=== PATIENT | female | born 1955 | race Caucasian/White ===

== ENCOUNTER 2016-07-07 14:19 | Inpatient (IN) | payer MEDICARE, OTHER ==
[~2016-07-07] VITALS: Ht 157.5 cm; Wt 69.4 kg
[~2016-07-07 14:19] MED LIST: GABA-532 PO; LORA1TAB PO; PHEN100C4 PO; QUET200T PO; SERT100T PO; TEMA30CA5 PO
[2016-07-07 16:59] LABS: BASOPHILS # (AUTO) 0.8 /CMM (0.0-0.2); BASOPHILS % (AUTO) 1.7 % (0.0-2.0); DIFF TOTAL % 100 %; EOSINOPHILS # (AUTO) 0.1 /CMM (0.0-0.7); EOSINOPHILS % (AUTO) 0.2 % (0.0-6.0); HEMATOCRIT 35 % (33-45); HEMOGLOBIN 11.8 g/dL (11.5-14.8); LYMPHOCYTES # (AUTO) 2.9 /CMM (0.8-4.8); LYMPHOCYTES % (AUTO) 6.4 % (20.0-44.0); MEAN CORPUSCULAR HEMOGLOBIN 32 PG (26.0-33.0); MEAN CORPUSCULAR HGB CONC 33 g/dl (31.0-36.0); MEAN CORPUSCULAR VOLUME 96 fL (82-100); MONOCYTES # (AUTO) 1.8 /CMM (0.1-1.30); MONOCYTES % (AUTO) 4.1 % (2.0-12.0); NEUTROPHILS # (AUTO) 39.3 /CMM (1.8-8.9); NEUTROPHILS % (AUTO) 87.6 % (43.0-81.0); PLATELET COUNT (AUTO) 400 /CMM (150-450)
[2016-07-07] MEDS ORDERED: IV NS 0.9% 1,000 ML BAG IV ONE ×2 (17:00→21:30)
[2016-07-07 17:12] LABS: ANION GAP 16 (5-14); CALCIUM, SERUM 8.7 mg/dL (8.5-10.1); CARBON DIOXIDE 19 mmol/L (21-32); CHLORIDE 104 mmol/L (98-107); CREATININE 0.9 mg/dL (0.6-1.3); GFR 64 mL/min (>60); GLUCOSE 166 mg/dL (74-106); POTASSIUM 3.5 mmol/L (3.5-5.1); SODIUM SERUM 136 mmol/L (136-145); UREA NITROGEN, BLOOD 10 mg/dL (7-18)
[2016-07-07 17:14] LABS: WHITE BLOOD COUNT (AUTO) 44.9 K/uL (4.3-11.0)
[2016-07-07 17:16] LABS: INR 1.01 (0.87-1.13); PROTHROMBIN TIME 10.6 SECS (9.5-12.7)
[2016-07-07 17:18] LABS: ALANINE AMINOTRANSFERASE 28 U/L (12-78); ALBUMIN 2.9 g/dL (3.4-5.0); ASPARTATE AMINOTRANSFERASE 30 U/L (15-37); BILIRUBIN,DIRECT 0.1 mg/dL (0.0-0.2); BILIRUBIN,TOTAL 0.4 mg/dL (0.2-1.0); INDIRECT BILIRUBIN 0.3 mg/dL (0.0-1.1); TOTAL PROTEIN, SERUM 7.5 g/dL (6.4-8.2)
[2016-07-07] MEDS ORDERED: IV NS 0.9% 1,000 ML ONE ×2 (17:19→22:21)
[2016-07-07] MEDS ORDERED: IV SET PRIMARY 1 EA INFUS.SET MC ONE (17:19)
[2016-07-07 17:45] LABS: BAND % (MANUAL) 2 % (0.0-5.0); EOSINOPHILS % (MANUAL) 1 % (0-4); LYMPHOCYTES % (MANUAL) 4 % (16-48); PLATELET ESTIMATE ADEQUATE
[2016-07-07 18:32] LABS: KETONES,URINE Negative (NEGATIVE); LEUKOCYTE ESTERASE ,URINE Small (NEGATIVE)
[2016-07-07 18:37] LABS: ADD UA MICROSCOPIC YES; CANNABINOID, URINE NEGATIVE (NEGATIVE); PHENCYCLIDINE SCREEN,URINE NEGATIVE (NEGATIVE)
[2016-07-07 19:08] LABS: ADD URINE CULTURE YES; WBC,URINE 21-50 /HPF (0-3)
[2016-07-07] MEDS ORDERED: IV SET PRIMARY PUMP SET 1 EA INFUS.SET MC ONE ×2 (20:31→22:21)
[2016-07-07] MEDS ORDERED: CEFTRIAXONE 1GM BAG (ER ONLY) 50 ML IV ONE (20:31)
[2016-07-07] MEDS ORDERED: ALBUTEROL FS 2.5 MG/0.5 ML VIAL.NEB ONE (20:44)
[2016-07-07] MEDS ORDERED: ALBUTEROL FS 2.5 MG/0.5 ML VIAL.NEB NEB ONE (21:00)
[2016-07-07] MEDS ORDERED: CEFTRIAXONE 1GM BAG (ER ONLY) 1 GM/50 ML PIGGYBACK IV ONE (21:00)
[2016-07-07] MEDS ORDERED: IV NS 0.9% 1,000 ML IV ONE (21:30)
[2016-07-07] MEDS ORDERED: MAG HYDROX/AL HYDROX/SIMETH 30 ML UDC PO PRN (21:30)
[2016-07-07] MEDS ORDERED: ONDANSETRON HCL/PF 4 MG/2 ML VIAL IVP PRN (21:30)
[2016-07-07] MEDS ORDERED: Z GUARD REMEDY 2 OZ OINT TP PRN (21:30)
[2016-07-07] MEDS ORDERED: GABAPENTIN 100 MG CAPSULE PO SCH (21:30)
[2016-07-07] MEDS ORDERED: ZOLPIDEM TARTRATE 5 MG TABLET PO PRN (21:30)
[2016-07-07] MEDS ORDERED: MAGNESIUM HYDROXIDE 30 ML UDC PO PRN (21:30)
[2016-07-07 21:59] LABS: LACTIC ACID 1.7 mmol/L (0.4-2.0)
[2016-07-07 22:00] VITALS: BP 107/49
[2016-07-07 22:01] LABS: ALBUMIN 2.6 g/dL (3.4-5.0); BILIRUBIN,DIRECT 0.1 mg/dL (0.0-0.2); BILIRUBIN,TOTAL 0.3 mg/dL (0.2-1.0); INDIRECT BILIRUBIN 0.2 mg/dL (0.0-1.1); TOTAL PROTEIN, SERUM 6.8 g/dL (6.4-8.2)
[2016-07-07] MEDS ORDERED: ACETAMINOPHEN 325 MG TABLET ONE (22:25)
[2016-07-07] MEDS: ACETAMINOPHEN 325 MG TABLET PO PRN (22:28)
[2016-07-07] MEDS ORDERED: LORAZEPAM 1 MG TABLET ONE (23:26)
[2016-07-07] MEDS ORDERED: TEMAZEPAM 15 MG CAPSULE ONE (23:27)
[2016-07-07] MEDS ORDERED: LORAZEPAM 1 MG TABLET PO ONE (23:30)
[2016-07-07] MEDS ORDERED: TEMAZEPAM 15 MG CAPSULE PO PRN (23:30)
[2016-07-08] VITALS (9 sets, daily range): BP systolic 104–130; BP diastolic 54–71
[2016-07-08] MEDS ORDERED: IV NS 0.9% 1,000 ML ONE (00:36)
[2016-07-08] MEDS ORDERED: ACETAMINOPHEN 325 MG TABLET ONE (06:13)
[2016-07-08] MEDS: ACETAMINOPHEN 325 MG TABLET PO PRN (06:20)
[2016-07-08 07:13] LABS: DIFF TOTAL % 100 %; EOSINOPHILS # (AUTO) 0.1 /CMM (0.0-0.7); EOSINOPHILS % (AUTO) 0.2 % (0.0-6.0); HEMATOCRIT 32 % (33-45); HEMOGLOBIN 10.8 g/dL (11.5-14.8); LYMPHOCYTES # (AUTO) 1.9 /CMM (0.8-4.8); LYMPHOCYTES % (AUTO) 5.9 % (20.0-44.0); MEAN CORPUSCULAR HEMOGLOBIN 32 PG (26.0-33.0); MEAN CORPUSCULAR HGB CONC 34 g/dl (31.0-36.0); MEAN CORPUSCULAR VOLUME 97 fL (82-100); MONOCYTES # (AUTO) 1.2 /CMM (0.1-1.30); MONOCYTES % (AUTO) 3.7 % (2.0-12.0); NEUTROPHILS # (AUTO) 29.3 /CMM (1.8-8.9); NEUTROPHILS % (AUTO) 90.2 % (43.0-81.0); PLATELET COUNT (AUTO) 364 /CMM (150-450); RED BLOOD CELL COUNT(AUTO) 3.34 MIL/uL (4.0-5.2)
[2016-07-08 07:48] LABS: CALCIUM, SERUM 7.8 mg/dL (8.5-10.1); CREATININE 0.8 mg/dL (0.6-1.3); PHOSPHORUS 3.4 mg/dL (2.5-4.9); POTASSIUM 3.1 mmol/L (3.5-5.1); WHITE BLOOD COUNT (AUTO) 32.5 K/uL (4.3-11.0)
[2016-07-08 08:40] LABS: BAND % (MANUAL) 6 % (0.0-5.0); EOSINOPHILS % (MANUAL) 1 % (0-4); LYMPHOCYTES % (MANUAL) 8 % (16-48); PLATELET ESTIMATE ADEQUATE
[2016-07-08 08:41] LABS: ANISOCYTOSIS 1+; MICROCYTOSIS 1+
[2016-07-08] MEDS: PHENYTOIN EXTENDED RELEASE 100 MG CAPSULE PO SCH (09:59)
[2016-07-08] MEDS: LORAZEPAM 1 MG TABLET PO SCH ×3 (09:59→16:48)
[2016-07-08] MEDS ORDERED: POTASSIUM CHLORIDE 20 MEQ TAB.PRT.SR PO SCH (11:00)
[2016-07-08] MEDS: VANCOMYCIN HCL 125 MG/2.5 ML ORAL.SUSP PO SCH ×3 (13:48→21:22)
[2016-07-08] MEDS: NEOMY SULF/BACITRAC ZN/POLY 15 GM TUBE TP SCH (13:48)
[2016-07-08] MEDS: HYDROCODONE/APAP 5/325MG 1 EACH TABLET PO PRN ×2 (17:23→21:24)
[2016-07-08] MEDS ORDERED: IV SET PRIMARY PUMP SET 1 EA INFUS.SET MC ONE (19:38)
[2016-07-08] MEDS: Sodium Bicarbonate 100 MEQ in IV D5 / 0.2% NACL 1,000 ML IV PRN (19:43)
[2016-07-08] MEDS: CEFTRIAXONE 1 G in IV D5W 50 ML IV SCH (21:22)
[2016-07-08] MEDS: QUETIAPINE FUMARATE 100 MG TABLET PO SCH (21:23)
[2016-07-08] MEDS ORDERED: TEMAZEPAM 15 MG CAPSULE PO PRN (22:00)
[2016-07-09] VITALS: BP 121/64
[2016-07-09 04:00] VITALS: BP 142/82
[2016-07-09] MEDS: HYDROCODONE/APAP 5/325MG 1 EACH TABLET PO PRN ×3 (05:05→15:59)
[2016-07-09 06:27] LABS: BASOPHILS % (AUTO) 0.1 % (0.0-2.0); DIFF TOTAL % 100 %; EOSINOPHILS # (AUTO) 0.1 /CMM (0.0-0.7); EOSINOPHILS % (AUTO) 0.5 % (0.0-6.0); HEMATOCRIT 31 % (33-45); HEMOGLOBIN 10.4 g/dL (11.5-14.8); LYMPHOCYTES # (AUTO) 1.6 /CMM (0.8-4.8); LYMPHOCYTES % (AUTO) 8.5 % (20.0-44.0); MEAN CORPUSCULAR HEMOGLOBIN 32 PG (26.0-33.0); MEAN CORPUSCULAR HGB CONC 34 g/dl (31.0-36.0); MEAN CORPUSCULAR VOLUME 95 fL (82-100); MONOCYTES # (AUTO) 0.6 /CMM (0.1-1.30); MONOCYTES % (AUTO) 3.2 % (2.0-12.0); NEUTROPHILS # (AUTO) 16.3 /CMM (1.8-8.9); NEUTROPHILS % (AUTO) 87.7 % (43.0-81.0); PLATELET COUNT (AUTO) 315 /CMM (150-450); RED BLOOD CELL COUNT(AUTO) 3.28 MIL/uL (4.0-5.2); WHITE BLOOD COUNT (AUTO) 18.6 K/uL (4.3-11.0)
[2016-07-09 06:45] LABS: CALCIUM, SERUM 8.1 mg/dL (8.5-10.1); CREATININE 0.7 mg/dL (0.6-1.3); PHOSPHORUS 1.9 mg/dL (2.5-4.9)
[2016-07-09 08:00] VITALS: BP 112/52
[2016-07-09] MEDS: Sodium Bicarbonate 100 MEQ in IV D5 / 0.2% NACL 1,000 ML IV PRN (08:32)
[2016-07-09] MEDS: LORAZEPAM 1 MG TABLET PO SCH ×3 (08:32→16:03)
[2016-07-09] MEDS: VANCOMYCIN HCL 125 MG/2.5 ML ORAL.SUSP PO SCH ×4 (08:32→20:14)
[2016-07-09] MEDS: SERTRALINE HCL 50 MG TABLET PO SCH (08:32)
[2016-07-09] MEDS: PHENYTOIN EXTENDED RELEASE 100 MG CAPSULE PO SCH (08:32)
[2016-07-09] MEDS: NEOMY SULF/BACITRAC ZN/POLY 15 GM TUBE TP SCH (08:33)
[2016-07-09] MEDS: MORPHINE SULFATE INJ 2 MG/ML DISP.SYRIN IV PRN ×2 (10:29→14:50)
[2016-07-09] MEDS: POTASSIUM CHLORIDE 20 MEQ TAB.PRT.SR PO SCH ×3 (10:37→12:56)
[2016-07-09] MEDS ORDERED: SECONDARY IV SET 1 EA INFUS.SET MC ONE (11:07)
[2016-07-09] MEDS: Magnesium 1GM/D5W 100ML PREMIX 100 ML IV SCH ×2 (11:17→12:19)
[2016-07-09] MEDS ORDERED: K PHOS NEUTRAL 250 MG TABLET PO ONE (12:30)
[2016-07-09 16:00] VITALS: BP 93/52
[2016-07-09 20:00] VITALS: BP 91/58
[2016-07-09] MEDS: CEFTRIAXONE 1 G in IV D5W 50 ML IV SCH (20:32)
[2016-07-09] MEDS: QUETIAPINE FUMARATE 100 MG TABLET PO SCH (21:39)
[2016-07-10] MEDS: Sodium Bicarbonate 100 MEQ in IV D5 / 0.2% NACL 1,000 ML IV PRN ×2 (01:16→21:48)
[2016-07-10] MEDS: HYDROCODONE/APAP 5/325MG 1 EACH TABLET PO PRN ×3 (01:16→13:20)
[2016-07-10 04:00] VITALS: BP 108/65
[2016-07-10 06:59] LABS: BASOPHILS # (AUTO) 0.1 /CMM (0.0-0.2); BASOPHILS % (AUTO) 0.8 % (0.0-2.0); DIFF TOTAL % 100 %; EOSINOPHILS # (AUTO) 0.3 /CMM (0.0-0.7); EOSINOPHILS % (AUTO) 3.5 % (0.0-6.0); HEMATOCRIT 29 % (33-45); HEMOGLOBIN 9.9 g/dL (11.5-14.8); LYMPHOCYTES # (AUTO) 1.9 /CMM (0.8-4.8); LYMPHOCYTES % (AUTO) 19.4 % (20.0-44.0); MEAN CORPUSCULAR HEMOGLOBIN 32 PG (26.0-33.0); MEAN CORPUSCULAR HGB CONC 34 g/dl (31.0-36.0); MEAN CORPUSCULAR VOLUME 95 fL (82-100); MONOCYTES % (AUTO) 10.2 % (2.0-12.0); NEUTROPHILS # (AUTO) 6.6 /CMM (1.8-8.9); NEUTROPHILS % (AUTO) 66.1 % (43.0-81.0); PLATELET COUNT (AUTO) 305 /CMM (150-450); RED BLOOD CELL COUNT(AUTO) 3.07 MIL/uL (4.0-5.2)
[2016-07-10 07:17] LABS: CALCIUM, SERUM 7.9 mg/dL (8.5-10.1); CREATININE 0.5 mg/dL (0.6-1.3)
[2016-07-10 08:00] VITALS: BP 97/50
[2016-07-10] MEDS: LORAZEPAM 1 MG TABLET PO SCH ×3 (08:49→17:00)
[2016-07-10] MEDS: SERTRALINE HCL 50 MG TABLET PO SCH (08:49)
[2016-07-10] MEDS: VANCOMYCIN HCL 125 MG/2.5 ML ORAL.SUSP PO SCH ×4 (08:50→21:12)
[2016-07-10] MEDS: PHENYTOIN EXTENDED RELEASE 100 MG CAPSULE PO SCH (08:50)
[2016-07-10] MEDS: NEOMY SULF/BACITRAC ZN/POLY 15 GM TUBE TP SCH (08:51)
[2016-07-10] MEDS: POTASSIUM CHLORIDE 20 MEQ TAB.PRT.SR PO SCH ×3 (10:46→13:20)
[2016-07-10] MEDS: Magnesium 1GM/D5W 100ML PREMIX 100 ML IV SCH ×2 (10:49→12:06)
[2016-07-10 16:00] VITALS: BP 117/70
[2016-07-10] MEDS: MORPHINE SULFATE INJ 2 MG/ML DISP.SYRIN IV PRN (17:04)
[2016-07-10 20:00] VITALS: BP 107/57
[2016-07-10] MEDS: CEFTRIAXONE 1 G in IV D5W 50 ML IV SCH (21:12)
[2016-07-10] MEDS: QUETIAPINE FUMARATE 100 MG TABLET PO SCH (21:12)
[2016-07-11 04:00] VITALS: BP 125/59
[2016-07-11] MEDS: ACETAMINOPHEN 325 MG TABLET PO PRN (04:08)
[2016-07-11] MEDS: Sodium Bicarbonate 100 MEQ in IV D5 / 0.2% NACL 1,000 ML IV PRN (06:47)
[2016-07-11 07:07] LABS: BASOPHILS # (AUTO) 0.1 /CMM (0.0-0.2); BASOPHILS % (AUTO) 0.5 % (0.0-2.0); DIFF TOTAL % 100 %; EOSINOPHILS # (AUTO) 0.4 /CMM (0.0-0.7); EOSINOPHILS % (AUTO) 4.1 % (0.0-6.0); HEMATOCRIT 31 % (33-45); HEMOGLOBIN 10.4 g/dL (11.5-14.8); LYMPHOCYTES # (AUTO) 2.3 /CMM (0.8-4.8); LYMPHOCYTES % (AUTO) 23.2 % (20.0-44.0); MEAN CORPUSCULAR HEMOGLOBIN 32 PG (26.0-33.0); MEAN CORPUSCULAR HGB CONC 34 g/dl (31.0-36.0); MEAN CORPUSCULAR VOLUME 94 fL (82-100); MONOCYTES # (AUTO) 1.1 /CMM (0.1-1.30); MONOCYTES % (AUTO) 11.2 % (2.0-12.0); NEUTROPHILS # (AUTO) 6.1 /CMM (1.8-8.9); PLATELET COUNT (AUTO) 334 /CMM (150-450); RED BLOOD CELL COUNT(AUTO) 3.24 MIL/uL (4.0-5.2)
[2016-07-11 07:32] LABS: CALCIUM, SERUM 7.8 mg/dL (8.5-10.1); CREATININE 0.6 mg/dL (0.6-1.3); POTASSIUM 3.1 mmol/L (3.5-5.1)
[2016-07-11 08:00] VITALS: BP 117/72
[2016-07-11] MEDS: LORAZEPAM 1 MG TABLET PO SCH ×3 (09:00→16:41)
[2016-07-11] MEDS: NEOMY SULF/BACITRAC ZN/POLY 15 GM TUBE TP SCH (09:27)
[2016-07-11] MEDS: PHENYTOIN EXTENDED RELEASE 100 MG CAPSULE PO SCH (09:27)
[2016-07-11] MEDS: SERTRALINE HCL 50 MG TABLET PO SCH (09:27)
[2016-07-11] MEDS ORDERED: LEVOFLOXACIN (500MG) 500 MG TABLET PO SCH (10:00)
[2016-07-11] MEDS: POTASSIUM CHLORIDE 20 MEQ TAB.PRT.SR PO SCH ×2 (12:06→14:38)
[2016-07-11 16:00] VITALS: BP 131/73
[2016-07-11] MEDS: HYDROCODONE/APAP 5/325MG 1 EACH TABLET PO PRN (16:50)
== END 2016-07-11 17:28 | disposition home or self-care (01) | DRG 872 ==
LOC: ER 14:24 → TELE1 21:08 → MEDSG1 07-09 10:38
PROVIDERS: ADMIT Family Medicine; ATTEND Family Medicine
DX: A41.50 Gram-negative sepsis, unspecified (principal); N39.0 Urinary tract infection, site not specified; E87.2 Acidosis; E88.09 Other disorders of plasma-protein metabolism, not elsewhere classified; F32.9 Major depressive disorder, single episode, unspecified; F41.9 Anxiety disorder, unspecified; J44.9 Chronic obstructive pulmonary disease, unspecified; F43.10 Post-traumatic stress disorder, unspecified; F17.210 Nicotine dependence, cigarettes, uncomplicated; R73.9 Hyperglycemia, unspecified; B96.20 Unspecified Escherichia coli [E. coli] as the cause of diseases classified elsewhere; E66.9 Obesity, unspecified; G40.909 Epilepsy, unspecified, not intractable, without status epilepticus; M19.90 Unspecified osteoarthritis, unspecified site; Z90.49 Acquired absence of other specified parts of digestive tract
CPT/HCPCS: 36415; 70450-TC; 71100-TC; 72100-TC; 80048-TC; 80061-TC; 80076-TC; 80185-TC; 80305; 81000-TC; 83605-TC; 83735-TC; 84100-TC; 85025-TC; 85730-TC; 87040-TC; 87081-TC; 87086-TC; 87186-TC; 87400; 97001-TC; A4606; G6040-TC; J0696; J2270; J2405; J3475; J3490; J7030; J7060; Z7610

== ENCOUNTER 2016-07-20 19:44 | Emergency (ER) | payer MEDICARE, OTHER ==
[~2016-07-20] VITALS: Ht 157.5 cm; Wt 83.9 kg
[2016-07-20 20:06] VITALS: BP 105/62
[2016-07-20] MEDS ORDERED: KETOROLAC TROMETHAMINE INJ 60 MG/2 ML VIAL IM ONE ×2 (21:30→21:32)
[2016-07-20] MEDS ORDERED: HYDROCODONE/APAP 5/325MG 1 EACH TABLET PO ONE (21:30)
[2016-07-20] MEDS ORDERED: HYDROCODONE/APAP 5/325MG 1 EACH TABLET ONE (21:31)
== END 2016-07-20 22:37 | disposition left against medical advice (07) ==
LOC: ER 19:46
DX: M54.5 Low back pain (principal); J44.9 Chronic obstructive pulmonary disease, unspecified; F41.9 Anxiety disorder, unspecified; F32.9 Major depressive disorder, single episode, unspecified; F17.210 Nicotine dependence, cigarettes, uncomplicated
CPT/HCPCS: 96372; 99283; A4606; J1885; Z7610

== ENCOUNTER 2016-07-22 19:12 | Emergency (ER) | payer MEDICARE, OTHER ==
[~2016-07-22] VITALS: Ht 157.5 cm; Wt 83.9 kg
[2016-07-22] MEDS ORDERED: LORAZEPAM INJ 2 MG/ML VIAL IVP ONE (19:30)
[2016-07-22] MEDS ORDERED: IV NS 0.9% 500 ML BAG IV ONE (19:30)
[2016-07-22] MEDS ORDERED: ONDANSETRON HCL/PF 4 MG/2 ML VIAL IVP ONE (19:30)
[2016-07-22] MEDS ORDERED: KETOROLAC TROMETHAMINE INJ 30 MG/ML VIAL IV ONE (19:30)
[2016-07-22] MEDS ORDERED: KETOROLAC TROMETHAMINE 15 MG/ML VIAL ONE (19:35)
[2016-07-22] MEDS ORDERED: ONDANSETRON HCL/PF 4 MG/2 ML VIAL ONE (19:35)
[2016-07-22] MEDS ORDERED: IV SET PRIMARY 1 EA INFUS.SET MC ONE (19:36)
[2016-07-22] MEDS ORDERED: IV NS 0.9% 500 ML IV ONE (19:36)
[2016-07-22] MEDS ORDERED: LORAZEPAM INJ 2 MG/ML VIAL ONE (19:37)
[2016-07-22 19:44] LABS: EOSINOPHILS # (AUTO) 0.3 /CMM (0.0-0.7); EOSINOPHILS % (AUTO) 2.1 % (0.0-6.0)
[2016-07-22 19:52] LABS: ANION GAP 20 (5-14); CALCIUM, SERUM 9.9 mg/dL (8.5-10.1); CARBON DIOXIDE 19 mmol/L (21-32); CHLORIDE 109 mmol/L (98-107); CREATININE 0.9 mg/dL (0.6-1.3); GFR 64 mL/min (>60); GLUCOSE 114 mg/dL (74-106); POTASSIUM 4.2 mmol/L (3.5-5.1); SODIUM SERUM 144 mmol/L (136-145); UREA NITROGEN, BLOOD 11 mg/dL (7-18)
[2016-07-22 19:57] LABS: ALANINE AMINOTRANSFERASE 19 U/L (12-78); ALBUMIN 3.6 g/dL (3.4-5.0); ASPARTATE AMINOTRANSFERASE 18 U/L (15-37); BASOPHILS # (AUTO) 0.1 /CMM (0.0-0.2); BILIRUBIN,DIRECT 0.2 mg/dL (0.0-0.2); BILIRUBIN,TOTAL 0.3 mg/dL (0.2-1.0); DIFF TOTAL % 100 %; HEMATOCRIT 42 % (33-45); INDIRECT BILIRUBIN 0.1 mg/dL (0.0-1.1); LYMPHOCYTES # (AUTO) 2.9 /CMM (0.8-4.8); LYMPHOCYTES % (AUTO) 19.3 % (20.0-44.0); MEAN CORPUSCULAR HEMOGLOBIN 32 PG (26.0-33.0); MEAN CORPUSCULAR HGB CONC 34 g/dl (31.0-36.0); MEAN CORPUSCULAR VOLUME 95 fL (82-100); MONOCYTES # (AUTO) 0.5 /CMM (0.1-1.30); MONOCYTES % (AUTO) 3.6 % (2.0-12.0); NEUTROPHILS # (AUTO) 11.1 /CMM (1.8-8.9); RED BLOOD CELL COUNT(AUTO) 4.38 MIL/uL (4.0-5.2); WHITE BLOOD COUNT (AUTO) 14.9 K/uL (4.3-11.0)
[2016-07-22] MEDS ORDERED: phenytoin SODIUM IV 250 MG/5 ML VIAL IV ONE (20:51)
[2016-07-22] MEDS ORDERED: IV SET PRIMARY PUMP SET 1 EA INFUS.SET MC ONE (20:51)
[2016-07-22] MEDS ORDERED: IV FILTER 5 MICRON 1 EA INFUS.SET MC ONE (20:51)
[2016-07-22] MEDS ORDERED: IV NS 0.9% 50 ML IV ONE (20:51)
[2016-07-22] MEDS ORDERED: phenytoin SODIUM IV 500 MG in IV NS 0.9% 50 ML IV ONE (21:00)
[2016-07-22 21:30] VITALS: BP 126/79
[2016-07-22 21:52] LABS: PLATELET COUNT (AUTO) 807 /CMM (150-450)
[2016-07-22 22:23] LABS: BAND % (MANUAL) 1 % (0.0-5.0); BASOPHILS % (MANUAL) 0 % (0.0-2.0); EOSINOPHILS % (MANUAL) 4 % (0-4); LYMPHOCYTES % (MANUAL) 18 % (16-48)
[2016-07-22 22:24] LABS: PLATELET ESTIMATE INCREASED; RBC MORPHOLOGY COMMENT NORMAL RBC MORPH
== END 2016-07-22 21:30 | disposition home or self-care (01) ==
LOC: ER 19:16
DX: R56.9 Unspecified convulsions (principal); M54.5 Low back pain; G89.29 Other chronic pain; J44.9 Chronic obstructive pulmonary disease, unspecified; F32.9 Major depressive disorder, single episode, unspecified; F41.9 Anxiety disorder, unspecified; F17.210 Nicotine dependence, cigarettes, uncomplicated
CPT/HCPCS: 36415; 80048-TC; 80076-TC; 80185-TC; 85025-TC; A4216; A4606; G6040-TC; J1165; J1885; J2060; J2405; J7040; Z7610

== ENCOUNTER 2017-03-27 14:24 | Emergency (ER) | payer MEDICARE, OTHER ==
[~2017-03-27] VITALS: Ht 157.5 cm; Wt 68.0 kg
--- NOTE | 2017-03-27 14:28 | NUR ---
aaox3, came to ER c/o CHEST WALL AND LOWER BACK/HIP PAIN S/P SLIP AND FALL ON 03/16/17. RR is even and unlabored with NAD noted. Skin is warm and dry. Placed on monitor. Dr Fischer at BS for eval.
--- NOTE | 2017-03-27 14:57 | NUR ---
CALLED DR DIEHL'S OFFICE SPOKE WITH SHWETHA SAINI IS SUB PLANT MANAGER FOR HIM AND WAS PAGED. .
[2017-03-27] MEDS ORDERED: ASPIRIN 325 MG TABLET PO ONE (15:00)
[2017-03-27] MEDS ORDERED: ASPIRIN 325 MG TABLET ONE (15:12)
[2017-03-27 15:15] LABS: BASOPHILS # (AUTO) 0.2 /CMM (0.0-0.2); BASOPHILS % (AUTO) 1.2 % (0.0-2.0); EOSINOPHILS # (AUTO) 0.6 /CMM (0.0-0.7); EOSINOPHILS % (AUTO) 4.4 % (0.0-6.0); HEMATOCRIT 40 % (33-45); HEMOGLOBIN 13.4 g/dL (11.5-14.8); LYMPHOCYTES # (AUTO) 3.7 /CMM (0.8-4.8); LYMPHOCYTES % (AUTO) 26.7 % (20.0-44.0); MEAN CORPUSCULAR HEMOGLOBIN 33 PG (26.0-33.0); MEAN CORPUSCULAR HGB CONC 34 g/dl (31.0-36.0); MEAN CORPUSCULAR VOLUME 97 fL (82-100); MONOCYTES # (AUTO) 0.7 /CMM (0.1-1.30); NEUTROPHILS # (AUTO) 8.7 /CMM (1.8-8.9); NEUTROPHILS % (AUTO) 62.7 % (43.0-81.0); PLATELET COUNT (AUTO) 418 /CMM (150-450); RDW COEFFICIENT OF VARIATION 13.1 (11.5-15.0); RED BLOOD CELL COUNT(AUTO) 4.14 MIL/uL (4.0-5.2); WHITE BLOOD COUNT (AUTO) 13.9 K/uL (4.3-11.0)
[2017-03-27 15:27] LABS: CALCIUM, SERUM 7.9 mg/dL (8.5-10.1); CARBON DIOXIDE 23 mmol/L (21-32); CHLORIDE 106 mmol/L (98-107); CREATININE 0.7 mg/dL (0.6-1.3); GLUCOSE 99 mg/dL (74-106); POTASSIUM 3.9 mmol/L (3.5-5.1); SODIUM SERUM 137 mmol/L (136-145); UREA NITROGEN, BLOOD 11 mg/dL (7-18)
[2017-03-27 15:36] LABS: TROPONIN I < 0.017 ng/mL (0.00-0.056)
[2017-03-27 15:43] LABS: D-DIMER 0.27 mg/L(FEU (0.17-0.50); INR 0.9 (0.87-1.13); PROTHROMBIN TIME 9.4 SECS (9.5-12.7)
--- NOTE | 2017-03-27 15:48 | NUR ---
CALLED DR DIEHL'S OFFICE SPOKE WITH SHWETHA SAINI IS SUBSTITUTE BUS DRIVER FOR HIM AND WAS REPAGED.
--- NOTE | 2017-03-27 16:11 | NUR ---
SHWETHA RIOS CALLED BACK ON THE PHONE WITH DR MI.
--- NOTE | 2017-03-27 16:30 | NUR ---
IV removed. Catheter intact and site benign. Pressure and 4x4 applied to site. No bleeding noted.Patient discharged to home in stable condition. Written and verbal after care instructions given. Patient verbalizes understanding of instruction.
[2017-03-27 16:35] VITALS: BP 118/73
== END 2017-03-27 16:36 | disposition home or self-care (01) ==
LOC: ER 14:27
DX: R07.89 Other chest pain (principal); M54.5 Low back pain; G89.29 Other chronic pain; B19.20 Unspecified viral hepatitis C without hepatic coma; E66.9 Obesity, unspecified; F43.10 Post-traumatic stress disorder, unspecified; G40.909 Epilepsy, unspecified, not intractable, without status epilepticus; J44.9 Chronic obstructive pulmonary disease, unspecified; F17.200 Nicotine dependence, unspecified, uncomplicated; F41.9 Anxiety disorder, unspecified
CPT/HCPCS: 36415; 71010; 80048; 84484; 85025; 85378; 85730; 93005; 99285; A4606; Z7610

== ENCOUNTER 2017-04-17 21:47 | Emergency (ER) | payer MEDICARE, OTHER ==
[~2017-04-17] VITALS: Ht 157.5 cm; Wt 72.6 kg
[2017-04-17 22:10] VITALS: BP 144/69
--- NOTE | 2017-04-18 00:35 | NUR ---
CALLED PT IN [place], NO RESPONSE
--- NOTE | 2017-04-18 01:41 | NUR ---
CALLED PT IN [place], NO RESPONSE
== END 2017-04-18 01:42 | disposition left against medical advice (07) ==
LOC: ER 21:47
DX: Z53.21 Procedure and treatment not carried out due to patient leaving prior to being seen by health care provider (principal)
CPT/HCPCS: A4606; Z7610

== ENCOUNTER 2017-08-06 11:33 | Emergency (ER) | payer MEDICARE, OTHER ==
[~2017-08-06] VITALS: Ht 157.5 cm; Wt 63.5 kg
--- NOTE | 2017-08-06 11:40 | NUR ---
BB FOR LEFT RIB PAIN S/P SEIZURE YSTERDAY, FLU LIKE SX, COUGH X JUNE, NAD NOTED, VSS, RESP EVEN AND UNLABORED. WAITING FOR MD PATEL.
[2017-08-06] MEDS ORDERED: IBUPROFEN 400 MG TABLET ONE (12:30)
[2017-08-06] MEDS ORDERED: IBUPROFEN 400 MG TABLET PO ONE (12:30)
[2017-08-06 14:51] VITALS: BP 109/72
--- NOTE | 2017-08-06 14:51 | NUR ---
Patient discharged to home in stable condition. Written and verbal after care instructions given. Patient verbalizes understanding of instruction. Prescription given.
== END 2017-08-06 14:53 | disposition home or self-care (01) ==
LOC: ER 11:35
DX: S20.212A Contusion of left front wall of thorax, initial encounter (principal); G40.909 Epilepsy, unspecified, not intractable, without status epilepticus; F41.9 Anxiety disorder, unspecified; F43.10 Post-traumatic stress disorder, unspecified; E66.9 Obesity, unspecified; B19.20 Unspecified viral hepatitis C without hepatic coma; F32.9 Major depressive disorder, single episode, unspecified; F17.200 Nicotine dependence, unspecified, uncomplicated; X58.XXXA Exposure to other specified factors, initial encounter; Y93.89 Activity, other specified; Y92.89 Other specified places as the place of occurrence of the external cause; Y99.8 Other external cause status
CPT/HCPCS: 71100; 99284; A4606; Z7610

== ENCOUNTER 2017-12-18 18:00 | Inpatient (IN) | payer MEDICARE, OTHER ==
[~2017-12-18] VITALS: Ht 154.9 cm; Wt 69.4 kg
[~2017-12-18 18:00] MED LIST changes: +SERTRALINE HCL 50 MG TABLET PO SCH
--- NOTE | 2017-12-18 18:10 | NUR ---
PT CAME IN WITH C/O NON TRAUMATIC BACK PAIN X 1 WEEK. SEEN BY MD FOR EVAL. VSS. SAFETY AND COMFORT MEASURES PROVIDED. WILL MONITOR.
[2017-12-18] MEDS ORDERED: IV NS 0.9% 1,000 ML BAG IV ONE (18:30)
--- NOTE | 2017-12-18 18:50 | NUR ---
IV ACCESS STARTED. BLOOD DRAWN FOR LABS, MEDICATED ORDERED. URINE SAMPLE OBTAINED, SENT.
[2017-12-18 19:01] LABS: BASOPHILS # (AUTO) 0.7 /CMM (0.0-0.2); BASOPHILS % (AUTO) 2.3 % (0.0-2.0); EOSINOPHILS % (AUTO) 0.7 % (0.0-6.0); HEMATOCRIT 37 % (33-45); HEMOGLOBIN 12.3 g/dL (11.5-14.8); LYMPHOCYTES # (AUTO) 2.4 /CMM (0.8-4.8); LYMPHOCYTES % (AUTO) 8.6 % (20.0-44.0); MEAN CORPUSCULAR HEMOGLOBIN 31 PG (26.0-33.0); MEAN CORPUSCULAR HGB CONC 34 g/dl (31.0-36.0); MEAN CORPUSCULAR VOLUME 91 fL (82-100); MONOCYTES % (AUTO) 3.5 % (2.0-12.0); NEUTROPHILS # (AUTO) 24.1 /CMM (1.8-8.9); NEUTROPHILS % (AUTO) 84.9 % (43.0-81.0); PLATELET COUNT (AUTO) 397 /CMM (150-450); RDW COEFFICIENT OF VARIATION 14.4 (11.5-15.0); WHITE BLOOD COUNT (AUTO) 28.4 K/uL (4.3-11.0)
[2017-12-18 19:05] LABS: CALCIUM, SERUM 8.7 mg/dL (8.5-10.1); CARBON DIOXIDE 22 mmol/L (21-32); CHLORIDE 108 mmol/L (98-107); CREATININE 1.1 mg/dL (0.6-1.3); GLUCOSE 122 mg/dL (74-106); SODIUM SERUM 140 mmol/L (136-145); UREA NITROGEN, BLOOD 12 mg/dL (7-18)
[2017-12-18 19:14] LABS: TROPONIN I < 0.017 ng/mL (0.00-0.056)
[2017-12-18 19:14] LABS: APPEARANCE,URINE Slightly Cloudy (CLEAR); BILIRUBIN,URINE Negative (NEGATIVE); BLOOD, URINE Trace-lysed Ery/uL (NEGATIVE); COLOR,URINE Yellow (YELLOW); KETONES,URINE Negative (NEGATIVE); LEUKOCYTE ESTERASE ,URINE Large (NEGATIVE); NITRITE, URINE Positive (NEGATIVE); PROTEIN,URINE 30 mg/dl (NEGATIVE); UGLUCOSE Negative (NEGATIVE)
--- NOTE | 2017-12-18 19:25 | NUR ---
PT OFF TO CT
[2017-12-18 19:53] LABS: BACTERIA,URINE Many /HPF (None Seen); SQUAMOUS EPITHELIAL CELL,UR Few /HPF (None Seen); WBC,URINE 51-80 /HPF (0-3)
[2017-12-18] MEDS ORDERED: CEFTRIAXONE 1GM BAG (ER ONLY) 1 GM/50 ML PIGGYBACK IV ONE (20:00)
[2017-12-18] MEDS ORDERED: phenytoin SODIUM IV 250 MG/5 ML VIAL IV ONE (20:00)
[2017-12-18] MEDS ORDERED: CEFTRIAXONE 1 G VIAL ONE (20:00)
[2017-12-18] MEDS ORDERED: phenytoin SODIUM IV 1,000 MG in IV NS 0.9% 100 ML IV ONE (20:00)
--- NOTE | 2017-12-18 20:22 | NUR ---
CALLED [employer] SAFETY PROFESSIONAL WAS PAGED.
[2017-12-18] MEDS ORDERED: IV NS 0.9% 1,000 ML IV PRN (20:33)
[2017-12-18] MEDS ORDERED: ONDANSETRON HCL/PF 4 MG/2 ML VIAL IVP PRN (21:00)
[2017-12-18] MEDS ORDERED: ZOLPIDEM TARTRATE 5 MG TABLET PO PRN (21:00)
[2017-12-18] MEDS ORDERED: MAG HYDROX/AL HYDROX/SIMETH 30 ML UDC PO PRN (21:00)
[2017-12-18] MEDS ORDERED: ACETAMINOPHEN 325 MG TABLET PO PRN (21:00)
[2017-12-18] MEDS ORDERED: MAGNESIUM HYDROXIDE 30 ML UDC PO PRN (21:00)
[2017-12-18] MEDS ORDERED: Z GUARD REMEDY 2 OZ OINT TP PRN (21:00)
[2017-12-18] MEDS ORDERED: TEMAZEPAM 15 MG CAPSULE PO PRN (21:00)
[2017-12-18] MEDS ORDERED: HYDROCODONE/APAP 5/325MG 1 EACH TABLET PO PRN (21:00)
[2017-12-18] MEDS: CEFTRIAXONE 1 G in IV D5W 50 ML IV SCH (21:00)
[2017-12-18] MEDS ORDERED: POTASSIUM CHLORIDE 20 MEQ TAB.PRT.SR PO ONE (21:00)
--- NOTE | 2017-12-18 21:30 | NUR ---
SUPERVISOR SHIPPING - NON ADMIN NOTES James was admin in ER @1952. Will admin next dose. Confirmed with charge nurse
[2017-12-18 21:45] LABS: INR 1.03 (0.87-1.13)
[2017-12-18 22:00] VITALS: BP 98/58
--- NOTE | 2017-12-18 22:02 | NUR ---
BIG 6 DEALER -ADMISSION NOTES Patient received from ER via [facility] at 2120. Patient came to the hospital for non-traumatic back pain x1week. Diagnosed with Pyelonephritis and UTI. H/O COPD, Sciatica, PTSD, Depression, Anxiety, Seizure disorder. Surgery H/o Cholecystectomy and . No known allergies/No known drug allergies. Per ER report, Dilantin and Rocephin given in ER/No pain meds given. Benzodiazepine (+). Patient is Lethargic. Oriented to self (name & ). Verbally responsive: clear w/ episodes of garbled words/speech. Skin/Body assessment done. IV on right hand #20g and left hand #20g: patent and intact. Complaints of mild back pain. On continuous oxygen therapy @1.5 lpm via nasal cannula. SpO2 fluctuating 92-93% with oxygen. SpO2 @88-91% on room air. HOB elevated. Belongings checked by VOLLEYBALL ASSEMBLER. Safety measures in place. Bed in lowest position with bed alarm and call light within reach. MD aware of patient being transferred from ER to Tele. Patient made comfortable. Will continue to monitor patient.
[2017-12-18] MEDS: ENOXAPARIN SODIUM 40 MG/0.4 ML DISP.SYRIN SQ SCH (22:57)
[2017-12-19] VITALS: BP 100/50
[2017-12-19 04:00] VITALS: BP 83/55
[2017-12-19 06:25] LABS: BASOPHILS # (AUTO) 0.1 /CMM (0.0-0.2); BASOPHILS % (AUTO) 0.5 % (0.0-2.0); HEMATOCRIT 29 % (33-45); HEMOGLOBIN 9.4 g/dL (11.5-14.8); LYMPHOCYTES # (AUTO) 3.1 /CMM (0.8-4.8); LYMPHOCYTES % (AUTO) 15.5 % (20.0-44.0); MEAN CORPUSCULAR HEMOGLOBIN 31 PG (26.0-33.0); MEAN CORPUSCULAR HGB CONC 33 g/dl (31.0-36.0); MEAN CORPUSCULAR VOLUME 96 fL (82-100); MONOCYTES # (AUTO) 1.1 /CMM (0.1-1.30); MONOCYTES % (AUTO) 5.4 % (2.0-12.0); NEUTROPHILS # (AUTO) 15.1 /CMM (1.8-8.9); NEUTROPHILS % (AUTO) 76.6 % (43.0-81.0); PLATELET COUNT (AUTO) 293 /CMM (150-450); RDW COEFFICIENT OF VARIATION 15.1 (11.5-15.0); RED BLOOD CELL COUNT(AUTO) 2.99 MIL/uL (4.0-5.2); WHITE BLOOD COUNT (AUTO) 19.7 K/uL (4.3-11.0)
[2017-12-19 06:53] LABS: THYROID STIMULATING HORMONE 0.961 uIU/mL (0.358-3.74)
[2017-12-19] MEDS ORDERED: IV NS 0.9% 1,000 ML BAG IV PRN (07:00)
--- NOTE | 2017-12-19 07:02 | NUR ---
MANAGER CT - NEW ORDER Dr. Tejeda made aware of hypotension. New order of 1L bag of NS IV once only
[2017-12-19 07:05] LABS: CALCIUM, SERUM 6.5 mg/dL (8.5-10.1); CREATININE 0.6 mg/dL (0.6-1.3); MAGNESIUM 1.4 mg/dL (1.8-2.4); PHOSPHORUS 3.3 mg/dL (2.5-4.9)
--- NOTE | 2017-12-19 07:15 | NUR ---
ECONOMICS INSTRUCTOR - NEW ORDER NOTES 1L NS bolus started
[2017-12-19] MEDS ORDERED: POTASSIUM CHLORIDE 20 MEQ TAB.PRT.SR PO ONE (07:30)
--- NOTE | 2017-12-19 07:35 | NUR ---
RAILROAD WORKER CLOSING NOTES Endorsed to oncoming shift nurse regarding episodes of hypotension with new order of IV 1L NS bolus once (running on right hand IV) per MD. IV site on right hand #20g and left hand #20g: patent and intact. BLE elevated. Patient is responsive, asymptomatic and no significant changes in LOC since admission. Assisted to bedside commode as needed. Bed in lowest position with bed alarm and call light within reach.
[2017-12-19 07:44] LABS: POTASSIUM 2.7 mmol/L (3.5-5.1)
[2017-12-19 08:01] VITALS: BP 91/51
--- NOTE | 2017-12-19 08:03 | NUR ---
MOVING VAN DRIVER NOTES PATIENT IN BED, AWAKE. SINUS RHYTHM HR72 ON THE TELEMONITOR, DENIES PAIN. BP LOW 80's PER REPORT, OF 08:00AM BP 91/51, IV NS 1L BOLUS CURRENTLY INFUSING, DENIES DIZZINESS OR HEADACHE. LOW POTASSIUM 2.7, SUPPLEMENTED ORDERED. CALL LIGHT WITHIN REACH. WILL CONT TO MONITOR.
[2017-12-19] MEDS: Magnesium 1GM/D5W 100ML PREMIX 100 ML IV SCH ×3 (08:34→10:54)
[2017-12-19] MEDS: GABAPENTIN 100 MG CAPSULE PO SCH ×3 (08:50→16:31)
[2017-12-19] MEDS: PHENYTOIN EXTENDED RELEASE 100 MG CAPSULE PO SCH ×2 (08:50→16:31)
[2017-12-19] MEDS ORDERED: SERTRALINE HCL 50 MG TABLET PO SCH (09:00)
[2017-12-19] MEDS ORDERED: Magnesium 1GM/D5W 100ML PREMIX 100 ML IV SCH (10:50)
[2017-12-19 12:00] VITALS: BP 102/57
[2017-12-19] MEDS: IV NS 0.9% 1,000 ML IV PRN (13:14)
--- NOTE | 2017-12-19 14:06 | NUR ---
CALLED DR. JOSE RAMON DESAI OFFICE, SPOKE WITH JOANA DOW, VERIFIED MEDICATION DOSE SEROQUEL 200MG IN AM, SEROQUEL 400MG HS, ZOLOFT 200MG QD. INFORMED PACKAGER HAND ZECHARIAH AKINS, WILL REVIEW MEDICATION.
[2017-12-19 15:46] VITALS: BP 94/49
[2017-12-19] MEDS: SERTRALINE HCL 50 MG TABLET PO SCH (15:49)
[2017-12-19] MEDS ORDERED: QUET200T PO ×2 (15:55)
--- NOTE | 2017-12-19 16:52 | NUR ---
INSTRUCTED PATIENT NOT TO EAT OR DRINK STARTING NOW FOR PREP CT ABDOMEN/ PELVIS W CONTRAST, VERBALIZED UNDERSTANDING. SYL ABRAHAM AT THE BEDSIDE CONSENTED PROCEDURE.
[2017-12-19] MEDS ORDERED: QUETIAPINE FUMARATE 100 MG TABLET PO SCH (18:00)
[2017-12-19] MEDS ORDERED: CT SWABBABLE VALVE TRANS SET 1 EA INFUS.SET MC ONE (18:30)
[2017-12-19] MEDS ORDERED: IV NS 0.9% 250 ML IV ONE (18:30)
[2017-12-19] MEDS ORDERED: IOHEXOL-300 100 ML VIAL IV ONE (18:30)
--- NOTE | 2017-12-19 18:59 | NUR ---
ELECTRONIC SECURITY TECHNICIAN CLOSING NOTES PATIENT IN BED, AWAKE, A/O X3 . SINUS RHYTHM HR 75 ON THE TELE MONITOR. EPISODE OF BACK PAIN, MANAGED WITH PRN NORCO WITH RELIEF. IVC IN LEFT HAND AND RIGHT HAND, IVF NS INFUSING AT 75ML/HR. MAGNESIUM AND POTASSIUM SUPPLEMENTED TODAY ORDERED. CURRENTLY NPO FOR CT ABDOMEN/PELVIS WITH CONTRAST, CONSENTED PROCEDURE. CALL LIGHT WITHIN REACH. WILL ENDORSE TO ONCOMING RN.
--- NOTE | 2017-12-19 19:00 | NUR ---
CHUTE OPERATOR OPENING NOTE RECEIVE PATIENT AWAKE IN BED, A/O X 2-3, STABLE NO FACIAL GRIMACING NOTED FOR PAIN. NO SOB OR DISTRESS NOTED, CALL LIGHT WITHIN REACH. SAFETY MEASURES IMPLEMENTED. WILL CONTINUE TO MONITOR THROUGHOUT SHIFT.
[2017-12-19 20:00] VITALS: BP 107/59
[2017-12-19] MEDS: CEFTRIAXONE 1 G in IV D5W 50 ML IV SCH (21:21)
[2017-12-19] MEDS: ENOXAPARIN SODIUM 40 MG/0.4 ML DISP.SYRIN SQ SCH (21:27)
[2017-12-19] MEDS: QUETIAPINE FUMARATE 100 MG TABLET PO SCH (22:11)
[2017-12-20] VITALS: BP 95/55
[2017-12-20] MEDS: IV NS 0.9% 1,000 ML IV PRN ×2 (00:24→15:30)
[2017-12-20 04:00] VITALS: BP 105/65
--- NOTE | 2017-12-20 06:10 | NUR ---
OFFICE MANAGER EXECUTIVE ASSISTANT CLOSING NOTES PT COMFORTABLY ASLEEP AND EASILY AWAKEN, A/O X3, IN STABLE CONDITION. RESPIRATION EVEN AND UNLABORED. KEPT CLEAN AND DRY AND COMFORTABLE, ALL NURSING CARE RENDERED. NEEDS ATTENDED AND ANTICIPATED, GOOD SKIN CARE PROVIDED. FREQUENT VISUAL CHECK DONE FOR SAFETY EVERY 2 HOURS. ON LOW BED AT ALL TIMES TO ENSURE SAFETY. SAFE HAZARD FREE ENVIRONMENT PROVIDED. CALL LIGHT WITHIN EASY TO REACH. WILL ENDORSE NEXT SHIFT CONTINUITY OF CARE. NO COMPLAINS OF PAIN. Addendum: 12/20/17 at 0611 by SHAWNA HI RN ON TELE WITH READING OF SR 87
[2017-12-20 07:04] LABS: BASOPHILS # (AUTO) 0.1 /CMM (0.0-0.2); EOSINOPHILS % (AUTO) 5.6 % (0.0-6.0); HEMATOCRIT 34 % (33-45); HEMOGLOBIN 11.4 g/dL (11.5-14.8); LYMPHOCYTES # (AUTO) 3.4 /CMM (0.8-4.8); LYMPHOCYTES % (AUTO) 29.8 % (20.0-44.0); MEAN CORPUSCULAR HEMOGLOBIN 31 PG (26.0-33.0); MEAN CORPUSCULAR HGB CONC 33 g/dl (31.0-36.0); MEAN CORPUSCULAR VOLUME 94 fL (82-100); MONOCYTES # (AUTO) 0.9 /CMM (0.1-1.30); MONOCYTES % (AUTO) 7.8 % (2.0-12.0); NEUTROPHILS # (AUTO) 6.3 /CMM (1.8-8.9); NEUTROPHILS % (AUTO) 55.8 % (43.0-81.0); PLATELET COUNT (AUTO) 311 /CMM (150-450); RDW COEFFICIENT OF VARIATION 15.3 (11.5-15.0); RED BLOOD CELL COUNT(AUTO) 3.64 MIL/uL (4.0-5.2); WHITE BLOOD COUNT (AUTO) 11.4 K/uL (4.3-11.0)
[2017-12-20 07:31] LABS: CALCIUM, SERUM 8.6 mg/dL (8.5-10.1); CREATININE 0.8 mg/dL (0.6-1.3); MAGNESIUM 2.2 mg/dL (1.8-2.4); PHOSPHORUS 4.1 mg/dL (2.5-4.9); POTASSIUM 3.5 mmol/L (3.5-5.1)
--- NOTE | 2017-12-20 07:59 | NUR ---
[facility] LIAISON HOSPICE NOTES PATIENT IN BED, AWAKE, A/O X3 . SINUS RHYTHM HR 72 ON THE THE MONITOR. CURRENTLY NPO FOR CT ABDOMEN/PELVIS WITH CONTRAST, IVC IN RIGHT AC G18 INSERTED, IVF NS INFUSING AT 100ML/HR. DENIES PAIN, CALL LIGHT WITHIN REACH.
[2017-12-20 08:34] VITALS: BP 103/54
[2017-12-20] MEDS ORDERED: CT SWABBABLE VALVE TRANS SET 1 EA INFUS.SET MC ONE (09:13)
[2017-12-20] MEDS ORDERED: IOHEXOL-300 100 ML VIAL IV ONE (09:13)
[2017-12-20] MEDS ORDERED: IV NS 0.9% 250 ML IV ONE (09:13)
[2017-12-20] MEDS: GABAPENTIN 100 MG CAPSULE PO SCH ×3 (10:14→17:39)
[2017-12-20] MEDS: PHENYTOIN EXTENDED RELEASE 100 MG CAPSULE PO SCH ×2 (10:14→17:39)
[2017-12-20] MEDS: QUETIAPINE FUMARATE 100 MG TABLET PO SCH ×2 (10:14→21:41)
[2017-12-20] MEDS: SERTRALINE HCL 50 MG TABLET PO SCH (10:14)
[2017-12-20 11:58] VITALS: BP 95/59
[2017-12-20 16:46] VITALS: BP 97/63
--- NOTE | 2017-12-20 18:20 | NUR ---
RUSSIAN LANGUAGE INSTRUCTOR CLOSING NOTES PATIENT IN BED, AWAKE, A/O X3 . SINUS RHYTHM HR 74 ON THE TELE MONITOR. DINNER SERVED WITH [employer]IR APP[employer]. IVC IN RIGHT AC WITH IVF NS INFUSING AT 100ML/HR. BREATHING ON ROOM AIR WITH NO SOB. ASSISTED TO BEDSIDE COMMODE, NO BM TODAY. CALL LIGHT WITHIN REACH. CONT ON ANTIBIOTIC FOR UTI PER MD, AFEBRILE DURING THE SHIFT. WILL ENDORSE TO ONCOMING RN.
--- NOTE | 2017-12-20 19:23 | NUR ---
TYPE INSPECTOR OPENING NOTE RECEIVE PATIENT AWAKE IN BED, A/O X3, STABLE NO FACIAL GRIMACING NOTED FOR PAIN. NO SOB OR DISTRESS NOTED, CALL LIGHT WITHIN REACH. SAFETY MEASURES IMPLEMENTED. WILL CONTINUE TO MONITOR THROUGHOUT SHIFT.
[2017-12-20 20:00] VITALS: BP 120/67
[2017-12-20] MEDS: CEFTRIAXONE 1 G in IV D5W 50 ML IV SCH (20:13)
[2017-12-20] MEDS: ENOXAPARIN SODIUM 40 MG/0.4 ML DISP.SYRIN SQ SCH (21:48)
[2017-12-21] VITALS: BP 123/62
[2017-12-21 00:35] VITALS: BP 123/62
[2017-12-21] MEDS: IV NS 0.9% 1,000 ML IV PRN (02:08)
--- NOTE | 2017-12-21 06:12 | NUR ---
MS RN CLOSING NOTES PT COMFORTABLY ASLEEP AND EASILY AWAKEN, IN STABLE CONDITION. A/O X 3, TOLERATING ROOM AIR 98%RESPIRATION EVEN AND UNLABORED. KEPT CLEAN AND DRY AND COMFORTABLE, ALL NURSING CARE RENDERED. NEEDS ATTENDED AND ANTICIPATED, GOOD SKIN CARE PROVIDED. FREQUENT VISUAL CHECK DONE FOR SAFETY EVERY 2 HOURS. ON LOW BED AT ALL TIMES TO ENSURE SAFETY. SAFE HAZARD FREE ENVIRONMENT PROVIDED. CALL LIGHT WITHIN EASY TO REACH. WILL ENDORSE NEXT SHIFT CONTINUITY OF CARE. NO COMPLAINS OF PAIN.
[2017-12-21 07:24] LABS: ALBUMIN 2.5 g/dL (3.4-5.0); BILIRUBIN,TOTAL 0.2 mg/dL (0.2-1.0); CALCIUM, SERUM 8.2 mg/dL (8.5-10.1); CREATININE 0.7 mg/dL (0.6-1.3); MAGNESIUM 1.7 mg/dL (1.8-2.4); PHOSPHORUS 4.5 mg/dL (2.5-4.9); POTASSIUM 3.6 mmol/L (3.5-5.1); TOTAL PROTEIN, SERUM 6.4 g/dL (6.4-8.2)
--- NOTE | 2017-12-21 07:40 | NUR ---
MS RN OPENING NOTE RECEIVED PATIENT IN BED, SLEEPING, EASILY AROUSED WITH VERBAL STIMULI, ORIENTED X3. ON ROOM AIR TOLERATING WELL. RESPIRATIONS EVEN AND UNLABORED. IN NO APPARENT DISTRESS OR DISCOMFORT AT THIS TIME. DENIES PAIN AND SOB. PATIENT WITH BEDSIDE COMMODE FOR ELIMINATION. RIGHT AC 18G IVC WITH FLUIDS RUNNING AT 100ML/HR. PATIENT IS ABLE TO VERBALIZE NEEDS. KEPT CLEAN AND COMFORTABLE, BED IN LOW LOCKED POSITION, SIDE RAILS UP X2, CALL LIGHT WITHIN EASY REACH. WILL CONTINUE TO MONITOR.
[2017-12-21 08:00] VITALS: BP 119/69
[2017-12-21] MEDS: QUETIAPINE FUMARATE 100 MG TABLET PO SCH (08:30)
[2017-12-21] MEDS: GABAPENTIN 100 MG CAPSULE PO SCH ×3 (08:31→17:25)
[2017-12-21] MEDS: PHENYTOIN EXTENDED RELEASE 100 MG CAPSULE PO SCH ×2 (08:31→17:25)
[2017-12-21] MEDS: SERTRALINE HCL 50 MG TABLET PO SCH (08:31)
[2017-12-21] MEDS: Magnesium 1GM/D5W 100ML PREMIX 100 ML IV SCH ×2 (12:23→14:29)
[2017-12-21] MEDS ORDERED: NITR100C6 PO (13:08)
[2017-12-21 16:00] VITALS: BP 127/79
--- NOTE | 2017-12-21 17:40 | NUR ---
MS PROCESS HELPER NOTES RECEIVED ORDER FOR DISCHARGE, PATIENT IN BED, A/OX3. ON ROOM AIR TOLERATING WELL. RESPIRATIONS EVEN AND UNLABORED. IN NO APPARENT DISTRESS OR DISCOMFORT AT THIS TIME. ABLE TO AMBULATE INDEPENDENTLY. PATIENT IS STABLE MEDICALLY. PAPERWORK PREPARED VIA EXITCARE. DISCHARGE INSTRUCTIONS GIVEN TO THE PATIENT, PRESCRIBED MEDICATIONS REVIEWED, ALONG WITH THE HOME MEDICATIONS TO BE CONTINUED BEFORE. ADVISED TO FOLLOW UP WITH PCP WITHIN 1-2 WEEKS. PATIENT STATED HAVING APPOINTMENT ALREADY FOR NEXT WEEK. ALL DUE MEDICATIONS GIVEN, VITALS SIGNS TAKEN AND RECORDER: BP: 127/79, HR: 66, TEMP: 98.6, O2 SAT: 96%. BELONGINGS LIST CHECKED, VERIFIED AND ACCOUNTED FOR. DISCHARGE PAPERWORK SIGNED AND PLACED IN CHART. IV CANAL REMOVED, TIP INTACT. ID BAND REMOVED. PATIENT WAS TAKEN DOWNSTAIRS ON A WHEELCHAIR, ESCORTED BY SAYRA COYNE, AND PATIENT'S .
== END 2017-12-21 17:30 | disposition home or self-care (01) | DRG 871 ==
LOC: ER 18:02 → MED 20:39 → TELE 22:43 → MED 12-21 06:22
PROVIDERS: ADMIT Internal Medicine; ATTEND Internal Medicine
DX: A41.9 Sepsis, unspecified organism (principal); G92 Toxic encephalopathy; R65.20 Severe sepsis without septic shock; E87.6 Hypokalemia; G40.909 Epilepsy, unspecified, not intractable, without status epilepticus; J44.9 Chronic obstructive pulmonary disease, unspecified; D63.8 Anemia in other chronic diseases classified elsewhere; B96.20 Unspecified Escherichia coli [E. coli] as the cause of diseases classified elsewhere; F17.210 Nicotine dependence, cigarettes, uncomplicated; F32.9 Major depressive disorder, single episode, unspecified; E78.5 Hyperlipidemia, unspecified; E83.42 Hypomagnesemia; M19.90 Unspecified osteoarthritis, unspecified site; F41.9 Anxiety disorder, unspecified; F43.10 Post-traumatic stress disorder, unspecified; I70.90 Unspecified atherosclerosis; E61.1 Iron deficiency; I95.9 Hypotension, unspecified
CPT/HCPCS: 36415; 70450-TC; 71045-TC; 80048-TC; 80053-TC; 80185-TC; 80305; 81000-TC; 82746; 83540-TC; 83605-TC; 83735-TC; 84100-TC; 84443-TC; 84484-TC; 85025-TC; 85730-TC; 87040-TC; 87081-TC; 87086-TC; 87186-TC; A4216; A4606; J0696; J1165; J1650; J3475; J7030; J7050; J7060; Q9967; Z7610

== ENCOUNTER 2018-03-26 15:33 | Emergency (ER) | payer MEDICARE, OTHER ==
[~2018-03-26] VITALS: Ht 157.5 cm; Wt 61.2 kg
[~2018-03-26 15:33] MED LIST changes: -LORA1TAB PO; +NITR100C6 PO; -SERTRALINE HCL 50 MG TABLET PO SCH
[2018-03-26] MEDS ORDERED: MAG HYDROX/AL HYDROX/SIMETH 30 ML UDC PO ONE (16:30)
[2018-03-26] MEDS ORDERED: ONDANSETRON HCL/PF 4 MG/2 ML VIAL IV ONE (16:30)
[2018-03-26] MEDS ORDERED: IV NS 0.9% 1,000 ML BAG IV ONE ×2 (16:30→18:30)
[2018-03-26] MEDS ORDERED: FAMOTIDINE/PF INJ 20 MG/2 ML VIAL IV ONE ×2 (16:30→16:59)
[2018-03-26] MEDS ORDERED: ONDANSETRON HCL/PF 4 MG/2 ML VIAL ONE (16:59)
[2018-03-26 17:08] LABS: BASOPHILS # (AUTO) 0.1 /CMM (0.0-0.2); BASOPHILS % (AUTO) 0.5 % (0.0-2.0); EOSINOPHILS % (AUTO) 0.2 % (0.0-6.0); HEMATOCRIT 44 % (33-45); HEMOGLOBIN 14.3 g/dL (11.5-14.8); LYMPHOCYTES # (AUTO) 3.6 /CMM (0.8-4.8); LYMPHOCYTES % (AUTO) 20.5 % (20.0-44.0); MEAN CORPUSCULAR HGB CONC 33 g/dl (31.0-36.0); MEAN CORPUSCULAR VOLUME 92 fL (82-100); MONOCYTES # (AUTO) 0.7 /CMM (0.1-1.30); MONOCYTES % (AUTO) 3.9 % (2.0-12.0); NEUTROPHILS # (AUTO) 13.2 /CMM (1.8-8.9); NEUTROPHILS % (AUTO) 74.9 % (43.0-81.0); PLATELET COUNT (AUTO) 701 /CMM (150-450); RDW COEFFICIENT OF VARIATION 14.1 (11.5-15.0); RED BLOOD CELL COUNT(AUTO) 4.73 MIL/uL (4.0-5.2); WHITE BLOOD COUNT (AUTO) 17.6 K/uL (4.3-11.0)
[2018-03-26] MEDS ORDERED: MAG HYDROX/AL HYDROX/SIMETH 30 ML UDC ONE (17:16)
[2018-03-26 17:17] LABS: CALCIUM, SERUM 7.9 mg/dL (8.5-10.1); CREATININE 0.7 mg/dL (0.6-1.3); POTASSIUM 3.3 mmol/L (3.5-5.1)
[2018-03-26 17:23] LABS: ALBUMIN 3.2 g/dL (3.4-5.0); BILIRUBIN,DIRECT 0.1 mg/dL (0.0-0.2); BILIRUBIN,TOTAL 0.3 mg/dL (0.2-1.0); TOTAL PROTEIN, SERUM 8.4 g/dL (6.4-8.2)
--- NOTE | 2018-03-26 17:47 | NUR ---
Status quo NO acute changes no obvious distress awaiting md re-eval and dispo
[2018-03-26 17:48] LABS: APPEARANCE,URINE Clear (CLEAR); BILIRUBIN,URINE Negative (NEGATIVE); BLOOD, URINE Trace-intact Ery/uL (NEGATIVE); COLOR,URINE Yellow (YELLOW); KETONES,URINE 80 (NEGATIVE); LEUKOCYTE ESTERASE ,URINE Trace (NEGATIVE); NITRITE, URINE Positive (NEGATIVE); PROTEIN,URINE 30 mg/dl (NEGATIVE); UGLUCOSE Negative (NEGATIVE); UROBILINOGEN,URINE 0.2 EU/dL (0.2)
[2018-03-26] MEDS ORDERED: POTASSIUM CHLORIDE 20 MEQ TAB.PRT.SR PO ONE ×2 (17:57→18:00)
[2018-03-26 17:59] LABS: BACTERIA,URINE Many /HPF (None Seen); SQUAMOUS EPITHELIAL CELL,UR Few /HPF (None Seen)
[2018-03-26] MEDS ORDERED: CEFTRIAXONE 1 G in IV D5W 50 ML IV ONE (18:00)
[2018-03-26] MEDS ORDERED: CEFTRIAXONE 1 G VIAL ONE (18:29)
[2018-03-26 19:03] VITALS: BP 112/65
--- NOTE | 2018-03-26 20:03 | NUR ---
DPatient discharged to home in stable condition. Written and verbal after care instructions given. Patient verbalizes understanding of instruction. IV removed. Catheter intact and site benign. Pressure and 4x4 applied to site. No bleeding noted. AMBULATED WITH STEADY GAIT. INSTRUCTED NOT TO DRIVE OR OPERATE HEAVY MACHINERY
== END 2018-03-26 19:04 | disposition home or self-care (01) ==
LOC: ER 15:39
DX: N12 Tubulo-interstitial nephritis, not specified as acute or chronic (principal); R53.1 Weakness; R11.2 Nausea with vomiting, unspecified; E87.6 Hypokalemia; D72.829 Elevated white blood cell count, unspecified; D47.3 Essential (hemorrhagic) thrombocythemia; G40.909 Epilepsy, unspecified, not intractable, without status epilepticus; G89.29 Other chronic pain; M54.5 Low back pain; J44.9 Chronic obstructive pulmonary disease, unspecified; F41.9 Anxiety disorder, unspecified; F32.9 Major depressive disorder, single episode, unspecified; F43.10 Post-traumatic stress disorder, unspecified; E66.9 Obesity, unspecified; A04.71 Enterocolitis due to Clostridium difficile, recurrent; F17.200 Nicotine dependence, unspecified, uncomplicated; Z86.19 Personal history of other infectious and parasitic diseases; Z98.890 Other specified postprocedural states
CPT/HCPCS: 36415; 80048; 80076; 80185; 81001; 83690; 85025; 87086; 93005; 96361; 96365; 96375; 99285; J0696; J2405; J3490; J7030; J7060; 81000-TC; 87186-TC; A4606; Z7610

== ENCOUNTER 2018-06-06 11:00 | Emergency (ER) | payer MEDICARE, OTHER ==
[~2018-06-06] VITALS: Ht 157.5 cm; Wt 68.0 kg
--- NOTE | 2018-06-06 11:22 | NUR ---
BIB SELF C/O N/V x 2 WEEKS, LAST VOMIT LAST NIGHT x 3. ALERT AND ORIENTED X 4, VERBALLY RESPONSIVE AND ABLE TO MAKE NEEDS KNOWN. ON ROOM AIR, SAT 97%, BREATHING EVENLY AND UNLABORED. KEPT COMFORTABLE, WILL CONTINUE TO MONITOR ACCORDINGLY. AWAITING FOR MD FOR EVAL.
[2018-06-06] MEDS ORDERED: IPRATROPIUM NEB FS 0.5 MG/2.5 ML AMPUL.NEB ONE (11:47)
[2018-06-06] MEDS ORDERED: ALBUTEROL FS 2.5 MG/3 ML VIAL.NEB ONE (11:47)
[2018-06-06 11:58] LABS: BASOPHILS # (AUTO) 0.1 /CMM (0.0-0.2); BASOPHILS % (AUTO) 1.2 % (0.0-2.0); EOSINOPHILS % (AUTO) 2.5 % (0.0-6.0); HEMATOCRIT 43 % (33-45); HEMOGLOBIN 14.1 g/dL (11.5-14.8); LYMPHOCYTES # (AUTO) 3.4 /CMM (0.8-4.8); LYMPHOCYTES % (AUTO) 26.1 % (20.0-44.0); MEAN CORPUSCULAR HGB CONC 33 g/dl (31.0-36.0); MEAN CORPUSCULAR VOLUME 96 fL (82-100); MONOCYTES # (AUTO) 0.9 /CMM (0.1-1.30); MONOCYTES % (AUTO) 7.3 % (2.0-12.0); NEUTROPHILS # (AUTO) 8.1 /CMM (1.8-8.9); NEUTROPHILS % (AUTO) 62.9 % (43.0-81.0); PLATELET COUNT (AUTO) 396 /CMM (150-450); RED BLOOD CELL COUNT(AUTO) 4.51 MIL/uL (4.0-5.2); WHITE BLOOD COUNT (AUTO) 12.8 K/uL (4.3-11.0)
[2018-06-06] MEDS ORDERED: ALBUTEROL FS 2.5 MG/3 ML VIAL.NEB NEB ONE (12:00)
[2018-06-06] MEDS ORDERED: IPRATROPIUM NEB FS 0.5 MG/2.5 ML AMPUL.NEB NEB ONE (12:00)
[2018-06-06] MEDS ORDERED: IV NS 0.9% 1,000 ML BAG IV ONE (12:00)
[2018-06-06] MEDS ORDERED: ONDANSETRON HCL/PF 4 MG/2 ML VIAL IVP ONE (12:00)
--- NOTE | 2018-06-06 12:06 | NUR ---
RAPID FLU SWAP AND URINE COLLECTED THEN SENT TO LAB
[2018-06-06] MEDS ORDERED: ONDANSETRON HCL/PF 4 MG/2 ML VIAL ONE (12:07)
[2018-06-06 12:11] LABS: ALBUMIN 3.3 g/dL (3.4-5.0); BILIRUBIN,DIRECT 0.1 mg/dL (0.0-0.2); BILIRUBIN,TOTAL 0.2 mg/dL (0.2-1.0); CALCIUM, SERUM 8.5 mg/dL (8.5-10.1); CREATININE 0.8 mg/dL (0.6-1.3); POTASSIUM 3.8 mmol/L (3.5-5.1); TOTAL PROTEIN, SERUM 7.8 g/dL (6.4-8.2)
[2018-06-06 12:17] LABS: APPEARANCE,URINE Turbid (CLEAR); BILIRUBIN,URINE Negative (NEGATIVE); BLOOD, URINE Trace-lysed Ery/uL (NEGATIVE); COLOR,URINE Yellow (YELLOW); KETONES,URINE Negative (NEGATIVE); LEUKOCYTE ESTERASE ,URINE Moderate (NEGATIVE); NITRITE, URINE Positive (NEGATIVE); PH,URINE 6.5 (5.0-8.0); PROTEIN,URINE 100 mg/dl (NEGATIVE); UGLUCOSE Negative (NEGATIVE)
[2018-06-06 12:25] LABS: BACTERIA,URINE Many /HPF (None Seen); SQUAMOUS EPITHELIAL CELL,UR Few /HPF (None Seen); WBC,URINE 80-100 /HPF (0-3)
[2018-06-06] MEDS ORDERED: CEFTRIAXONE 1GM BAG (ER ONLY) 50 ML IV ONE (12:59)
[2018-06-06] MEDS ORDERED: CEFTRIAXONE 1 G in IV D5W 50 ML IV ONE (13:00)
--- NOTE | 2018-06-06 13:54 | NUR ---
Patient discharged to home in stable condition. Written and verbal after care instructions given. Patient verbalizes understanding of instruction. IV removed. Catheter intact and site benign. Pressure and 4x4 applied to site. No bleeding noted. Ambulatory with a steady gait
[2018-06-06 13:55] VITALS: BP 121/70
== END 2018-06-06 13:56 | disposition home or self-care (01) ==
LOC: ER 11:03
DX: N12 Tubulo-interstitial nephritis, not specified as acute or chronic (principal); R11.2 Nausea with vomiting, unspecified; E86.0 Dehydration; R53.81 Other malaise; J44.9 Chronic obstructive pulmonary disease, unspecified; R06.00 Dyspnea, unspecified; G40.909 Epilepsy, unspecified, not intractable, without status epilepticus; F32.9 Major depressive disorder, single episode, unspecified; F41.9 Anxiety disorder, unspecified; F43.10 Post-traumatic stress disorder, unspecified; E66.9 Obesity, unspecified; F17.200 Nicotine dependence, unspecified, uncomplicated; Z86.19 Personal history of other infectious and parasitic diseases; Z98.890 Other specified postprocedural states
CPT/HCPCS: 36415; 71045-TC; 80048-TC; 80076-TC; 80185-TC; 81000-TC; 83690-TC; 85025-TC; 87086-TC; 87186-TC; 87400; A4606; J0696; J2405; J7030; J7060; Z7610

== ENCOUNTER 2018-06-21 14:32 | Emergency (ER) | payer MEDICARE, OTHER ==
[~2018-06-21] VITALS: Ht 162.6 cm; Wt 63.5 kg
--- NOTE | 2018-06-21 14:50 | NUR ---
PT TO ER BED 09 C/O NAUSEA AND VOMITING X 1 WEEK NOW. ALSO C/O BILAT FLANK PAIN, PT STATES BEING TREATED FOR "KIDNEY INFECTION." PLACED ON MONITOR. AWAITING MD PATEL.
--- NOTE | 2018-06-21 14:57 | NUR ---
FERRARI AT BEDSIDE FOR EVAL.
--- NOTE | 2018-06-21 15:35 | NUR ---
IV LINE STARTED BLOOD DRAWN AND SENT TO LAB.
[2018-06-21] MEDS ORDERED: METOCLOPRAMIDE HCL 10 MG/2 ML VIAL ONE (15:36)
[2018-06-21] MEDS: IV NS 0.9% 1,000 ML BAG IV ONE (15:39)
[2018-06-21] MEDS: METOCLOPRAMIDE HCL 10 MG/2 ML VIAL IV ONE (15:40)
[2018-06-21 15:50] LABS: BASOPHILS # (AUTO) 0.1 /CMM (0.0-0.2); BASOPHILS % (AUTO) 0.9 % (0.0-2.0); EOSINOPHILS % (AUTO) 4.2 % (0.0-6.0); HEMATOCRIT 46 % (33-45); HEMOGLOBIN 15.2 g/dL (11.5-14.8); LYMPHOCYTES # (AUTO) 3.9 /CMM (0.8-4.8); LYMPHOCYTES % (AUTO) 38.8 % (20.0-44.0); MEAN CORPUSCULAR HGB CONC 33 g/dl (31.0-36.0); MEAN CORPUSCULAR VOLUME 97 fL (82-100); MONOCYTES # (AUTO) 0.8 /CMM (0.1-1.30); MONOCYTES % (AUTO) 8.3 % (2.0-12.0); NEUTROPHILS # (AUTO) 4.8 /CMM (1.8-8.9); NEUTROPHILS % (AUTO) 47.8 % (43.0-81.0); PLATELET COUNT (AUTO) 297 /CMM (150-450); RED BLOOD CELL COUNT(AUTO) 4.72 MIL/uL (4.0-5.2); WHITE BLOOD COUNT (AUTO) 9.9 K/uL (4.3-11.0)
[2018-06-21] MEDS: LORAZEPAM 1 MG TABLET PO ONE (15:52)
[2018-06-21 15:57] LABS: CALCIUM, SERUM 8.6 mg/dL (8.5-10.1); CREATININE 0.8 mg/dL (0.6-1.3)
[2018-06-21 16:03] LABS: ALBUMIN 3.5 g/dL (3.4-5.0); BILIRUBIN,DIRECT 0.1 mg/dL (0.0-0.2); BILIRUBIN,TOTAL 0.2 mg/dL (0.2-1.0); TOTAL PROTEIN, SERUM 7.9 g/dL (6.4-8.2)
[2018-06-21 16:12] LABS: APPEARANCE,URINE CLEAR (CLEAR); BILIRUBIN,URINE NEGATIVE (NEGATIVE); BLOOD, URINE NEGATIVE Ery/uL (NEGATIVE); COLOR,URINE YELLOW (YELLOW); KETONES,URINE NEGATIVE (NEGATIVE); LEUKOCYTE ESTERASE ,URINE NEGATIVE (NEGATIVE); NITRITE, URINE NEGATIVE (NEGATIVE); PROTEIN,URINE NEGATIVE (NEGATIVE); UGLUCOSE NEGATIVE (NEGATIVE); UROBILINOGEN,URINE 0.2 EU/dL (0.2)
[2018-06-21] MEDS ORDERED: POTASSIUM CHLORIDE 20 MEQ TAB.PRT.SR PO ONE (16:35)
[2018-06-21] MEDS: POTASSIUM CHLORIDE 20 MEQ TAB.PRT.SR PO ONE (16:39)
--- NOTE | 2018-06-21 17:22 | NUR ---
Patient discharged to home in stable condition. Written and verbal after care instructions given. Patient verbalizes understanding of instruction.IV removed. Catheter intact and site benign. Pressure and 4x4 applied to site. No bleeding noted.
[2018-06-21 17:24] VITALS: BP 121/84
== END 2018-06-21 17:26 | disposition home or self-care (01) ==
LOC: ER 14:41
DX: E86.0 Dehydration (principal); R11.2 Nausea with vomiting, unspecified; G40.909 Epilepsy, unspecified, not intractable, without status epilepticus; J44.9 Chronic obstructive pulmonary disease, unspecified; F32.9 Major depressive disorder, single episode, unspecified; F41.9 Anxiety disorder, unspecified; F43.10 Post-traumatic stress disorder, unspecified; F17.200 Nicotine dependence, unspecified, uncomplicated; Z86.19 Personal history of other infectious and parasitic diseases; Z90.49 Acquired absence of other specified parts of digestive tract; Z98.890 Other specified postprocedural states; Z79.899 Other long term (current) drug therapy
CPT/HCPCS: 36415; 80048-TC; 80076-TC; 81000-TC; 85025-TC; 87086-TC; J2765; J7030

== ENCOUNTER 2018-10-04 10:29 | Inpatient (IN) | payer MEDICARE, OTHER ==
[~2018-10-04] VITALS: Ht 157.5 cm; Wt 66.7 kg
--- NOTE | 2018-10-04 10:34 | NUR ---
SENT [facility] OFFICE FOR LOW 02 SAT. DENIES SOB. TO ER BED 2, HOOKED TO MONITOR, CHANGED TO GOWN, PROVIDED W WARM BLANKET, AWAITING MD PATEL.
--- NOTE | 2018-10-04 10:35 | NUR ---
DR BYRD AT BEDSIDE
--- NOTE | 2018-10-04 10:36 | NUR ---
O2 SAT AT 96% UPPON ARRIVAL IN ED
[2018-10-04] MEDS ORDERED: ALBUTEROL FS 2.5 MG/3 ML VIAL.NEB CONTNEB ONE (11:00)
[2018-10-04] MEDS ORDERED: methylPREDNISolone SOD SUCC 125 MG/2ML VIAL IV ONE (11:00)
[2018-10-04] MEDS ORDERED: IPRATROPIUM NEB FS 0.5 MG/2.5 ML AMPUL.NEB NEB ONE (11:00)
--- NOTE | 2018-10-04 11:07 | NUR ---
RT AT BEDSIDE, ABG DONE
[2018-10-04 11:14] LABS: BASOPHILS # (AUTO) 0.1 /CMM (0.0-0.2); BASOPHILS % (AUTO) 0.8 % (0.0-2.0); HEMATOCRIT 39 % (33-45); HEMOGLOBIN 12.9 g/dL (11.5-14.8); LYMPHOCYTES # (AUTO) 3.1 /CMM (0.8-4.8); LYMPHOCYTES % (AUTO) 23.5 % (20.0-44.0); MEAN CORPUSCULAR HGB CONC 33 g/dl (31.0-36.0); MEAN CORPUSCULAR VOLUME 97 fL (82-100); MONOCYTES # (AUTO) 0.8 /CMM (0.1-1.30); MONOCYTES % (AUTO) 6.1 % (2.0-12.0); NEUTROPHILS % (AUTO) 67.6 % (43.0-81.0); PLATELET COUNT (AUTO) 333 /CMM (150-450); RED BLOOD CELL COUNT(AUTO) 4.01 MIL/uL (4.0-5.2); WHITE BLOOD COUNT (AUTO) 13.3 K/uL (4.3-11.0)
--- NOTE | 2018-10-04 11:15 | NUR ---
RT DOWNTIME PROCEDURES DONE. ABG RESULTS NOT AVAILABLE IN [employer]. ABG RESULTS SHOWN TO DR. BYRD. A COPY OF THE ABG RESULTS GIVEN TO ROCAEL ANDREW RN. RN NOTIFIED AND AWARE.
--- NOTE | 2018-10-04 11:20 | NUR ---
PER RT, O2 AT 89.2, MADE DR BYRD AWARE.
[2018-10-04 11:23] LABS: CALCIUM, SERUM 7.8 mg/dL (8.5-10.1); CARBON DIOXIDE 24 mmol/L (21-32); CHLORIDE 107 mmol/L (98-107); CREATININE 0.8 mg/dL (0.6-1.3); GLUCOSE 96 mg/dL (74-106); POTASSIUM 4.8 mmol/L (3.5-5.1); SODIUM SERUM 138 mmol/L (136-145); UREA NITROGEN, BLOOD 10 mg/dL (7-18)
[2018-10-04] MEDS ORDERED: ALBUTEROL FS 2.5 MG/3 ML VIAL.NEB ONE (11:26)
[2018-10-04] MEDS ORDERED: IPRATROPIUM NEB FS 0.5 MG/2.5 ML AMPUL.NEB ONE (11:26)
--- NOTE | 2018-10-04 11:31 | NUR ---
RT AT BEDSIDE. PT ON BREATHING TREATMENT
[2018-10-04] MEDS ORDERED: LORAZEPAM 1 MG TABLET PO ONE (13:00)
[2018-10-04] MEDS ORDERED: LORAZEPAM 1 MG TABLET ONE (13:07)
--- NOTE | 2018-10-04 15:13 | NUR ---
ADMIT TO 310-2 TELE DX COPD EXACERBATION ACCEPTING AGUSTIN MINOR DNP
[2018-10-04] MEDS ORDERED: HYDROCODONE/APAP 5/325MG 1 EACH TABLET PO PRN (16:30)
[2018-10-04] MEDS ORDERED: ONDANSETRON HCL/PF 4 MG/2 ML VIAL IVP PRN (16:30)
[2018-10-04] MEDS ORDERED: ACETAMINOPHEN 325 MG TABLET PO PRN (16:30)
[2018-10-04] MEDS ORDERED: MAGNESIUM HYDROXIDE 30 ML UDC PO PRN (16:30)
[2018-10-04] MEDS ORDERED: ALBUTEROL FS 2.5 MG/0.5 ML VIAL.NEB NEB PRN (16:30)
[2018-10-04] MEDS ORDERED: IPRATROPIUM NEB FS 0.5 MG/2.5 ML AMPUL.NEB NEB PRN (16:30)
[2018-10-04] MEDS ORDERED: MAG HYDROX/AL HYDROX/SIMETH 30 ML UDC PO PRN (16:30)
--- NOTE | 2018-10-04 16:47 | NUR ---
REPORT GIVEN TO EARL VICK OF TELE UNIT
[2018-10-04] MEDS ORDERED: clonazePAM 1 MG TABLET PO SCH (17:00)
[2018-10-04] MEDS ORDERED: QUETIAPINE FUMARATE 100 MG TABLET PO SCH (17:00)
[2018-10-04 17:02] VITALS: BP 116/57
--- NOTE | 2018-10-04 18:40 | NUR ---
SCHOOL INSPECTOR NOTES PATIENT ADMITTED FROM ER REPORT GIVEN BY PAULA , WITH STABLE VITAL SIGNS, NO ACUTE DISTRESS NOTED , BREATHING UNLABORED. PATIENT SAID THAT SHE WANTS TO SIGN OUT HERSELF AND GO HOME. RISK AND BENEFITS EXPLAINED, VERBALIZED UNDERSTANDING. PATIENT SIGNED AMA FORM. IV ACCESS REMOVED, NO REDNESS, NO BLEEDING NOTED. ALL BELONGINGS ACCOUNTED FOR. REFUSED BODY CHECK DONE. DR AGUSTIN MINOR NOTIFIED. ASSISTED TO THE LOBBY, PATIENT AMBULATORY WITH STEADY GAIT, NO ACUTE DISTRESS NOTED. PICKED UP BY IN STABLE CONDITION.
[2018-10-04] MEDS ORDERED: TEMAZEPAM 15 MG CAPSULE PO PRN (22:00)
[2018-10-05] MEDS ORDERED: PANTOPRAZOLE 40 MG TABLET.DR PO SCH (07:30)
[2018-10-05] MEDS ORDERED: PHENYTOIN EXTENDED RELEASE 100 MG CAPSULE PO SCH (09:00)
[2018-10-05] MEDS ORDERED: SERTRALINE HCL 50 MG TABLET PO SCH (09:00)
== END 2018-10-04 18:54 | disposition left against medical advice (07) | DRG 189 ==
LOC: ER 10:33 → TELE 16:44
PROVIDERS: ADMIT Nurse Practitioner Acute Care; ATTEND Nurse Practitioner Acute Care
DX: J96.01 Acute respiratory failure with hypoxia (principal); E78.5 Hyperlipidemia, unspecified; F43.10 Post-traumatic stress disorder, unspecified; F32.9 Major depressive disorder, single episode, unspecified; F41.9 Anxiety disorder, unspecified; F17.210 Nicotine dependence, cigarettes, uncomplicated; M54.30 Sciatica, unspecified side; D72.829 Elevated white blood cell count, unspecified; G40.909 Epilepsy, unspecified, not intractable, without status epilepticus; J44.9 Chronic obstructive pulmonary disease, unspecified
CPT/HCPCS: 36415; 36600; 71045-TC; 80048-TC; 82803-TC; 84484-TC; 85025-TC; 87081-TC; G0378

== ENCOUNTER 2018-10-15 18:21 | Emergency (ER) | payer MEDICARE, OTHER ==
[~2018-10-15] VITALS: Ht 157.5 cm; Wt 65.8 kg
[2018-10-15 18:49] VITALS: BP 125/74
== END 2018-10-15 19:39 | disposition home or self-care (01) ==
LOC: ER 18:28
DX: J06.9 Acute upper respiratory infection, unspecified (principal); J44.9 Chronic obstructive pulmonary disease, unspecified; F32.9 Major depressive disorder, single episode, unspecified; F41.9 Anxiety disorder, unspecified; F17.200 Nicotine dependence, unspecified, uncomplicated; G40.909 Epilepsy, unspecified, not intractable, without status epilepticus; F43.10 Post-traumatic stress disorder, unspecified; E66.9 Obesity, unspecified; R55 Syncope and collapse; Z86.19 Personal history of other infectious and parasitic diseases; Z11.1 Encounter for screening for respiratory tuberculosis; Z98.890 Other specified postprocedural states
CPT/HCPCS: 71045-TC

== ENCOUNTER 2019-01-16 15:15 | Outpatient (CLI) | payer MEDICARE, OTHER ==
[2019-01-16 16:52] LABS: ABG BASE EXCESS -5.9 mmol/L; ABG OXYGEN SATURATION 93.6 % (92.0-98.5); ABG PCO2 37.1 mmHg (35.0-45.0); ABG PH 7.333 (7.350-7.450); ABG PO2 73.2 mmHg (75.0-100.0); AaDO2 32.1 mmHg; COHb 7.2 % (0.5-1.5); MetHb 0.1 % (0.0-1.5); O2Hb 86.8 % (94.0-97.0); SITE, ABG Right Radial; VENT MODE, BG ROOM AIR
== END 2019-01-16 23:59 | disposition home or self-care (01) ==
LOC: LAB 15:15 → RT 23:59
DX: R06.02 Shortness of breath (principal)
CPT/HCPCS: 36600

== ENCOUNTER 2019-04-07 13:39 | Emergency (ER) | payer MEDICARE, OTHER ==
[~2019-04-07] VITALS: Ht 157.5 cm; Wt 69.4 kg
[2019-04-07 13:58] VITALS: BP 100/66
[2019-04-07] MEDS ORDERED: KETOROLAC TROMETHAMINE INJ 60 MG/2 ML VIAL IM ONE ×2 (14:24→14:30)
[2019-04-07] MEDS ORDERED: LORAZEPAM 0.5 MG TABLET ONE (14:24)
[2019-04-07] MEDS ORDERED: LORAZEPAM 1 MG TABLET PO ONE (14:30)
== END 2019-04-07 15:06 | disposition home or self-care (01) ==
LOC: ER 13:39
DX: M54.42 Lumbago with sciatica, left side (principal); G40.909 Epilepsy, unspecified, not intractable, without status epilepticus; J44.9 Chronic obstructive pulmonary disease, unspecified; R42 Dizziness and giddiness; F32.9 Major depressive disorder, single episode, unspecified; F41.9 Anxiety disorder, unspecified; F43.10 Post-traumatic stress disorder, unspecified; R55 Syncope and collapse; F17.200 Nicotine dependence, unspecified, uncomplicated; F03.90 Unspecified dementia, unspecified severity, without behavioral disturbance, psychotic disturbance, mood disturbance, and anxiety; E66.9 Obesity, unspecified; Z68.28 Body mass index [BMI] 28.0-28.9, adult; Z86.19 Personal history of other infectious and parasitic diseases; Z98.890 Other specified postprocedural states; Z79.899 Other long term (current) drug therapy
CPT/HCPCS: 96372; 99283; J1885

== ENCOUNTER 2019-04-22 16:46 | Emergency (ER) | payer MEDICARE, OTHER ==
[~2019-04-22] VITALS: Ht 157.5 cm; Wt 65.8 kg
[2019-04-22 16:58] VITALS: BP 107/79
[2019-04-22] MEDS ORDERED: KETOROLAC TROMETHAMINE INJ 60 MG/2 ML VIAL IM ONE ×2 (17:30→17:36)
== END 2019-04-22 18:20 | disposition home or self-care (01) ==
LOC: ER 16:51
DX: M25.552 Pain in left hip (principal); M25.562 Pain in left knee; F17.200 Nicotine dependence, unspecified, uncomplicated; R56.9 Unspecified convulsions; J44.9 Chronic obstructive pulmonary disease, unspecified; F32.9 Major depressive disorder, single episode, unspecified; F41.9 Anxiety disorder, unspecified; F43.10 Post-traumatic stress disorder, unspecified; R55 Syncope and collapse; Z86.19 Personal history of other infectious and parasitic diseases; Z98.890 Other specified postprocedural states; Z79.899 Other long term (current) drug therapy
CPT/HCPCS: 73503; 73552; 73564; 96372; 99283; 99406; J1885; 73502

== ENCOUNTER 2019-06-15 10:59 | Emergency (ER) | payer MEDICARE, OTHER ==
[~2019-06-15] VITALS: Ht 157.5 cm; Wt 65.8 kg
[2019-06-15 11:05] VITALS: BP 111/72
--- NOTE | 2019-06-15 11:11 | NUR ---
Pt bibhusband, c/o left hip and knee pain x 1 month, 02/26 ps denies injury or trauma. Pt aaox4, vss, breathing even and unlabored on room air w/ nad noted. Pt connected to the monitor and pox. Awaiting for md castillo
[2019-06-15] MEDS ORDERED: KETOROLAC TROMETHAMINE INJ 30 MG/ML VIAL ONE (11:27)
[2019-06-15] MEDS ORDERED: KETOROLAC TROMETHAMINE INJ 60 MG/2 ML VIAL IM ONE (11:30)
--- NOTE | 2019-06-15 11:34 | NUR ---
Patient discharged to home in stable condition. Written and verbal after care instructions given. Patient verbalizes understanding of instruction.
== END 2019-06-15 11:39 | disposition home or self-care (01) ==
LOC: ER 10:59
DX: M25.552 Pain in left hip (principal); G89.4 Chronic pain syndrome; G40.909 Epilepsy, unspecified, not intractable, without status epilepticus; J44.9 Chronic obstructive pulmonary disease, unspecified; F32.9 Major depressive disorder, single episode, unspecified; F17.200 Nicotine dependence, unspecified, uncomplicated; F41.9 Anxiety disorder, unspecified; F43.10 Post-traumatic stress disorder, unspecified; Z86.19 Personal history of other infectious and parasitic diseases; Z79.899 Other long term (current) drug therapy
CPT/HCPCS: 96372; 99283; J1885

== ENCOUNTER 2020-07-07 10:38 | Emergency (ER) | payer MEDICARE, OTHER ==
[~2020-07-07] VITALS: Ht 157.5 cm; Wt 68.0 kg
--- NOTE | 2020-07-07 10:48 | NUR ---
pt bib family for lower back/flank pain since monday. pt denies any recent trauma. worsening. denies any dysuria. takes saboxone for management. pt afebrile. 03/28 pain. stable vitals. awaiting md castillo.
--- NOTE | 2020-07-07 10:59 | NUR ---
dr canrey at bedside for eval.
[2020-07-07] MEDS ORDERED: DEXAMETHASONE 1 MG TABLET PO ONE (11:00)
[2020-07-07] MEDS ORDERED: CYCLOBENZAPRINE 10 MG TABLET PO ONE (11:00)
[2020-07-07] MEDS ORDERED: KETOROLAC TROMETHAMINE INJ 60 MG/2 ML VIAL IM ONE (11:00)
[2020-07-07] MEDS ORDERED: CYCLOBENZAPRINE 10 MG TABLET ONE (11:41)
[2020-07-07] MEDS ORDERED: KETOROLAC TROMETHAMINE INJ 30 MG/ML VIAL ONE (11:41)
[2020-07-07] MEDS ORDERED: DEXAMETHASONE SOD PHOSPHATE 10 MG/ML VIAL ONE (11:41)
[2020-07-07] MEDS ORDERED: DEXAMETHASONE 1 MG TABLET ONE (11:43)
[2020-07-07] MEDS ORDERED: DEXAMETHASONE 4 MG TABLET ONE (11:44)
--- NOTE | 2020-07-07 11:52 | NUR ---
medicated. see emar.
--- NOTE | 2020-07-07 13:31 | NUR ---
Patient discharged to home in stable condition. Written and verbal after care instructions given. Patient verbalizes understanding of instruction.
[2020-07-07 13:32] VITALS: BP 132/84
== END 2020-07-07 13:32 | disposition home or self-care (01) ==
LOC: ER 10:42
DX: M54.5 Low back pain (principal); G89.29 Other chronic pain; G40.909 Epilepsy, unspecified, not intractable, without status epilepticus; J44.9 Chronic obstructive pulmonary disease, unspecified; R19.7 Diarrhea, unspecified; R55 Syncope and collapse; F32.9 Major depressive disorder, single episode, unspecified; F41.9 Anxiety disorder, unspecified; F43.10 Post-traumatic stress disorder, unspecified; E66.9 Obesity, unspecified; F17.200 Nicotine dependence, unspecified, uncomplicated; Z68.27 Body mass index [BMI] 27.0-27.9, adult; Z86.19 Personal history of other infectious and parasitic diseases; Z98.890 Other specified postprocedural states; Z79.899 Other long term (current) drug therapy
CPT/HCPCS: 72131; 96372; 99284; J1885; J8540 ×2; J1100

== ENCOUNTER 2020-07-24 14:59 | Emergency (ER) | payer MEDICARE, OTHER ==
[~2020-07-24] VITALS: Ht 157.5 cm; Wt 68.0 kg
[2020-07-24] MEDS ORDERED: ONDANSETRON HCL/PF 4 MG/2 ML VIAL ONE (15:57)
[2020-07-24] MEDS ORDERED: MORPHINE SULFATE INJ 4 MG/ML DISP.SYRIN ONE (15:57)
[2020-07-24 16:09] LABS: BASOPHILS # (AUTO) 0.1 /CMM (0.0-0.2); BASOPHILS % (AUTO) 0.6 % (0.0-2.0); EOSINOPHILS % (AUTO) 0.9 % (0.0-6.0); HEMATOCRIT 40 % (33-45); HEMOGLOBIN 12.9 g/dL (11.5-14.8); LYMPHOCYTES # (AUTO) 2.3 /CMM (0.8-4.8); LYMPHOCYTES % (AUTO) 12.2 % (20.0-44.0); MEAN CORPUSCULAR HGB CONC 32 g/dl (31.0-36.0); MEAN CORPUSCULAR VOLUME 95 fL (82-100); MONOCYTES # (AUTO) 1.3 /CMM (0.1-1.30); MONOCYTES % (AUTO) 6.9 % (2.0-12.0); NEUTROPHILS # (AUTO) 14.8 /CMM (1.8-8.9); NEUTROPHILS % (AUTO) 79.4 % (43.0-81.0); PLATELET COUNT (AUTO) 313 /CMM (150-450); WHITE BLOOD COUNT (AUTO) 18.6 K/uL (4.3-11.0)
--- NOTE | 2020-07-24 16:15 | NUR ---
BIBS FROM HOME TO ER BED 12. AAOX4. NOT IN RESP DISTRESS. AMBULATORY. CAME IN FOR L & R LOWER ABD PAIN EXTENDING TO THE BACK X 2 WEEKS. PAIN IS 9/10 SHARP. DENIES N/V/D. WAS AT THE BEDSIDE FOR EVAL. ORDERS RECEIVED, NOTED AND CARRIED OUT. IV LINE ESTABLISHED ON THE L HAND 22G. BLOOD DRAWN BY PHLEB. MEDICATED ORDERED. WILL CONTINUE TO MONITOR PT.
[2020-07-24 16:21] LABS: POTASSIUM 3.4 mmol/L (3.5-5.1)
[2020-07-24 16:21] LABS: BILIRUBIN,URINE NEGATIVE (NEGATIVE); COLOR,URINE DARK YELLOW (YELLOW); LEUKOCYTE ESTERASE ,URINE NEGATIVE (NEGATIVE); NITRITE, URINE NEGATIVE (NEGATIVE); PH,URINE 6.5 (5.0-8.0); PROTEIN,URINE 30 mg/dl (NEGATIVE); UGLUCOSE NEGATIVE (NEGATIVE); UROBILINOGEN,URINE 0.2 EU/dL (0.2)
[2020-07-24] MEDS: IV NS 0.9% 1,000 ML BAG IV ONE (16:21)
[2020-07-24] MEDS: MORPHINE SULFATE INJ 2 MG/ML DISP.SYRIN IV ONE (16:22)
[2020-07-24] MEDS: ONDANSETRON HCL/PF 4 MG/2 ML VIAL IVP ONE (16:22)
[2020-07-24 16:27] LABS: ALBUMIN 2.8 g/dL (3.4-5.0); BILIRUBIN,DIRECT 0.1 mg/dL (0.0-0.2); BILIRUBIN,TOTAL 0.3 mg/dL (0.2-1.0); TOTAL PROTEIN, SERUM 7.6 g/dL (6.4-8.2)
[2020-07-24] MEDS ORDERED: IOHEXOL-300 100 ML VIAL IV ONE (16:31)
[2020-07-24] MEDS ORDERED: IV NS 0.9% 250 ML IV ONE (16:31)
[2020-07-24] MEDS ORDERED: CT SWABBABLE VALVE TRANS SET 1 EA INFUS.SET MC ONE (16:31)
[2020-07-24 17:18] LABS: BACTERIA,URINE 1+ /HPF (None Seen)
[2020-07-24] MEDS ORDERED: METRONIDAZOLE 500MG/ NS 100ML 100 ML IV ONE (17:19)
[2020-07-24] MEDS ORDERED: LEVOFLOXACIN 750 MG /D5W 150ML 150 ML IV ONE (17:19)
[2020-07-24] MEDS: LEVOFLOXACIN 750 MG /D5W 150ML PIGGYBACK IV ONE (17:27)
--- NOTE | 2020-07-24 17:51 | NUR ---
PT MARKED FOR DISCHARGED BUT PT IS STILL FINISHING IV INFUSION OF LEVAQUIN AND FLAGYL.
[2020-07-24] MEDS ORDERED: METR500T PO (17:54)
[2020-07-24] MEDS ORDERED: LEVO750T46 PO (17:54)
[2020-07-24] MEDS: METRONIDAZOLE 500MG/ NS 100ML 500 MG in PREMIX 1 EA IV SCH (18:55)
--- NOTE | 2020-07-24 19:58 | NUR ---
Patient discharged to home in stable condition. Written and verbal after care instructions given. Patient verbalizes understanding of instruction.IV removed. Catheter intact and site benign. Pressure and 4x4 applied to site. No bleeding noted. Pt ambulatory with a steady gait
[2020-07-24 19:59] VITALS: BP 133/79
== END 2020-07-24 20:03 | disposition home or self-care (01) ==
LOC: ER 14:59
DX: K52.9 Noninfective gastroenteritis and colitis, unspecified (principal); G40.909 Epilepsy, unspecified, not intractable, without status epilepticus; J44.9 Chronic obstructive pulmonary disease, unspecified; F32.9 Major depressive disorder, single episode, unspecified; F41.9 Anxiety disorder, unspecified; F43.10 Post-traumatic stress disorder, unspecified; R55 Syncope and collapse; E66.9 Obesity, unspecified; Z68.27 Body mass index [BMI] 27.0-27.9, adult; Z86.19 Personal history of other infectious and parasitic diseases; Z98.890 Other specified postprocedural states; Z79.899 Other long term (current) drug therapy
CPT/HCPCS: 36415; 74177; 80048; 80076; 81001; 83690; 85025; 96361; 96365; 96367; 96375; 99285; J1956; J2270; J2405; J7030; J7050; Q9967

== ENCOUNTER 2020-08-01 11:39 | Emergency (ER) | payer MEDICARE, OTHER ==
[~2020-08-01] VITALS: Ht 157.5 cm; Wt 90.7 kg
[~2020-08-01 11:39] MED LIST changes: +LEVO750T46 PO; +METR500T PO
[2020-08-01 11:52] VITALS: BP 119/71
--- NOTE | 2020-08-01 14:03 | NUR ---
AT BEDSIDE FOR EVAL.
[2020-08-01] MEDS ORDERED: NYST5ORA PO (14:20)
--- NOTE | 2020-08-01 14:27 | NUR ---
Patient discharged to home in stable condition. Written and verbal after care instructions given. Patient verbalizes understanding of instruction.
== END 2020-08-01 14:28 | disposition home or self-care (01) ==
LOC: ER 11:43
DX: B37.0 Candidal stomatitis (principal); K52.9 Noninfective gastroenteritis and colitis, unspecified; G40.909 Epilepsy, unspecified, not intractable, without status epilepticus; J44.9 Chronic obstructive pulmonary disease, unspecified; F41.9 Anxiety disorder, unspecified; F32.9 Major depressive disorder, single episode, unspecified; F43.10 Post-traumatic stress disorder, unspecified; Z98.890 Other specified postprocedural states; Z79.899 Other long term (current) drug therapy

== ENCOUNTER 2020-08-09 16:30 | Emergency (ER) | payer MEDICARE, OTHER ==
[~2020-08-09] VITALS: Ht 157.5 cm; Wt 90.7 kg
[~2020-08-09 16:30] MED LIST changes: +NYST5ORA PO
[2020-08-09 16:45] VITALS: BP 100/68
--- NOTE | 2020-08-09 16:50 | NUR ---
BIB BY HER TO ER FOR C/O LOWER BACK PAIN WITH DIFFICULTY WALKING X1 WEEK. PATIENT IS IN ER BED #9. AAO X3. IN ROOM AIR AND DENIES SOB. RESPIRATION REGULAR AND UNLABORED. WILL CONTINUE TO MONITOR.
[2020-08-09] MEDS ORDERED: DIAZEPAM 5 MG TABLET ONE ×2 (16:55→16:59)
[2020-08-09] MEDS ORDERED: KETOROLAC TROMETHAMINE INJ 30 MG/ML VIAL ONE ×2 (16:55→16:59)
[2020-08-09] MEDS ORDERED: KETOROLAC TROMETHAMINE INJ 30 MG/ML VIAL IM ONE (17:00)
[2020-08-09] MEDS ORDERED: DIAZEPAM 5 MG TABLET PO ONE (17:00)
--- NOTE | 2020-08-09 17:22 | NUR ---
Patient discharged to home in stable condition. Written and verbal after care instructions given. Patient verbalizes understanding of instruction.
== END 2020-08-09 17:23 | disposition home or self-care (01) ==
LOC: ER 16:30
DX: M54.5 Low back pain (principal); G89.29 Other chronic pain; R00.0 Tachycardia, unspecified; G40.909 Epilepsy, unspecified, not intractable, without status epilepticus; J44.9 Chronic obstructive pulmonary disease, unspecified; F32.9 Major depressive disorder, single episode, unspecified; F41.9 Anxiety disorder, unspecified; F43.10 Post-traumatic stress disorder, unspecified; F17.200 Nicotine dependence, unspecified, uncomplicated; E66.9 Obesity, unspecified; Z68.36 Body mass index [BMI] 36.0-36.9, adult; Z86.19 Personal history of other infectious and parasitic diseases; Z98.890 Other specified postprocedural states; Z79.899 Other long term (current) drug therapy
CPT/HCPCS: 96372; 99283; J1885

== ENCOUNTER 2020-12-31 16:31 | Inpatient (IN) | payer MEDICARE, OTHER ==
[~2020-12-31] VITALS: Ht 157.5 cm; Wt 79.8 kg
--- NOTE | 2020-12-31 17:05 | NUR ---
The patient bib for c/o "Redness/pain/swelling on my left ankle since last weekend". Rates pain 09/26. Denies SOB. Respiration regular and unlabored. Attached to the monitor.
[2020-12-31 17:29] LABS: BASOPHILS # (AUTO) 0.1 K/uL (0.0-0.2); BASOPHILS % (AUTO) 1.1 % (0.0-2.0); EOSINOPHILS % (AUTO) 3.6 % (0.0-6.0); HEMATOCRIT 38 % (33-45); HEMOGLOBIN 12.5 g/dL (11.5-14.8); LYMPHOCYTES # (AUTO) 3.4 K/uL (0.8-4.8); LYMPHOCYTES % (AUTO) 27.5 % (20.0-44.0); MEAN CORPUSCULAR HGB CONC 33 g/dl (31.0-36.0); MEAN CORPUSCULAR VOLUME 96 fL (82-100); MONOCYTES % (AUTO) 8.3 % (2.0-12.0); NEUTROPHILS # (AUTO) 7.3 K/uL (1.8-8.9); NEUTROPHILS % (AUTO) 59.5 % (43.0-81.0); PLATELET COUNT (AUTO) 335 K/uL (150-450); RED BLOOD CELL COUNT(AUTO) 3.95 MIL/uL (4.0-5.2); WHITE BLOOD COUNT (AUTO) 12.3 K/uL (4.3-11.0)
[2020-12-31] MEDS ORDERED: VANCOMYCIN 1 GM in IV D5W 250 ML IV SCH (17:30)
[2020-12-31 17:45] LABS: BILIRUBIN,DIRECT 0.1 mg/dL (0.0-0.2); BILIRUBIN,TOTAL 0.1 mg/dL (0.2-1.0); CALCIUM, SERUM 8.3 mg/dL (8.5-10.1); CREATININE 0.9 mg/dL (0.6-1.3); POTASSIUM 3.3 mmol/L (3.5-5.1); TOTAL PROTEIN, SERUM 7.3 g/dL (6.4-8.2)
--- NOTE | 2020-12-31 18:33 | NUR ---
COVID SWAB DONE AND SENT TO THE LAB
--- NOTE | 2020-12-31 18:45 | NUR ---
CALLED NURSING SUP FOR M/S BED.
[2020-12-31] MEDS ORDERED: LABETALOL 20 MG/4 ML VIAL IV PRN (19:30)
[2020-12-31] MEDS ORDERED: Z GUARD REMEDY 2 OZ OINT TP PRN (19:30)
[2020-12-31] MEDS ORDERED: ONDANSETRON HCL/PF 4 MG/2 ML VIAL IVP PRN (19:30)
[2020-12-31] MEDS ORDERED: IV NS 0.9% 1,000 ML IV PRN (19:30)
[2020-12-31] MEDS ORDERED: MAGNESIUM HYDROXIDE 30 ML UDC PO PRN (19:30)
[2020-12-31] MEDS ORDERED: MAG HYDROX/AL HYDROX/SIMETH 30 ML UDC PO PRN (19:30)
[2020-12-31] MEDS ORDERED: ACETAMINOPHEN 325 MG TABLET PO PRN (19:30)
[2020-12-31] MEDS ORDERED: MORPHINE SULFATE INJ 2 MG/ML DISP.SYRIN IV PRN (19:30)
--- NOTE | 2020-12-31 19:47 | NUR ---
us at bedside
--- NOTE | 2020-12-31 20:20 | NUR ---
TELE 311-4
--- NOTE | 2020-12-31 20:24 | NUR ---
gave report to joshua Bowden for kai
--- NOTE | 2020-12-31 20:40 | NUR ---
MS RN ADMITTING NOTE PT TRANSPORTED BY STRETCHER TO UNIT FROM ED AT THIS TIME. RECEIVED REPORT FROM NICANOR KHALIL @ ED, A/OX4, 2L OF OXYGEN VIA NC, ABLE TO MAKE NEEDS KNOWN. NO SOB NOTED, NO C/O PAIN AT THIS TIME. NO S/S OF ANY APPARENT DISTRESS NOTED. RESPIRATIONS EVEN AND UNLABORED, ACTIVE BOWEL SOUNDS AUSCULTATED THROUGHOUT, ABDOMEN IS NON DISTENDED. SWELLING AND REDNESS ON LEFT ANKLE. CAPILLARY REFILL<3 SECONDS, PULSES PRESENT BILATERALLY, GOOD CIRCULATION NOTED. IV ACCESS NOTED IN LAC G#20, INTACT, PATENT AND FLUSHING WELL. PT'S BELONGINGS ACCOUNTED FOR, AND KEPT AT BEDSIDE PER REQUEST. BED IN LOWEST LOCKED POSITION, SIDE RAILS UP X2. TABLE AND CALL LIGHT WITHIN REACH. WILL CONTINUE PLAN OF CARE.
[2020-12-31] MEDS ORDERED: hydrALAZINE HCL IV 20 MG VIAL IV PRN (21:00)
[2020-12-31] MEDS ORDERED: ENOXAPARIN SODIUM 40 MG/0.4 ML DISP.SYRIN SQ SCH (21:00)
[2020-12-31] MEDS: CLINDAMYCIN 900 MG in IV D5W 100 ML IV SCH (21:37)
[2020-12-31 23:15] VITALS: BP 124/61
[2021-01-01] MEDS: CLINDAMYCIN 900 MG in IV D5W 100 ML IV SCH (05:08)
--- NOTE | 2021-01-01 06:07 | NUR ---
MS RN CLOSING NOTE PT SLEEPING AT THIS TIME BUT EASILY AROUSED TO TOUCH AND NAME, OXYGEN 2L. NO SOB NOTED. NO S/S OF RESPIRATORY DISTRESS. AMBULATORY WITH ASSISTANCE, GAIT UNSTEADY. IV ACCESS IS INTACT, PATENT, AD FLUSHING WELL. ALL CARE, NEEDS, MEDICATIONS, AND TREATMENT ADMINISTERED ANTICIPATED PER ORDER. ENCOURAGED PT TO REPOSITION Q2H AND PRN. SAFETY, SEIZURE PRECAUTIONS MAINTAINED AT ALL TIMES. BED IN LOWEST LOCKED POSITION, HOB ELEVATED, SIDE RAILS UPX2. CALL LIGHT AND TABLE WITHIN REACH. WILL ENDORSE TO ONCOMING NURSE FOR NEFTALI.
[2021-01-01 06:26] LABS: BASOPHILS # (AUTO) 0.1 K/uL (0.0-0.2); EOSINOPHILS % (AUTO) 2.5 % (0.0-6.0); HEMATOCRIT 38 % (33-45); HEMOGLOBIN 12.4 g/dL (11.5-14.8); LYMPHOCYTES # (AUTO) 2.6 K/uL (0.8-4.8); LYMPHOCYTES % (AUTO) 23.3 % (20.0-44.0); MEAN CORPUSCULAR HGB CONC 33 g/dl (31.0-36.0); MEAN CORPUSCULAR VOLUME 97 fL (82-100); MONOCYTES # (AUTO) 0.7 K/uL (0.1-1.30); MONOCYTES % (AUTO) 6.1 % (2.0-12.0); NEUTROPHILS # (AUTO) 7.4 K/uL (1.8-8.9); NEUTROPHILS % (AUTO) 67.1 % (43.0-81.0); PLATELET COUNT (AUTO) 308 K/uL (150-450); RED BLOOD CELL COUNT(AUTO) 3.86 MIL/uL (4.0-5.2)
[2021-01-01 07:10] LABS: ALBUMIN 2.6 g/dL (3.4-5.0); BILIRUBIN,TOTAL 0.3 mg/dL (0.2-1.0); CALCIUM, SERUM 7.9 mg/dL (8.5-10.1); CREATININE 0.9 mg/dL (0.6-1.3); MAGNESIUM 1.9 mg/dL (1.8-2.4); PHOSPHORUS 4.2 mg/dL (2.5-4.9); POTASSIUM 3.8 mmol/L (3.5-5.1); TOTAL PROTEIN, SERUM 6.7 g/dL (6.4-8.2)
--- NOTE | 2021-01-01 07:40 | NUR ---
RN OPENING NOTE RECEIVED PATIENT AWAKE ALERT AND ORIENTED X 4.. PATIENT IS IN 2L OXYGEN VIA NASAL CANNULA SATURATING WELL. PATIENT IN NO APPARENT RESPIRATORY DISTRESS NOTED. NO COMPLAINED OF PAIN NOTED AT THIS TIME. WILL CONTINUE TO MONITOR.
[2021-01-01 08:00] VITALS: BP 109/50
[2021-01-01] MEDS ORDERED: CLIN150C16 PO (08:29)
--- NOTE | 2021-01-01 10:33 | NUR ---
RN NOTES PATIENT AWAKE ALERT AND ORIENTED X 4. PATIENT IS IN ROOM AIR SATURATION 98% TOLERATED WELL. PATIENT IN NO APPARENT RESPIRATORY DISTRESS NOTED. NO COMPLAINED OF PAIN NOTED AT THIS TIME. SEEN AND EXAMINED BY MD WITH ORDERS MADE AND CARRIED OUT. ALL DUE MEDICATIONS WAS GIVEN. DISCHARGED INSTRUCTIONS WAS GIVEN PATIENT VERBALIZED UNDERSTANDING. PATIENT LEFT THE HOSPITAL IN MEDICALLY STABLE CONDITION BARTENDERS BY JOANA () VIA PRIVATE CAR.
== END 2021-01-01 10:33 | disposition home or self-care (01) | DRG 917 ==
LOC: ER 16:40 → MED 20:23
PROVIDERS: ADMIT Internal Medicine; ATTEND Internal Medicine
DX: T63.311A Toxic effect of venom of black widow spider, accidental (unintentional), initial encounter (principal); A41.9 Sepsis, unspecified organism; L03.116 Cellulitis of left lower limb; E87.6 Hypokalemia; F31.9 Bipolar disorder, unspecified; E78.5 Hyperlipidemia, unspecified; G40.909 Epilepsy, unspecified, not intractable, without status epilepticus; J44.9 Chronic obstructive pulmonary disease, unspecified; Y92.009 Unspecified place in unspecified non-institutional (private) residence as the place of occurrence of the external cause; Z90.49 Acquired absence of other specified parts of digestive tract; Z20.822 Contact with and (suspected) exposure to COVID-19
CPT/HCPCS: 36415; 80048-TC; 80053-TC; 80076-TC; 83605-TC; 83735-TC; 84100-TC; 85025-TC; 85652-TC; 85730-TC; 86140-TC; 87040-TC; 87081-TC; 93970-TC; C9803; G0378; J1650; J3370; J3490; J7060

== ENCOUNTER 2021-01-09 10:27 | Emergency (ER) | payer MEDICARE, OTHER ==
[~2021-01-09] VITALS: Ht 157.5 cm; Wt 63.5 kg
[~2021-01-09 10:27] MED LIST changes: +CLIN150C16 PO; -GABA-532 PO; -LEVO750T46 PO; -METR500T PO; -NITR100C6 PO; -NYST5ORA PO
--- NOTE | 2021-01-09 10:45 | NUR ---
c/o seun foot swelling/edema, "concern about cellulitis/MRSA", 10/[address] Mchugh at bedside for eval.
--- NOTE | 2021-01-09 11:30 | NUR ---
phleb at bedside/
--- NOTE | 2021-01-09 11:37 | NUR ---
us tech at bedside
[2021-01-09 12:21] LABS: BASOPHILS # (AUTO) 0.1 K/uL (0.0-0.2); BASOPHILS % (AUTO) 0.8 % (0.0-2.0); EOSINOPHILS % (AUTO) 2.1 % (0.0-6.0); HEMATOCRIT 35 % (33-45); HEMOGLOBIN 11.3 g/dL (11.5-14.8); LYMPHOCYTES % (AUTO) 23.4 % (20.0-44.0); MEAN CORPUSCULAR HGB CONC 32 g/dl (31.0-36.0); MEAN CORPUSCULAR VOLUME 97 fL (82-100); MONOCYTES # (AUTO) 0.8 K/uL (0.1-1.30); MONOCYTES % (AUTO) 6.4 % (2.0-12.0); NEUTROPHILS # (AUTO) 8.6 K/uL (1.8-8.9); NEUTROPHILS % (AUTO) 67.3 % (43.0-81.0); PLATELET COUNT (AUTO) 339 K/uL (150-450); RED BLOOD CELL COUNT(AUTO) 3.62 MIL/uL (4.0-5.2); WHITE BLOOD COUNT (AUTO) 12.8 K/uL (4.3-11.0)
[2021-01-09 12:38] LABS: ALBUMIN 2.8 g/dL (3.4-5.0); BILIRUBIN,TOTAL 0.1 mg/dL (0.2-1.0); CALCIUM, SERUM 8.1 mg/dL (8.5-10.1); CREATININE 0.9 mg/dL (0.6-1.3); POTASSIUM 3.8 mmol/L (3.5-5.1); TOTAL PROTEIN, SERUM 7.2 g/dL (6.4-8.2)
[2021-01-09] MEDS ORDERED: CEPH500C2 PO (12:42)
[2021-01-09] MEDS ORDERED: SULF1TAB48 PO (12:42)
[2021-01-09 12:59] VITALS: BP 133/78
--- NOTE | 2021-01-09 12:59 | NUR ---
Patient discharged to home in stable condition. Written and verbal after care instructions given. Patient verbalizes understanding of instruction.
== END 2021-01-09 13:00 | disposition home or self-care (01) ==
LOC: ER 10:32
DX: L03.116 Cellulitis of left lower limb (principal); R60.0 Localized edema; G40.909 Epilepsy, unspecified, not intractable, without status epilepticus; J44.9 Chronic obstructive pulmonary disease, unspecified; F32.9 Major depressive disorder, single episode, unspecified; F41.9 Anxiety disorder, unspecified; F43.10 Post-traumatic stress disorder, unspecified; Z98.890 Other specified postprocedural states; Z79.899 Other long term (current) drug therapy
CPT/HCPCS: 36415; 80053-TC; 85025-TC; 93970-TC

== ENCOUNTER 2021-02-10 16:48 | Emergency (ER) | payer OTHER ==
[~2021-02-10] VITALS: Ht 157.5 cm; Wt 65.8 kg
[~2021-02-10 16:48] MED LIST changes: +CEPH500C2 PO; -CLIN150C16 PO; +SULF1TAB48 PO
[2021-02-10 17:33] VITALS: BP 123/82
== END 2021-02-10 17:57 | disposition home or self-care (01) ==
LOC: ER 16:48
DX: L97.329 Non-pressure chronic ulcer of left ankle with unspecified severity (principal); M25.572 Pain in left ankle and joints of left foot; G40.909 Epilepsy, unspecified, not intractable, without status epilepticus; J44.9 Chronic obstructive pulmonary disease, unspecified; F41.9 Anxiety disorder, unspecified; F32.9 Major depressive disorder, single episode, unspecified; Z98.890 Other specified postprocedural states; Z79.899 Other long term (current) drug therapy

== ENCOUNTER 2021-03-18 15:48 | Emergency (ER) | payer OTHER ==
[~2021-03-18] VITALS: Ht 157.5 cm; Wt 68.0 kg
--- NOTE | 2021-03-18 16:05 | NUR ---
To ER bed 3, c/o generalized weakness, unable to keep fluids in since monday, aaox4, breathing even and non labored, attached to monitor
[2021-03-18] MEDS ORDERED: ONDANSETRON HCL/PF 4 MG/2 ML VIAL ONE (16:26)
[2021-03-18] MEDS: IV NS 0.9% 1,000 ML BAG IV ONE (16:34)
[2021-03-18] MEDS: ONDANSETRON HCL/PF 4 MG/2 ML VIAL IVP ONE (16:35)
[2021-03-18 16:40] LABS: BASOPHILS # (AUTO) 0.2 K/uL (0.0-0.2); EOSINOPHILS % (AUTO) 0.2 % (0.0-6.0); HEMATOCRIT 42 % (33-45); HEMOGLOBIN 13.8 g/dL (11.5-14.8); LYMPHOCYTES # (AUTO) 2.9 K/uL (0.8-4.8); MEAN CORPUSCULAR HGB CONC 33 g/dl (31.0-36.0); MEAN CORPUSCULAR VOLUME 96 fL (82-100); MONOCYTES # (AUTO) 1.2 K/uL (0.1-1.30); MONOCYTES % (AUTO) 7.7 % (2.0-12.0); NEUTROPHILS # (AUTO) 11.8 K/uL (1.8-8.9); NEUTROPHILS % (AUTO) 73.1 % (43.0-81.0); PLATELET COUNT (AUTO) 375 K/uL (150-450); RED BLOOD CELL COUNT(AUTO) 4.38 MIL/uL (4.0-5.2); WHITE BLOOD COUNT (AUTO) 16.2 K/uL (4.3-11.0)
[2021-03-18 16:50] LABS: CALCIUM, SERUM 9.4 mg/dL (8.5-10.1); CREATININE 1.1 mg/dL (0.6-1.3); POTASSIUM 3.9 mmol/L (3.5-5.1)
[2021-03-18 16:54] LABS: ALBUMIN 3.7 g/dL (3.4-5.0); BILIRUBIN,DIRECT 0.1 mg/dL (0.0-0.2); BILIRUBIN,TOTAL 0.3 mg/dL (0.2-1.0); TOTAL PROTEIN, SERUM 8.6 g/dL (6.4-8.2)
[2021-03-18 17:00] LABS: BILIRUBIN,URINE LARGE (NEGATIVE); COLOR,URINE YELLOW (YELLOW); LEUKOCYTE ESTERASE ,URINE Negative (NEGATIVE); NITRITE, URINE Negative (NEGATIVE); PROTEIN,URINE Trace mg/dl (NEGATIVE); UGLUCOSE Negative (NEGATIVE); UROBILINOGEN,URINE 0.2 EU/dL (0.2)
[2021-03-18 17:07] LABS: BACTERIA,URINE Few /HPF (None Seen); HYALINE CASTS, URINE Few /LPF (None Seen); RBC,URINE 0-2 /HPF (0-2); SQUAMOUS EPITHELIAL CELL,UR Moderate /HPF (None Seen)
[2021-03-18] MEDS ORDERED: ONDA4TAB5 PO (18:06)
[2021-03-18] MEDS ORDERED: CEPH500C2 PO (18:06)
[2021-03-18 18:16] VITALS: BP 117/73
== END 2021-03-18 18:16 | disposition home or self-care (01) ==
LOC: ER 15:51
DX: N39.0 Urinary tract infection, site not specified (principal); R11.2 Nausea with vomiting, unspecified; R82.4 Acetonuria; D72.829 Elevated white blood cell count, unspecified; E86.0 Dehydration; G40.909 Epilepsy, unspecified, not intractable, without status epilepticus; J44.9 Chronic obstructive pulmonary disease, unspecified; F32.9 Major depressive disorder, single episode, unspecified; F41.9 Anxiety disorder, unspecified; R00.0 Tachycardia, unspecified; Z98.890 Other specified postprocedural states; Z79.899 Other long term (current) drug therapy; Z86.19 Personal history of other infectious and parasitic diseases
CPT/HCPCS: 36415; 80048; 80076; 81001; 83690; 84484; 85025; 93005; 96361; 96374; 99284; J2405; J7030

== ENCOUNTER 2021-08-10 13:05 | Emergency (ER) | payer MEDICARE, OTHER ==
[~2021-08-10] VITALS: Ht 157.5 cm; Wt 63.5 kg
[~2021-08-10 13:05] MED LIST changes: +ONDA4TAB5 PO
--- NOTE | 2021-08-10 13:36 | NUR ---
SEEN AND EXAMINED BY .
--- NOTE | 2021-08-10 13:37 | NUR ---
WALKED IN HERE FOR EVAL AND TREATMENT OF DIZZINESS X 1 WEEK,TO ER BED 3,MONITOR,EKG
--- NOTE | 2021-08-10 13:40 | NUR ---
IV LINE ESTABLISHED BLOOD DRAWN AND SENT TO LAB.
--- NOTE | 2021-08-10 13:47 | NUR ---
URINAL GIVEN BUT UNABLE TO PROVIDE URINE SPECIMEN THIS TIME.
[2021-08-10] MEDS ORDERED: IV NS 0.9% 1,000 ML BAG IV ONE (14:00)
[2021-08-10] MEDS ORDERED: MECLIZINE HCL 25 MG TABLET ONE (14:27)
[2021-08-10] MEDS ORDERED: MECLIZINE HCL 12.5 MG TABLET PO ONE (14:30)
[2021-08-10 14:31] LABS: BASOPHILS # (AUTO) 0.1 K/uL (0.0-0.2); EOSINOPHILS % (AUTO) 1.9 % (0.0-6.0); HEMATOCRIT 39 % (33-45); HEMOGLOBIN 12.7 g/dL (11.5-14.8); LYMPHOCYTES # (AUTO) 3.2 K/uL (0.8-4.8); LYMPHOCYTES % (AUTO) 23.4 % (20.0-44.0); MEAN CORPUSCULAR HGB CONC 33 g/dl (31.0-36.0); MEAN CORPUSCULAR VOLUME 94 fL (82-100); MONOCYTES % (AUTO) 7.1 % (2.0-12.0); NEUTROPHILS # (AUTO) 9.1 K/uL (1.8-8.9); NEUTROPHILS % (AUTO) 66.6 % (43.0-81.0); PLATELET COUNT (AUTO) 402 K/uL (150-450); RED BLOOD CELL COUNT(AUTO) 4.14 MIL/uL (4.0-5.2); WHITE BLOOD COUNT (AUTO) 13.6 K/uL (4.3-11.0)
[2021-08-10 14:57] LABS: ALANINE AMINOTRANSFERASE 23 U/L (12-78); ALBUMIN 3.1 g/dL (3.4-5.0); ALKALINE PHOSPHATASE 90 U/L (46-116); ASPARTATE AMINOTRANSFERASE 29 U/L (15-37); BILIRUBIN,DIRECT 0.1 mg/dL (0.0-0.2); BILIRUBIN,TOTAL 0.3 mg/dL (0.2-1.0); CARBON DIOXIDE 22 mmol/L (21-32); CHLORIDE 105 mmol/L (98-107); CREATININE 1.1 mg/dL (0.6-1.3); GLUCOSE 109 mg/dL (74-106); SODIUM SERUM 140 mmol/L (136-145); TOTAL PROTEIN, SERUM 7.9 g/dL (6.4-8.2); UREA NITROGEN, BLOOD 9 mg/dL (7-18)
[2021-08-10 14:59] LABS: POTASSIUM 2.2 mmol/L (3.5-5.1)
[2021-08-10] MEDS ORDERED: POTASSIUM CL. PREMIX PERIPHER. 50 ML IV SCH (15:30)
[2021-08-10] MEDS ORDERED: POTASSIUM CL. PREMIX PERIPHER. 0 ML ONE (15:30)
[2021-08-10] MEDS ORDERED: POTASSIUM CHLORIDE 20 MEQ TAB.PRT.SR PO ONE ×2 (15:30→15:31)
[2021-08-10] MEDS ORDERED: MULT-754 PO (15:39)
[2021-08-10] MEDS ORDERED: CLON1TAB12 PO (15:39)
[2021-08-10] MEDS ORDERED: CALC500T52 PO (15:39)
[2021-08-10] MEDS ORDERED: BUPR1TAB39 SL (15:39)
[2021-08-10] MEDS ORDERED: FLUT1BLS INH (15:39)
[2021-08-10] MEDS ORDERED: ALBU18HF2 INH (15:39)
[2021-08-10] MEDS ORDERED: TEMA15CA PO (15:39)
--- NOTE | 2021-08-10 15:45 | NUR ---
IV removed. Catheter intact and site benign. Pressure and 4x4 applied to site. No bleeding noted.
--- NOTE | 2021-08-10 15:52 | NUR ---
Patient does not wish to proceed with medical care recommended by Dr. Jacques. Patient given information related to possible complications, up to and including , which could occur as a result of leaving the hospital at this time. Patient verbalizes understanding of risks involved due to leaving against medical advice. Patient has signed AMA form.
[2021-08-10 15:54] VITALS: BP 107/54
== END 2021-08-10 15:54 | disposition left against medical advice (07) ==
LOC: ER 13:09
DX: R42 Dizziness and giddiness (principal); E87.6 Hypokalemia; G40.909 Epilepsy, unspecified, not intractable, without status epilepticus; J44.9 Chronic obstructive pulmonary disease, unspecified; F32.A Depression, unspecified; F41.9 Anxiety disorder, unspecified; F43.10 Post-traumatic stress disorder, unspecified; F17.200 Nicotine dependence, unspecified, uncomplicated; Z98.890 Other specified postprocedural states; Z79.899 Other long term (current) drug therapy
CPT/HCPCS: 36415; 70450; 80048; 80076; 80185; 83880; 84484; 85025; 93005; 96360; 99285; J7030; J8597; J3480

== ENCOUNTER 2021-10-19 13:56 | Emergency (ER) | payer MEDICARE, OTHER ==
[~2021-10-19] VITALS: Ht 157.5 cm; Wt 59.9 kg
[~2021-10-19 13:56] MED LIST changes: +ALBU18HF2 INH; +BUPR1TAB39 SL; +CALC500T52 PO; -CEPH500C2 PO; +CLON1TAB12 PO; +FLUT1BLS INH; +MULT-754 PO; -ONDA4TAB5 PO; -SULF1TAB48 PO; +TEMA15CA PO; -TEMA30CA5 PO
--- NOTE | 2021-10-19 13:58 | NUR ---
BIB C/O NAUSEA AND VOMITTING SOMCE 10/16, PT STATED THAT SHE CANNOT KEEP ANYTHING DOWN AND FEELS WEAK. AMBULATORY, AAOX4, PLACED ON BED.
--- NOTE | 2021-10-19 14:00 | NUR ---
AT BED SIDE
--- NOTE | 2021-10-19 14:10 | NUR ---
BLOOD DRAWN AND SENT TO LAB.
[2021-10-19] MEDS ORDERED: IV NS 0.9% 1,000 ML BAG IV ONE ×2 (14:30→15:30)
[2021-10-19 14:52] LABS: BASOPHILS # (AUTO) 0.1 K/uL (0.0-0.2); BASOPHILS % (AUTO) 0.8 % (0.0-2.0); EOSINOPHILS % (AUTO) 1.4 % (0.0-6.0); HEMATOCRIT 38 % (33-45); HEMOGLOBIN 12.4 g/dL (11.5-14.8); LYMPHOCYTES # (AUTO) 2.5 K/uL (0.8-4.8); LYMPHOCYTES % (AUTO) 15.8 % (20.0-44.0); MEAN CORPUSCULAR HGB CONC 33 g/dl (31.0-36.0); MEAN CORPUSCULAR VOLUME 96 fL (82-100); MONOCYTES # (AUTO) 1.3 K/uL (0.1-1.30); MONOCYTES % (AUTO) 8.2 % (2.0-12.0); NEUTROPHILS # (AUTO) 11.5 K/uL (1.8-8.9); NEUTROPHILS % (AUTO) 73.8 % (43.0-81.0); PLATELET COUNT (AUTO) 349 K/uL (150-450); RED BLOOD CELL COUNT(AUTO) 3.95 MIL/uL (4.0-5.2); WHITE BLOOD COUNT (AUTO) 15.6 K/uL (4.3-11.0)
[2021-10-19 15:24] LABS: CREATININE 1.1 mg/dL (0.6-1.3)
[2021-10-19 15:26] LABS: POTASSIUM 2.8 mmol/L (3.5-5.1)
[2021-10-19 15:29] LABS: BILIRUBIN,URINE NEGATIVE (NEGATIVE); COLOR,URINE YELLOW (YELLOW); LEUKOCYTE ESTERASE ,URINE NEGATIVE (NEGATIVE); NITRITE, URINE NEGATIVE (NEGATIVE); PH,URINE 7.5 (5.0-8.0); PROTEIN,URINE NEGATIVE (NEGATIVE); UGLUCOSE NEGATIVE (NEGATIVE); UROBILINOGEN,URINE 0.2 EU/dL (0.2)
[2021-10-19] MEDS ORDERED: POTASSIUM CHLORIDE 20 MEQ TAB.PRT.SR PO ONE ×2 (15:30→15:47)
[2021-10-19] MEDS ORDERED: ONDANSETRON HCL/PF - ER 4 MG/2 ML VIAL IV ONE (15:30)
[2021-10-19 15:33] LABS: BILIRUBIN,DIRECT 0.1 mg/dL (0.0-0.2); BILIRUBIN,TOTAL 0.3 mg/dL (0.2-1.0)
[2021-10-19 15:34] LABS: ALBUMIN 3.1 g/dL (3.4-5.0); TOTAL PROTEIN, SERUM 7.4 g/dL (6.4-8.2)
[2021-10-19] MEDS ORDERED: ONDANSETRON HCL/PF 4 MG/2 ML VIAL ONE (15:46)
[2021-10-19] MEDS ORDERED: ONDA4TAB5 PO (17:00)
[2021-10-19] MEDS ORDERED: LORAZEPAM 0.5 MG TABLET PO ONE (17:00)
[2021-10-19] MEDS ORDERED: LORAZEPAM 0.5 MG TABLET ONE ×2 (17:18→17:19)
[2021-10-19 18:47] VITALS: BP 120/75
== END 2021-10-19 18:15 | disposition home or self-care (01) ==
LOC: ER 14:02
DX: R11.2 Nausea with vomiting, unspecified (principal); J44.9 Chronic obstructive pulmonary disease, unspecified; F41.9 Anxiety disorder, unspecified; F32.A Depression, unspecified; Z86.69 Personal history of other diseases of the nervous system and sense organs; Z87.19 Personal history of other diseases of the digestive system; Z79.899 Other long term (current) drug therapy
CPT/HCPCS: 36415; 71045; 80048; 80076; 81003; 84484; 85025; 93005; 96361; 96374; 99285; J2405; J7030 ×2

== ENCOUNTER 2022-02-12 10:06 | Inpatient (IN) | payer MEDICARE, OTHER ==
[~2022-02-12] VITALS: Ht 154.9 cm; Wt 54.4 kg
[~2022-02-12 10:06] MED LIST changes: +ONDA4TAB5 PO
--- NOTE | 2022-02-12 10:30 | NUR ---
BIBFAMILY FOR URINARY RETENTION [id number], WBC 17,000 3WKS AGO. THE PATIENT IS ALERT AND ORIENTED X3. IN ROOM AIR AND DENIES SOB. RESPIRATION REGULAR AND UNLABORED. THE PATIENT RATES PUBLIC AREA PAIN 2/10. WILL CONTINUE TO MONITOR THE PATIENT.
[2022-02-12 10:58] LABS: BASOPHILS # (AUTO) 0.1 K/uL (0.0-0.2); BASOPHILS % (AUTO) 0.7 % (0.0-2.0); EOSINOPHILS % (AUTO) 0.8 % (0.0-6.0); HEMATOCRIT 39 % (33-45); HEMOGLOBIN 13.2 g/dL (11.5-14.8); LYMPHOCYTES # (AUTO) 2.2 K/uL (0.8-4.8); MEAN CORPUSCULAR HGB CONC 34 g/dl (31.0-36.0); MEAN CORPUSCULAR VOLUME 95 fL (82-100); MONOCYTES # (AUTO) 1.3 K/uL (0.1-1.30); MONOCYTES % (AUTO) 8.3 % (2.0-12.0); NEUTROPHILS # (AUTO) 12.1 K/uL (1.8-8.9); NEUTROPHILS % (AUTO) 76.2 % (43.0-81.0); PLATELET COUNT (AUTO) 236 K/uL (150-450); RED BLOOD CELL COUNT(AUTO) 4.15 MIL/uL (4.0-5.2); WHITE BLOOD COUNT (AUTO) 15.8 K/uL (4.3-11.0)
[2022-02-12] MEDS ORDERED: IV NS 0.9% 1,000 ML BAG IV ONE (11:00)
--- NOTE | 2022-02-12 12:00 | NUR ---
IN AND OUT CATH DONE PER DR BOYD AND DRAINED TOTAL OF [address] BOYD AWARE.
--- NOTE | 2022-02-12 12:10 | NUR ---
URINE COLLECTED AND SENT TO THE LAB
[2022-02-12 12:24] LABS: ALBUMIN 2.7 g/dL (3.4-5.0); BILIRUBIN,TOTAL 0.3 mg/dL (0.2-1.0); CALCIUM, SERUM 9.6 mg/dL (8.5-10.1); CREATININE 1.5 mg/dL (0.6-1.3); TOTAL PROTEIN, SERUM 7.1 g/dL (6.4-8.2)
[2022-02-12 12:36] LABS: BILIRUBIN,DIRECT 0.1 mg/dL (0.0-0.2)
[2022-02-12 12:39] LABS: BILIRUBIN,URINE NEGATIVE (NEGATIVE); COLOR,URINE YELLOW (YELLOW); LEUKOCYTE ESTERASE ,URINE MODERATE (NEGATIVE); NITRITE, URINE NEGATIVE (NEGATIVE); PROTEIN,URINE 30 mg/dl (NEGATIVE); UGLUCOSE NEGATIVE (NEGATIVE); UROBILINOGEN,URINE 0.2 EU/dL (0.2)
[2022-02-12 12:50] LABS: POTASSIUM 1.8 mmol/L (3.5-5.1)
[2022-02-12 12:57] LABS: BACTERIA,URINE 2+ /HPF (None Seen); RBC,URINE NONE SEEN /HPF (0-2); SQUAMOUS EPITHELIAL CELL,UR None Seen /HPF (None Seen); WBC,URINE TOO NUMEROUS TO COUN /HPF (0-3)
[2022-02-12] MEDS ORDERED: POTASSIUM CHLORIDE 20 MEQ TAB.PRT.SR PO ONE ×2 (14:29→14:30)
[2022-02-12] MEDS ORDERED: CEFTRIAXONE 1GM BAG (ER ONLY) 1 GM/50 ML PIGGYBACK IV ONE (14:30)
[2022-02-12] MEDS ORDERED: POTASSIUM CHLORIDE 10 MEQ/50 ML PREMIXED IVPB FOR PERIPHERAL LINE IV ONE (15:30)
[2022-02-12] MEDS ORDERED: IV LR 1000 ML 1,000 ML IV ONE (15:30)
--- NOTE | 2022-02-12 15:34 | NUR ---
covid antigen swab done and sent to the lab
--- NOTE | 2022-02-12 15:56 | NUR ---
Torsten fang in [facility] - 02/12/22 at 9304 by FRANCES CATHI DIAZ (SENG) [phone]
[2022-02-12] MEDS ORDERED: Magnesium 1GM/D5W 100ML PREMIX 100 ML IV ONE ×2 (17:13→18:31)
[2022-02-12] MEDS: Magnesium 1GM/D5W 100ML PREMIX 100 ML IV SCH ×2 (17:20→18:30)
[2022-02-12] MEDS ORDERED: MAGNESIUM HYDROXIDE 30 ML UDC PO PRN (18:30)
[2022-02-12] MEDS ORDERED: MAG HYDROX/AL HYDROX/SIMETH 30 ML UDC PO PRN (18:30)
[2022-02-12] MEDS ORDERED: Z GUARD REMEDY 4 OZ OINT TP PRN (18:30)
[2022-02-12] MEDS ORDERED: ONDANSETRON HCL/PF 4 MG/2 ML VIAL IVP PRN (18:30)
[2022-02-12] MEDS ORDERED: ZOLPIDEM TARTRATE 5 MG TABLET PO PRN (18:30)
[2022-02-12 19:58] LABS: CALCIUM, SERUM 9.1 mg/dL (8.5-10.1); CREATININE 1.1 mg/dL (0.6-1.3)
--- NOTE | 2022-02-12 20:01 | NUR ---
RECEIVED PT IN ROOM 7. PT IS ASLEEP BUT EASILY AROUSABLE WITH VERBAL STIMULI. CONNECTED TO MONITOR. COVID POSITIVE WITH ISOLATION PRECAUTIONS IN PLACE. WILL CONTINUE TO MONITOR
[2022-02-12 20:05] LABS: POTASSIUM 2.1 mmol/L (3.5-5.1)
--- NOTE | 2022-02-12 21:37 | NUR ---
PT CONTINUES TO BE SLEEPING, WILL CONTINUE TO MONITOR
[2022-02-12] MEDS: TEMAZEPAM 15 MG CAPSULE PO SCH (23:00)
--- NOTE | 2022-02-13 03:38 | NUR ---
CHANGED PTS BED LINENS AND PROVIDED WARM BLANKETS AND WATER. WILL CONTINUE TO MONITOR.
[2022-02-13 04:58] LABS: BASOPHILS # (AUTO) 0.1 K/uL (0.0-0.2); BASOPHILS % (AUTO) 0.6 % (0.0-2.0); EOSINOPHILS % (AUTO) 0.2 % (0.0-6.0); HEMATOCRIT 38 % (33-45); HEMOGLOBIN 12.7 g/dL (11.5-14.8); LYMPHOCYTES # (AUTO) 2.4 K/uL (0.8-4.8); LYMPHOCYTES % (AUTO) 14.8 % (20.0-44.0); MEAN CORPUSCULAR HGB CONC 34 g/dl (31.0-36.0); MEAN CORPUSCULAR VOLUME 94 fL (82-100); MONOCYTES # (AUTO) 1.4 K/uL (0.1-1.30); MONOCYTES % (AUTO) 8.3 % (2.0-12.0); NEUTROPHILS # (AUTO) 12.4 K/uL (1.8-8.9); NEUTROPHILS % (AUTO) 76.1 % (43.0-81.0); PLATELET COUNT (AUTO) 307 K/uL (150-450); WHITE BLOOD COUNT (AUTO) 16.3 K/uL (4.3-11.0)
[2022-02-13 05:12] LABS: CALCIUM, SERUM 9.2 mg/dL (8.5-10.1); CREATININE 1.1 mg/dL (0.6-1.3); MAGNESIUM 2.8 mg/dL (1.8-2.4); PHOSPHORUS 2.2 mg/dL (2.5-4.9)
[2022-02-13 05:15] LABS: POTASSIUM 1.8 mmol/L (3.5-5.1)
--- NOTE | 2022-02-13 07:36 | NUR ---
room 110
--- NOTE | 2022-02-13 07:38 | NUR ---
REPORT GIVEN TO JACKIE RN FOR NEFTALI
[2022-02-13 08:00] VITALS: BP 122/67
--- NOTE | 2022-02-13 08:14 | NUR ---
TRANSFERRED TO BED 110 IN STABLE CONDITION
--- NOTE | 2022-02-13 08:15 | NUR ---
RECEIVED PATIENT IN BED VIA GURNEY, AWAKE, ALERT ORIENTED X 4. BREATHING EVEN AND UNLABORED, NO RESPIRATORY DISTRESS NOTED. ON OXYGEN @ 2L/MIN VIA N/C WITH SATURATION OF 92%. SALINE LOCK ON RIGHT ANTECUBITAL, INTACT, PATENT AND FLUSHING WELL, NO S/S INFILTRATION NOTED. BODY CHECK DONE AND NOTED WITH OPEN WOUND ON LEFT FOOT, NO ACTIVE DRAINAGE NOTED, BUT NOTED WITH RED WOUND AND SOME AREAS WITH BLACK DRIED ESCHAR. ALSO NOTED WITH BLISTER ON LEFT HEEL. REPOSITIONED FOR COMFORT. BED LOCKED AND IN LOWEST POSITION, CALL LIGHT WITHIN REACH. WILL MONITOR PATIENT THROUGHOUT SHIFT.
[2022-02-13] MEDS ORDERED: POTASSIUM CHLORIDE 20 MEQ TAB.PRT.SR PO ONE ×2 (08:30→11:00)
[2022-02-13] MEDS: POTASSIUM CL. PREMIX PERIPHER. 50 ML IV SCH ×4 (09:16→12:31)
[2022-02-13] MEDS: CALCIUM CARBONATE (1250) 500 MG TABLET PO SCH (09:54)
[2022-02-13] MEDS: MULTIVITAMINS,THERAGRAN 1 UDTAB TABLET PO SCH (09:54)
[2022-02-13] MEDS: QUETIAPINE FUMARATE 100 MG TABLET PO SCH ×3 (09:54→17:48)
[2022-02-13] MEDS: SERTRALINE HCL 50 MG TABLET PO SCH ×3 (09:55→17:47)
[2022-02-13] MEDS: PHENYTOIN EXTENDED RELEASE 100 MG CAPSULE PO SCH ×2 (09:55→17:47)
[2022-02-13] MEDS: CEFTRIAXONE 1 G in IV D5W 50 ML IV SCH (10:33)
[2022-02-13] MEDS: FLUTICASONE/VILANTEROL 1 EACH BLST.W.DEV IH SCH (10:33)
[2022-02-13] MEDS: PANTOPRAZOLE 40 MG TABLET.DR PO SCH (10:33)
[2022-02-13] MEDS ORDERED: K PHOS NEUTRAL 250 MG TABLET PO ONE (12:00)
[2022-02-13 14:01] VITALS: BP 97/61
[2022-02-13 16:00] VITALS: BP 109/73
--- NOTE | 2022-02-13 19:02 | NUR ---
ELECTRODE TURNER AND FINISHER CLOSING NOTES: PATIENT IN BED, ;EEP BUT EASILY AROUSES TO VOUICE AND TACTILE STIMULI. NO RESPIRATOR DISTRESS NOTED,. ON OXYGEN @ 3L/MIN VIA N/C WITH SATURATION OF 97%. ST ON TELE MONITOR WITH HR OF 102. ON IVF OF 1/2 NS @ 75 ML/HR VIA RIGHT AC, NO INFILTRATION NOTED. BED LOCKED AND IN LOWEST POSITION. CALL LIGHT WITHIN REACH. HELD PSYCH MEDS DUE @ 1700 DUE TO LETHARGY BUT EASILY AROUSABLE. WILL ENDORSE TO NEXT SHIFT NURSE.
--- NOTE | 2022-02-13 19:45 | NUR ---
RECEIVED PATIENT IN BED, ASLEEP BUT EASILY AROUSES TO VOICE AND SOUND. NO SOB NOTED, ALERT AND ORIENTED X 3. BREATHING EVEN AND UNLABORED, NO RESPIRATORY DISTRESS NOTED. ON OXYGEN @ 3L/MIN VIA N/C WITH SATURATION OF 95%. RIGHT ANTECUBITAL, INTACT, PATENT AND FLUSHING WELL, NO S/S INFILTRATION NOTED. INFUSING 1/2 NS @ 75ML/HR. SAFETY MEASURES IN PLACE. BED LOCKED AND IN LOWEST POSITION, CALL LIGHT WITHIN REACH. BED ALARM ON, SIDE RAILS UP X2,WILL CONTINUE PLAN OF CARE.
[2022-02-13 20:00] VITALS: BP 115/68
[2022-02-13] MEDS: TEMAZEPAM 15 MG CAPSULE PO SCH (22:41)
[2022-02-14] VITALS: BP 115/62
[2022-02-14] MEDS: IV 1/2NS 1000 ML 1,000 ML IV PRN (02:13)
[2022-02-14 04:00] VITALS: BP 138/64
--- NOTE | 2022-02-14 06:40 | NUR ---
PATIENT IN BED, ASLEEP BUT EASILY AROUSES TO VOICE AND SOUND. NOT IN DISTRESS, ALERT AND ORIENTED X 3. NO RESPIRATORY DISTRESS NOTED. ON OXYGEN @ 3L/MIN VIA N/C WITH SATURATION OF 95%. RIGHT ANTECUBITAL, INTACT, PATENT AND FLUSHING WELL, NO S/S INFILTRATION NOTED. INFUSING 1/2 NS @ 75ML/HR. SAFETY MEASURES IN PLACE. BED LOCKED AND IN LOWEST POSITION, CALL LIGHT WITHIN REACH. BED ALARM ON, SIDE RAILS UP X2. WILL ENDORSE TO NEXT NURSE ON DUTY FOR CONTINUITY OF CARE.
[2022-02-14] MEDS: PANTOPRAZOLE 40 MG TABLET.DR PO SCH (07:30)
--- NOTE | 2022-02-14 07:30 | NUR ---
radiotelegraphist opening note patient is alert and oriented x2-3. patient has current iv site in the right ac. patient is on nasal cannula via 02 tolerating above 95%.patient is on bedrest. patient has poor appetie.all safety measures in place. call light within reach. bed locked in lowest position. side rails up x2.
[2022-02-14 07:31] LABS: BASOPHILS % (AUTO) 0.3 % (0.0-2.0); EOSINOPHILS % (AUTO) 0.3 % (0.0-6.0); HEMATOCRIT 40 % (33-45); HEMOGLOBIN 13.4 g/dL (11.5-14.8); LYMPHOCYTES % (AUTO) 15.6 % (20.0-44.0); MEAN CORPUSCULAR HGB CONC 34 g/dl (31.0-36.0); MEAN CORPUSCULAR VOLUME 95 fL (82-100); MONOCYTES # (AUTO) 1.2 K/uL (0.1-1.30); MONOCYTES % (AUTO) 9.1 % (2.0-12.0); NEUTROPHILS # (AUTO) 9.7 K/uL (1.8-8.9); NEUTROPHILS % (AUTO) 74.7 % (43.0-81.0); PLATELET COUNT (AUTO) 280 K/uL (150-450); RED BLOOD CELL COUNT(AUTO) 4.17 MIL/uL (4.0-5.2)
[2022-02-14 07:42] LABS: CALCIUM, SERUM 8.7 mg/dL (8.5-10.1); MAGNESIUM 2.4 mg/dL (1.8-2.4); PHOSPHORUS 2.5 mg/dL (2.5-4.9)
[2022-02-14 08:00] VITALS: BP 131/68
[2022-02-14 08:02] LABS: POTASSIUM 2.3 mmol/L (3.5-5.1)
--- NOTE | 2022-02-14 08:17 | NUR ---
received critical lab potassium 2.[address] nereyda dawn ordered 40 po and 40 iv
[2022-02-14] MEDS ORDERED: POTASSIUM CHLORIDE 20 MEQ TAB.PRT.SR PO ONE (09:00)
[2022-02-14] MEDS: CEFTRIAXONE 1 G in IV D5W 50 ML IV SCH (09:13)
[2022-02-14] MEDS: FLUTICASONE/VILANTEROL 1 EACH BLST.W.DEV IH SCH (09:16)
[2022-02-14] MEDS: PHENYTOIN EXTENDED RELEASE 100 MG CAPSULE PO SCH ×2 (09:16→17:27)
[2022-02-14] MEDS: CALCIUM CARBONATE (1250) 500 MG TABLET PO SCH (09:17)
[2022-02-14] MEDS: QUETIAPINE FUMARATE 100 MG TABLET PO SCH ×2 (09:17→17:27)
[2022-02-14] MEDS: MULTIVITAMINS,THERAGRAN 1 UDTAB TABLET PO SCH (09:17)
[2022-02-14] MEDS: SERTRALINE HCL 50 MG TABLET PO SCH ×2 (09:17→17:27)
[2022-02-14] MEDS: POTASSIUM CL. PREMIX PERIPHER. 50 ML IV SCH ×4 (10:37→23:48)
[2022-02-14] MEDS: DEXAMETHASONE SOD PHOSPHATE 10 MG/ML VIAL IV SCH (11:00)
[2022-02-14 11:47] LABS: ABG BASE EXCESS -9.4 mmol/L; ABG OXYGEN SATURATION 90.3 % (92.0-98.5); ABG PCO2 26.3 mmHg (35.0-45.0); ABG PH 7.358 (7.350-7.450); ABG PO2 58.7 mmHg (75.0-100.0); AaDO2 167.5 mmHg; COHb 0.7 % (0.5-1.5); MetHb 0.3 % (0.0-1.5); O2Hb 89.4 % (94.0-97.0); SITE, ABG Right Radial; VENT MODE, BG 4 L NC
[2022-02-14 12:00] VITALS: BP 109/62
--- NOTE | 2022-02-14 12:00 | NUR ---
ELECTRICAL AND INSTRUMENTATION MECHANIC NOTE notified housekeeping laundry worker to do midline due to patient being hard stick and multiple attempts of iv started
--- NOTE | 2022-02-14 12:00 | NUR ---
patient has no IV site.ordered midline. waiting for midline nurse. called CT to follow-up for nurse to come do midline followed up called CT scan, called Xray no answer
[2022-02-14] MEDS: ENOXAPARIN SODIUM 40 MG/0.4 ML DISP.SYRIN SQ SCH (13:02)
--- NOTE | 2022-02-14 13:15 | NUR ---
telephone directory deliverer note patient currently doesnt have IV site. spoke with pharmacy to switch decadron iv to po. waiting for patient to get midline
[2022-02-14 16:00] VITALS: BP 130/65
--- NOTE | 2022-02-14 17:30 | NUR ---
patient received midline. started potassium iv delay in potassium iv medication because midline nurse wasn't available earlier in the day
[2022-02-14] MEDS: ENSURE ENLIVE 237 ML LIQUID (VANILLA) PO SCH (18:09)
--- NOTE | 2022-02-14 18:13 | NUR ---
spoke with pharmacy to bring up 3 potassium iv bags and to endorse it to operation shift supervisor one potassium iv bag currently running
--- NOTE | 2022-02-14 18:16 | NUR ---
dialysis nurse completed took out 1.5L Addendum: 02/14/22 at 1 by CAMILA SLOAN RN wrong patient
--- NOTE | 2022-02-14 19:30 | NUR ---
HAIRSPRING STUDDER OPENING NOTES: PATIENT IN BED, ASLEEP BUT EASILY AROUSES TO VOICE AND TACTILE STIMULI. NO RESPIRATOR DISTRESS NOTED. ON OXYGEN @ 6L/MIN VIA NC WITH SATURATION OF 96%. SR ON TELE MONITOR WITH HR OF 88. ON IVF OF 1/2 NS @ 75 ML/HR VIA LISSA MID, NO INFILTRATION NOTED. ENDORSED WITH 2 MORE BAGS OF KCL TO BE ADMINISTERED, BED LOCKED AND IN LOWEST POSITION. CALL LIGHT WITHIN REACH. WILL CONTINUE TO MONITOR CLOSELY.
--- NOTE | 2022-02-14 19:55 | NUR ---
EDUCATION AND OUTREACH COORDINATOR CLOSING NOTE patient is alert and oriented x2-3. patient is on 6L 02 via nasal cannula tolerating at above 95%.all needs met.patient has left upper arm midline.iv patent and flushing well. all safety measures in place. call light within reach. bed locked and in lowest position. side rails upx2.
[2022-02-14 20:00] VITALS: BP 118/64
--- NOTE | 2022-02-14 21:30 | NUR ---
RN NOTE REPORT GIVEN TO NICANOR DAIGLE FOR CONTINUITY OF CARE.
--- NOTE | 2022-02-14 21:32 | NUR ---
RN NOTE RECEIVED REPORT FROM NICANOR TOUSSAINT. WILL CONTINUE PLAN OF CARE.
--- NOTE | 2022-02-14 23:22 | NUR ---
PANEL MAKER OPENING NOTE PT RECEIVED IN BED, ASLEEP BUT EASILY AROUSABLE, A&O X3. PT ON 6L NC WITH CURRENT O2SAT OF 96%; NO S/S OF RESP DISTRESS, NO SOB OR COUGH, NON-LABORED AND EQUAL BREATHING; APPEARS COMFORTABLE OVERALL. PT ATTACHED TO EXTERNAL MONITOR ST WITH HR OF 110. LISSA MIDLINE INTACT AND PATENT, FLUSHES EASILY WITH NO RESISTANCE, 1/2 NS RUNNING AT 75 ML/HR AND KCL 10 MEQ RUNNING AT 50 ML/HR. BED IN LOWEST POSITION, CALL LIGHT WITHIN REACH, SIDE RAILS UP X3. WILL CONTINUE TO MONITOR THROUGHOUT THE NIGHT.
[2022-02-15] VITALS: BP 117/54
[2022-02-15] MEDS: IV 1/2NS 1000 ML 1,000 ML IV PRN ×2 (03:19→23:39)
[2022-02-15 04:00] VITALS: BP 127/78
--- NOTE | 2022-02-15 06:16 | NUR ---
GLOBAL IMPLEMENTATION MANAGER CLOSING NOTE PT REMAINS IN BED, AWAKE, A&O X4, CALM, COOPERATIVE; SLEPT INTERMITTENTLY THROUGHOUT THE NIGHT. PT CONTINUES TO BE ON 6L NC WITH O2SAT RANGING FROM 93%-96%; NO S/S OF RESP DISTRESS, NO SOB OR COUGH, NON-LABORED AND EQUAL BREATHING. ATTACHED TO EXTERNAL MONITOR ST, HR RANGED FROM 101-110. LISSA MIDLINE INTACT AND PATENT, FLUSHES EASILY WITH NO RESISTANCE, 1/2 NS RUNNING AT 75 ML/HR. ALL DUE MEDS ADMINISTERED DURING THE NIGHT. BED IN LOWEST POSITION, CALL LIGHT WITHIN REACH, SIDE RAILS UP X3. WILL ENDORSE TO DAYSHIFT NURSE TO CONTINUE CARE.
[2022-02-15 06:47] LABS: BASOPHILS % (AUTO) 0.3 % (0.0-2.0); EOSINOPHILS % (AUTO) 0.1 % (0.0-6.0); HEMATOCRIT 36 % (33-45); HEMOGLOBIN 12.3 g/dL (11.5-14.8); LYMPHOCYTES # (AUTO) 1.5 K/uL (0.8-4.8); LYMPHOCYTES % (AUTO) 12.5 % (20.0-44.0); MEAN CORPUSCULAR HGB CONC 34 g/dl (31.0-36.0); MEAN CORPUSCULAR VOLUME 93 fL (82-100); MONOCYTES # (AUTO) 0.8 K/uL (0.1-1.30); MONOCYTES % (AUTO) 6.9 % (2.0-12.0); NEUTROPHILS # (AUTO) 9.5 K/uL (1.8-8.9); NEUTROPHILS % (AUTO) 80.2 % (43.0-81.0); PLATELET COUNT (AUTO) 293 K/uL (150-450); WHITE BLOOD COUNT (AUTO) 11.8 K/uL (4.3-11.0)
[2022-02-15 07:17] LABS: CALCIUM, SERUM 9.1 mg/dL (8.5-10.1); CREATININE 0.9 mg/dL (0.6-1.3); PHOSPHORUS 1.6 mg/dL (2.5-4.9)
[2022-02-15 07:42] LABS: POTASSIUM 1.9 mmol/L (3.5-5.1)
[2022-02-15 08:00] VITALS: BP 129/73
[2022-02-15] MEDS: ENSURE ENLIVE 237 ML LIQUID (VANILLA) PO SCH ×3 (09:00→17:00)
[2022-02-15] MEDS ORDERED: POTASSIUM CHLORIDE 20 MEQ TAB.PRT.SR PO ONE (09:30)
[2022-02-15] MEDS: SERTRALINE HCL 50 MG TABLET PO SCH ×2 (10:15→17:50)
[2022-02-15] MEDS: PHENYTOIN EXTENDED RELEASE 100 MG CAPSULE PO SCH ×2 (10:15→17:50)
[2022-02-15] MEDS: CALCIUM CARBONATE (1250) 500 MG TABLET PO SCH (10:15)
[2022-02-15] MEDS: MULTIVITAMINS,THERAGRAN 1 UDTAB TABLET PO SCH (10:15)
[2022-02-15] MEDS: QUETIAPINE FUMARATE 100 MG TABLET PO SCH ×2 (10:15→17:50)
[2022-02-15] MEDS: DEXAMETHASONE SOD PHOSPHATE 10 MG/ML VIAL IV SCH (10:16)
[2022-02-15] MEDS: PANTOPRAZOLE 40 MG TABLET.DR PO SCH (10:17)
[2022-02-15] MEDS: ENOXAPARIN SODIUM 40 MG/0.4 ML DISP.SYRIN SQ SCH (10:18)
[2022-02-15] MEDS: CEFTRIAXONE 1 G in IV D5W 50 ML IV SCH (10:19)
[2022-02-15] MEDS: POTASSIUM CL. PREMIX PERIPHER. 50 ML IV SCH ×6 (11:33→16:23)
[2022-02-15] MEDS: FLUTICASONE/VILANTEROL 1 EACH BLST.W.DEV IH SCH (11:40)
[2022-02-15 12:00] VITALS: BP 110/65
[2022-02-15] MEDS: Magnesium 1GM/D5W 100ML PREMIX 100 ML IV SCH ×2 (13:34→15:02)
[2022-02-15] MEDS: POTASSIUM CHLORIDE 20 MEQ TAB.PRT.SR PO SCH ×2 (13:34→15:03)
[2022-02-15] MEDS ORDERED: K PHOS NEUTRAL 250 MG TABLET PO ONE (15:30)
[2022-02-15 16:00] VITALS: BP 128/70
[2022-02-15 17:39] LABS: ALBUMIN 2.3 g/dL (3.4-5.0); BILIRUBIN,DIRECT 0.2 mg/dL (0.0-0.2); BILIRUBIN,TOTAL 0.3 mg/dL (0.2-1.0); TOTAL PROTEIN, SERUM 7.3 g/dL (6.4-8.2)
[2022-02-15] MEDS ORDERED: REMDESIVIR (CHARGED) 200 MG, *LOADING DOSE 1 EA in IV NS 0.9% 210 ML IV ONE (18:30)
[2022-02-15 18:42] LABS: C-REACTIVE PROTEIN 38.4 mg/dL (0.0-0.9)
--- NOTE | 2022-02-15 19:30 | NUR ---
AIRLINE TICKET AGENT OPENING NOTE RECEIVED PT IN BED, ASLEEP BUT EASILY AROUSABLE TO TOUCH AND VOICE A&O X3. PT ON 6L NC WITH CURRENT O2SAT OF 93%; NO S/S OF RESP DISTRESS, BREATHING EVEN AND UNLABORED, PT ATTACHED TO EXTERNAL MONITOR ST WITH HR OF 110. LAC INTACT AND PATENT, FLUSHES EASILY WITH NO RESISTANCE, 1/2 NS RUNNING AT 75 ML/HR AND KCL 10 MEQ RUNNING AT 50 ML/HR. BED IN LOWEST POSITION, CALL LIGHT WITHIN REACH, SIDE RAILS UP X3. WILL CONTINUE TO MONITOR THROUGHOUT THE NIGHT.
--- NOTE | 2022-02-15 19:54 | NUR ---
RN NOTE PT RESTING IN BED, CONT IN O2 VIA NC @6L. PT STARTED ON REMDI, NO ADVERSE REACTIONS NOTED AT THIS TIME. IV ACCESS ON LAC G20 WITH IVF 1/2 NS @75/HR. DUE MEDS GIVEN. AM PM CARE RENDERED. SAFETY MAINTAINED. WILL CONT TO MONITOR.
[2022-02-15 20:00] VITALS: BP 127/74
[2022-02-16] VITALS: BP 128/70
[2022-02-16 00:04] LABS: CALCIUM, SERUM 8.8 mg/dL (8.5-10.1)
[2022-02-16 00:11] LABS: POTASSIUM 2.6 mmol/L (3.5-5.1)
[2022-02-16] MEDS ORDERED: POTASSIUM CHLORIDE 10 MEQ/50 ML PREMIXED IVPB FOR PERIPHERAL LINE IV ONE (00:30)
--- NOTE | 2022-02-16 00:31 | NUR ---
SYSTEMS LIBRARIAN NOTE AMMONIA STILL OPERATOR FEDERICO CALLED AND INFORMED K LEVEL IS 2.6. EZIO MANE NP CALLED AND RECEIVED NEW ORDER, ORDER NOTED AND CARRIED OUT.
[2022-02-16] MEDS: POTASSIUM CL. PREMIX PERIPHER. 50 ML IV SCH ×4 (01:05→04:40)
[2022-02-16 04:00] VITALS: BP 138/68
--- NOTE | 2022-02-16 06:34 | NUR ---
CORRECTIONAL MAINTENANCE TECHNICIAN CLOSING NOTE PATIENT RESTING IN BED A&O X3. PT ON 6L NC CONNECTED TO HUMIDIFIER WITH CURRENT O2 SAT OF 90%; NO S/S OF RESP DISTRESS NOTED, NO COMPLAINTS OF PAIN, PT ATTACHED TO EXTERNAL MONITOR ST WITH HR OF 108. LAC INTACT AND PATENT, FLUSHES EASILY WITH NO RESISTANCE, 1/2 NS RUNNING AT 75 ML/HR. 4 BAGS OF 10 MEQ KCL ADMINISTERED, KEPT DRY AND CLEAN, BED IN LOWEST POSITION, CALL LIGHT WITHIN REACH, WILL ENDORSE TO AM SHIFT NURSE.
[2022-02-16 07:04] LABS: BASOPHILS % (AUTO) 0.1 % (0.0-2.0); EOSINOPHILS % (AUTO) 0.2 % (0.0-6.0); HEMATOCRIT 41 % (33-45); LYMPHOCYTES # (AUTO) 1.7 K/uL (0.8-4.8); LYMPHOCYTES % (AUTO) 12.8 % (20.0-44.0); MEAN CORPUSCULAR HGB CONC 32 g/dl (31.0-36.0); MEAN CORPUSCULAR VOLUME 98 fL (82-100); MONOCYTES # (AUTO) 1.2 K/uL (0.1-1.30); MONOCYTES % (AUTO) 9.2 % (2.0-12.0); NEUTROPHILS # (AUTO) 10.5 K/uL (1.8-8.9); NEUTROPHILS % (AUTO) 77.7 % (43.0-81.0); PLATELET COUNT (AUTO) 318 K/uL (150-450); RED BLOOD CELL COUNT(AUTO) 4.17 MIL/uL (4.0-5.2); WHITE BLOOD COUNT (AUTO) 13.6 K/uL (4.3-11.0)
[2022-02-16 07:09] LABS: ALBUMIN 2.1 g/dL (3.4-5.0); BILIRUBIN,DIRECT 0.1 mg/dL (0.0-0.2); BILIRUBIN,TOTAL 0.3 mg/dL (0.2-1.0); CALCIUM, SERUM 9.3 mg/dL (8.5-10.1); CREATININE 0.9 mg/dL (0.6-1.3); MAGNESIUM 2.5 mg/dL (1.8-2.4); PHOSPHORUS 2.3 mg/dL (2.5-4.9); TOTAL PROTEIN, SERUM 7.1 g/dL (6.4-8.2)
[2022-02-16 08:00] VITALS: BP 151/75
[2022-02-16 08:35] LABS: ABG BASE EXCESS -11.5 mmol/L; ABG PCO2 25.3 mmHg (35.0-45.0); ABG PH 7.323 (7.350-7.450); ABG PO2 62.3 mmHg (75.0-100.0); AaDO2 222.6 mmHg; COHb 0.9 % (0.5-1.5); MetHb 0.3 % (0.0-1.5); O2Hb 89.9 % (94.0-97.0); SITE, ABG Right Radial; VENT MODE, BG 6 LPM NC
[2022-02-16] MEDS: ENSURE ENLIVE 237 ML LIQUID (VANILLA) PO SCH ×3 (09:00→17:00)
[2022-02-16] MEDS: CALCIUM CARBONATE (1250) 500 MG TABLET PO SCH (09:28)
[2022-02-16] MEDS: PHENYTOIN EXTENDED RELEASE 100 MG CAPSULE PO SCH ×2 (09:28→18:05)
[2022-02-16] MEDS: PANTOPRAZOLE 40 MG TABLET.DR PO SCH (09:28)
[2022-02-16] MEDS: MULTIVITAMINS,THERAGRAN 1 UDTAB TABLET PO SCH (09:28)
[2022-02-16] MEDS: QUETIAPINE FUMARATE 100 MG TABLET PO SCH ×2 (09:28→18:05)
[2022-02-16] MEDS: SERTRALINE HCL 50 MG TABLET PO SCH ×2 (09:28→18:05)
[2022-02-16] MEDS: DEXAMETHASONE SOD PHOSPHATE 10 MG/ML VIAL IV SCH (09:29)
[2022-02-16] MEDS: FLUTICASONE/VILANTEROL 1 EACH BLST.W.DEV IH SCH (09:29)
[2022-02-16] MEDS: ENOXAPARIN SODIUM 40 MG/0.4 ML DISP.SYRIN SQ SCH (09:32)
[2022-02-16] MEDS: NITROFURANTOIN/MONOHYDRATE MACROCRYSTALS 100 MG CAPSULE PO SCH ×2 (09:33→20:21)
[2022-02-16] MEDS: clonazePAM 1 MG TABLET PO PRN (10:24)
--- NOTE | 2022-02-16 11:32 | NUR ---
RN NOTE PT CT SCAN CHEST DONE.
[2022-02-16 12:00] VITALS: BP 120/70
[2022-02-16] MEDS: Z GUARD REMEDY 4 OZ OINT TP SCH (12:26)
[2022-02-16] MEDS: POTASSIUM CHLORIDE 20 MEQ TAB.PRT.SR PO SCH ×3 (12:26→13:20)
[2022-02-16 16:00] VITALS: BP 139/81
[2022-02-16] MEDS: REMDESIVIR (CHARGED) 100 MG in IV NS 0.9% 100 ML IV SCH (18:05)
--- NOTE | 2022-02-16 18:37 | NUR ---
RN NOTE PT RESTING AWAKE IN BED, CONT IN O2 VIA NC @6L. PT ON REMDESIVIR, NO ADVERSE REACTIONS NOTED AT THIS TIME. IV ACCESS ON LAC G20 WITH IVF 1/2 NS @75/HR. DUE MEDS GIVEN. AM PM CARE RENDERED. SAFETY MAINTAINED. WILL CONT TO MONITOR.
--- NOTE | 2022-02-16 19:43 | NUR ---
RN OPENING NOTES RECEIVED PT IN BED, ASLEEP, AWAKENS TO VERBAL STIMULI. AOx4. ON NC 6LPM AND TOLERATNG WELL. NO SOB NOTED. NO S/SX OF RESPIRATORY DISTRESS NOTED. TELE MONITOR DETECTS SINUS TACHYCARDIA. IV ACCESS IN LAC #18G. IV IS INTACT, PATENT, AND FLUSHING WELL. SAFETY PRECAUTIONS IN PLACE: BED IN LOWEST, LOCKED POSITION, SIDERAILS UPx2, AND BRAKES ON. TABLE AND CALL LIGHT WITHIN REACH. WILL CONTINUE PLAN OF CARE.
[2022-02-16 20:00] VITALS: BP 111/58
[2022-02-17] VITALS: BP 133/74
[2022-02-17] MEDS: ACETAMINOPHEN 325 MG TABLET PO PRN ×2 (03:34→21:44)
--- NOTE | 2022-02-17 03:34 | NUR ---
RN NOTES ADMINISTERED TYLENOL FOR HEADACHE PER PT REQUEST.
[2022-02-17 04:00] VITALS: BP 137/63
--- NOTE | 2022-02-17 06:45 | NUR ---
RN CLOSING NOTES PT IN BED, ASLEEP, AWAKENS TO VERBAL STIMULI. AOx4. ON NC 6LPM AND TOLERATNG WELL. NO SOB NOTED. NO S/SX OF RESPIRATORY DISTRESS NOTED. TELE MONITOR DETECTS SINUS TACHYCARDIA. IV ACCESS IN LAC #18G. IV IS INTACT, PATENT, AND FLUSHING WELL. ALL ORDERS CARRIED OUT. ALL NEEDS MET. PT KEPT CLEAN AND DRY. SAFETY PRECAUTIONS IN PLACE: BED IN LOWEST, LOCKED POSITION, SIDERAILS UPx2, AND BRAKES ON. TABLE AND CALL LIGHT WITHIN REACH. WILL ENDORSE TO ONCOMING SHIFT FOR NEFTALI.
[2022-02-17 07:02] LABS: EOSINOPHILS % (AUTO) 0.1 % (0.0-6.0); HEMATOCRIT 40 % (33-45); HEMOGLOBIN 12.8 g/dL (11.5-14.8); LYMPHOCYTES # (AUTO) 1.8 K/uL (0.8-4.8); LYMPHOCYTES % (AUTO) 8.2 % (20.0-44.0); MEAN CORPUSCULAR HGB CONC 32 g/dl (31.0-36.0); MEAN CORPUSCULAR VOLUME 98 fL (82-100); MONOCYTES # (AUTO) 1.9 K/uL (0.1-1.30); MONOCYTES % (AUTO) 8.9 % (2.0-12.0); NEUTROPHILS % (AUTO) 82.8 % (43.0-81.0); PLATELET COUNT (AUTO) 404 K/uL (150-450); RED BLOOD CELL COUNT(AUTO) 4.12 MIL/uL (4.0-5.2); WHITE BLOOD COUNT (AUTO) 21.8 K/uL (4.3-11.0)
--- NOTE | 2022-02-17 07:15 | NUR ---
RN OPEN NOTE RECEIVED PT IN BED, ASLEEP BUT EASILY AROUSABLE TO TOUCH AND VOICE A&O X3. PT ON 6L NC WITH CURRENT O2SAT OF 94%; NO S/S OF RESP DISTRESS, BREATHING EVEN AND UNLABORED, PT ATTACHED TO EXTERNAL MONITOR ST WITH HR OF 87. LAC INTACT AND PATENT, FLUSHES EASILY WITH NO RESISTANCE, BED IN LOWEST POSITION, CALL LIGHT WITHIN REACH, SIDE RAILS UP X3. WILL CONTINUE TO MONITOR THROUGHOUT THE NIGHT.
[2022-02-17 07:24] LABS: ALBUMIN 2.2 g/dL (3.4-5.0); BILIRUBIN,DIRECT 0.1 mg/dL (0.0-0.2); BILIRUBIN,TOTAL 0.3 mg/dL (0.2-1.0); CALCIUM, SERUM 9.7 mg/dL (8.5-10.1); TOTAL PROTEIN, SERUM 6.9 g/dL (6.4-8.2)
[2022-02-17 07:33] LABS: POTASSIUM 2.4 mmol/L (3.5-5.1)
[2022-02-17 08:00] VITALS: BP 140/80
[2022-02-17] MEDS: DEXAMETHASONE SOD PHOSPHATE 10 MG/ML VIAL IV SCH (08:21)
[2022-02-17] MEDS: PHENYTOIN EXTENDED RELEASE 100 MG CAPSULE PO SCH ×2 (08:21→16:21)
[2022-02-17] MEDS: PANTOPRAZOLE 40 MG TABLET.DR PO SCH (08:21)
[2022-02-17] MEDS: CALCIUM CARBONATE (1250) 500 MG TABLET PO SCH (08:21)
[2022-02-17] MEDS: NITROFURANTOIN/MONOHYDRATE MACROCRYSTALS 100 MG CAPSULE PO SCH ×2 (08:21→20:38)
[2022-02-17] MEDS: ENOXAPARIN SODIUM 40 MG/0.4 ML DISP.SYRIN SQ SCH (08:23)
[2022-02-17] MEDS: POTASSIUM CL. PREMIX PERIPHER. 50 ML IV SCH ×4 (08:26→11:48)
[2022-02-17] MEDS: MULTIVITAMINS,THERAGRAN 1 UDTAB TABLET PO SCH (08:28)
[2022-02-17] MEDS: SERTRALINE HCL 50 MG TABLET PO SCH ×2 (08:29→16:21)
[2022-02-17] MEDS: QUETIAPINE FUMARATE 100 MG TABLET PO SCH ×2 (08:29→16:20)
[2022-02-17] MEDS: ENSURE ENLIVE 237 ML LIQUID (VANILLA) PO SCH ×3 (08:42→16:34)
[2022-02-17] MEDS: FLUTICASONE/VILANTEROL 1 EACH BLST.W.DEV IH SCH (08:42)
[2022-02-17] MEDS: Z GUARD REMEDY 4 OZ OINT TP SCH (08:53)
[2022-02-17] MEDS ORDERED: POTASSIUM CHLORIDE 20 MEQ TAB.PRT.SR PO ONE (09:00)
[2022-02-17] MEDS: POTASSIUM CHLORIDE 20 MEQ TAB.PRT.SR PO SCH ×2 (09:38→10:57)
[2022-02-17 12:00] VITALS: BP 136/74
[2022-02-17] MEDS: Sodium Bicarbonate 100 MEQ in IV 1/2NS 1000 ML 1,000 ML IV SCH ×2 (13:55→23:53)
[2022-02-17 16:59] VITALS: BP 152/81
[2022-02-17] MEDS: REMDESIVIR (CHARGED) 100 MG in IV NS 0.9% 100 ML IV SCH (17:30)
--- NOTE | 2022-02-17 18:14 | NUR ---
RN CLOSING NOTE PT IS ASLEEP, AWAKENS TO VERBAL STIMULI. AOx4. ON NC 6LPM O2 SAT 94 % NO SOB NOTED. NO S/SX OF RESPIRATORY DISTRESS NOTED. TELE MONITOR DETECTS SINUS TACHYCARDIA. IV ACCESS IN LAC #18G. IV IS INTACT, PATENT, AND FLUSHING WELL. ALL ORDERS CARRIED OUT. ALL NEEDS MET. PT KEPT CLEAN AND DRY. SAFETY PRECAUTIONS IN PLACE: BED IN LOWEST, LOCKED POSITION, SIDERAILS UPx2, AND BRAKES ON. TABLE AND CALL LIGHT WITHIN REACH. WILL ENDORSE TO FLOWER CUTTER FOR NEFTALI.
--- NOTE | 2022-02-17 19:35 | NUR ---
FREIGHT CHECKER OPENING NOTES RECEIVED PATIENT IN BED, ASLEEP, EASILY AROUSABLE TO VERBAL STIMULI; ALERT AND ORIENTED x4. WITH O2 INHALATION @ 6LPM VIA NC; TOLERATING WELL. NO SOB NOTED. NOT IN ANY FORM OF RESPIRATORY DISTRESS. ON TELEMETRY MONITORING WITH READING OF SINUS TACHYCARDIA HR-112 BPM. WITH IV ACCESS ON LAC 18G; PATENT, INTACT AND FLUSHES WELL. NO INFILTRATION NOTED. SAFETY PRECAUTIONS IMPLEMENTED: CALL LIGHT AND TABLE WITHIN REACH, SIDERAILS UP x 2, BED IN LOWEST LOCKED POSITION. WILL CONTINUE PLAN OF CARE.
[2022-02-17 20:00] VITALS: BP 126/80
--- NOTE | 2022-02-17 21:44 | NUR ---
RN NOTES PATIENT C/O HEADACHE; TYLENOL 650 MG GIVEN PO PER PATIENT'S REQUEST. WILL CONTINUE TO MONITOR
[2022-02-18] VITALS: BP 153/83
[2022-02-18 04:00] VITALS: BP 144/76
[2022-02-18 06:36] LABS: BASOPHILS % (AUTO) 0.2 % (0.0-2.0); EOSINOPHILS % (AUTO) 0.3 % (0.0-6.0); HEMATOCRIT 39 % (33-45); HEMOGLOBIN 12.7 g/dL (11.5-14.8); LYMPHOCYTES # (AUTO) 1.6 K/uL (0.8-4.8); LYMPHOCYTES % (AUTO) 8.6 % (20.0-44.0); MEAN CORPUSCULAR HGB CONC 32 g/dl (31.0-36.0); MEAN CORPUSCULAR VOLUME 97 fL (82-100); MONOCYTES # (AUTO) 1.4 K/uL (0.1-1.30); MONOCYTES % (AUTO) 7.7 % (2.0-12.0); NEUTROPHILS # (AUTO) 15.2 K/uL (1.8-8.9); NEUTROPHILS % (AUTO) 83.2 % (43.0-81.0); PLATELET COUNT (AUTO) 449 K/uL (150-450); RED BLOOD CELL COUNT(AUTO) 4.08 MIL/uL (4.0-5.2); WHITE BLOOD COUNT (AUTO) 18.2 K/uL (4.3-11.0)
[2022-02-18 07:00] LABS: ALBUMIN 2.3 g/dL (3.4-5.0); BILIRUBIN,DIRECT 0.2 mg/dL (0.0-0.2); BILIRUBIN,TOTAL 0.3 mg/dL (0.2-1.0); CALCIUM, SERUM 10.6 mg/dL (8.5-10.1); TOTAL PROTEIN, SERUM 7.5 g/dL (6.4-8.2)
--- NOTE | 2022-02-18 07:00 | NUR ---
ENDLESS BED DRUM SANDER CLOSING NOTES PATIENT IN BED; AWAKE, A/O x4. ON O2 INHALATION @ 6LPM VIA NC; TOLERATING WELL. NO SOB NOTED. NOT IN ANY FORM OF RESPIRATORY DISTRESS. ON TELE MONITORING WITH READING OF SINUS TACHYCARDIA HR-110 BPM. IV ACCESS ON LAC 18G; PATENT, INTACT INFUSING WITH NA BICARB 50 ML 100 MEQ IN NS 1000 ML REGULATED @ 100 ML/HR; FLUSHES WELL. ALL DUE MEDS GIVEN. SAFETY PRECAUTIONS IN PLACE: CALL LIGHT AND TABLE WITHIN REACH, SIDERAILS UP x 2, BED IN LOWEST LOCKED POSITION. ENDORSED TO MORNING SHIFT FOR NEFTALI.
[2022-02-18 07:15] LABS: POTASSIUM 2.5 mmol/L (3.5-5.1)
--- NOTE | 2022-02-18 07:30 | NUR ---
received critical lab result potassium 2.5.notified dr. yin.dr. yin aware pharmacy potassium iv 10 meq/50mL total of 5 doses
--- NOTE | 2022-02-18 07:30 | NUR ---
television schedule coordinator opening note patient is alert and oriented x2-3. patient is on oxygen 6L nasal cannula currently saturating at 93%. patient is on tele monitor currently at sinus rhytm/sinus tachycardia. patient has iv on left arm.iv patent and flushing well. all safety measures in place. call light within reach.bed locked at lowest position, side railx upx2.
--- NOTE | 2022-02-18 07:51 | NUR ---
WOUND CARE CONSULT: REVIEWED CHART, NURSING DOCUMENTATION AND PHOTOS WHICH INDICATE WOUNDS TO LEFT ANKLE AND HEEL, PRESENT ON ADMISSION. DR LOCKWOOD CALLED FOR DPM CONSULT. RECOMMENDATIONS MADE FOR SKIN PROTECTION. DISCUSSED WITH NURSING STAFF. MD IN AGREEMENT WITH PLAN OF CARE.
[2022-02-18 08:00] VITALS: BP 157/84
--- NOTE | 2022-02-18 08:00 | NUR ---
notified that potassium is 2.5. ordered potassium replacement
--- NOTE | 2022-02-18 10:00 | NUR ---
also ordered potassium 3 doses KDur oral
[2022-02-18] MEDS: PANTOPRAZOLE 40 MG TABLET.DR PO SCH (10:43)
[2022-02-18] MEDS: POTASSIUM CHLORIDE 20 MEQ TAB.PRT.SR PO SCH ×5 (10:44→15:30)
[2022-02-18] MEDS: CALCIUM CARBONATE (1250) 500 MG TABLET PO SCH (10:44)
[2022-02-18] MEDS: POTASSIUM CL. PREMIX PERIPHER. 50 ML IV SCH ×5 (10:44→16:59)
[2022-02-18] MEDS: PHENYTOIN EXTENDED RELEASE 100 MG CAPSULE PO SCH ×2 (10:44→16:59)
[2022-02-18] MEDS: DEXAMETHASONE SOD PHOSPHATE 10 MG/ML VIAL IV SCH (10:44)
[2022-02-18] MEDS: NITROFURANTOIN/MONOHYDRATE MACROCRYSTALS 100 MG CAPSULE PO SCH ×2 (10:44→20:20)
[2022-02-18] MEDS: SERTRALINE HCL 50 MG TABLET PO SCH ×2 (10:45→17:00)
[2022-02-18] MEDS: QUETIAPINE FUMARATE 100 MG TABLET PO SCH ×2 (10:45→17:00)
[2022-02-18] MEDS: ENOXAPARIN SODIUM 40 MG/0.4 ML DISP.SYRIN SQ SCH (10:48)
[2022-02-18] MEDS: MULTIVITAMINS,THERAGRAN 1 UDTAB TABLET PO SCH (10:49)
[2022-02-18] MEDS: ENSURE ENLIVE 237 ML LIQUID (VANILLA) PO SCH ×3 (11:05→17:13)
[2022-02-18] MEDS: FLUTICASONE/VILANTEROL 1 EACH BLST.W.DEV IH SCH (11:05)
[2022-02-18 12:00] VITALS: BP 138/84
[2022-02-18] MEDS: Sodium Bicarbonate 100 MEQ in IV 1/2NS 1000 ML 1,000 ML IV SCH ×2 (13:20→20:11)
[2022-02-18] MEDS: Z GUARD REMEDY 4 OZ OINT TP SCH (14:44)
[2022-02-18 16:00] VITALS: BP 127/79
--- NOTE | 2022-02-18 18:17 | NUR ---
spoke with pharmacy about potassium currently and currently medication to hang veklury. myra said to hang veklury now and then potassium
[2022-02-18] MEDS: REMDESIVIR (CHARGED) 100 MG in IV NS 0.9% 100 ML IV SCH (18:26)
--- NOTE | 2022-02-18 18:30 | NUR ---
called pharmacy to change time of potassium iv due to veklury currently being given.called pharmacy that one bag of potassium is left and to endorse it to metal die finisher so metal die finisher can be given
--- NOTE | 2022-02-18 19:38 | NUR ---
PATIENT IN BED; ASLEEP, A/O x3-4. ON O2 INHALATION @ 6LPM VIA NC; TOLERATING WELL. NO SOB, NOT IN DISTRESS. ON TELE MONITORING WITH READING OF SINUS TACHYCARDIA HR-110 BPM. IV ACCESS ON LAC 18G; PATENT, INTACT INFUSING WELL. SAFETY PRECAUTIONS IN PLACE: CALL LIGHT AND TABLE WITHIN REACH, SIDERAILS UP x 2, BED IN LOWEST LOCKED POSITION. BED ALARM ON. WILL CONTINUE PLAN OF CARE.
--- NOTE | 2022-02-18 19:56 | NUR ---
radiotelephone operator closing note patient is alert and oriented x2-3.patient is on 6l 02 via nasal cannula tolerating at 94%.patient is on tele monitor currently sinus rhytm/sinus tachycardia. patient has wound on left wound/ left blister.kept clean and dry. all needs met. patient has iv on left arm. iv intact and flushing well. all safety measures in place. call light within reach, bed locked at lowest position. side rails up x2.
[2022-02-18 20:00] VITALS: BP 135/82
[2022-02-18] MEDS ORDERED: POTASSIUM CL. PREMIX PERIPHER. 50 ML IV SCH (20:00)
[2022-02-19] VITALS (7 sets, daily range): BP systolic 117–154; BP diastolic 69–85
[2022-02-19] MEDS: Sodium Bicarbonate 100 MEQ in IV 1/2NS 1000 ML 1,000 ML IV SCH (05:57)
[2022-02-19 06:26] LABS: BASOPHILS % (AUTO) 0.1 % (0.0-2.0); EOSINOPHILS % (AUTO) 1.1 % (0.0-6.0); HEMATOCRIT 34 % (33-45); HEMOGLOBIN 11.6 g/dL (11.5-14.8); LYMPHOCYTES # (AUTO) 1.8 K/uL (0.8-4.8); LYMPHOCYTES % (AUTO) 10.6 % (20.0-44.0); MEAN CORPUSCULAR HGB CONC 34 g/dl (31.0-36.0); MEAN CORPUSCULAR VOLUME 92 fL (82-100); MONOCYTES # (AUTO) 1.4 K/uL (0.1-1.30); MONOCYTES % (AUTO) 8.4 % (2.0-12.0); NEUTROPHILS # (AUTO) 13.4 K/uL (1.8-8.9); NEUTROPHILS % (AUTO) 79.8 % (43.0-81.0); PLATELET COUNT (AUTO) 524 K/uL (150-450); RED BLOOD CELL COUNT(AUTO) 3.69 MIL/uL (4.0-5.2); WHITE BLOOD COUNT (AUTO) 16.8 K/uL (4.3-11.0)
--- NOTE | 2022-02-19 06:37 | NUR ---
PATIENT IN BED; INTERMITTENTLY SLEEPING, A/O x3-4. ON O2 @ 6LPM VIA NC; SATTING AT 91%, ON TELE MONITORING WITH A READING OF SINUS TACHYCARDIA HR 110-120 BPM. IV ACCESS ON LAC 18G; PATENT, INTACT INFUSING WELL. SAFETY PRECAUTIONS IN PLACE: CALL LIGHT AND TABLE WITHIN REACH, SIDE RAILS UP x2, BED IN LOWEST LOCKED POSITION. BED ALARM ON. WILL ENDORSE TO NEXT NURSE ON DUTY FOR CONTINUITY OF CARE.
[2022-02-19 06:42] LABS: ALBUMIN 2.2 g/dL (3.4-5.0); BILIRUBIN,DIRECT 0.2 mg/dL (0.0-0.2); BILIRUBIN,TOTAL 0.4 mg/dL (0.2-1.0); CALCIUM, SERUM 10.1 mg/dL (8.5-10.1); TOTAL PROTEIN, SERUM 7.1 g/dL (6.4-8.2)
[2022-02-19 07:05] LABS: POTASSIUM 2.4 mmol/L (3.5-5.1)
--- NOTE | 2022-02-19 07:25 | NUR ---
teletypewriter installer opening note patient is alert and oriented x3-4. patient is on 02 nasal cannula via 6L saturating at 87%.elevated head of bed and repositioned.oxygen increased to 91%.patient is currently on tele monitor at sinus tachycardia 110-130.patient has iv access on left ac gauge. all safety measures in place. call light with reach.bed locked at lowest position.side rails up x2.bedside within reach.
[2022-02-19] MEDS: FLUTICASONE/VILANTEROL 1 EACH BLST.W.DEV IH SCH (09:00)
[2022-02-19] MEDS ORDERED: POTASSIUM CL. PREMIX PERIPHER. 50 ML IV SCH ×2 (09:00)
[2022-02-19] MEDS: ENSURE ENLIVE 237 ML LIQUID (VANILLA) PO SCH ×3 (09:00→17:45)
[2022-02-19] MEDS ORDERED: POTASSIUM CHLORIDE 20 MEQ TAB.PRT.SR PO ONE ×2 (09:00→12:00)
[2022-02-19] MEDS: CALCIUM CARBONATE (1250) 500 MG TABLET PO SCH (09:58)
[2022-02-19] MEDS: PANTOPRAZOLE 40 MG TABLET.DR PO SCH (09:58)
[2022-02-19] MEDS: PHENYTOIN EXTENDED RELEASE 100 MG CAPSULE PO SCH ×2 (09:58→16:43)
[2022-02-19] MEDS: QUETIAPINE FUMARATE 100 MG TABLET PO SCH ×2 (09:59→16:43)
[2022-02-19] MEDS: MULTIVITAMINS,THERAGRAN 1 UDTAB TABLET PO SCH (09:59)
[2022-02-19] MEDS: SERTRALINE HCL 50 MG TABLET PO SCH ×2 (09:59→16:43)
--- NOTE | 2022-02-19 10:00 | NUR ---
telecommunications professional note patient iv site on left arm is swollen and infillirated. removed iv and elevated arm to help prevent swelling
[2022-02-19] MEDS: NITROFURANTOIN/MONOHYDRATE MACROCRYSTALS 100 MG CAPSULE PO SCH ×2 (10:07→21:02)
[2022-02-19] MEDS: ENOXAPARIN SODIUM 40 MG/0.4 ML DISP.SYRIN SQ SCH (10:08)
--- NOTE | 2022-02-19 10:11 | NUR ---
TRIED 3X PERIPHERAL IV UNSUCCESSFUL ,ON MULTIPLE IV MEDS,GARRICK KELLER CALF SKINNER NOTIFIED AND ORDERED MIDLINE,NURSING SUP DOMENICO APPROVED IT.
--- NOTE | 2022-02-19 10:12 | NUR ---
VEIN FINDER USED STILL UNSUCCESSFUL.
--- NOTE | 2022-02-19 11:30 | NUR ---
followup midline per GARRICK KELLER NP he will put midline ,eta in the afternoon per Garrick, pharmacy notified.pt. no acute distress.SR 90 to 100 on monitor.
[2022-02-19] MEDS: Z GUARD REMEDY 4 OZ OINT TP SCH (11:31)
--- NOTE | 2022-02-19 11:40 | NUR ---
called pharmacy to make aware that 0900 Decadron can not be currently given due to no iv due to swollen site, infiltration.pharmacy said okay to give once midline is inserted,
--- NOTE | 2022-02-19 11:40 | NUR ---
spoke with pharmacy to change potassium IV due to patient iv site being swollen and infrillated. said they would change the order to potassium po
[2022-02-19] MEDS: BLOOD SUGAR DIAGNOSTIC 1 EACH STRIP IN SCH ×3 (12:52→23:45)
[2022-02-19] MEDS ORDERED: IV D5/0.45 NACL 1,000 ML IV PRN (15:00)
--- NOTE | 2022-02-19 15:00 | NUR ---
telephone operator note 0900 Decadron and potassium IV given later due to iv site being swollen and infiltrated. patient at the time did not iv access. waiting for dr to insert midline.notified pharmacy.pharmacy said ok to give later once midline was inserted
[2022-02-19] MEDS: DEXAMETHASONE SOD PHOSPHATE 10 MG/ML VIAL IV SCH (15:54)
[2022-02-19] MEDS: POTASSIUM CL. PREMIX PERIPHER. 50 ML IV SCH ×2 (15:54→17:06)
--- NOTE | 2022-02-19 16:43 | NUR ---
telemarketer supervisor note note notifieid that patient is 91% oxygen saturation on 6L, also on 6 L, sinus tachycardia. says no ABG, and to put her on nonrebreather 10bpm
--- NOTE | 2022-02-19 18:05 | NUR ---
notified teresita king that blood sugar is 180 asked if i can hold insulin due to poor appetite. said to give insulin, dr. lo started patient on dextrose 5. notified that patient has no insulin coverage only accuchecks. asked him he wants us to order mild coverage sliding scale, waiting for response from
[2022-02-19] MEDS: REMDESIVIR (CHARGED) 100 MG in IV NS 0.9% 100 ML IV SCH (18:18)
--- NOTE | 2022-02-19 18:30 | NUR ---
said that he would look at the sugar orders later on Addendum: 02/19/22 at 2021 by CAMILA SLOAN RN insulin was held due to no insulin coverage at this time
[2022-02-19] MEDS: clonazePAM 1 MG TABLET PO PRN (18:35)
--- NOTE | 2022-02-19 18:38 | NUR ---
REPOSITIONED ON 15 LITERS NONREBREATHER SAT IMPROVES TO 98 TO 96 PERCENT,PER ICU NURSE RECOMMENDATION GIVE PRN WESLEYPT ANXIOUS.
--- NOTE | 2022-02-19 18:38 | NUR ---
RAPID RESPONSE INITIATED PT. DESATURATES TO 80,S ON NONREBREATHER,
--- NOTE | 2022-02-19 18:39 | NUR ---
PRN KLONOPIN GIVEN,GARRICK MCCANN NOTIFIED NO ABG FOR NOW.
--- NOTE | 2022-02-19 19:52 | NUR ---
telephone instrument supervisor closing note patient is alert and oriented x3-4. patient head of bed elevated. patient is now on 10-15 L nonrebreather mask tolerating at 97%.patient has right upper arm midline. midline patent and flushing well. patient is on tele monitor currently sinus tachycardia 120-130. all needs met. all safety measures in place.call light with reach. bed locked at lowest position. side rails up x2.
[2022-02-19 21:38] LABS: CALCIUM, SERUM 9.4 mg/dL (8.5-10.1); CREATININE 0.9 mg/dL (0.6-1.3); POTASSIUM 3.4 mmol/L (3.5-5.1)
[2022-02-20] VITALS: BP 152/93
--- NOTE | 2022-02-20 | NUR ---
PATIENT IN BED; INTERMITTENTLY SLEEPING, A/O x3. ON O2 @ 15LPM VIA NON REBREATHER MASK; SATTING AT 95%, ON TELE MONITORING WITH A READING OF SINUS TACHYCARDIA HR 120'S BPM. IV ACCESS ON CINDI ML 18G; PATENT, INTACT INFUSING D5 1/2 NS AT 80ML/HR.SAFETY PRECAUTIONS IN PLACE: BED IN LOWEST, LOCKED POSITION, SIDERAILS UPx2, AND BRAKES ON. BED ALARM ON, TABLE AND CALL LIGHT WITHIN REACH, WILL CONTINUE PLAN OF CARE.
[2022-02-20] MEDS: ACETAMINOPHEN 325 MG TABLET PO PRN ×2 (00:42→11:54)
--- NOTE | 2022-02-20 03:22 | NUR ---
PT REMOVING NON REBREATHER MASK. PLACED SOFT WRIST RESTRAINTS ORDERED.
[2022-02-20 04:00] VITALS: BP 153/84
[2022-02-20] MEDS: BLOOD SUGAR DIAGNOSTIC 1 EACH STRIP IN SCH ×4 (05:12→23:33)
--- NOTE | 2022-02-20 06:38 | NUR ---
PATIENT IN BED; INTERMITTENTLY SLEEPING, A/O x3. ON O2 @ 15LPM VIA NON REBREATHER MASK; SATTING AT 95%, PER RT, CAN START ON HIGH FLOW IF O2 SAT GOES BELOW 90, ON TELE MONITORING WITH A READING OF SINUS TACHYCARDIA HR 120'S BPM. IV ACCESS ON CINDI ML 18G; PATENT, INTACT INFUSING D5 1/2 NS AT 80ML/HR.SAFETY PRECAUTIONS IN PLACE: BED IN LOWEST, LOCKED POSITION, SIDERAILS UPx2, AND BRAKES ON. BED ALARM ON, TABLE AND CALL LIGHT WITHIN REACH, WILL ENDORSE TO NEXT NURSE ON DUTY FOR CONTINUITY OF CARE.
[2022-02-20 07:02] LABS: CALCIUM, SERUM 10.1 mg/dL (8.5-10.1); CREATININE 0.9 mg/dL (0.6-1.3); MAGNESIUM 2.1 mg/dL (1.8-2.4); PHOSPHORUS 2.7 mg/dL (2.5-4.9); POTASSIUM 2.9 mmol/L (3.5-5.1)
[2022-02-20 07:11] LABS: BASOPHILS # (AUTO) 0.1 K/uL (0.0-0.2); BASOPHILS % (AUTO) 0.4 % (0.0-2.0); EOSINOPHILS % (AUTO) 1.6 % (0.0-6.0); HEMATOCRIT 42 % (33-45); HEMOGLOBIN 14.5 g/dL (11.5-14.8); LYMPHOCYTES # (AUTO) 1.1 K/uL (0.8-4.8); LYMPHOCYTES % (AUTO) 7.6 % (20.0-44.0); MEAN CORPUSCULAR HGB CONC 34 g/dl (31.0-36.0); MEAN CORPUSCULAR VOLUME 94 fL (82-100); MONOCYTES # (AUTO) 0.8 K/uL (0.1-1.30); MONOCYTES % (AUTO) 5.4 % (2.0-12.0); NEUTROPHILS # (AUTO) 12.1 K/uL (1.8-8.9); PLATELET COUNT (AUTO) 350 K/uL (150-450); RED BLOOD CELL COUNT(AUTO) 4.53 MIL/uL (4.0-5.2); WHITE BLOOD COUNT (AUTO) 14.3 K/uL (4.3-11.0)
--- NOTE | 2022-02-20 07:30 | NUR ---
RN OPENING NOTE PT OBSERVED IN BED ON NON REBREATHER 15L TOLERATING WELL WITH NO SIGNS OF LABORED BREATHING OR DISTRESS O2 SAT 97%. PT IS A/OX2. IV ACCESS R UA ML INFUSING WITH D5 1/2 NS @ 80ML/HR. PT HAS BILATERAL SOFT WRIST RESTRAINTS AT THIS TIME. BED IS LOCKED IN LOWEST POSITION X2 BED RAILS UP AND ALL HOSPITAL SAFETY MEASURES ARE IN PLACE. WILL CONTINUE TO MONITOR THIS SHIFT.
[2022-02-20 08:00] VITALS: BP 153/86
[2022-02-20] MEDS: PANTOPRAZOLE 40 MG TABLET.DR PO SCH (08:20)
[2022-02-20] MEDS: DEXAMETHASONE SOD PHOSPHATE 10 MG/ML VIAL IV SCH (08:50)
[2022-02-20] MEDS: MULTIVITAMINS,THERAGRAN 1 UDTAB TABLET PO SCH (08:50)
[2022-02-20] MEDS: CALCIUM CARBONATE (1250) 500 MG TABLET PO SCH (08:51)
[2022-02-20] MEDS: QUETIAPINE FUMARATE 100 MG TABLET PO SCH ×2 (08:51→17:55)
[2022-02-20] MEDS: SERTRALINE HCL 50 MG TABLET PO SCH ×2 (08:51→17:55)
[2022-02-20] MEDS: Z GUARD REMEDY 4 OZ OINT TP SCH (08:51)
[2022-02-20] MEDS: NITROFURANTOIN/MONOHYDRATE MACROCRYSTALS 100 MG CAPSULE PO SCH ×2 (08:51→20:29)
[2022-02-20] MEDS: ENOXAPARIN SODIUM 40 MG/0.4 ML DISP.SYRIN SQ SCH (08:54)
[2022-02-20] MEDS: ENSURE ENLIVE 237 ML LIQUID (VANILLA) PO SCH ×3 (08:55→17:53)
[2022-02-20] MEDS: FLUTICASONE/VILANTEROL 1 EACH BLST.W.DEV IH SCH (08:57)
[2022-02-20] MEDS: PHENYTOIN SUSP UDC 100 MG/4 ML UDC PO SCH ×2 (08:57→17:55)
[2022-02-20 10:32] LABS: LYMPHOCYTES % (MANUAL) 9 % (16-48); NEUTROPHILS % (MANUAL) 85 (42-76)
[2022-02-20 10:33] LABS: BASOPHILS % (MANUAL) 0 % (0.0-2.0); EOSINOPHILS % (MANUAL) 1 % (0-4); MONOCYTES % (MANUAL) 5 % (0-11.0)
[2022-02-20] MEDS: POTASSIUM CHLORIDE 20 MEQ TAB.PRT.SR PO SCH ×3 (10:36→13:02)
[2022-02-20 12:00] VITALS: BP 149/42
--- NOTE | 2022-02-20 12:00 | NUR ---
RN NOTE: MEDS ACCIDENTALLY DISCARDED K DUR AND PULLED OUT 1 K DUR PILL. ALSO, REASSESSED PT FOR FEVER AFTER ALREADY TAKING OUT TYLENOL AND DISCARDED IT. TYLENOL WAS NOT GIVEN.
--- NOTE | 2022-02-20 12:18 | NUR ---
RN NOTE: MICHAEL PT BS IS 175. NO COVERAGE PER MD AT THIS TIME.
[2022-02-20] MEDS ORDERED: IV NS 0.9% 250 ML IV PRN (13:00)
[2022-02-20] MEDS ORDERED: methylPREDNISolone SOD SUCC 40 MG/ML VIAL IV ONE (15:00)
[2022-02-20] MEDS ORDERED: diphenhydrAMINE HCL 50 MG/ML VIAL IV ONE (15:00)
[2022-02-20] MEDS ORDERED: ACETAMINOPHEN 650 MG/20.3 ML UDC PO ONE (15:00)
[2022-02-20 16:00] VITALS: BP 131/78
[2022-02-20] MEDS ORDERED: TOCILIZUMAB 400 MG in IV NS 0.9% 80 ML IV ONE (16:00)
--- NOTE | 2022-02-20 18:11 | NUR ---
RN NOTE: ACCUCHECK PT BS IS 150. NO COVERAGE PER MD AT THIS TIME.
--- NOTE | 2022-02-20 18:41 | NUR ---
RN LUBA NOTE PT IS IN BED ON HIGH FLOW NC 40L. TOLERATING WELL WITH NO SIGNS OF LABORED BREATHING OR DISTRESS O2 SAT 96%. PT IS A/OX2 AND LETHARGIC. IV ACCESS R UA ML NO FLUIDS INFUSING AT THIS TIME. PT HAS BILATERAL SOFT WRIST RESTRAINTS AT THIS TIME DUE TO TAKING OFF NON REBREATHER MASK FROM PREVIOUS DIRECTOR ADVERTISING. PT WAS ENCOURAGE TO INCREASE PO INTAKE; PLEASE SEE RETAIL SALES DIRECTOR SHEET FOR PERCENTAGES. PT WAS ABLE TO TAKE CRUSHED MEDS WITH APPLESAUCE. BED IS LOCKED IN LOWEST POSITION X2 BED RAILS UP AND ALL HOSPITAL SAFETY MEASURES ARE IN PLACE. WILL ENDORSE TO DIRECTOR ADVERTISING NURSE FOR NEFTALI.
[2022-02-20 20:00] VITALS: BP 133/69
--- NOTE | 2022-02-20 21:45 | NUR ---
MARINE ARCHITECT OPENING NOTE PT RECEIVED IN BED, ASLEEP BUT EASILY AROUSABLE, A&O X3; PT UNABLE TO STATE REASON FOR HER HOSPITALIZATION. PT ALSO NOTED TO BE LETHARGIC; WOULD FALL BACK ASLEEP IN MIDDLE OF CONVERSATION. PT IS ON HIGH-FLOW NC AT 40 LPM WITH CURRENT O2SAT OF 96%; NO S/S OF RESP DISTRESS, NO SOB OR COUGH, NON-LABORED AND EQUAL BREATHING; WILL CLOSELY MONITOR RESP STATUS. PT ATTACHED TO EXTERNAL MONITOR, ST WITH HR OF 123. PT NOTED TO HAVE BILATERAL SOFT WRIST RESTRAINTS; NO SIGNS OF IMPAIRED SKIN OR CIRCULATION; WILL PROVIDE PT WITH RELEASE OF RESTRAINTS, FLUIDS, AND HYGIENE THROUGHOUT THE NIGHT. CINDI MIDLINE INTACT AND PATENT, FLUSHES EASILY WITH NO RESISTANCE; CURRENTLY HAS NO FLUIDS/MEDS RUNNING THROUGH IT. BED IN LOWEST POSITION, CALL LIGHT WITHIN REACH, SIDE RAILS UP X3. WILL CONTINUE TO MONITOR THROUGHOUT THE NIGHT.
[2022-02-21] VITALS: BP 135/79
[2022-02-21 04:00] VITALS: BP 136/80
[2022-02-21] MEDS: BLOOD SUGAR DIAGNOSTIC 1 EACH STRIP IN SCH ×3 (06:02→17:44)
--- NOTE | 2022-02-21 06:21 | NUR ---
FOOD SUPERVISOR CLOSING NOTE PT REMAINS IN BED, AWAKE, A&O X3, CALM, COOPERATIVE. PT CONTINUES TO BE ON HIGH-FLOW NASAL CANNULA; O2SAT WAS LOW 93% AND HIGHEST WAS 100%. PT HAS PRODUCTIVE COUGH; SPUTUM YELLOW-WHITE IN COLOR AND THIN IN CONSISTENCY. NO OTHER S/S OF RESP DISTRESS, NO SOB, NON-LABORED AND EQUAL BREATHING; APPEARS COMFORTABLE OVERALL. ATTACHED TO EXTERNAL MONITOR, ST WITH HR HIGH 120S. BILATERAL SOFT WRIST RESTRAINTS REMAINS IN PLACE; PROVIDED PT WITH RELEASE OF RESTRAINTS, FLUIDS, AND HYGIENE. WOUNDS CLEANSED AND NEW OPTIFOAM DRESSING APPLIED. CINDI MIDLINE INTACT AND PATENT, FLUSHES EASILY WITH NO RESISTANCE; NO MEDS/FLUIDS RUNNING THROUGH IT. ALL DUE MEDS ADMINISTERED DURING THE NIGHT. BED IN LOWEST POSITION, CALL LIGHT WITHIN REACH, SIDE RAILS UP X3. WILL ENDORSE TO DAYSHIFT NURSE TO CONTINUE CARE.
[2022-02-21 06:32] LABS: BASOPHILS # (AUTO) 0.1 K/uL (0.0-0.2); BASOPHILS % (AUTO) 0.8 % (0.0-2.0); EOSINOPHILS % (AUTO) 3.3 % (0.0-6.0); HEMATOCRIT 31 % (33-45); HEMOGLOBIN 10.4 g/dL (11.5-14.8); LYMPHOCYTES # (AUTO) 2.5 K/uL (0.8-4.8); LYMPHOCYTES % (AUTO) 15.8 % (20.0-44.0); MEAN CORPUSCULAR HGB CONC 33 g/dl (31.0-36.0); MEAN CORPUSCULAR VOLUME 93 fL (82-100); MONOCYTES % (AUTO) 6.2 % (2.0-12.0); NEUTROPHILS # (AUTO) 11.8 K/uL (1.8-8.9); NEUTROPHILS % (AUTO) 73.9 % (43.0-81.0); PLATELET COUNT (AUTO) 554 K/uL (150-450); RED BLOOD CELL COUNT(AUTO) 3.36 MIL/uL (4.0-5.2)
[2022-02-21 06:49] LABS: CALCIUM, SERUM 9.2 mg/dL (8.5-10.1); CREATININE 0.8 mg/dL (0.6-1.3); MAGNESIUM 1.9 mg/dL (1.8-2.4)
[2022-02-21 06:59] LABS: POTASSIUM 2.5 mmol/L (3.5-5.1)
--- NOTE | 2022-02-21 06:59 | NUR ---
RN NOTE CRITICAL RECEIVED FROM LAB; POTASSIUM 2.5
[2022-02-21 08:00] VITALS: BP 142/74
[2022-02-21 08:09] LABS: BAND % (MANUAL) 2 % (0.0-5.0); EOSINOPHILS % (MANUAL) 6 % (0-4); LYMPHOCYTES % (MANUAL) 12 % (16-48); MONOCYTES % (MANUAL) 8 % (0-11.0); NEUTROPHILS % (MANUAL) 72 (42-76)
[2022-02-21] MEDS: SERTRALINE HCL 50 MG TABLET PO SCH ×2 (08:31→17:12)
[2022-02-21] MEDS: CALCIUM CARBONATE (1250) 500 MG TABLET PO SCH (08:31)
[2022-02-21] MEDS: PANTOPRAZOLE 40 MG TABLET.DR PO SCH (08:32)
[2022-02-21] MEDS: DEXAMETHASONE SOD PHOSPHATE 10 MG/ML VIAL IV SCH (08:32)
[2022-02-21] MEDS: Z GUARD REMEDY 4 OZ OINT TP SCH (08:33)
[2022-02-21] MEDS: FLUTICASONE/VILANTEROL 1 EACH BLST.W.DEV IH SCH (08:33)
[2022-02-21] MEDS: ENSURE ENLIVE 237 ML LIQUID (VANILLA) PO SCH ×3 (08:34→17:04)
[2022-02-21] MEDS: QUETIAPINE FUMARATE 100 MG TABLET PO SCH ×2 (08:46→17:12)
[2022-02-21] MEDS: PHENYTOIN SUSP UDC 100 MG/4 ML UDC PO SCH ×2 (08:46→17:12)
[2022-02-21] MEDS: ENOXAPARIN SODIUM 40 MG/0.4 ML DISP.SYRIN SQ SCH (08:58)
--- NOTE | 2022-02-21 09:12 | NUR ---
RAMY LEMONS was notified re; patassium level of 2.5
[2022-02-21] MEDS: MULTIVITAMINS,THERAGRAN 1 UDTAB TABLET PO SCH (09:19)
[2022-02-21] MEDS ORDERED: K PHOS NEUTRAL 250 MG TABLET PO ONE (10:00)
[2022-02-21 12:00] VITALS: BP 130/69
[2022-02-21 13:13] LABS: BASOPHILS % (AUTO) 0.1 % (0.0-2.0); EOSINOPHILS % (AUTO) 2.6 % (0.0-6.0); HEMATOCRIT 33 % (33-45); HEMOGLOBIN 10.7 g/dL (11.5-14.8); LYMPHOCYTES # (AUTO) 1.3 K/uL (0.8-4.8); LYMPHOCYTES % (AUTO) 9.8 % (20.0-44.0); MEAN CORPUSCULAR HGB CONC 33 g/dl (31.0-36.0); MEAN CORPUSCULAR VOLUME 95 fL (82-100); MONOCYTES # (AUTO) 0.3 K/uL (0.1-1.30); MONOCYTES % (AUTO) 2.1 % (2.0-12.0); NEUTROPHILS % (AUTO) 85.4 % (43.0-81.0); PLATELET COUNT (AUTO) 531 K/uL (150-450); RED BLOOD CELL COUNT(AUTO) 3.46 MIL/uL (4.0-5.2); WHITE BLOOD COUNT (AUTO) 12.9 K/uL (4.3-11.0)
[2022-02-21 16:00] VITALS: BP 125/73
--- NOTE | 2022-02-21 18:30 | NUR ---
RN CLOSING NOTES PT REMAINS IN BED, AWAKE, A&O X3, CALM, COOPERATIVE. PT CONTINUES TO BE ON HIGH-FLOW NASAL CANNULA; O2SAT WAS LOW 93% AND HIGHEST WAS 100%. PT HAS PRODUCTIVE COUGH; SPUTUM YELLOW-WHITE IN COLOR AND THIN IN CONSISTENCY. NO OTHER S/S OF RESP DISTRESS, NO SOB, NON-LABORED AND EQUAL BREATHING; APPEARS COMFORTABLE OVERALL. ATTACHED TO EXTERNAL MONITOR, ST WITH HR HIGH 118S. BILATERAL SOFT WRIST RESTRAINTS REMAINS IN PLACE; PROVIDED PT WITH RELEASE OF RESTRAINTS, FLUIDS, AND HYGIENE. WOUNDS CLEANSED AND NEW OPTIFOAM DRESSING APPLIED. CINDI MIDLINE INTACT AND PATENT, FLUSHES EASILY WITH NO RESISTANCE; NO MEDS/FLUIDS RUNNING THROUGH IT. PATIENT ON PUREED DIET AND REFUSES THE FOOD, SHE DOES NOT TAKE MEDICATION CRUSHED IN APPLE SAUCE. SHE REFUSED THE 1700 MEDCIATION; MEDICATION RETURNED CHARGE NURSE SOON WAS MY WITNESS. PATIENT ONLY TOOK THE PHENYTOIN LIQUID SEIZURE MEDICATION AT 1700. BED IN LOWEST POSITION, CALL LIGHT WITHIN REACH, SIDE RAILS UP X3. WILL ENDORSE TO THE NIGHTSHIFT NURSE TO CONTINUE CARE.
[2022-02-21 20:00] VITALS: BP 136/75
--- NOTE | 2022-02-21 22:01 | NUR ---
EDUCATIONAL PARAPROFESSIONAL OPENING NOTE PT RECEIVED IN BED, AWAKE, A&O X3, CALM, COOPERATIVE. PT NOTED TO BE ON HIGH-FLOW NC AT 40 LPM WITH CURRENT O2SAT OF 96%; NO S/S OF RESP DISTRESS, NO SOB, NON-LABORED AND EQUAL BREATHING; HAS PRODUCTIVE COUGH THAT'S YELLOW-WHITE IN COLOR; APPEARS COMFORTABLE OVERALL. PT ATTACHED TO EXTERNAL MONITOR, ST WITH HR OF 106. PT HAS BILATERAL SOFT WRIST RESTRAINTS; NO SIGNS OF IMPAIRED SKIN OR CIRCULATION; WILL PROVIDE PT WITH RELEASE OF RESTRAINTS, FLUIDS, AND HYGIENE THROUGHOUT THE NIGHT. CINDI MIDLINE INTACT AND PATENT, FLUSHES EASILY WITH NO RESISTANCE; NO FLUIDS/MEDS RUNNING THROUGH IT. BED IN LOWEST POSITION, CALL LIGHT WITHIN REACH, SIDE RAILS UP X3. WILL CONTINUE TO MONITOR THROUGHOUT THE NIGHT.
[2022-02-21] MEDS: ACETAMINOPHEN 325 MG TABLET PO PRN (22:40)
--- NOTE | 2022-02-21 22:48 | NUR ---
RN NOTE PT REPORTS OF A 3/10 HEADACHE. PT ADMINISTERED TYLENOL 650 MG. WILL MONITOR FOR EFFECTIVENESS.
[2022-02-22] VITALS: BP 152/75
[2022-02-22] MEDS: BLOOD SUGAR DIAGNOSTIC 1 EACH STRIP IN SCH ×4 (00:03→17:02)
[2022-02-22 04:00] VITALS: BP 126/69
--- NOTE | 2022-02-22 06:35 | NUR ---
ACCESS REP CLOSING NOTE PT REMAINS IN BED, AWAKE, A&O X3, CALM, COOPERATIVE. PT REMAINS ON HIGH-FLOW NASAL CANNULA AT 40 LPM WITH FIO2 AT 60%; O2SAT RANGED FROM 96%-100%. PT HAS PRODUCTIVE COUGH; SPUTUM YELLOW-WHITE IN COLOR AND THIN IN CONSISTENCY. NO OTHER S/S OF RESP DISTRESS, NO SOB, NON-LABORED AND EQUAL BREATHING. ATTACHED TO EXTERNAL MONITOR, SR-ST HR GOT HIGH 107. BILATERAL SOFT WRIST RESTRAINTS REMAINS IN PLACE; PROVIDED PT WITH RELEASE OF RESTRAINTS, FLUIDS, AND HYGIENE. AFTER PT WAS CLEANED, PT HAD ASKED IF HER LEFT HAND CAN BE FREE AND NOT RESTRAINED; OF NOW, RIGHT WRIST RESTRAINT IS IN PLACE. WOUNDS CLEANSED AND NEW OPTIFOAM DRESSING APPLIED. CINDI MIDLINE INTACT AND PATENT, FLUSHES EASILY WITH NO RESISTANCE; NO MEDS/FLUIDS RUNNING THROUGH IT. ALL DUE MEDS ADMINISTERED DURING THE NIGHT. BED IN LOWEST POSITION, CALL LIGHT WITHIN REACH, SIDE RAILS UP X3. WILL ENDORSE TO DAYSHIFT NURSE TO CONTINUE CARE.
[2022-02-22 08:00] VITALS: BP 137/79
[2022-02-22] MEDS: ENSURE ENLIVE 237 ML LIQUID (VANILLA) PO SCH ×3 (09:00→17:00)
[2022-02-22] MEDS: Z GUARD REMEDY 4 OZ OINT TP SCH (09:00)
[2022-02-22] MEDS: DEXAMETHASONE SOD PHOSPHATE 10 MG/ML VIAL IV SCH (10:21)
[2022-02-22] MEDS: MULTIVITAMINS,THERAGRAN 1 UDTAB TABLET PO SCH (10:22)
[2022-02-22] MEDS: PANTOPRAZOLE 40 MG TABLET.DR PO SCH (10:22)
[2022-02-22] MEDS: CALCIUM CARBONATE (1250) 500 MG TABLET PO SCH (10:22)
[2022-02-22] MEDS: PHENYTOIN SUSP UDC 100 MG/4 ML UDC PO SCH ×2 (10:23→17:01)
[2022-02-22] MEDS: FLUTICASONE/VILANTEROL 1 EACH BLST.W.DEV IH SCH (10:26)
[2022-02-22] MEDS: ENOXAPARIN SODIUM 40 MG/0.4 ML DISP.SYRIN SQ SCH (10:28)
[2022-02-22] MEDS: QUETIAPINE FUMARATE 100 MG TABLET PO SCH ×2 (11:13→17:01)
[2022-02-22] MEDS: SERTRALINE HCL 50 MG TABLET PO SCH ×2 (11:13→17:01)
[2022-02-22 12:00] VITALS: BP 129/83
[2022-02-22 12:27] LABS: CALCIUM, SERUM 10.1 mg/dL (8.5-10.1); CREATININE 0.8 mg/dL (0.6-1.3); MAGNESIUM 2.1 mg/dL (1.8-2.4); PHOSPHORUS 2.9 mg/dL (2.5-4.9)
[2022-02-22 12:29] LABS: POTASSIUM 2.3 mmol/L (3.5-5.1)
--- NOTE | 2022-02-22 13:18 | NUR ---
RN NOTE PMD IN UNIT WITH VERBAL ORDER OF POTASSIUM IV 40MEQ AND POTASSIUM PO 40MEQ
[2022-02-22] MEDS ORDERED: POTASSIUM CHLORIDE 20 MEQ TAB.PRT.SR PO ONE (14:00)
[2022-02-22] MEDS: POTASSIUM CL. PREMIX PERIPHER. 50 ML IV SCH ×4 (14:30→17:59)
[2022-02-22 16:00] VITALS: BP 130/83
--- NOTE | 2022-02-22 19:41 | NUR ---
RN NOTE PT RESTING IN BED, AWAKE AND VERBALLY RESPONSIVE. CONT IN O2 VIA HIGH FLOW NC @40L WITH %50 FIO2. TOLERATING WELL. PT STILL NOTED WITH POOR APPETITE. CINDI MIDLINE IN PLACE AND PATENT. ALL DUE MEDICATIONS GIVEN. SAFETY MAINTAINED. AM/PM CARE RENDERED.
[2022-02-22 20:00] VITALS: BP 119/74
[2022-02-23] VITALS: BP 139/81
[2022-02-23] MEDS: BLOOD SUGAR DIAGNOSTIC 1 EACH STRIP IN SCH ×4 (01:12→17:09)
[2022-02-23 04:00] VITALS: BP 136/90
--- NOTE | 2022-02-23 06:40 | NUR ---
RN NOTE PT RESTING IN BED, AWAKE a/o x4 VERBALLY RESPONSIVE, CONT ON HIGH FLOW NC @40L WITH %50 FIO2, TOLERATING WELL, NO SOB/ACUTE DISTRESS NOTED, SINUS TACHY IN MONITOR WITH HR 110S, CINDI MIDLINE IN PLACE AND PATENT, OTHERWISE NO SIGNIFICANT CHANGE IN CONDITION DURING THE NIGHT, MANTAINED GOOD O2 SAT LEVEL, ALL SAFETY MEASURES MAINTAINED, CALL LIGHT W/I REACH, S/R OF BED UP X3, WILL ENDORSE CONTINUITY OF CARE TO ONCOMING NURSE
[2022-02-23 07:41] LABS: BASOPHILS # (AUTO) 0.2 K/uL (0.0-0.2); BASOPHILS % (AUTO) 1.2 % (0.0-2.0); HEMATOCRIT 36 % (33-45); HEMOGLOBIN 11.7 g/dL (11.5-14.8); LYMPHOCYTES # (AUTO) 2.1 K/uL (0.8-4.8); LYMPHOCYTES % (AUTO) 13.7 % (20.0-44.0); MEAN CORPUSCULAR HGB CONC 33 g/dl (31.0-36.0); MEAN CORPUSCULAR VOLUME 95 fL (82-100); MONOCYTES # (AUTO) 1.2 K/uL (0.1-1.30); MONOCYTES % (AUTO) 7.6 % (2.0-12.0); NEUTROPHILS # (AUTO) 11.5 K/uL (1.8-8.9); NEUTROPHILS % (AUTO) 73.5 % (43.0-81.0); PLATELET COUNT (AUTO) 615 K/uL (150-450); RED BLOOD CELL COUNT(AUTO) 3.79 MIL/uL (4.0-5.2); WHITE BLOOD COUNT (AUTO) 15.6 K/uL (4.3-11.0)
--- NOTE | 2022-02-23 07:46 | NUR ---
RN NOTE PT RECEIVED ASLEEP IN BED, AWAKE AND VERBALLY RESPONSIVE. CONT IN O2 VIA HIGH FLOW NC @40L WITH %50 FIO2. TOLERATING WELL. CINDI MIDLINE IN PLACE AND PATENT. SAFETY MAINTAINED. WILL CONT TO MONITOR.
[2022-02-23 08:00] VITALS: BP 163/84
[2022-02-23 08:10] LABS: CALCIUM, SERUM 10.5 mg/dL (8.5-10.1); MAGNESIUM 2.2 mg/dL (1.8-2.4); PHOSPHORUS 2.9 mg/dL (2.5-4.9); POTASSIUM 2.9 mmol/L (3.5-5.1)
[2022-02-23 08:32] LABS: C-REACTIVE PROTEIN 1.7 mg/dL (0.0-0.9)
[2022-02-23] MEDS: SERTRALINE HCL 50 MG TABLET PO SCH ×2 (08:54→17:08)
[2022-02-23] MEDS: QUETIAPINE FUMARATE 100 MG TABLET PO SCH ×2 (08:55→17:08)
[2022-02-23] MEDS: MULTIVITAMINS,THERAGRAN 1 UDTAB TABLET PO SCH (08:56)
[2022-02-23] MEDS: PHENYTOIN SUSP UDC 100 MG/4 ML UDC PO SCH ×2 (08:56→17:08)
[2022-02-23] MEDS: CALCIUM CARBONATE (1250) 500 MG TABLET PO SCH (08:57)
[2022-02-23] MEDS: DEXAMETHASONE SOD PHOSPHATE 10 MG/ML VIAL IV SCH (08:57)
[2022-02-23] MEDS: PANTOPRAZOLE 40 MG TABLET.DR PO SCH (08:57)
[2022-02-23] MEDS: ENOXAPARIN SODIUM 40 MG/0.4 ML DISP.SYRIN SQ SCH (08:59)
[2022-02-23] MEDS: Z GUARD REMEDY 4 OZ OINT TP SCH (10:04)
[2022-02-23] MEDS: ENSURE ENLIVE 237 ML LIQUID (VANILLA) PO SCH ×3 (10:04→17:09)
[2022-02-23] MEDS: FLUTICASONE/VILANTEROL 1 EACH BLST.W.DEV IH SCH (10:06)
[2022-02-23] MEDS: POTASSIUM CHLORIDE 20 MEQ TAB.PRT.SR PO SCH ×3 (11:05→13:36)
--- NOTE | 2022-02-23 11:31 | NUR ---
NICANOR NOTE PT B/P-100/50 R/C POST MIDODRINE 10MG DOSE. Addendum: 02/23/22 at 1916 by SMILEY SILVER RN WRONG ENTRY
[2022-02-23 12:00] VITALS: BP 114/76
[2022-02-23 16:00] VITALS: BP 137/87
--- NOTE | 2022-02-23 19:27 | NUR ---
RN NOTE PT BROUGHT HOME MEDS SUBOXONE 9 TABS. GIVEN TO PHARMACY. INFORMED PMD IF ABLE TO RESUME MEDS, AWAITING FOR CALL BACK, WILL ENDORSE TO NEXT SHIFT.
--- NOTE | 2022-02-23 19:45 | NUR ---
NIGHT WAREHOUSE SELECTOR OPENING NOTE RECEIVED PT RESTING IN BED, AWAKE, A/O X4, VERBALLY RESPONSIVE, ON O2 VIA NC AT 6LPM, TOLERATING WELL, NO SOB/ACUTE DISTRESS NOTED, SINUS TACHY IN MONITOR WITH HR 110S, WITH IV ACCESS ON CINDI MIDLINE IN PLACE INTACT AND PATENT NO FLUIDS RUNNING AT THIS TIME, ALL SAFETY MEASURES MAINTAINED, CALL LIGHT W/I REACH, S/R OF BED UP X3, WILL CONTINUE TO MONITOR THROUGHOUT THE SHIFT.
[2022-02-23 20:00] VITALS: BP 116/66
[2022-02-24] VITALS: BP 124/74
[2022-02-24] MEDS: BLOOD SUGAR DIAGNOSTIC 1 EACH STRIP IN SCH ×4 (00:32→18:07)
[2022-02-24 04:00] VITALS: BP 140/75
[2022-02-24 06:23] LABS: CALCIUM, SERUM 10.4 mg/dL (8.5-10.1); CREATININE 1.1 mg/dL (0.6-1.3); MAGNESIUM 2.2 mg/dL (1.8-2.4); PHOSPHORUS 2.7 mg/dL (2.5-4.9); POTASSIUM 3.1 mmol/L (3.5-5.1)
--- NOTE | 2022-02-24 06:36 | NUR ---
SWITCHBOARD RECEPTIONIST CLOSING NOTE PT RESTING IN BED, AWAKE, A/O X4, VERBALLY RESPONSIVE, ON O2 VIA NC AT 5LPM, TOLERATING WELL, NO SOB/ACUTE DISTRESS NOTED, SR/ SINUS TACHY IN MONITOR WITH HR 108, WITH IV ACCESS ON CINDI MIDLINE IN PLACE INTACT AND PATENT NO FLUIDS RUNNING AT THIS TIME, ALL SAFETY MEASURES MAINTAINED, ALL DUE MEDS GIVEN, KEPT DRY AND CLEAN, CALL LIGHT W/I REACH, S/R OF BED UP X3, WILL ENDORSE TO AM SHIFT NURSE.
--- NOTE | 2022-02-24 07:10 | NUR ---
RN NOTE RECEIVED PATIENT IN BED RESTING,ALERT ORIENTED X3-4 VERBALLY RESPONSIVE ON 5L OXYGEN VIA NASAL CANNULA,O2:95% HR 114.IV SITE IS ON RIGHT UPPER ARM MIDLINE,INTACT PATENT,INCONTINENT BOWEL/BLADDER SAFETY MEASURE IMPLEMENT,BED IN LOW POSITION AND LOCKED,CALL LIGHT WITHIN REACH.BED ALARM IS ON CONTINUE TO MONITOR.
[2022-02-24 07:13] LABS: BASOPHILS # (AUTO) 0.1 K/uL (0.0-0.2); BASOPHILS % (AUTO) 0.3 % (0.0-2.0); EOSINOPHILS % (AUTO) 4.4 % (0.0-6.0); HEMATOCRIT 39 % (33-45); HEMOGLOBIN 12.2 g/dL (11.5-14.8); LYMPHOCYTES # (AUTO) 2.6 K/uL (0.8-4.8); LYMPHOCYTES % (AUTO) 15.4 % (20.0-44.0); MEAN CORPUSCULAR HGB CONC 32 g/dl (31.0-36.0); MEAN CORPUSCULAR VOLUME 97 fL (82-100); MONOCYTES # (AUTO) 1.3 K/uL (0.1-1.30); MONOCYTES % (AUTO) 7.8 % (2.0-12.0); NEUTROPHILS # (AUTO) 12.4 K/uL (1.8-8.9); NEUTROPHILS % (AUTO) 72.1 % (43.0-81.0); PLATELET COUNT (AUTO) 571 K/uL (150-450); RED BLOOD CELL COUNT(AUTO) 4.01 MIL/uL (4.0-5.2); WHITE BLOOD COUNT (AUTO) 17.1 K/uL (4.3-11.0)
[2022-02-24] MEDS: PANTOPRAZOLE 40 MG TABLET.DR PO SCH (07:48)
[2022-02-24 08:00] VITALS: BP 120/78
[2022-02-24] MEDS: QUETIAPINE FUMARATE 100 MG TABLET PO SCH ×2 (08:21→16:33)
[2022-02-24] MEDS: PHENYTOIN SUSP UDC 100 MG/4 ML UDC PO SCH ×2 (08:21→16:33)
[2022-02-24] MEDS: MULTIVITAMINS,THERAGRAN 1 UDTAB TABLET PO SCH (08:21)
[2022-02-24] MEDS: CALCIUM CARBONATE (1250) 500 MG TABLET PO SCH (08:22)
[2022-02-24] MEDS: DEXAMETHASONE SOD PHOSPHATE 10 MG/ML VIAL IV SCH (08:22)
[2022-02-24] MEDS: ENOXAPARIN SODIUM 40 MG/0.4 ML DISP.SYRIN SQ SCH (08:24)
[2022-02-24] MEDS: Z GUARD REMEDY 4 OZ OINT TP SCH (08:27)
[2022-02-24] MEDS: SERTRALINE HCL 50 MG TABLET PO SCH ×2 (08:27→16:34)
[2022-02-24] MEDS: ENSURE ENLIVE 237 ML LIQUID (VANILLA) PO SCH ×3 (08:29→17:36)
[2022-02-24] MEDS: FLUTICASONE/VILANTEROL 1 EACH BLST.W.DEV IH SCH (08:37)
[2022-02-24] MEDS ORDERED: POTASSIUM CHLORIDE 20 MEQ TAB.PRT.SR PO SCH (10:00)
[2022-02-24 12:00] VITALS: BP 129/74
[2022-02-24 16:00] VITALS: BP 123/74
--- NOTE | 2022-02-24 18:50 | NUR ---
RN NOTE PATIENT REMAINS ON ALERT ORIENTEDX3 VERBALLY RESPONSIVE ON 5L OXYGEN VIA NASAL CANNULA,O2:97% ALL DUE MEDS GIVEN MD ORDERED KEPT CLEAN AND DRY ALL THE TIME,ALL NEED S MET,HEAD OF THE BED ELEVATED,WILL ENDORSE NEXT COMING SHIFT FOR CONTINUATION OF CARE.
--- NOTE | 2022-02-24 19:37 | NUR ---
MANAGER MECHANICAL MAINTENANCE OPENING NOTE RECEIVED PT RESTING IN BED, AWAKE, A/O X3-4, VERBALLY RESPONSIVE, ON O2 VIA NC AT 5LPM, TOLERATING WELL, NO SOB/ACUTE DISTRESS NOTED, SINUS TACHY IN MONITOR WITH HR 116, WITH IV ACCESS ON CINDI MIDLINE IN PLACE INTACT AND PATENT NO FLUIDS RUNNING AT THIS TIME, ALL SAFETY MEASURES MAINTAINED, CALL LIGHT W/I REACH, S/R OF BED UP X3, WILL CONTINUE TO MONITOR THROUGHOUT THE SHIFT.
[2022-02-24 20:00] VITALS: BP 131/79
--- NOTE | 2022-02-24 20:20 | NUR ---
RN NOTE PT COMPLAINING OF DIFFICULTY SLEEPING AT NIGHT. NO ORDERS OF SLEEPING PILL YET. INFORMED ELEVATOR OPERATOR SUJATA. SHE ORDERED TEMAZEPAM 7.5 MG PO HS PRN FOR INSOMNIA. ORDER TAKEN AND CARRIED OUT.
[2022-02-24] MEDS: TEMAZEPAM 7.5 MG CAPSULE PO PRN (22:52)
[2022-02-25] VITALS: BP 130/70
[2022-02-25] MEDS: BLOOD SUGAR DIAGNOSTIC 1 EACH STRIP IN SCH ×4 (00:25→18:30)
[2022-02-25 04:00] VITALS: BP 142/79
[2022-02-25 06:02] LABS: BASOPHILS # (AUTO) 0.1 K/uL (0.0-0.2); BASOPHILS % (AUTO) 0.5 % (0.0-2.0); EOSINOPHILS % (AUTO) 2.2 % (0.0-6.0); HEMATOCRIT 37 % (33-45); LYMPHOCYTES # (AUTO) 3.1 K/uL (0.8-4.8); LYMPHOCYTES % (AUTO) 17.4 % (20.0-44.0); MEAN CORPUSCULAR HGB CONC 33 g/dl (31.0-36.0); MEAN CORPUSCULAR VOLUME 95 fL (82-100); MONOCYTES # (AUTO) 1.3 K/uL (0.1-1.30); NEUTROPHILS # (AUTO) 13.1 K/uL (1.8-8.9); NEUTROPHILS % (AUTO) 72.9 % (43.0-81.0); PLATELET COUNT (AUTO) 502 K/uL (150-450)
[2022-02-25 06:21] LABS: CALCIUM, SERUM 9.9 mg/dL (8.5-10.1); CREATININE 0.8 mg/dL (0.6-1.3); MAGNESIUM 2.3 mg/dL (1.8-2.4); PHOSPHORUS 3.1 mg/dL (2.5-4.9)
--- NOTE | 2022-02-25 07:01 | NUR ---
INSURANCE ADJUSTOR CLOSING NOTE PT RESTING IN BED, AWAKE, A/O X4, VERBALLY RESPONSIVE, ON O2 VIA NC AT 5LPM, TOLERATING WELL, NO SOB/ACUTE DISTRESS NOTED, SR/ SINUS TACHY IN MONITOR WITH HR 110, WITH IV ACCESS ON CINDI MIDLINE IN PLACE INTACT AND PATENT NO FLUIDS RUNNING AT THIS TIME, ALL SAFETY MEASURES MAINTAINED, ALL DUE MEDS GIVEN, KEPT DRY AND CLEAN, CALL LIGHT W/I REACH, S/R OF BED UP X3, WILL ENDORSE TO AM SHIFT NURSE.
[2022-02-25 08:00] VITALS: BP 144/79
[2022-02-25] MEDS ORDERED: KEY,NONCONTROL,TO KEEP IN PYXI 1 EA MC ONE ×3 (08:11→17:15)
[2022-02-25] MEDS: PHENYTOIN SUSP UDC 100 MG/4 ML UDC PO SCH ×2 (08:31→17:24)
[2022-02-25] MEDS: PANTOPRAZOLE 40 MG TABLET.DR PO SCH (08:32)
[2022-02-25] MEDS: BUPRENORPHINE HCL SL SCH ×3 (08:32→17:25)
[2022-02-25] MEDS: NALOXONE HCL SL SCH ×3 (08:32→17:25)
[2022-02-25] MEDS: [UNRECOGNIZED DRUG - OTHER] SL SCH ×3 (08:32→17:25)
[2022-02-25] MEDS: QUETIAPINE FUMARATE 100 MG TABLET PO SCH ×2 (08:32→17:24)
[2022-02-25] MEDS: CALCIUM CARBONATE (1250) 500 MG TABLET PO SCH (08:32)
[2022-02-25] MEDS: SERTRALINE HCL 50 MG TABLET PO SCH ×2 (08:32→17:24)
[2022-02-25] MEDS ORDERED: [UNRECOGNIZED DRUG - OTHER] SL SCH (09:00)
[2022-02-25] MEDS ORDERED: NALOXONE HCL SL SCH (09:00)
[2022-02-25] MEDS ORDERED: DEXAMETHASONE SOD PHOSPHATE 10 MG/ML VIAL IV SCH (09:00)
[2022-02-25] MEDS ORDERED: BUPRENORPHINE HCL SL SCH (09:00)
[2022-02-25] MEDS: ENSURE ENLIVE 237 ML LIQUID (VANILLA) PO SCH ×3 (09:02→17:05)
[2022-02-25] MEDS: ENOXAPARIN SODIUM 40 MG/0.4 ML DISP.SYRIN SQ SCH (09:03)
[2022-02-25] MEDS: Z GUARD REMEDY 4 OZ OINT TP SCH (09:03)
[2022-02-25] MEDS: MULTIVITAMINS,THERAGRAN 1 UDTAB TABLET PO SCH (09:11)
[2022-02-25] MEDS: FLUTICASONE/VILANTEROL 1 EACH BLST.W.DEV IH SCH (09:11)
[2022-02-25] MEDS ORDERED: POTASSIUM CHLORIDE 20 MEQ TAB.PRT.SR PO SCH (10:00)
[2022-02-25 12:00] VITALS: BP 115/71
[2022-02-25 16:00] VITALS: BP 115/70
--- NOTE | 2022-02-25 18:45 | NUR ---
ORACLE CONSULTANT CLOSING NOTE PT RESTING IN BED, AWAKE, A/O X4, VERBALLY RESPONSIVE, ON O2 VIA NC AT 5LPM, TOLERATING WELL, NO SOB/ACUTE DISTRESS NOTED, SR/ SINUS TACHY IN MONITOR WITH HR 112, WITH IV ACCESS ON CINDI MIDLINE IN PLACE INTACT AND PATENT NO FLUIDS RUNNING AT THIS TIME, ALL SAFETY MEASURES MAINTAINED, ALL DUE MEDS GIVEn KEPT DRY AND CLEAN, CALL LIGHT W/I REACH, S/R OF BED UP X3, WILL ENDORSE TO HEALTH DATA ANALYST NURSE.
--- NOTE | 2022-02-25 19:30 | NUR ---
ENGINEERING WRITER OPENING NOTE RECEIVED PT AWAKE IN BED. A/O X4 AND ABLE TO MAKE NEEDS KNOWN. PT ON O2 VIA NC AT 5LPM, TOLERATING WELL. NO SOB OR S/S OF RESPIRATORY DISTRESS NOTED. ON EXTERNAL CSW READING ST HR 112. IV ACCESS CINDI MIDLINE, INTACT AND PATENT. SAFETY PRECAUTIONS IN PLACE. BED IN LOWEST LOCKED POSITION, HOB ELEVATED, SIDE RAILS UP X3, AND CALL LIGHT AND TABLE WITHIN REACH. ALL NEEDS MET AT THIS TIME.
[2022-02-25 20:00] VITALS: BP 130/78
[2022-02-26] VITALS: BP_SYST 102; BP_DIAS 60; BP_DIAS 69
[2022-02-26] MEDS: BLOOD SUGAR DIAGNOSTIC 1 EACH STRIP IN SCH ×6 (00:33→18:31)
[2022-02-26 04:00] VITALS: BP 120/67
--- NOTE | 2022-02-26 06:48 | NUR ---
DISTRIBUTION TECH CLOSING NOTE PT AWAKE IN BED. A/O X4 AND ABLE TO MAKE NEEDS KNOWN. PT ON O2 VIA NC AT 5LPM, TOLERATING WELL. NO SOB OR S/S OF RESPIRATORY DISTRESS NOTED. ON EXTERNAL DESIGN CHECKER READING ST HR 107. IV ACCESS CINDI MIDLINE, INTACT AND PATENT. WOUND DRESSINGS C/D/I. ALL DUE MEDS GIVEN ORDERED. TURNED AND REPOSITIONED Q2H. SAFETY PRECAUTIONS IN PLACE AT ALL TIMES. BED IN LOWEST LOCKED POSITION, HOB ELEVATED, SIDE RAILS UP X3, AND CALL LIGHT AND TABLE WITHIN REACH. ALL NEEDS MET AT THIS TIME AND WILL ENDORSE TO ONCOMING NURSE FOR NEFTALI.
--- NOTE | 2022-02-26 07:15 | NUR ---
CARGOMAN OPENING NOTE PATIENT IS AWAKE IN BED. PATIENT IS ALERT AND ORIENTED X4. PATIENT IS ON O2 VIA 5 LITERS PER MINUTE TOLERATING AT 95%.PATIENT SHOWS NO SIGNS OF SOB/RESPIRATORY DISTRESS.PATIENT IS ON TELE MONITOR CURRENTLY AT SINUS TACHYCARDIA. PATIENT HAS RIGHT UPPER ARM MIDLINE. INTACT AND PATENT. PATIENT HAS WOUND DRESSINGS ON LEFT ANKLE AND DTI. ALL SAFETY MEASURES IN PLACE.CALL LIGHT WITHIN REACH.BED LOCKED AT LOWEST POSITION. SIDE RAILS UP X2.BED ALARM ON.
[2022-02-26 08:00] VITALS: BP 125/70
[2022-02-26] MEDS: DEXAMETHASONE SOD PHOSPHATE 4 MG/ML VIAL IV SCH (08:31)
[2022-02-26] MEDS: PHENYTOIN SUSP UDC 100 MG/4 ML UDC PO SCH ×2 (08:31→16:44)
[2022-02-26] MEDS: CALCIUM CARBONATE (1250) 500 MG TABLET PO SCH (08:31)
[2022-02-26] MEDS: PANTOPRAZOLE 40 MG TABLET.DR PO SCH (08:31)
[2022-02-26] MEDS: QUETIAPINE FUMARATE 100 MG TABLET PO SCH ×2 (08:32→16:44)
[2022-02-26] MEDS: MULTIVITAMINS,THERAGRAN 1 UDTAB TABLET PO SCH (08:32)
[2022-02-26] MEDS: SERTRALINE HCL 50 MG TABLET PO SCH ×2 (08:32→16:45)
[2022-02-26] MEDS: ENOXAPARIN SODIUM 40 MG/0.4 ML DISP.SYRIN SQ SCH (08:35)
[2022-02-26] MEDS: FLUTICASONE/VILANTEROL 1 EACH BLST.W.DEV IH SCH (09:00)
[2022-02-26] MEDS: ENSURE ENLIVE 237 ML LIQUID (VANILLA) PO SCH ×3 (09:14→18:30)
[2022-02-26 09:30] LABS: BASOPHILS # (AUTO) 0.1 K/uL (0.0-0.2); BASOPHILS % (AUTO) 0.3 % (0.0-2.0); EOSINOPHILS % (AUTO) 2.7 % (0.0-6.0); HEMATOCRIT 37 % (33-45); HEMOGLOBIN 11.9 g/dL (11.5-14.8); LYMPHOCYTES # (AUTO) 3.1 K/uL (0.8-4.8); LYMPHOCYTES % (AUTO) 16.3 % (20.0-44.0); MEAN CORPUSCULAR HGB CONC 32 g/dl (31.0-36.0); MEAN CORPUSCULAR VOLUME 96 fL (82-100); MONOCYTES # (AUTO) 1.2 K/uL (0.1-1.30); MONOCYTES % (AUTO) 6.3 % (2.0-12.0); NEUTROPHILS # (AUTO) 14.4 K/uL (1.8-8.9); NEUTROPHILS % (AUTO) 74.4 % (43.0-81.0); PLATELET COUNT (AUTO) 410 K/uL (150-450); RED BLOOD CELL COUNT(AUTO) 3.83 MIL/uL (4.0-5.2); WHITE BLOOD COUNT (AUTO) 19.3 K/uL (4.3-11.0)
[2022-02-26 09:43] LABS: CALCIUM, SERUM 9.6 mg/dL (8.5-10.1); CREATININE 0.9 mg/dL (0.6-1.3); MAGNESIUM 1.8 mg/dL (1.8-2.4); PHOSPHORUS 1.9 mg/dL (2.5-4.9); POTASSIUM 3.1 mmol/L (3.5-5.1)
--- NOTE | 2022-02-26 10:00 | NUR ---
LISA TAKEN OUT FOR HOME MEDICATION
[2022-02-26] MEDS ORDERED: KEY,NONCONTROL,TO KEEP IN PYXI 1 EA MC ONE ×4 (10:59→18:43)
[2022-02-26] MEDS: [UNRECOGNIZED DRUG - OTHER] SL SCH ×3 (11:01→18:44)
[2022-02-26] MEDS: NALOXONE HCL SL SCH ×3 (11:01→18:44)
[2022-02-26] MEDS: BUPRENORPHINE HCL SL SCH ×3 (11:01→18:44)
[2022-02-26 12:00] VITALS: BP 103/79
[2022-02-26] MEDS ORDERED: DEXTROSE 50%-WATER 50 ML DISP.SYRIN IV PRN (13:00)
--- NOTE | 2022-02-26 13:00 | NUR ---
completed accucheck.patient blood sugar 147 did not give coverage because there was no insulin coverage notified and ordered coverage
[2022-02-26] MEDS: Z GUARD REMEDY 4 OZ OINT TP SCH (13:02)
[2022-02-26 16:00] VITALS: BP 101/65
--- NOTE | 2022-02-26 18:30 | NUR ---
blood sugar 145. did not give insulin patient refused.explained benefits and risks of medication. providied education and patient did not want to take it at this time
--- NOTE | 2022-02-26 19:15 | NUR ---
RN NOTES: RECEIVED AWAKE ON BED, ON SEMI FOWLERS POSITION, A/OX2-3, WITH O2 INHALATION AT 5L/MIN VIA NC SPO2-97%, ON TELE MONITOR ST-112,ON INSULIN SLIDING SCALE, ORIENTED TO UNIT AND STAFF, NON LABORED BREATHING, NO SOB, FALL AND SAFETY PRECAUTION OBSERVED.
--- NOTE | 2022-02-26 19:20 | NUR ---
RN NOTES: -CONTACT/DROPLET ISOLATION OBSERVED,NO PAIN OR DISCOMFORT AT THIS TIME, LYING COMFORTABLY IN HIS BED.
[2022-02-26 20:00] VITALS: BP 105/56
--- NOTE | 2022-02-26 20:02 | NUR ---
REAL ESTATE ADMINISTRATIVE ASSISTANT CLOSING NOTE PATIENT IS AWAKE IN BED. PATIENT IS ALERT AND ORIENTED X4. PATIENT IS ON O2 VIA 5 LITERS PER MINUTE TOLERATING AT 95%.ALL NEEDS MET.PATIENT IS ON TELE MONITOR CURRENTLY AT SINUS TACHYCARDIA. PATIENT HAS RIGHT UPPER ARM MIDLINE. INTACT AND PATENT. PATIENT HAS WOUND DRESSINGS ON LEFT ANKLE AND DTI. KEPT CLEAN AND DRY.ALL SAFETY MEASURES IN PLACE.CALL LIGHT WITHIN REACH.BED LOCKED AT LOWEST POSITION. SIDE RAILS UP X2.BED ALARM ON.
[2022-02-26] MEDS: TEMAZEPAM 7.5 MG CAPSULE PO PRN (21:22)
--- NOTE | 2022-02-26 21:22 | NUR ---
RN NOTES: SHE REQUEST FOR HER SLEEPING PILL, SHE SAID SHE CANNOT SLEEP THINKING OF HER SHE NEED SOMETHING TO SLEEP.
--- NOTE | 2022-02-26 22:20 | NUR ---
RN NOTES: 2200--BLOOD SUGAR CHECKED- 123, NO INSULIN PER SCALE,WILL CONTINUE TO MONITOR FOR SIGN OF HYPER/HYPOGLYCEMIA.
[2022-02-27] VITALS: BP 102/69
--- NOTE | 2022-02-27 | NUR ---
RN NOTES: REFUSED FOR BLOOD SUGAR CHECK AT 12 MIDNIGHT.
[2022-02-27 04:00] VITALS: BP 108/72
[2022-02-27] MEDS: BLOOD SUGAR DIAGNOSTIC 1 EACH STRIP IN SCH ×10 (05:09→23:35)
--- NOTE | 2022-02-27 05:50 | NUR ---
RN NOTES: BLOOD SUGAR CHECKED AT 0600=94, NO INSULIN PER SCALE.
[2022-02-27 05:58] LABS: BASOPHILS # (AUTO) 0.2 K/uL (0.0-0.2); BASOPHILS % (AUTO) 1.1 % (0.0-2.0); EOSINOPHILS % (AUTO) 4.1 % (0.0-6.0); HEMATOCRIT 37 % (33-45); HEMOGLOBIN 11.9 g/dL (11.5-14.8); LYMPHOCYTES # (AUTO) 3.9 K/uL (0.8-4.8); LYMPHOCYTES % (AUTO) 21.9 % (20.0-44.0); MEAN CORPUSCULAR HGB CONC 32 g/dl (31.0-36.0); MEAN CORPUSCULAR VOLUME 96 fL (82-100); MONOCYTES # (AUTO) 1.4 K/uL (0.1-1.30); NEUTROPHILS # (AUTO) 11.5 K/uL (1.8-8.9); NEUTROPHILS % (AUTO) 64.9 % (43.0-81.0); PLATELET COUNT (AUTO) 379 K/uL (150-450); RED BLOOD CELL COUNT(AUTO) 3.82 MIL/uL (4.0-5.2); WHITE BLOOD COUNT (AUTO) 17.7 K/uL (4.3-11.0)
[2022-02-27 06:24] LABS: CALCIUM, SERUM 9.7 mg/dL (8.5-10.1); CREATININE 0.8 mg/dL (0.6-1.3); MAGNESIUM 1.9 mg/dL (1.8-2.4); PHOSPHORUS 2.8 mg/dL (2.5-4.9); POTASSIUM 3.1 mmol/L (3.5-5.1)
--- NOTE | 2022-02-27 06:58 | NUR ---
RN NOTES: ON TELE MONITOR ST-110, NON LABORED BREATHING, SPO2-94%WITH O2 AT 5L/MN, MRONING CARE DONE, AGREE FOR SPONGE BATH, CLEAN AND CHANGE,SHE REQUEST TO DO HERDRESSING ON THE LLE LATER, CINDI MIDLINE INTACT, BLOOD SUGAR-94, FOR BLOOD TEST THIS MORNING, ENCOURAGE TO INCREASE ORAL FLUIDS AND DRINK ENSURE.ENDORSED FOR CONTINUITY OF CARE.
--- NOTE | 2022-02-27 07:30 | NUR ---
OPENING NOTE RECEIVED PT RESTING IN BED, AWAKE, A/O X4, VERBALLY RESPONSIVE, ON O2 VIA NC , TOLERATING WELL, NO SOB/ACUTE DISTRESS NOTED, SINUS TACHY IN MONITOR WITH HR 114S, WITH IV ACCESS ON CINDI MIDLINE IN PLACE INTACT AND PATENT NO FLUIDS RUNNING AT THIS TIME, ALL SAFETY MEASURES MAINTAINED, CALL LIGHT W/I REACH, S/R OF BED UP X3, WILL CONTINUE TO MONITOR THROUGHOUT THE SHIFT.
[2022-02-27] MEDS: PANTOPRAZOLE 40 MG TABLET.DR PO SCH (07:45)
[2022-02-27] MEDS ORDERED: KEY,NONCONTROL,TO KEEP IN PYXI 1 EA MC ONE ×3 (07:58→16:10)
[2022-02-27 08:00] VITALS: BP 109/75
[2022-02-27] MEDS: SERTRALINE HCL 50 MG TABLET PO SCH ×2 (08:37→16:15)
[2022-02-27] MEDS: PHENYTOIN SUSP UDC 100 MG/4 ML UDC PO SCH ×2 (08:37→16:15)
[2022-02-27] MEDS: NALOXONE HCL SL SCH ×3 (08:37→16:15)
[2022-02-27] MEDS: BUPRENORPHINE HCL SL SCH ×3 (08:37→16:15)
[2022-02-27] MEDS: [UNRECOGNIZED DRUG - OTHER] SL SCH ×3 (08:37→16:15)
[2022-02-27] MEDS: MULTIVITAMINS,THERAGRAN 1 UDTAB TABLET PO SCH (08:37)
[2022-02-27] MEDS: CALCIUM CARBONATE (1250) 500 MG TABLET PO SCH (08:37)
[2022-02-27] MEDS: QUETIAPINE FUMARATE 100 MG TABLET PO SCH ×2 (08:38→16:15)
[2022-02-27] MEDS: ENOXAPARIN SODIUM 40 MG/0.4 ML DISP.SYRIN SQ SCH (08:38)
[2022-02-27] MEDS: DEXAMETHASONE SOD PHOSPHATE 4 MG/ML VIAL IV SCH (08:38)
[2022-02-27] MEDS: ENSURE ENLIVE 237 ML LIQUID (VANILLA) PO SCH ×3 (08:41→16:15)
[2022-02-27] MEDS: Z GUARD REMEDY 4 OZ OINT TP SCH (08:41)
[2022-02-27] MEDS: FLUTICASONE/VILANTEROL 1 EACH BLST.W.DEV IH SCH (08:45)
[2022-02-27] MEDS: POTASSIUM CHLORIDE 20 MEQ POWDER PACKET PO SCH ×2 (10:13→11:08)
[2022-02-27 12:00] VITALS: BP 102/61
[2022-02-27 16:00] VITALS: BP 96/66
--- NOTE | 2022-02-27 19:40 | NUR ---
SHORT HAUL DRIVER OPENING NOTE RECEIVED PT RESTING IN BED, AWAKE, A/O X3-4, VERBALLY RESPONSIVE, ON O2 VIA NC AT 5LPM, TOLERATING WELL, NO SOB/ACUTE DISTRESS NOTED, SINUS TACHY IN MONITOR WITH HR 110, WITH IV ACCESS ON CINDI MIDLINE IN PLACE INTACT AND PATENT NO FLUIDS RUNNING AT THIS TIME, ALL SAFETY MEASURES MAINTAINED, CALL LIGHT W/I REACH, S/R OF BED UP X3, WILL CONTINUE TO MONITOR THROUGHOUT THE SHIFT.
[2022-02-27 20:00] VITALS: BP 104/64
[2022-02-27] MEDS: TEMAZEPAM 7.5 MG CAPSULE PO PRN (21:53)
[2022-02-28] VITALS: BP 94/44
[2022-02-28 04:00] VITALS: BP 109/62
[2022-02-28 06:02] LABS: BASOPHILS % (AUTO) 0.2 % (0.0-2.0); EOSINOPHILS % (AUTO) 3.6 % (0.0-6.0); HEMATOCRIT 36 % (33-45); HEMOGLOBIN 11.6 g/dL (11.5-14.8); LYMPHOCYTES # (AUTO) 4.5 K/uL (0.8-4.8); LYMPHOCYTES % (AUTO) 25.7 % (20.0-44.0); MEAN CORPUSCULAR HGB CONC 32 g/dl (31.0-36.0); MEAN CORPUSCULAR VOLUME 97 fL (82-100); MONOCYTES # (AUTO) 1.6 K/uL (0.1-1.30); NEUTROPHILS # (AUTO) 10.9 K/uL (1.8-8.9); NEUTROPHILS % (AUTO) 61.5 % (43.0-81.0); PLATELET COUNT (AUTO) 331 K/uL (150-450); RED BLOOD CELL COUNT(AUTO) 3.73 MIL/uL (4.0-5.2); WHITE BLOOD COUNT (AUTO) 17.7 K/uL (4.3-11.0)
[2022-02-28 06:19] LABS: CALCIUM, SERUM 9.4 mg/dL (8.5-10.1); MAGNESIUM 1.9 mg/dL (1.8-2.4); PHOSPHORUS 2.7 mg/dL (2.5-4.9); POTASSIUM 3.1 mmol/L (3.5-5.1)
--- NOTE | 2022-02-28 06:42 | NUR ---
TRANSFER CAR OPERATOR CLOSING NOTE PT RESTING IN BED, AWAKE, A/O X4, VERBALLY RESPONSIVE, ON O2 VIA NC AT 5LPM CONNECTED TO HUMIDIFIER, TOLERATING WELL, NO SOB/ACUTE DISTRESS NOTED, SR IN MONITOR WITH HR 97, WITH IV ACCESS ON CINDI MIDLINE IN PLACE INTACT AND PATENT NO FLUIDS RUNNING AT THIS TIME, ALL SAFETY MEASURES MAINTAINED, ALL DUE MEDS GIVEN, KEPT DRY AND CLEAN, CALL LIGHT W/I REACH, S/R OF BED UP X3, WILL ENDORSE TO AM SHIFT NURSE.
[2022-02-28 06:44] LABS: CREATININE 0.7 mg/dL (0.6-1.3)
[2022-02-28 08:00] VITALS: BP 112/67
[2022-02-28] MEDS: BUPRENORPHINE HCL SL SCH ×3 (09:00→18:33)
[2022-02-28] MEDS: NALOXONE HCL SL SCH ×3 (09:00→18:33)
[2022-02-28] MEDS: [UNRECOGNIZED DRUG - OTHER] SL SCH ×3 (09:00→18:33)
[2022-02-28] MEDS ORDERED: KEY,NONCONTROL,TO KEEP IN PYXI 1 EA MC ONE ×2 (09:19→18:34)
[2022-02-28] MEDS: QUETIAPINE FUMARATE 100 MG TABLET PO SCH ×2 (09:25→17:29)
[2022-02-28] MEDS: MULTIVITAMINS,THERAGRAN 1 UDTAB TABLET PO SCH (09:25)
[2022-02-28] MEDS: SERTRALINE HCL 50 MG TABLET PO SCH ×2 (09:25→17:28)
[2022-02-28] MEDS: DEXAMETHASONE SOD PHOSPHATE 4 MG/ML VIAL IV SCH (09:25)
[2022-02-28] MEDS: BLOOD SUGAR DIAGNOSTIC 1 EACH STRIP IN SCH ×3 (09:26→18:19)
[2022-02-28] MEDS: PHENYTOIN SUSP UDC 100 MG/4 ML UDC PO SCH ×2 (09:26→17:28)
[2022-02-28] MEDS: CALCIUM CARBONATE (1250) 500 MG TABLET PO SCH (09:26)
[2022-02-28] MEDS: PANTOPRAZOLE 40 MG TABLET.DR PO SCH (09:26)
[2022-02-28] MEDS: Z GUARD REMEDY 4 OZ OINT TP SCH (09:26)
[2022-02-28] MEDS: FLUTICASONE/VILANTEROL 1 EACH BLST.W.DEV IH SCH (09:27)
[2022-02-28] MEDS: ENSURE ENLIVE 237 ML LIQUID (VANILLA) PO SCH ×3 (09:27→17:29)
[2022-02-28] MEDS: ENOXAPARIN SODIUM 40 MG/0.4 ML DISP.SYRIN SQ SCH (09:31)
[2022-02-28 10:20] LABS: BAND % (MANUAL) 4 % (0.0-5.0); EOSINOPHILS % (MANUAL) 1 % (0-4); LYMPHOCYTES % (MANUAL) 28 % (16-48); MONOCYTES % (MANUAL) 4 % (0-11.0); NEUTROPHILS % (MANUAL) 63 (42-76)
--- NOTE | 2022-02-28 10:30 | NUR ---
RN NOTE COVID ANTIGEN SPECIMEN TAKEN AND SENT TO LAB.
[2022-02-28] MEDS: POTASSIUM CHLORIDE 20 MEQ POWDER PACKET PO SCH ×2 (10:55→11:11)
[2022-02-28 12:00] VITALS: BP 98/64
[2022-02-28 16:00] VITALS: BP 110/65
--- NOTE | 2022-02-28 18:52 | NUR ---
RN NOTE PT RESTING IN BED, AWAKE ALERT AND RESPONSIVE. CONT IN O2 VIA NC 6L. NOT IN RESPI DISTRESS. IV ACCESS ON CINDI MIDLINE, PATENT. DUE MEDICATIONS GIVEN, AM PM CARE DONE. SAFETY MEASURES DONE. WILL CONT TO MONITOR.
--- NOTE | 2022-02-28 19:23 | NUR ---
SPEAKER MOUNTER OPENING NOTE RECEIVED PT RESTING IN BED, AWAKE, A/O X4, VERBALLY RESPONSIVE, ON O2 VIA NC AT 5LPM CONNECTED TO HUMIDIFIER, TOLERATING WELL, NO SOB/ACUTE DISTRESS NOTED, SR IN MONITOR WITH HR 95, WITH IV ACCESS ON CINDI MIDLINE IN PLACE INTACT AND PATENT NO FLUIDS RUNNING AT THIS TIME, ALL SAFETY MEASURES MAINTAINED, CALL LIGHT W/I REACH, S/R OF BED UP X3, WILL CONTINUE TO MONITOR THROUGHOUT THE SHIFT.
[2022-02-28 20:00] VITALS: BP 103/59
[2022-02-28] MEDS: INSULIN REGULAR, HUMAN 100 UNIT/ML 3 ML VIAL SQ PRN (23:39)
[2022-03-01] VITALS: BP 112/76
[2022-03-01] MEDS: BLOOD SUGAR DIAGNOSTIC 1 EACH STRIP IN SCH ×5 (01:35→21:09)
[2022-03-01 04:00] VITALS: BP 102/65
--- NOTE | 2022-03-01 06:56 | NUR ---
FUNERAL LOCATION MANAGER CLOSING NOTE PT RESTING IN BED, AWAKE, A/O X4, VERBALLY RESPONSIVE, ON O2 VIA NC AT 4LPM CONNECTED TO HUMIDIFIER, TOLERATING WELL, NO SOB/ACUTE DISTRESS NOTED, SR IN MONITOR WITH HR 93, WITH IV ACCESS ON CINDI MIDLINE IN PLACE INTACT AND PATENT NO FLUIDS RUNNING AT THIS TIME, ALL SAFETY MEASURES MAINTAINED, ALL DUE MEDS GIVEN, KEPT DRY AND CLEAN, CALL LIGHT W/I REACH, S/R OF BED UP X3, WILL ENDORSE TO AM SHIFT NURSE.
[2022-03-01 07:00] LABS: BASOPHILS # (AUTO) 0.1 K/uL (0.0-0.2); BASOPHILS % (AUTO) 0.7 % (0.0-2.0); EOSINOPHILS % (AUTO) 3.9 % (0.0-6.0); HEMATOCRIT 36 % (33-45); HEMOGLOBIN 11.6 g/dL (11.5-14.8); LYMPHOCYTES # (AUTO) 4.5 K/uL (0.8-4.8); LYMPHOCYTES % (AUTO) 28.6 % (20.0-44.0); MEAN CORPUSCULAR HGB CONC 32 g/dl (31.0-36.0); MEAN CORPUSCULAR VOLUME 98 fL (82-100); MONOCYTES # (AUTO) 1.2 K/uL (0.1-1.30); MONOCYTES % (AUTO) 7.7 % (2.0-12.0); NEUTROPHILS # (AUTO) 9.3 K/uL (1.8-8.9); NEUTROPHILS % (AUTO) 59.1 % (43.0-81.0); PLATELET COUNT (AUTO) 314 K/uL (150-450); RED BLOOD CELL COUNT(AUTO) 3.73 MIL/uL (4.0-5.2); WHITE BLOOD COUNT (AUTO) 15.7 K/uL (4.3-11.0)
[2022-03-01 07:18] LABS: CALCIUM, SERUM 9.4 mg/dL (8.5-10.1); CREATININE 0.8 mg/dL (0.6-1.3); MAGNESIUM 2.1 mg/dL (1.8-2.4); PHOSPHORUS 3.9 mg/dL (2.5-4.9); POTASSIUM 3.2 mmol/L (3.5-5.1)
--- NOTE | 2022-03-01 07:22 | NUR ---
RN OPENING NOTE RECEIVED PT RESTING IN BED, AWAKE, A/O X4, VERBALLY RESPONSIVE, ON O2 VIA NC AT 4LPM TOLERATING WELL, NO SOB/ACUTE DISTRESS NOTED, ON MONITOR, WITH IV ACCESS ON CINDI MIDLINE IN PLACE INTACT AND PATENT NO FLUIDS RUNNING AT THIS TIME, ALL SAFETY MEASURES MAINTAINED, CALL LIGHT W/I REACH, S/R OF BED UP X3.
[2022-03-01 08:00] VITALS: BP 109/64
[2022-03-01] MEDS ORDERED: KEY,NONCONTROL,TO KEEP IN PYXI 1 EA MC ONE ×3 (08:34→17:34)
[2022-03-01] MEDS: MULTIVITAMINS,THERAGRAN 1 UDTAB TABLET PO SCH (08:36)
[2022-03-01] MEDS: [UNRECOGNIZED DRUG - OTHER] SL SCH ×3 (08:36→17:39)
[2022-03-01] MEDS: DEXAMETHASONE SOD PHOSPHATE 4 MG/ML VIAL IV SCH (08:36)
[2022-03-01] MEDS: PANTOPRAZOLE 40 MG TABLET.DR PO SCH (08:36)
[2022-03-01] MEDS: QUETIAPINE FUMARATE 100 MG TABLET PO SCH ×2 (08:36→17:38)
[2022-03-01] MEDS: SERTRALINE HCL 50 MG TABLET PO SCH ×2 (08:36→17:39)
[2022-03-01] MEDS: BUPRENORPHINE HCL SL SCH ×3 (08:36→17:39)
[2022-03-01] MEDS: PHENYTOIN SUSP UDC 100 MG/4 ML UDC PO SCH ×2 (08:36→17:38)
[2022-03-01] MEDS: CALCIUM CARBONATE (1250) 500 MG TABLET PO SCH (08:36)
[2022-03-01] MEDS: NALOXONE HCL SL SCH ×3 (08:36→17:39)
[2022-03-01] MEDS: ENOXAPARIN SODIUM 40 MG/0.4 ML DISP.SYRIN SQ SCH (08:38)
[2022-03-01] MEDS: Z GUARD REMEDY 4 OZ OINT TP SCH (08:39)
[2022-03-01] MEDS: ENSURE ENLIVE 237 ML LIQUID (VANILLA) PO SCH ×3 (08:58→17:43)
[2022-03-01] MEDS: FLUTICASONE/VILANTEROL 1 EACH BLST.W.DEV IH SCH (08:58)
[2022-03-01] MEDS ORDERED: POTASSIUM CHLORIDE 20 MEQ POWDER PACKET PO SCH (11:00)
[2022-03-01 12:00] VITALS: BP 104/55
[2022-03-01] MEDS: INSULIN REGULAR, HUMAN 100 UNIT/ML 3 ML VIAL SQ PRN (12:15)
[2022-03-01 13:21] LABS: BASOPHILS % (MANUAL) 0 % (0.0-2.0); EOSINOPHILS % (MANUAL) 3 % (0-4); LYMPHOCYTES % (MANUAL) 25 % (16-48); MONOCYTES % (MANUAL) 9 % (0-11.0); NEUTROPHILS % (MANUAL) 63 (42-76)
[2022-03-01 16:00] VITALS: BP 104/62
[2022-03-01] MEDS: ACETAMINOPHEN 325 MG TABLET PO PRN (17:48)
--- NOTE | 2022-03-01 18:00 | NUR ---
RN NOTE BLOOD GLUCOSE 135 PT REFUSED INSULIN, EDUCATED PATIENT ON IMPORTANCE STILL REFUSED
--- NOTE | 2022-03-01 18:45 | NUR ---
INVESTIGATOR CLAIMS CLOSING NOTE PT RESTING IN BED, AWAKE, A/O X4, VERBALLY RESPONSIVE, ON O2 VIA NC AT 2LPM, NO SOB/ACUTE DISTRESS NOTED, SR IN MONITOR WITH HR 93, WITH IV ACCESS ON LEFT WRIST NO FLUIDS RUNNING AT THIS TIME, ALL SAFETY MEASURES MAINTAINED, ALL DUE MEDS GIVEN, KEPT DRY AND CLEAN, CALL LIGHT W/I REACH, S/R OF BED UP X3,
--- NOTE | 2022-03-01 19:48 | NUR ---
DRAWER IN PLAIN LOOM OPENING NOTE RECEIVED PT RESTING IN BED, AWAKE, A/O X4, VERBALLY RESPONSIVE, ON O2 VIA NC AT 2LPM CONNECTED TO HUMIDIFIER, TOLERATING WELL, NO SOB/ACUTE DISTRESS NOTED, SR IN MONITOR WITH HR 97, WITH IV ACCESS ON THE L WRIST 18G SL INTACT, PATENT, AND FLUSHING WELL, ALL SAFETY MEASURES MAINTAINED, CALL LIGHT W/I REACH, S/R OF BED UP X3, BED IN LOWEST AND LOCKED POSITION, WILL CONTINUE TO MONITOR THROUGHOUT THE SHIFT.
[2022-03-01 20:00] VITALS: BP 109/63
[2022-03-01] MEDS: TEMAZEPAM 7.5 MG CAPSULE PO PRN (21:09)
--- NOTE | 2022-03-01 22:00 | NUR ---
RN NOTE BS CHECKED AT 139 MG/DL, PT REFUSED INSULIN COVERAGE, EDUCATED PATIENT ON IMPORTANCE OF MEDICATION, STILL REFUSED.
[2022-03-02] VITALS: BP 101/61
[2022-03-02 04:00] VITALS: BP 105/65
[2022-03-02 06:17] LABS: BASOPHILS # (AUTO) 0.1 K/uL (0.0-0.2); BASOPHILS % (AUTO) 0.7 % (0.0-2.0); EOSINOPHILS % (AUTO) 4.5 % (0.0-6.0); HEMATOCRIT 35 % (33-45); HEMOGLOBIN 11.4 g/dL (11.5-14.8); LYMPHOCYTES # (AUTO) 4.1 K/uL (0.8-4.8); LYMPHOCYTES % (AUTO) 25.7 % (20.0-44.0); MEAN CORPUSCULAR HGB CONC 33 g/dl (31.0-36.0); MEAN CORPUSCULAR VOLUME 97 fL (82-100); MONOCYTES # (AUTO) 1.4 K/uL (0.1-1.30); NEUTROPHILS # (AUTO) 9.6 K/uL (1.8-8.9); NEUTROPHILS % (AUTO) 60.1 % (43.0-81.0); PLATELET COUNT (AUTO) 311 K/uL (150-450); WHITE BLOOD COUNT (AUTO) 15.9 K/uL (4.3-11.0)
--- NOTE | 2022-03-02 06:37 | NUR ---
POSTAL INSPECTOR CLOSING NOTE PT RESTING IN BED, AWAKE, A/O X4, VERBALLY RESPONSIVE, ON O2 VIA NC AT 2LPM TOLERATING WELL SATING 97%, NO SOB/ACUTE DISTRESS NOTED, SR/ST IN MONITOR WITH HR 104, WITH IV ACCESS ON L WRIST #18G INTACT AND PATENT NO FLUIDS RUNNING AT THIS TIME, ALL SAFETY MEASURES MAINTAINED, ALL DUE MEDS GIVEN, KEPT DRY AND CLEAN, CALL LIGHT W/I REACH, S/R OF BED UP X3, WILL ENDORSE TO AM SHIFT NURSE.
[2022-03-02 06:44] LABS: ALBUMIN 2.3 g/dL (3.4-5.0); BILIRUBIN,TOTAL 0.2 mg/dL (0.2-1.0); CALCIUM, SERUM 9.2 mg/dL (8.5-10.1); CREATININE 0.8 mg/dL (0.6-1.3); POTASSIUM 3.6 mmol/L (3.5-5.1); TOTAL PROTEIN, SERUM 5.9 g/dL (6.4-8.2)
--- NOTE | 2022-03-02 07:30 | NUR ---
RN OPENING NOTE PATIENT IS IN BED, AWAKE, ALERT AND ORIENTED X4. ON OXYGEN VIA NASAL CANNULA AT 2L/MIN, BREATHING UNLABORED AND NOT IN ANY FORM OF DISTRESS. VERBALIZES OCCASIONAL CRAMPING ON THE LEG. SINUS TACHYCARDIA ON PROCESS VALIDATION ENGINEER. LEFT WRIST SALINE LOCK INTACT AND PATENT. ALL HOSPITAL SAFETY PRECAUTIONS IN PLACE. BED IS LOCKED IN LOWEST POSITION, 3 SIDE RAILS UP, CALL LIGHT WITHIN REACH. WILL CONTINUE TO MONITOR THROUGHOUT SHIFT.
[2022-03-02 08:00] VITALS: BP 120/70
[2022-03-02] MEDS: Z GUARD REMEDY 4 OZ OINT TP SCH (08:55)
[2022-03-02] MEDS: QUETIAPINE FUMARATE 100 MG TABLET PO SCH (08:55)
[2022-03-02] MEDS: PHENYTOIN SUSP UDC 100 MG/4 ML UDC PO SCH (08:56)
[2022-03-02] MEDS: CALCIUM CARBONATE (1250) 500 MG TABLET PO SCH (08:56)
[2022-03-02] MEDS: ENOXAPARIN SODIUM 40 MG/0.4 ML DISP.SYRIN SQ SCH (08:56)
[2022-03-02] MEDS: MULTIVITAMINS,THERAGRAN 1 UDTAB TABLET PO SCH (08:57)
[2022-03-02] MEDS: BLOOD SUGAR DIAGNOSTIC 1 EACH STRIP IN SCH ×2 (08:57→12:18)
[2022-03-02] MEDS: DEXAMETHASONE SOD PHOSPHATE 4 MG/ML VIAL IV SCH (08:57)
[2022-03-02] MEDS: PANTOPRAZOLE 40 MG TABLET.DR PO SCH (08:57)
[2022-03-02] MEDS: SERTRALINE HCL 50 MG TABLET PO SCH (08:57)
[2022-03-02] MEDS: ENSURE ENLIVE 237 ML LIQUID (VANILLA) PO SCH ×2 (08:58→14:17)
[2022-03-02] MEDS: FLUTICASONE/VILANTEROL 1 EACH BLST.W.DEV IH SCH (09:06)
[2022-03-02] MEDS ORDERED: KEY,NONCONTROL,TO KEEP IN PYXI 1 EA MC ONE ×3 (09:22→15:26)
[2022-03-02] MEDS: [UNRECOGNIZED DRUG - OTHER] SL SCH ×2 (09:27→13:51)
[2022-03-02] MEDS: BUPRENORPHINE HCL SL SCH ×2 (09:27→13:51)
[2022-03-02] MEDS: NALOXONE HCL SL SCH ×2 (09:27→13:51)
[2022-03-02 12:00] VITALS: BP 91/56
--- NOTE | 2022-03-02 12:57 | NUR ---
RN NOTE BLOOD SUGAR AT 133 MG/DL. PATIENT REFUSED INSULIN ADMINISTRATION.
--- NOTE | 2022-03-02 15:45 | NUR ---
RN CLOSING NOTE PATIENT IS DISCHARGED TO HOME VIA PERSONAL CAR. PATIENT REFUSED AMBULANCE PICK-UP ARRANGED FOR HER. ALL FORMS PROCESSED AND SIGNED. SKIN ISSUES DOCUMENTED, HOWEVER PATIENT REFUSED PHOTOGRAPHING OF PERINEUM. PATIENT LEFT THE UNIT VIA WHEEL CHAIR, WITH PORTABLE OXYGEN AT 2L/MIN NASAL CANNULA, BREATHING UNLABORED AND NOT IN ANY FORM OF DISTRESS. DISCHARGE V/S: BP 103/70, T 98.5, HR 112, O2 SAT 99%, RR 20.
== END 2022-03-02 17:15 | disposition home health service (06) | DRG 177 ==
LOC: ER 10:09 → TRANSITION 21:43 → TELE1 02-13 07:55
PROVIDERS: ADMIT Student in an Organized Health Care Education/Training Program
DX: U07.1 COVID-19 (principal); J12.82 Pneumonia due to coronavirus disease 2019; N17.0 Acute kidney failure with tubular necrosis; J44.0 Chronic obstructive pulmonary disease with (acute) lower respiratory infection; M48.50XA Collapsed vertebra, not elsewhere classified, site unspecified, initial encounter for fracture; F11.20 Opioid dependence, uncomplicated; E87.1 Hypo-osmolality and hyponatremia; E87.2 Acidosis; E87.6 Hypokalemia; N30.90 Cystitis, unspecified without hematuria; G40.909 Epilepsy, unspecified, not intractable, without status epilepticus; Z86.19 Personal history of other infectious and parasitic diseases; G89.29 Other chronic pain; F32.A Depression, unspecified; F41.9 Anxiety disorder, unspecified; F43.10 Post-traumatic stress disorder, unspecified; Z90.49 Acquired absence of other specified parts of digestive tract; Z98.891 History of uterine scar from previous surgery; Z79.51 Long term (current) use of inhaled steroids; Z79.899 Other long term (current) drug therapy; D72.829 Elevated white blood cell count, unspecified; T38.0X5A Adverse effect of glucocorticoids and synthetic analogues, initial encounter; F17.200 Nicotine dependence, unspecified, uncomplicated; E83.39 Other disorders of phosphorus metabolism; E78.5 Hyperlipidemia, unspecified; E83.41 Hypermagnesemia; B96.20 Unspecified Escherichia coli [E. coli] as the cause of diseases classified elsewhere
CPT/HCPCS: 36415; 36600; 71045-TC; 71250-TC; 80048-TC; 80053-TC; 80076-TC; 81001; 82533; 82550-TC; 82728-TC; 82803-TC; 82962-TC; 83605-TC; 83735-TC; 84100-TC; 84132-TC; 84439-TC; 84443-TC; 84484-TC; 85025-TC; 85378-TC; 85610-TC; 85730-TC; 86140-TC; 86480; 87040-TC; 87081-TC; 87086-TC; 87186-TC; 93970-TC; 94762-TC; 94799-TC; 97112-TC; 97530-TC; A4216; A6253; C9803; G0378; J0696; J1100; J1200; J1650; J1815; J2405; J2920; J3262; J3475; J3480; J3490; J7030; J7040; J7050; J7060; J7120

== ENCOUNTER 2022-03-16 11:59 | Inpatient (IN) | payer MEDICARE, OTHER ==
[~2022-03-16] VITALS: Ht 157.5 cm; Wt 48.1 kg
[~2022-03-16 11:59] MED LIST changes: -ONDA4TAB5 PO
--- NOTE | 2022-03-16 12:05 | NUR ---
RECEIVED PT 66 YRS female came from home accompany by c/o both lower extramity swallen and open wound ( decubetes on lt ankle
--- NOTE | 2022-03-16 12:30 | NUR ---
INSERTED ANGO cather g 20 on [address] ac blood drow and sent to lab
[2022-03-16 12:39] LABS: BASOPHILS # (AUTO) 0.1 K/uL (0.0-0.2); BASOPHILS % (AUTO) 0.4 % (0.0-2.0); EOSINOPHILS % (AUTO) 2.5 % (0.0-6.0); HEMATOCRIT 38 % (33-45); HEMOGLOBIN 12.1 g/dL (11.5-14.8); LYMPHOCYTES # (AUTO) 4.5 K/uL (0.8-4.8); LYMPHOCYTES % (AUTO) 19.5 % (20.0-44.0); MEAN CORPUSCULAR HGB CONC 32 g/dl (31.0-36.0); MEAN CORPUSCULAR VOLUME 103 fL (82-100); MONOCYTES # (AUTO) 1.7 K/uL (0.1-1.30); MONOCYTES % (AUTO) 7.2 % (2.0-12.0); NEUTROPHILS # (AUTO) 16.1 K/uL (1.8-8.9); NEUTROPHILS % (AUTO) 70.4 % (43.0-81.0); PLATELET COUNT (AUTO) 407 K/uL (150-450); WHITE BLOOD COUNT (AUTO) 22.9 K/uL (4.3-11.0)
[2022-03-16 13:01] LABS: CALCIUM, SERUM 9.4 mg/dL (8.5-10.1); CARBON DIOXIDE 22 mmol/L (21-32); CHLORIDE 106 mmol/L (98-107); GLUCOSE 70 mg/dL (74-106); POTASSIUM 3.2 mmol/L (3.5-5.1); SODIUM SERUM 140 mmol/L (136-145); UREA NITROGEN, BLOOD 21 mg/dL (7-18)
[2022-03-16 13:20] LABS: ALANINE AMINOTRANSFERASE 23 U/L (12-78); ALBUMIN 2.5 g/dL (3.4-5.0); ALKALINE PHOSPHATASE 99 U/L (46-116); ASPARTATE AMINOTRANSFERASE 59 U/L (15-37); BILIRUBIN,DIRECT 0.1 mg/dL (0.0-0.2); BILIRUBIN,TOTAL 0.2 mg/dL (0.2-1.0); TOTAL PROTEIN, SERUM 6.8 g/dL (6.4-8.2)
[2022-03-16] MEDS ORDERED: VANCOMYCIN 1 GM in IV D5W 250 ML IV ONE (13:30)
[2022-03-16] MEDS ORDERED: CEFEPIME 1 GM in IV D5W 50 ML IV ONE (13:30)
--- NOTE | 2022-03-16 13:33 | NUR ---
BLOOD CULTURE blood drow by lab tach
[2022-03-16] MEDS ORDERED: FUROSEMIDE 40 MG/4 ML VIAL ONE (13:48)
--- NOTE | 2022-03-16 13:50 | NUR ---
COVID SWAB SENT TO LAB
[2022-03-16] MEDS ORDERED: FUROSEMIDE 40 MG/4 ML VIAL IV ONE (14:00)
--- NOTE | 2022-03-16 14:15 | NUR ---
RESTING AT THIS TIME WATING FOR TELMETRY BED
--- NOTE | 2022-03-16 14:56 | NUR ---
room 323-1
[2022-03-16] MEDS ORDERED: Z GUARD REMEDY 4 OZ OINT TP PRN (15:00)
[2022-03-16] MEDS ORDERED: ONDANSETRON HCL/PF 4 MG/2 ML VIAL IVP PRN (15:00)
--- NOTE | 2022-03-16 15:06 | NUR ---
HAND OFF KEL VICK TO ROOM 332- 1 PATEL VS
[2022-03-16] MEDS ORDERED: PROP10TA68 PO (15:28)
--- NOTE | 2022-03-16 15:30 | NUR ---
DR. RODRIGUEZ HERE AT BED [facility] WITH PT ABOUT PLAN OF CARE
--- NOTE | 2022-03-16 16:15 | NUR ---
TO ROOM 323-1 VIA TONIA DAS VS
--- NOTE | 2022-03-16 16:30 | NUR ---
ADMISSION RN NOTES ADMITTED A 66 Y/O FEMALE TO THE UNIT AT 1620 VIA GURNEY ACCOMPANIED BY Ja NURSE WITH DX OF CHF EXACERBATION. PATIENT IS ALERT AND ORIENTED X4, ABLE TO MAKE NEEDS KNOWN. PT ORIENTED TO STAFF AND UNIT. V/S TAKEN AND RECORDED. PT ON O2 AT 2L/MIN VIA NASAL CANNULA, TOLERATING WELL WITH SPO2 AT 95%. NO SOB NOTED AT THIS TIME. NOT IN ANY SIGN OF RESPIRATORY DISTRESS. LUNG SOUNDS CLEAR BILATERALLY ON AUSCULTATION. PT WAS PLACED ON TELE MOTOR RACER WITH CURRENT READING OF NORMAL SINUS RHYTHM, HR 90. NO C/O CARDIAC DISTRESS VOICED AT THIS TIME. ABDOMEN SOFT AND NON-TENDER. SKIN IS INTACT, DRY, AND WARM. PHOTOGRAPHS OF SKIN ISSUES TAKEN AND PLACE IN THE CHART. IV ACCESS ON RAC G #20 SALINE LOCK, INTACT AND PATENT. SAFETY MEASURES INITIATED: BED IN LOWEST AND LOCKED POSITION, SIDE RAILS UP X2, BED ALARM ON AND CALL LIGHT WITHIN REACH. WILL CONTINUE TO MONITOR PT.
[2022-03-16] MEDS ORDERED: PHENYTOIN EXTENDED RELEASE 100 MG CAPSULE PO SCH (17:00)
[2022-03-16] MEDS ORDERED: NALOXONE HCL SL SCH ×2 (17:00)
[2022-03-16] MEDS ORDERED: BUPRENORPHINE HCL SL SCH ×2 (17:00)
[2022-03-16] MEDS ORDERED: [UNRECOGNIZED DRUG - OTHER] SL SCH ×2 (17:00)
[2022-03-16] MEDS: QUETIAPINE FUMARATE 100 MG TABLET PO SCH (17:10)
[2022-03-16] MEDS: PHENYTOIN EXTENDED RELEASE 100 MG CAPSULE PO SCH (17:11)
[2022-03-16] MEDS: SERTRALINE HCL 50 MG TABLET PO SCH (17:11)
[2022-03-16] MEDS: ACETAMINOPHEN 325 MG TABLET PO PRN ×2 (17:11→23:18)
[2022-03-16] MEDS: FUROSEMIDE 40 MG/4 ML VIAL IV SCH (17:11)
[2022-03-16] MEDS: CEFTRIAXONE 1 G in IV D5W 50 ML IV SCH (18:05)
--- NOTE | 2022-03-16 19:30 | NUR ---
MICROBIOLOGY ANALYST OPENING NOTES RECEIVED PATIENT LYING IN BED ASLEEP. CAN BE AROUSED BY VERBAL AND TACTILE STIMULI. A/O X4. PATIENT IS VERY DROWSY D/T MEDS TAKEN UPON ADMISSION. ON O2 AT 2LPM VIA NASAL CANULA. BREATHING EVEN AND NON-LABORED. NOT IN APPARENT DISTRESS. ON TELE MONITOR READING SINUS TACHYCARDIA AT 102 BPM. HAS RIGHT ANTECUBITAL IV ACCESS #20G AND SALINE LOCKED. NO S/S OF INFILTRATION NOTED. SAFETY MEASURES IN PLACE: BED IN LOWEST AND LOCKED POSITION, SIDE RAILS UP X2, BED ALARM ON AND CALL LIGHT WITHIN EASY REACH. WILL CONTINUE POC.
--- NOTE | 2022-03-16 19:30 | NUR ---
RN NOTE PT NOTED WITH LOW BP AT 80/64 AUTOMATIC. PLACED PT ON [place] POSITION AND REASSESSED PT'S BP MANUALLY 96/64. ENDORSED TO LETTER OF CREDIT DOCUMENT EXAMINER NURSE THAT PT WAS GIVEN LASIX 40MG IVP AND SEROQUEL AT 1711 , PT'S BP PRIOR TO ADMINISTRATION OF LASIX WAS 123/73. PER LETTER OF CREDIT DOCUMENT EXAMINER NURSE, FREDDY, CHARGE NURSE, INDIRA STATED, WILL JUST MONITOR PT AT THIS TIME AND WILL NOTIFY MD IF NOT IMPROVED.
--- NOTE | 2022-03-16 19:46 | NUR ---
LOFTSMAN CLOSING NOTE PATIENT ASLEEP IN BED, EASILY AROUSED. PT IS ALERT AND ORIENTED X4, ABLE TO MAKE NEEDS KNOWN. ON O2 AT 2L/MIN VIA NASAL CANNULA, TOLERATING WELL WITH SPO2 AT 95%. NO SOB NOTED AT THIS TIME. NOT IN ANY SIGN OF RESPIRATORY DISTRESS. PT ON TELE DISTRICT ADMINISTRATIVE ASSISTANT WITH CURRENT READING OF NORMAL SINUS RHYTHM, HR 95. NO C/O CARDIAC DISTRESS VOICED AT THIS TIME. IV ACCESS ON RAC G #20 SALINE LOCK, INTACT AND PATENT. ALL NEEDS ATTENDED. KEPT CLEAN AND COMFORTABLE. SAFETY MEASURES IN PLACE: BED IN LOWEST AND LOCKED POSITION, SIDE RAILS UP X2, BED ALARM ON AND CALL LIGHT WITHIN REACH. ENDORSED TO JAIL OFFICER NURSE FOR NEFTALI.
--- NOTE | 2022-03-16 19:50 | NUR ---
GENERATING STATION MECHANIC NOTES HYPOTENSION AND COLD CLAMMY SKIN NOTED. BP TAKEN FOLLOWS: 76/56, 89/65, 96/64 (MANUAL) AND 88/51. PLACED PATIENT IN T-RAYMUNDO POSITION, COVERED WITH WARM BLANKET, V/S BEING MONITORED. CHARGE NURSE AWARE.
[2022-03-16 20:00] VITALS: BP 88/51
[2022-03-16] MEDS ORDERED: IV NS 0.9% 1,000 ML IV ONE (21:00)
[2022-03-16] MEDS ORDERED: POTASSIUM CHLORIDE 20 MEQ TAB.PRT.SR PO ONE (21:00)
[2022-03-16] MEDS: TEMAZEPAM 15 MG CAPSULE PO SCH (21:02)
--- NOTE | 2022-03-16 21:02 | NUR ---
MANAGER MARKET RESEARCH NOTES SPOKE WITH DR. GLOVER AND INFORMED HIM ON THE CURRENT STATUS OF THE PATIENT. MD AWARE ALBUMIN 2.5 AND POTASSIUM 3.2. HE ORDERED NS 1L BOLUS AND KCL 40MEQ PO ONCE. NOTED AND CARRIED OUT. WILL CONTINUE TO MONITOR PATIENT.
[2022-03-17] VITALS: BP_SYST 106; BP_SYST 90; BP_DIAS 61; BP_DIAS 64
[2022-03-17] MEDS: VANCOMYCIN 0.75 GM in IV D5W 250 ML IV SCH ×2 (01:35→13:06)
[2022-03-17 04:00] VITALS: BP 110/70
--- NOTE | 2022-03-17 06:00 | NUR ---
RIVER BOAT CAPTAIN NOTES MONITORED PATIENT'S BP THROUGHOUT THE NIGHT, SHOWS IMPROVEMENT. CURRENT BP 117/53.
[2022-03-17 06:07] LABS: BASOPHILS # (AUTO) 0.1 K/uL (0.0-0.2); BASOPHILS % (AUTO) 0.5 % (0.0-2.0); EOSINOPHILS % (AUTO) 3.8 % (0.0-6.0); HEMATOCRIT 37 % (33-45); HEMOGLOBIN 11.8 g/dL (11.5-14.8); LYMPHOCYTES # (AUTO) 3.3 K/uL (0.8-4.8); LYMPHOCYTES % (AUTO) 19.3 % (20.0-44.0); MEAN CORPUSCULAR HGB CONC 32 g/dl (31.0-36.0); MEAN CORPUSCULAR VOLUME 105 fL (82-100); MONOCYTES # (AUTO) 1.4 K/uL (0.1-1.30); MONOCYTES % (AUTO) 8.3 % (2.0-12.0); NEUTROPHILS # (AUTO) 11.5 K/uL (1.8-8.9); NEUTROPHILS % (AUTO) 68.1 % (43.0-81.0); PLATELET COUNT (AUTO) 420 K/uL (150-450); RED BLOOD CELL COUNT(AUTO) 3.57 MIL/uL (4.0-5.2); WHITE BLOOD COUNT (AUTO) 16.9 K/uL (4.3-11.0)
--- NOTE | 2022-03-17 06:50 | NUR ---
MID TEACHER CLOSING NOTES PATIENT LYING IN BED ASLEEP, EASILY AROUSED BUT DROWSY. A/O X4. NO SOB OR NOTED. ON O2 AT 2LPM VIA NASAL CANULA. DENIES PAIN AT THIS TIME. NOT IN ACUTE DISTRESS. AFEBRILE. ON TELE MONITOR READING SINUS TACHYCARDIA AT 106 BPM. HAS RIGHT ANTECUBITAL IV ACCESS #20G WITH NS RUNNING WIDE OPEN. INTACT, PATENT AND FLUSHING. ALL DUE MEDS GIVEN AND NEEDS ATTENDED. SAFETY MEASURES MAINTAINED. WILL ENDORSE FOR NEFTALI.
[2022-03-17 06:57] LABS: ALBUMIN 2.1 g/dL (3.4-5.0); BILIRUBIN,TOTAL 0.2 mg/dL (0.2-1.0); CALCIUM, SERUM 8.5 mg/dL (8.5-10.1); CREATININE 0.9 mg/dL (0.6-1.3); MAGNESIUM 1.9 mg/dL (1.8-2.4); PHOSPHORUS 5.2 mg/dL (2.5-4.9); POTASSIUM 2.9 mmol/L (3.5-5.1); TOTAL PROTEIN, SERUM 6.3 g/dL (6.4-8.2)
--- NOTE | 2022-03-17 07:10 | NUR ---
WINDOWS APPLICATION ADMINISTRATOR OPENING NOTES RECEIVED PATIENT RESTING IN BED, A/Ox4, DROWSY. ON 2L VIA NC, NO S/S OF RESPIRATORY DISTRESS. RESPONDS TO VERBAL AND TACTILE STIMULI. IV ACCESS R AC, #20G SL. INTACT AND PATENT, NO S/S OF INFILTRATION. ON TELE MONITORING SHOWING TELE SINUS TACH HR 102. SKIN ISSUES: B BREAST FOLD REDNESS, SACRAL AND PERINEAL REDNESS, L ANKLE WOUND. SAFETY MEASURES IN PLACE: BED LOCKED AND IN LOWEST POSITION, SIDE RAILS UPx2, CALL LIGHT WITHIN REACH, HOB ELEVATED. WILL CONTINUE TO MONITOR.
[2022-03-17 08:18] VITALS: BP 110/74
[2022-03-17] MEDS: QUETIAPINE FUMARATE 100 MG TABLET PO SCH ×2 (09:00→17:53)
[2022-03-17 09:16] LABS: THYROID STIMULATING HORMONE 1.799 uIU/mL (0.358-3.74)
[2022-03-17] MEDS: PHENYTOIN EXTENDED RELEASE 100 MG CAPSULE PO SCH ×3 (09:34→17:54)
[2022-03-17] MEDS: SERTRALINE HCL 50 MG TABLET PO SCH ×2 (09:35→17:53)
[2022-03-17] MEDS: MULTIVITAMINS,THERAGRAN 1 UDTAB TABLET PO SCH (09:35)
[2022-03-17] MEDS: FUROSEMIDE 40 MG/4 ML VIAL IV SCH ×2 (09:35→17:54)
[2022-03-17] MEDS: CALCIUM CARBONATE (1250) 500 MG TABLET PO SCH (09:38)
[2022-03-17] MEDS: FLUTICASONE/VILANTEROL 1 EACH BLST.W.DEV IH SCH (09:41)
--- NOTE | 2022-03-17 09:58 | NUR ---
WOUND CARE CONSULT: PT PRESENTS WITH BREASTFOLD REDNESS/RASH AND LEFT ANKLE WOUND AND LEFT HEEL SCAR/THICKENED SKIN, PRESENT ON ADMISSION. DPM CONSULT REQUESTED FROM DR MARSHALL. RECOMMENDATIONS MADE FOR SKIN PROTECTION AND SKIN CARE. DISCUSSED WITH NURSING STAFF. MD IN AGREEMENT WITH PLAN OF CARE.
[2022-03-17] MEDS ORDERED: Z GUARD REMEDY 4 OZ OINT TP PRN (10:00)
[2022-03-17] MEDS: Z GUARD REMEDY 4 OZ OINT TP SCH (10:57)
[2022-03-17] MEDS: ACETAMINOPHEN 325 MG TABLET PO PRN ×2 (11:15→21:21)
[2022-03-17] MEDS: clonazePAM 1 MG TABLET PO PRN (11:15)
[2022-03-17 12:00] VITALS: BP 114/72
[2022-03-17] MEDS ORDERED: POTASSIUM CHLORIDE 20 MEQ TAB.PRT.SR PO ONE (12:00)
--- NOTE | 2022-03-17 15:30 | NUR ---
CARPENTER REFRIGERATOR NOTE RECEIVED PATIENT FROM NICANOR MEDINA, PT RESTING IN BED, A/Ox4, DROWSY. PT ABLE TO MAKE NEEDS KNOWN. ON 2L VIA NC, NO S/S OF RESPIRATORY DISTRESS. RESPONDS TO VERBAL AND TACTILE STIMULI. IV ACCESS RAC, #20G SALINE LOCK INTACT AND PATENT. ON TELE MONITORING WITH CURRENT READING OF SINUS TACH HR 104. SAFETY MEASURES IN PLACE: BED LOCKED AND IN LOWEST POSITION, SIDE RAILS UPx2, CALL LIGHT WITHIN REACH, HOB ELEVATED. WILL CONTINUE TO MONITOR PT.
[2022-03-17 16:13] VITALS: BP 146/75
[2022-03-17] MEDS: CEFTRIAXONE 1 G in IV D5W 50 ML IV SCH (17:59)
[2022-03-17] MEDS: CLOTRIMAZOLE 1% 15 GM TUBE TP SCH (18:00)
--- NOTE | 2022-03-17 18:35 | NUR ---
RN NOTE PT WAS SEEN BY DR. DOW, PODIATRY. PER MD, HE WILL DO THE LEFT ANKLE WOUND DEBRIDEMENT. CONSENT FOR LEFT ANKLE DEBRIDEMENT OBTAINED AND WAS SIGNED BY PT.
--- NOTE | 2022-03-17 19:30 | NUR ---
bonnie rn opening received patient in bed, alert and oriented, italian speaking. no s/s of apparent distress on room air. pain when she moves. tele monitor reading sr with 75 bpm at this time. selinajuliet #20 g running 1/2 ns @100mls/hr. 2 family members at bedside, was endorsed to me that patient is in for procedure for tomorrow but ZOË which is the daughter Chanell refusing to sign at this time wanting to speak to the Doctor first. made charge nurse, Lesley about the situation. re-oriented and encouraged wit the use of call light. safety in place. will continue with plan of care for patient. Addendum: 03/17/22 at 2019 by LUCY HYLTON RN disregard. wrong patient.
--- NOTE | 2022-03-17 19:30 | NUR ---
noc rn opening received patient in bed, with eyes closed, easy to arouse. no s/s of apparent distress in 2lpm of o2 via nc. no c/o pain at this time. tele monitor reading sr with 99 bpm. r. ac #20g on saline lock. re-oriented and encouraged with the use of call light. safety in place. will continue with the plan of care for patient.
[2022-03-17 20:00] VITALS: BP 117/73
--- NOTE | 2022-03-17 20:00 | NUR ---
given dilaudid 1mg PRN as ordered. patient in pain after turning and repositioning. v/s up at this time. will re-assess. Addendum: 03/18/22 at 0343 by LUCY HYLTON RN disregard. wrong patient.
--- NOTE | 2022-03-17 20:01 | NUR ---
INSOLE BOTTOM FILLER CLOSING NOTE PATIENT AWAKE, RESTING IN BED. PT IS ALERT AND ORIENTED X4, ABLE TO MAKE NEEDS KNOWN. ON O2 AT 2L/MIN VIA NASAL CANNULA, TOLERATING WELL WITH SPO2 AT 95%. NO SOB NOTED AT THIS TIME. NOT IN ANY SIGN OF RESPIRATORY DISTRESS. PT ON TELE COLLEGE AND CAREER COUNSELOR WITH CURRENT READING OF NORMAL SINUS RHYTHM, HR 90. NO C/O CARDIAC DISTRESS VOICED AT THIS TIME. IV ACCESS ON RAC G #20 SALINE LOCK, INTACT AND PATENT. ALL NEEDS ATTENDED. KEPT CLEAN AND COMFORTABLE. SAFETY MEASURES IN PLACE: BED IN LOWEST AND LOCKED POSITION, SIDE RAILS UP X2, BED ALARM ON AND CALL LIGHT WITHIN REACH. ENDORSED TO EMPLOYMENT SPECIALIST/PROGRAM MANAGER NURSE FOR NEFTALI. Addendum: 03/17/22 at 2025 by JORGITO ARENAS RN ADDENDUM ALSO ENDORSED TO EMPLOYMENT SPECIALIST/PROGRAM MANAGER NURSE THAT PT IS ON S/P LEFT ANKLE WOUND DEBRIDEMENT BY VICTOR M REMODELER.
[2022-03-17] MEDS: TEMAZEPAM 15 MG CAPSULE PO SCH (21:21)
[2022-03-18] VITALS: BP 102/60
[2022-03-18] MEDS: VANCOMYCIN 0.75 GM in IV D5W 250 ML IV SCH ×2 (02:25→14:00)
[2022-03-18 04:00] VITALS: BP 115/63
[2022-03-18] MEDS: ACETAMINOPHEN 325 MG TABLET PO PRN (05:26)
[2022-03-18 07:13] LABS: CALCIUM, SERUM 8.6 mg/dL (8.5-10.1); CREATININE 0.8 mg/dL (0.6-1.3); POTASSIUM 3.1 mmol/L (3.5-5.1)
--- NOTE | 2022-03-18 07:15 | NUR ---
ms rn received on bed, sleeping,alert,oriented x4,not in any form of distress, respirations even and unlabored,no sob noted, denies pain at this time, bed in lowest position, side rails up,call light w/in reach ,all needs attended.
[2022-03-18 08:44] LABS: BASOPHILS # (AUTO) 0.1 K/uL (0.0-0.2); BASOPHILS % (AUTO) 0.7 % (0.0-2.0); EOSINOPHILS % (AUTO) 4.1 % (0.0-6.0); HEMATOCRIT 36 % (33-45); HEMOGLOBIN 11.1 g/dL (11.5-14.8); LYMPHOCYTES # (AUTO) 3.5 K/uL (0.8-4.8); MEAN CORPUSCULAR HGB CONC 31 g/dl (31.0-36.0); MEAN CORPUSCULAR VOLUME 104 fL (82-100); MONOCYTES # (AUTO) 1.3 K/uL (0.1-1.30); MONOCYTES % (AUTO) 9.3 % (2.0-12.0); NEUTROPHILS # (AUTO) 8.5 K/uL (1.8-8.9); NEUTROPHILS % (AUTO) 60.9 % (43.0-81.0); PLATELET COUNT (AUTO) 469 K/uL (150-450); RED BLOOD CELL COUNT(AUTO) 3.45 MIL/uL (4.0-5.2); WHITE BLOOD COUNT (AUTO) 13.9 K/uL (4.3-11.0)
[2022-03-18] MEDS: FUROSEMIDE 40 MG/4 ML VIAL IV SCH ×2 (08:52→18:12)
[2022-03-18] MEDS: PHENYTOIN EXTENDED RELEASE 100 MG CAPSULE PO SCH ×3 (08:52→18:13)
[2022-03-18] MEDS: MULTIVITAMINS,THERAGRAN 1 UDTAB TABLET PO SCH (08:52)
[2022-03-18] MEDS: CALCIUM CARBONATE (1250) 500 MG TABLET PO SCH (08:52)
[2022-03-18] MEDS: SERTRALINE HCL 50 MG TABLET PO SCH ×2 (08:53→18:13)
[2022-03-18] MEDS: CLOTRIMAZOLE 1% 15 GM TUBE TP SCH ×2 (08:58→18:16)
[2022-03-18] MEDS: FLUTICASONE/VILANTEROL 1 EACH BLST.W.DEV IH SCH (08:58)
[2022-03-18] MEDS: CADEXOMER IODINE 40 GM TUBE TP SCH (08:59)
[2022-03-18] MEDS: Z GUARD REMEDY 4 OZ OINT TP SCH (09:01)
[2022-03-18] MEDS ORDERED: POTASSIUM CHLORIDE 20 MEQ TAB.PRT.SR PO SCH (10:00)
--- NOTE | 2022-03-18 10:00 | NUR ---
MS RN NEW IV INSERTED AT LEFT HANG G 24 , W/ GOOD VENOUS OUTPUT.
[2022-03-18] MEDS: QUETIAPINE FUMARATE 100 MG TABLET PO SCH ×2 (12:17→18:14)
--- NOTE | 2022-03-18 14:07 | NUR ---
MS NICANOR CHAVES LEVEL UP, RX NOTIFIED, IV HELD AT THIS TIME.
--- NOTE | 2022-03-18 17:14 | NUR ---
ms rn on bed, patient aware that she is not going home today, dressing to left foot change,all needs attended.
[2022-03-18] MEDS: CEFTRIAXONE 1 G in IV D5W 50 ML IV SCH (18:14)
--- NOTE | 2022-03-18 19:30 | NUR ---
NEUROCRITICAL CARE PHYSICIAN OPENING NOTE RECEIVED PT SITTING IN BED. PT A/O x 4, ABLE TO MAKE NEEDS KNOWN. ON O2 2 L NC. NO SOB NOTED. NO S/SX OF RESPIRATORY DISTRESS NOTED. IV ACCESS TO LEFT HAND #20 G. IV IS INTACT, PATENT, AND FLUSHING WELL. PATIENT ON TELE MONITOR READING SINUS RHYTHM WITH HR: 55-105. SAFETY PRECAUTIONS IN PLACE: BED LOCKED IN LOWEST POSITION, SIDE RAILS UP x2. BED SIDE TABLE AND CALL LIGHT WITHIN REACH. WILL CONTINUE TO MONITOR PT.
[2022-03-18 20:00] VITALS: BP 102/65
[2022-03-18] MEDS: TEMAZEPAM 15 MG CAPSULE PO SCH (21:36)
[2022-03-19] VITALS: BP 118/70
[2022-03-19 04:00] VITALS: BP 121/74
--- NOTE | 2022-03-19 07:00 | NUR ---
HARDWARE SUPPLIES SALES REPRESENTATIVE CLOSING NOTE PATIENT LYING IN BED ASLEEP, EASILY AROUSED. A/O X4. NO SOB NOTED. ON O2 AT 2LPM VIA NASAL CANULA. DENIES PAIN AT THIS TIME. NOT IN ACUTE DISTRESS. ON TELE MONITOR READING SINUS TACHYCARDIA. HAS RIGHT ANTECUBITAL IV ACCESS #20G. IV INTACT, PATENT AND FLUSHING WELL. ALL DUE MEDS GIVEN AND NEEDS ATTENDED. SAFETY MEASURES MAINTAINED. WILL ENDORSE PT' CARE TO ONCOMING SHIFT NURSE.
[2022-03-19 07:23] LABS: CALCIUM, SERUM 8.6 mg/dL (8.5-10.1); CREATININE 0.8 mg/dL (0.6-1.3); POTASSIUM 3.1 mmol/L (3.5-5.1)
--- NOTE | 2022-03-19 07:32 | NUR ---
ms rn received on bed, awake,alert, oriented x4,not in any form of distress, respirations even and unlabored,no sob noted, lungs are diminish, abdomen soft,positive bowel sounds,denies pain at this time, will monitor patient's condition.
[2022-03-19 08:00] VITALS: BP 108/64
[2022-03-19] MEDS ORDERED: VANCOMYCIN 500 MG in IV D5W 100ml IV SCH (08:00)
[2022-03-19] MEDS: CALCIUM CARBONATE (1250) 500 MG TABLET PO SCH (08:59)
[2022-03-19] MEDS: FUROSEMIDE 40 MG/4 ML VIAL IV SCH (08:59)
[2022-03-19] MEDS: QUETIAPINE FUMARATE 100 MG TABLET PO SCH (08:59)
[2022-03-19] MEDS: PHENYTOIN EXTENDED RELEASE 100 MG CAPSULE PO SCH ×2 (08:59→12:24)
[2022-03-19] MEDS ORDERED: PROSOURCE / PROSTAT (PYXIS) 30 ML UDC GT SCH (09:00)
[2022-03-19] MEDS: FLUTICASONE/VILANTEROL 1 EACH BLST.W.DEV IH SCH (09:04)
[2022-03-19] MEDS: CADEXOMER IODINE 40 GM TUBE TP SCH (09:04)
[2022-03-19] MEDS: CLOTRIMAZOLE 1% 15 GM TUBE TP SCH (09:04)
[2022-03-19] MEDS: MULTIVITAMINS,THERAGRAN 1 UDTAB TABLET PO SCH (09:08)
[2022-03-19] MEDS: SERTRALINE HCL 50 MG TABLET PO SCH (09:08)
--- NOTE | 2022-03-19 09:20 | NUR ---
MS VICK BREAKFAST SERVED,DUE MEDS GIVEN,TOLERATED WELL.
--- NOTE | 2022-03-19 10:00 | NUR ---
MS RN WAS SEEN BY DR. HULL W/ ORDERS MADE AND CARRIED OUT.FOR D/C TODAY.
[2022-03-19] MEDS ORDERED: AMOX-430 PO (10:04)
[2022-03-19] MEDS ORDERED: FURO10VI IV (10:04)
[2022-03-19 12:00] VITALS: BP 103/64
[2022-03-19] MEDS ORDERED: POTASSIUM CHLORIDE 20 MEQ TAB.PRT.SR PO ONE (12:00)
[2022-03-19] MEDS ORDERED: FURO40TA5 PO ×4 (12:19→12:45)
[2022-03-19] MEDS: Z GUARD REMEDY 4 OZ OINT TP SCH (12:24)
[2022-03-19] MEDS: ACETAMINOPHEN 325 MG TABLET PO PRN (14:16)
[2022-03-19] MEDS: clonazePAM 1 MG TABLET PO PRN (14:21)
--- NOTE | 2022-03-19 15:40 | NUR ---
MS RN DRESSING CHANGED TO LEFT ANKLE WOUND.
--- NOTE | 2022-03-19 15:45 | NUR ---
MS RN OK TO GIVE ATB IV EARLY PER MD, PICTURES TAKEN, REFUSED TO TAKE PICTURE AT PERINEAL AND SACRAL AREA.
[2022-03-19] MEDS: CEFTRIAXONE 1 G in IV D5W 50 ML IV SCH (15:52)
--- NOTE | 2022-03-19 16:35 | NUR ---
MS MEDICAL LAB TECHNOLOGIST INSTRUCTIONS GIVEN AND UNDERSTOOD, GOING HOME W/ WOUND HOME HEALTH, ALL NEEDS ATTENDED.
--- NOTE | 2022-03-19 16:45 | NUR ---
MS RN PATIENT WENT HOME ACCOMPANIED BY ,INSTRUCTED TO HAVE APPOINTMENT W/ DR. HULL .ALL NEEDS ATTENDED.
== END 2022-03-19 17:00 | disposition home health service (06) | DRG 264 ==
LOC: ER 12:03 → MED 15:09 → TELE 16:19
PROVIDERS: ADMIT Internal Medicine; ATTEND Internal Medicine
PROC: 0JBR0ZZ Excision of Left Foot Subcutaneous Tissue and Fascia, Open Approach (ICD-10-PCS; principal; 2022-03-17)
DX: I11.0 Hypertensive heart disease with heart failure (principal); I50.33 Acute on chronic diastolic (congestive) heart failure; L03.116 Cellulitis of left lower limb; L97.329 Non-pressure chronic ulcer of left ankle with unspecified severity; F11.20 Opioid dependence, uncomplicated; E46 Unspecified protein-calorie malnutrition; I87.312 Chronic venous hypertension (idiopathic) with ulcer of left lower extremity; E87.20 Acidosis, unspecified; G40.909 Epilepsy, unspecified, not intractable, without status epilepticus; G89.29 Other chronic pain; E87.6 Hypokalemia; Z20.822 Contact with and (suspected) exposure to COVID-19; J44.9 Chronic obstructive pulmonary disease, unspecified; L97.529 Non-pressure chronic ulcer of other part of left foot with unspecified severity; Z86.16 Personal history of COVID-19; Z87.311 Personal history of (healed) other pathological fracture; Z90.49 Acquired absence of other specified parts of digestive tract; Z98.891 History of uterine scar from previous surgery; Z98.890 Other specified postprocedural states; Z79.51 Long term (current) use of inhaled steroids; Z79.899 Other long term (current) drug therapy; F32.A Depression, unspecified; F41.9 Anxiety disorder, unspecified; E78.5 Hyperlipidemia, unspecified; F17.200 Nicotine dependence, unspecified, uncomplicated; F43.10 Post-traumatic stress disorder, unspecified; M54.30 Sciatica, unspecified side
CPT/HCPCS: 36415; 71045-TC; 80048-TC; 80053-TC; 80076-TC; 80185-TC; 80202-TC; 82962-TC; 83735-TC; 83880; 84100-TC; 84443-TC; 84484-TC; 85025-TC; 85730-TC; 87040-TC; 87081-TC; 93307-TC; 93971-TC; C9803; G0378; J0692; J0696; J1940; J3370; J7030; J7050; J7060

== ENCOUNTER 2022-05-17 09:33 | Inpatient (IN) | payer MEDICARE, OTHER ==
[~2022-05-17] VITALS: Ht 162.6 cm; Wt 58.5 kg
[~2022-05-17 09:33] MED LIST changes: +AMOX-430 PO; +FURO10VI IV; +FURO40TA5 PO; +PROP10TA68 PO
--- NOTE | 2022-05-17 09:40 | NUR ---
bibra 82 from home w/ c/o L hip area pain s/p GLF yesterday. fentanyl 100mcg ivp given water taxi captain. to er bed 9.
[2022-05-17] MEDS ORDERED: MORPHINE SULFATE INJ 2 MG/ML DISP.SYRIN IV ONE ×2 (10:00→13:00)
[2022-05-17] MEDS ORDERED: IV NS 0.9% 1,000 ML BAG IV ONE (10:00)
[2022-05-17 10:10] LABS: BASOPHILS # (AUTO) 0.2 K/uL (0.0-0.2); EOSINOPHILS % (AUTO) 1.2 % (0.0-6.0); HEMATOCRIT 42 % (33-45); HEMOGLOBIN 13.5 g/dL (11.5-14.8); LYMPHOCYTES # (AUTO) 2.5 K/uL (0.8-4.8); LYMPHOCYTES % (AUTO) 15.4 % (20.0-44.0); MEAN CORPUSCULAR HGB CONC 33 g/dl (31.0-36.0); MEAN CORPUSCULAR VOLUME 101 fL (82-100); MONOCYTES # (AUTO) 1.4 K/uL (0.1-1.30); MONOCYTES % (AUTO) 8.6 % (2.0-12.0); NEUTROPHILS # (AUTO) 12.1 K/uL (1.8-8.9); NEUTROPHILS % (AUTO) 73.8 % (43.0-81.0); PLATELET COUNT (AUTO) 308 K/uL (150-450); WHITE BLOOD COUNT (AUTO) 16.3 K/uL (4.3-11.0)
[2022-05-17 10:36] LABS: CALCIUM, SERUM 9.1 mg/dL (8.5-10.1); CARBON DIOXIDE 28 mmol/L (21-32); CHLORIDE 102 mmol/L (98-107); CREATININE 0.8 mg/dL (0.6-1.3); GLUCOSE 99 mg/dL (74-106); POTASSIUM 3.4 mmol/L (3.5-5.1); SODIUM SERUM 138 mmol/L (136-145); UREA NITROGEN, BLOOD 9 mg/dL (7-18)
[2022-05-17] MEDS ORDERED: MORPHINE SULFATE INJ 4 MG/ML DISP.SYRIN ONE ×2 (10:41→13:06)
[2022-05-17] MEDS ORDERED: ONDANSETRON HCL/PF 4 MG/2 ML VIAL ONE (10:41)
[2022-05-17] MEDS ORDERED: ONDANSETRON HCL/PF 4 MG/2 ML VIAL IV ONE (11:00)
--- NOTE | 2022-05-17 12:45 | NUR ---
MOVE SHEET SUBMITTED.
--- NOTE | 2022-05-17 12:53 | NUR ---
COVID SWAB COLLECTED AND SENT TO LAB
--- NOTE | 2022-05-17 13:17 | NUR ---
PT NOTED W/ WOUND ON LEFT LATERAL MALLEOLUS AREA, PRESENT PRIOR TO ADMISSION. PT STATES THAT A WOUND CARE NURSE DOES WOUND CARE. NO BLEEDING NOTED ON SITE.
--- NOTE | 2022-05-17 13:22 | NUR ---
PER SVETLANA LACEY FOR PT TO HAVE URINARY CATHETER.
--- NOTE | 2022-05-17 13:46 | NUR ---
PAGED ANNA MEADOWS FOR COMPUTER TECHNICIAN PHYSICIAN. AWAITING CALL BACK.
--- NOTE | 2022-05-17 13:53 | NUR ---
DRESSING CHANGE DONE ON LEFT LATERAL MALLEOLUS WOUND.
[2022-05-17] MEDS ORDERED: TIOT18CA3 INH (14:14)
--- NOTE | 2022-05-17 14:36 | NUR ---
ROCKWELL CATH FR 16 INSERTED ASEPTICALLY, PROCEDURE GILBERTO WELL. URINE SAMPLE COLLECTED AND SENT TO LAB
--- NOTE | 2022-05-17 15:22 | NUR ---
FOLLOWED UP WITH ANNA MEADOWS, AWAITING CALL BACK FROM [facility].
--- NOTE | 2022-05-17 16:27 | NUR ---
ROOM 321-1
--- NOTE | 2022-05-17 16:33 | NUR ---
PT REPORT GIVEN TO NICANOR MEDINA
--- NOTE | 2022-05-17 16:37 | NUR ---
US TECH AT BEDSIDE
[2022-05-17 16:39] LABS: BILIRUBIN,URINE NEGATIVE (NEGATIVE); COLOR,URINE YELLOW (YELLOW); LEUKOCYTE ESTERASE ,URINE NEGATIVE (NEGATIVE); NITRITE, URINE NEGATIVE (NEGATIVE); PH,URINE 7.5 (5.0-8.0); PROTEIN,URINE NEGATIVE (NEGATIVE); UGLUCOSE NEGATIVE (NEGATIVE); UROBILINOGEN,URINE 0.2 EU/dL (0.2)
[2022-05-17] MEDS ORDERED: ONDANSETRON HCL/PF 4 MG/2 ML VIAL IVP PRN (18:00)
[2022-05-17] MEDS ORDERED: MAG HYDROX/AL HYDROX/SIMETH 30 ML UDC PO PRN (18:00)
[2022-05-17] MEDS ORDERED: ALBUTEROL FS 2.5 MG/0.5 ML VIAL.NEB NEB PRN (18:00)
[2022-05-17] MEDS ORDERED: Z GUARD REMEDY 4 OZ OINT TP PRN (18:00)
[2022-05-17] MEDS ORDERED: ACETAMINOPHEN 325 MG TABLET PO PRN (18:00)
[2022-05-17] MEDS ORDERED: MAGNESIUM HYDROXIDE 30 ML UDC PO PRN (18:00)
[2022-05-17] MEDS ORDERED: clonazePAM 1 MG TABLET PO PRN (18:00)
[2022-05-17] MEDS ORDERED: PROPRANOLOL HCL 10 MG TABLET PO PRN (18:00)
[2022-05-17] MEDS: KETOROLAC TROMETHAMINE INJ 30 MG/ML VIAL IV PRN (18:41)
--- NOTE | 2022-05-17 19:18 | NUR ---
RN NOTE PATIENT ARRIVED TO UNIT @1830. EXPRESSED PAIN AFTER TRANSFER FROM [facility] TO BED. PRN KETOROLAC ADMINISTERED FOR PAIN 03/28. ENDORSED TO POST SECONDARY PROFESSIONAL NURSE FOR CONTINUATION OF CARE.
[2022-05-17 20:00] VITALS: BP 111/72
--- NOTE | 2022-05-17 20:00 | NUR ---
RN OPENING NOTES - RECEIVED PATIENT AWAKE IN BED, LYING FLAT. A/0 X4. ATTACHED TO 02 2LPM VIA NASAL CANNULA, TOLERATING WELL. IV ACCESS AT LEFT AC #20, SL FLUSHING WELL. WITH ROCKWELL CATH FR#16, DRAINING, YELLOW URINE, ADEQUATE OUTPUT. NO SIGNS OF RESPIRATORY DISTRESS NOTED. COMPLAINS OF PAIN AT LEFT LEG, RATED PAIN 10/10. KEPT COMFORTABLE. THE PATIENT DOES NOT WANT TO BE MOVED, REFUSED LINEN CHANGE. SAFETY PRECAUTIONS MAINTAINED. WILL CONTINUE TO MONITOR.
[2022-05-17] MEDS: TEMAZEPAM 15 MG CAPSULE PO SCH (21:05)
[2022-05-17] MEDS: QUETIAPINE FUMARATE 100 MG TABLET PO SCH (21:06)
[2022-05-17] MEDS ORDERED: ZOLPIDEM TARTRATE 5 MG TABLET PO PRN (22:00)
[2022-05-17 23:47] VITALS: BP 113/74
[2022-05-18] VITALS (10 sets, daily range): BP systolic 105–147; BP diastolic 50–85
[2022-05-18] MEDS: KETOROLAC TROMETHAMINE INJ 30 MG/ML VIAL IV PRN ×4 (01:27→21:07)
--- NOTE | 2022-05-18 01:32 | NUR ---
RN NOTES - PATIENT COMPLAINS OF PAIN AT LEFT LEG, DESCRIBED SHARP PAIN, RATED 9/10. GIVEN KETOROLAC 30MG IV SLOW PUSH. STILL REFUSED LINEN CHANGE. KEPT COMFORTABLE.
[2022-05-18] MEDS: IPRATROPIUM NEB FS 0.5 MG/2.5 ML AMPUL.NEB NEB SCH ×5 (04:40→20:08)
--- NOTE | 2022-05-18 04:41 | NUR ---
RT NOTE WILL CONTINUE HHN TX SCHEDULED. NO RESPIRATORY DISTRESS NOTED.
--- NOTE | 2022-05-18 05:02 | NUR ---
RN NOTES - PATIENT STILL IN PAIN. OFFERED TO GIVE TYLENOL 650MG BUT REFUSED. WILL RETURN BACK MED TO [facility]. Addendum: 05/18/22 at 0517 by PILLO COX RN CHARGE NURSE MADE AWARE. INFORMED RAMY INFANTE. ORDERED MORPHINE 4MG IV Q4HR PRN FOR PAIN.
[2022-05-18] MEDS: MORPHINE SULFATE INJ 4 MG/ML DISP.SYRIN IV PRN ×2 (05:33→11:34)
[2022-05-18 05:59] LABS: CALCIUM, SERUM 8.5 mg/dL (8.5-10.1); CREATININE 0.7 mg/dL (0.6-1.3); MAGNESIUM 1.7 mg/dL (1.8-2.4); PHOSPHORUS 4.3 mg/dL (2.5-4.9); POTASSIUM 4.5 mmol/L (3.5-5.1)
[2022-05-18 06:04] LABS: BASOPHILS # (AUTO) 0.1 K/uL (0.0-0.2); BASOPHILS % (AUTO) 0.6 % (0.0-2.0); EOSINOPHILS % (AUTO) 2.4 % (0.0-6.0); HEMATOCRIT 40 % (33-45); HEMOGLOBIN 12.9 g/dL (11.5-14.8); LYMPHOCYTES # (AUTO) 2.4 K/uL (0.8-4.8); LYMPHOCYTES % (AUTO) 16.7 % (20.0-44.0); MEAN CORPUSCULAR HGB CONC 33 g/dl (31.0-36.0); MEAN CORPUSCULAR VOLUME 102 fL (82-100); MONOCYTES # (AUTO) 1.2 K/uL (0.1-1.30); MONOCYTES % (AUTO) 8.4 % (2.0-12.0); NEUTROPHILS # (AUTO) 10.4 K/uL (1.8-8.9); NEUTROPHILS % (AUTO) 71.9 % (43.0-81.0); PLATELET COUNT (AUTO) 268 K/uL (150-450); RED BLOOD CELL COUNT(AUTO) 3.89 MIL/uL (4.0-5.2); WHITE BLOOD COUNT (AUTO) 14.5 K/uL (4.3-11.0)
--- NOTE | 2022-05-18 06:08 | NUR ---
RN NOTES - PATIENT REFUSED SKIN ASSESSMENT AT THIS TIME DUE TO PAIN. EXPLAINED THE NEED FOR ASSESSMENT. WILL DO ONCE WITH DECREASE IN PAIN. VERBALIZED UNDERSTANDING,
--- NOTE | 2022-05-18 07:00 | NUR ---
RN CLOSING NOTES - PATIENT AWAKE IN BED. A/0 X4. ATTACHED TO 02 2LPM VIA NASAL CANNULA, TOLERATING WELL. IV ACCESS AT LEFT AC #20, SL FLUSHING WELL. WITH ROCKWELL CATH FR#16, DRAINING, YELLOW URINE, ADEQUATE OUTPUT. NO SIGNS OF RESPIRATORY DISTRESS NOTED. KEPT COMFORTABLE. SAFETY PRECAUTIONS MAINTAINED. ENDORSED TO NEXT SHIFT RN FOR NEFTALI. SURGERY AT 3:15PM. CONSENT SIGNED.
[2022-05-18] MEDS: PANTOPRAZOLE 40 MG TABLET.DR PO SCH (07:30)
--- NOTE | 2022-05-18 07:42 | NUR ---
R DEVELOPER OPENING NOTES RECEIVED PATIENT AWAKE IN BED, LYING FLAT. A/0X4. ON 02 2LPM VIA NASAL CANNULA, TOLERATING WELL AT 100%. WITH IV ACCESS AT LEFT AC #20, SALINE LOCKED, FLUSHING WELL. ON ROCKWELL CATH FR#16, DRAINING, YELLOW URINE VIA GRAVITY WITH NO SEDIMENTS NOTED. TELE MONITORING SHOWS SINUS TACHYCARDIA AT 109 BPM AT THIS TIME. NO RESPIRATORY DISTRESS NOTED, BREATHING EVEN AND UNLABORED. NO SIGNS OF RESPIRATORY DISTRESS NOTED. COMPLAINS OF PAIN OF 10/10, ON KETOLORAC 30 MG IVP Q6H. PATIENT REFUSED TO BE MOVED AT THIS TIME, REFUSED BED LINEN CHANGE. EDUCATED REGARDING STRICT NPO FOR T HIP SURGERY TODAY. SAFETY PRECAUTIONS IN PLACE: BED LOCKED IN LOWEST POSITION,SIDE RAILS UP X2, CALL LIGHT AND TRAY TABLE WITHIN REACH. WILL CONTINUE TO MONITOR.
--- NOTE | 2022-05-18 07:50 | NUR ---
RN NOTES - PAIN MEDICATION PATIENT COMPLAINS OF 10/10 L HIP PAIN, GIVEN TORADOL 30 MG VIA IV NEEDED. WILL CONTINUE TO MONITOR.
[2022-05-18] MEDS: QUETIAPINE FUMARATE 100 MG TABLET PO SCH ×2 (09:00→21:06)
[2022-05-18] MEDS ORDERED: TIOTROPIUM BROMIDE 6 CAP/BOX CAP.W.DEV IH SCH (09:00)
[2022-05-18] MEDS: PHENYTOIN EXTENDED RELEASE 100 MG CAPSULE PO SCH ×3 (09:00→17:00)
[2022-05-18] MEDS: Magnesium 1GM/D5W 100ML PREMIX 100 ML IV SCH ×2 (11:11→12:32)
--- NOTE | 2022-05-18 11:35 | NUR ---
RN NOTES - PAIN MEDICATION PATIENT STILL COMPLAINS OF 10/10 L HIP PAIN, TORADOL IS WEARING OFF, GIVEN MORPHINE 4 MG IV PER [facility]S APPROVAL. WILL CONTINUE TO MONITOR.
--- NOTE | 2022-05-18 12:30 | NUR ---
RN NOTES DC TELE - TELEBOX RETURNED TO THE UT.
--- NOTE | 2022-05-18 13:52 | NUR ---
RN NOTES - PAIN MANAGEMENT PATIENT COMPLAINS OF 10/10 L HIP PAIN, MORPHINE HAS HELPED, PATIENT WAS ABLE TO SLEEP BUT NOW IT'S PAINFUL AGAIN, GAVE DUE TORADOL 40 MG VIA IV.WILL CONTINUE TO MONITOR.
[2022-05-18] MEDS ORDERED: MIDAZOLAM HCL 2 MG/2ML VIAL ONE (15:06)
[2022-05-18] MEDS ORDERED: ROCURONIUM BROMIDE 50 MG/5 ML ONE (15:06)
[2022-05-18] MEDS ORDERED: FENTANYL PF 100MCG/2ML AMPUL ONE ×3 (15:06→16:49)
--- NOTE | 2022-05-18 15:06 | NUR ---
RN NOTES PATIENT WAS TRANSPORTED TO OR BY 2 NURSES VIA PT'S OWN BED.
[2022-05-18] MEDS ORDERED: BUPIVACAINE 0.25% 75 MG/30 ML VIAL ONE (15:46)
--- NOTE | 2022-05-18 18:37 | NUR ---
CLOSING MS RN NOTES - S/P L HIP INTRAMEDULLARY NAIL SURGERY RECEIVED PATIENT IN BED BROUGHT BY RN OCTOBER FROM OR AT 1756, AWAKE, AOX4, PATIENT IS ABLE TO MAKE NEEDS KNOWN. MEDICATION ORDERS FAXED TO THE PHARMACY, ON 2LPM OXYGEN VIA NC SATURATING AT 96%, NO SOB, NO DISTRESS NOTED. PATIENT DENIES PAIN OR DISCOMFORT AT THE MOMENT, INCISION SITE WITH DRY DRESSING NO NOTED BLEEDING, ICE PACK IS APPLIED. PATIENT IS WITH BILATERAL DVT PUMPS, WITH ROCKWELL CATHETER DRAINING CLEAR YELLOW URINE VIA GRAVITY, VS TAKEN AND RECORDED Q15. PATIENT STARTED EATING CLEAR LIQUIDS FOR NOW LIKE GELATIN, WILL ENDORSED TO ADVANCE DIET. WITH IV ACCESS ON R HAND G#18 AND RAC G#20, SALINE LOCKED, PATENT, FLUSHING WELL. ALL NEEDS MET, ALL DUE MEDS GIVEN. SAFETY MEASURES IN PLACE: HEAD OF BED ELEVATED, BED IS LOWEST AND LOCKED POSITION, TRAY AND CALL LIGHT WITHIN REACH. WILL ENDORSE TO THE AVIONICS SAFETY INSPECTOR NURSE.
--- NOTE | 2022-05-18 19:51 | NUR ---
MS NICANOR CLOSING NOTES RECEIVED PATIENT LYING AWAKE IN BED, AOX4, PATIENT IS ABLE TO MAKE NEEDS KNOWN. ON 2LPM OXYGEN VIA NC SATURATING AT 96%, NO SOB, NO DISTRESS NOTED. PATIENT DENIES PAIN OR DISCOMFORT AT THE MOMENT, INCISION SITE WITH DRY DRESSING, NO NOTED BLEEDING, ICE PACK IN PLACED. PATIENT IS WITH BILATERAL DVT PUMPS, WITH ROCKWELL CATHETER DRAINING CLEAR YELLOW URINE VIA GRAVITY. WITH IV ACCESS ON R HAND #18, SALINE LOCKED, PATENT, FLUSHING WELL. SAFETY MEASURES IN PLACE. WILL CONTINUE TO MONITOR. Addendum: 05/18/22 at 1955 by PILLO COX RN ERROR - PLEASE DISREGARD THIS NOTED
--- NOTE | 2022-05-18 19:55 | NUR ---
MS RN OPENING NOTES RECEIVED PATIENT LYING AWAKE IN BED, AOX4, PATIENT IS ABLE TO MAKE NEEDS KNOWN. ON 2LPM OXYGEN VIA NC SATURATING AT 96%, NO SOB, NO DISTRESS NOTED. PATIENT DENIES PAIN OR DISCOMFORT AT THE MOMENT, INCISION SITE WITH DRY DRESSING, NO NOTED BLEEDING, ICE PACK IN PLACED. PATIENT IS WITH BILATERAL DVT PUMPS, WITH ROCKWELL CATHETER DRAINING CLEAR YELLOW URINE VIA GRAVITY. WITH IV ACCESS ON R HAND #18, SALINE LOCKED, PATENT, FLUSHING WELL. SAFETY MEASURES IN PLACE. WILL CONTINUE TO MONITOR.
--- NOTE | 2022-05-18 21:00 | NUR ---
RN NOTES - COMPLAINS OF PAIN AT OPERATIVE SITE, RATED SCALE 9/10. FACIAL GRIMACE NOTED. GIVEN TORADOL 30MG, SLOW IV PUSH. ICE PACK IN PLACED. KEPT COMFORTABLE. WILL CONTINUE TO MONITOR.
[2022-05-18] MEDS: TEMAZEPAM 15 MG CAPSULE PO SCH (21:06)
[2022-05-18] MEDS: ANCEF 1 GM/50 ML D5W IV SCH ×2 (22:58)
[2022-05-19] MEDS: IPRATROPIUM NEB FS 0.5 MG/2.5 ML AMPUL.NEB NEB SCH ×5 (01:23→20:13)
[2022-05-19 05:51] LABS: BASOPHILS # (AUTO) 0.1 K/uL (0.0-0.2); BASOPHILS % (AUTO) 0.3 % (0.0-2.0); EOSINOPHILS % (AUTO) 1.3 % (0.0-6.0); HEMATOCRIT 35 % (33-45); HEMOGLOBIN 11.1 g/dL (11.5-14.8); LYMPHOCYTES # (AUTO) 3.3 K/uL (0.8-4.8); LYMPHOCYTES % (AUTO) 18.7 % (20.0-44.0); MEAN CORPUSCULAR HGB CONC 32 g/dl (31.0-36.0); MEAN CORPUSCULAR VOLUME 107 fL (82-100); MONOCYTES # (AUTO) 1.5 K/uL (0.1-1.30); MONOCYTES % (AUTO) 8.4 % (2.0-12.0); NEUTROPHILS # (AUTO) 12.6 K/uL (1.8-8.9); NEUTROPHILS % (AUTO) 71.3 % (43.0-81.0); PLATELET COUNT (AUTO) 248 K/uL (150-450); RED BLOOD CELL COUNT(AUTO) 3.28 MIL/uL (4.0-5.2); WHITE BLOOD COUNT (AUTO) 17.7 K/uL (4.3-11.0)
[2022-05-19] MEDS: ANCEF 1 GM/50 ML D5W IV SCH ×4 (06:05→14:37)
[2022-05-19] MEDS: KETOROLAC TROMETHAMINE INJ 30 MG/ML VIAL IV PRN ×3 (06:14→18:54)
--- NOTE | 2022-05-19 06:27 | NUR ---
RN NOTES - COMPLAINS OF PAIN AT OPERATIVE SITE, RATED SCALE 8/10. MOANING. GIVEN TORADOL, SLOW IV PUSH. COLD COMPRESS DONE. KEPT COMFORTABLE.
[2022-05-19 06:32] LABS: CALCIUM, SERUM 8.3 mg/dL (8.5-10.1); CREATININE 0.7 mg/dL (0.6-1.3); MAGNESIUM 2.2 mg/dL (1.8-2.4); PHOSPHORUS 4.6 mg/dL (2.5-4.9); POTASSIUM 3.6 mmol/L (3.5-5.1)
--- NOTE | 2022-05-19 06:57 | NUR ---
MS RN CLOSING NOTES RECEIVED PATIENT LYING AWAKE IN BED, AOX4, PATIENT IS ABLE TO MAKE NEEDS KNOWN. ON 2LPM OXYGEN VIA NC SATURATING AT 96%, NO SOB, NO DISTRESS NOTED. INCISION SITE WITH DRY DRESSING, NO NOTED BLEEDING, ICE PACK IN PLACED. PATIENT IS WITH BILATERAL DVT PUMPS, WITH ROCKWELL CATHETER DRAINING CLEAR YELLOW URINE VIA GRAVITY WITH OUTPUT OF 300. WITH IV ACCESS ON R HAND #18, SALINE LOCKED, PATENT, FLUSHING WELL. SAFETY MEASURES IN PLACE. WILL CONTINUE TO MONITOR.
--- NOTE | 2022-05-19 07:35 | NUR ---
MS RN OPENING NOTES RECEIVED PATIENT LYING IN BED, ASLEEP, EASILY AWAKEN, A/0X4. S/P L HIP INTRAMEDULLARY NAIL SURGERY. ON 02 2LPM VIA NASAL CANNULA, TOLERATING WELL AT 95%. NO RESPIRATORY DISTRESS NOTED, BREATHING EVEN AND UNLABORED. WITH IV ACCESS AT LEFT HAND G#18 SALINE LOCKED, PATENT, FLUSHING WELL. ON ROCKWELL CATH FR#16, DRAINING, YELLOW URINE VIA GRAVITY WITH NO SEDIMENTS NOTED. WITH DVT PUMPS ON BOTH LOWER EXTREMITIES. SURGICAL INCISION COVERED WITH DRESSING, NO ACTIVE BLEEDING NOTED. NO COMPLAINTS OF PAIN NOR DISCOMFORT AT THIS TIME. SAFETY PRECAUTIONS IN PLACE: BED LOCKED IN LOWEST POSITION,SIDE RAILS UP X2, CALL LIGHT AND TRAY TABLE WITHIN REACH. WILL CONTINUE TO MONITOR.
[2022-05-19] MEDS: PANTOPRAZOLE 40 MG TABLET.DR PO SCH (07:36)
[2022-05-19 08:00] VITALS: BP 105/61
[2022-05-19] MEDS: QUETIAPINE FUMARATE 100 MG TABLET PO SCH ×2 (08:17→21:38)
[2022-05-19] MEDS: PHENYTOIN EXTENDED RELEASE 100 MG CAPSULE PO SCH ×3 (08:18→17:15)
--- NOTE | 2022-05-19 09:50 | NUR ---
RN NOTES - PT/OT EVALUATION PATIENT WAS ABLE TO ONLY TOLERATE STANDING UP AND SITTING ON THE EDGE OF THE BED DURING THIS SESSION PER 2 PT/OT. RECOMMENDATION IS FOR PT TO GO TO A REHAB FACILITY AFTER.
[2022-05-19] MEDS: MORPHINE SULFATE INJ 4 MG/ML DISP.SYRIN IV PRN ×2 (10:01→17:15)
--- NOTE | 2022-05-19 10:02 | NUR ---
RN NOTES - PAIN MEDICATION PATIENT COMPLAINS OF 10/10 L HIP PAIN AFTER THE OT/PT SESSION, GIVEN MORPHINE 4 MG VIA IV NEEDED. WILL CONTINUE TO MONITOR.
[2022-05-19] MEDS ORDERED: oxyCODONE IR immediate release 5 MG PO PRN ×2 (15:00)
[2022-05-19] MEDS: METHOCARBAMOL (500MG) 500 MG TABLET PO SCH ×2 (15:44→23:29)
[2022-05-19 16:00] VITALS: BP 107/53
[2022-05-19] MEDS: ENOXAPARIN SODIUM 40 MG/0.4 ML DISP.SYRIN SQ SCH (17:14)
[2022-05-19] MEDS: ENSURE ENLIVE 237 ML LIQUID (VANILLA) PO SCH (17:15)
--- NOTE | 2022-05-19 19:15 | NUR ---
CLOSING MS RN NOTES PATIENT IN BED, AWAKE, AOX4, PATIENT IS ABLE TO MAKE NEEDS KNOWN. ON ROOM AIR SATURATING AT 96%,NO SOB, NO DISTRESS NOTED. PATIENT DENIES PAIN OR DISCOMFORT AT THE MOMENT, INCISION SITE WITH DRY DRESSING NO NOTED BLEEDING, ICE PACK IS APPLIED. PATIENT IS WITH BILATERAL DVT PUMPS, WITH ROCKWELL CATHETER DRAINING CLEAR YELLOW URINE VIA GRAVITY. WITH IV ACCESS ON R FOREARM G#22, SALINE LOCKED, PATENT, FLUSHING WELL. ALL NEEDS MET, ALL DUE MEDS GIVEN. SAFETY MEASURES IN PLACE: HEAD OF BED ELEVATED, BED IS LOWEST AND LOCKED POSITION, TRAY AND CALL LIGHT WITHIN REACH. WILL ENDORSE TO THE PETROLEUM ANALYST NURSE.
[2022-05-19 20:00] VITALS: BP_SYST 90; BP_DIAS 53; BP_DIAS 62
--- NOTE | 2022-05-19 20:22 | NUR ---
MS RN OPENING NOTES: RECEIVED PATIENT AWAKE IN BED, BED IN LOW POSITION, CALL LIGHTS WITHIN REACH, NO COMPLAIN OF PAIN AND DISCOMFORT AT THIS TIME, ON O2 INHALATION AT 2LPM SATURATING WELL, PATIENT IS A/O X4 ABLE TO MAKE NEEDS KNOWN, ON ROCKWELL CATHETER WITH 100CC URINE OUTPUT, IV LINE AT RFA#20SL, PATIENT KEPT CLEAN AND DRY ALL NEEDS MET WILL CONTINUE TO MONITOR
[2022-05-19] MEDS: TEMAZEPAM 15 MG CAPSULE PO SCH (22:01)
[2022-05-20] MEDS: IPRATROPIUM NEB FS 0.5 MG/2.5 ML AMPUL.NEB NEB SCH ×4 (01:30→19:30)
[2022-05-20 06:02] LABS: BASOPHILS # (AUTO) 0.1 K/uL (0.0-0.2); BASOPHILS % (AUTO) 0.7 % (0.0-2.0); EOSINOPHILS % (AUTO) 5.3 % (0.0-6.0); HEMATOCRIT 30 % (33-45); HEMOGLOBIN 10.1 g/dL (11.5-14.8); LYMPHOCYTES # (AUTO) 1.5 K/uL (0.8-4.8); LYMPHOCYTES % (AUTO) 14.7 % (20.0-44.0); MEAN CORPUSCULAR HGB CONC 34 g/dl (31.0-36.0); MEAN CORPUSCULAR VOLUME 102 fL (82-100); MONOCYTES % (AUTO) 9.2 % (2.0-12.0); NEUTROPHILS # (AUTO) 7.4 K/uL (1.8-8.9); NEUTROPHILS % (AUTO) 70.1 % (43.0-81.0); PLATELET COUNT (AUTO) 223 K/uL (150-450); RED BLOOD CELL COUNT(AUTO) 2.95 MIL/uL (4.0-5.2); WHITE BLOOD COUNT (AUTO) 10.5 K/uL (4.3-11.0)
--- NOTE | 2022-05-20 06:11 | NUR ---
MS RN CLOSING NOTES: PATIENT SLEEP IN BED COMFORTABLY AROUSABLE TO VERBAL STIMULI, BED IN LOW POSITION CALL LIGHTS WITHIN REACH, NO COMPLAIN OF PAIN AND DISCOMFORT AT THIS TIME, ON ROOM AIR SATURATING WELL, PATIENT ON FOELY CATHETER- 700CC URINE OUTPUT, PATIENT KEPT CLEAN AND DRY ALL NEEDS MET ENDORSE TO INCOMING SHIFT.
[2022-05-20 06:34] LABS: CALCIUM, SERUM 8.5 mg/dL (8.5-10.1); CREATININE 0.6 mg/dL (0.6-1.3); MAGNESIUM 1.8 mg/dL (1.8-2.4); PHOSPHORUS 4.6 mg/dL (2.5-4.9); POTASSIUM 4.4 mmol/L (3.5-5.1)
--- NOTE | 2022-05-20 07:00 | NUR ---
MS RN OPENING NOTES PATIENT LAYING IN BED, A/O X 4, ABLE TO MAKE NEEDS KNOWN, TOLERATING WELL ON ROOM AIR WITH NO S/S RESPIRATORY DISTRESS. NO COMPLAINTS OF PAIN OR DISCOMFORT AT THIS TIME. R[place] CATHETER IN PLACE DRAINING CLEAR YELLOW URINE TO GRAVITY. RIGHT FOREARM # 20 SALINE LOCK CLEAN, INTACT, AND FLUSHING WELL. SAFETY MEASURES IN PLACE: BED IN LOWEST LOCKED POSITION, SIDE RAILS UP X 2, CALL LIGHT WITHIN REACH. WILL CONTINUE TO MONITOR.
[2022-05-20] MEDS: METHOCARBAMOL (500MG) 500 MG TABLET PO SCH ×2 (07:42→16:16)
[2022-05-20] MEDS: PANTOPRAZOLE 40 MG TABLET.DR PO SCH (07:42)
[2022-05-20 08:00] VITALS: BP 102/58
[2022-05-20] MEDS: ENSURE ENLIVE 237 ML LIQUID (VANILLA) PO SCH ×3 (08:31→16:17)
[2022-05-20] MEDS: QUETIAPINE FUMARATE 100 MG TABLET PO SCH (08:31)
[2022-05-20] MEDS: PHENYTOIN EXTENDED RELEASE 100 MG CAPSULE PO SCH ×3 (08:31→16:16)
[2022-05-20] MEDS: MORPHINE SULFATE INJ 4 MG/ML DISP.SYRIN IV PRN ×2 (08:55→19:12)
[2022-05-20] MEDS: KETOROLAC TROMETHAMINE INJ 30 MG/ML VIAL IV PRN ×2 (09:51→16:10)
--- NOTE | 2022-05-20 10:27 | NUR ---
WOUND CARE CONSULT: PT PRESENTS WITH LEFT ANKLE ULCER, PRESENT ON ADMISSION. DR DOW CALLED FOR DPM CONSULT. RECOMMENDATIONS MADE FOR SKIN PROTECTION. DISCUSSED WITH NURSING STAFF.MD IN AGREEMENT WITH PLAN OF CARE. ROCKWELL CATH NOTED WELL DRY/INTACT LEFT HIP DRESSING.
[2022-05-20] MEDS: ENOXAPARIN SODIUM 40 MG/0.4 ML DISP.SYRIN SQ SCH (16:19)
--- NOTE | 2022-05-20 18:50 | NUR ---
MS NICANOR CLOSING NOTES PATIENT LAYING IN BED, A/O X 4, ABLE TO MAKE NEEDS KNOWN, TOLERATING WELL ON ROOM AIR WITH NO S/S RESPIRATORY DISTRESS. NO COMPLAINTS OF PAIN OR DISCOMFORT AT THIS TIME. [place] CATHETER IN PLACE DRAINING CLEAR YELLOW URINE TO GRAVITY. RIGHT FOREARM # 20 SALINE LOCK CLEAN, INTACT, AND FLUSHING WELL. SAFETY MEASURES IN PLACE: BED IN LOWEST LOCKED POSITION, SIDE RAILS UP X 2, CALL LIGHT WITHIN REACH. ALL NEEDS MET. WILL ENDORSE TO BUHR DRESSER FOR NEFTALI. Addendum: 05/20/22 at 1934 by KARINA TUCKER RN LEFT HIP DRESSINGS C/D/I. SMALL AMOUNT OF BLOOD DRAINAGE NOTED AT UPPER LEFT HIP DRESSING, AWARE.
--- NOTE | 2022-05-20 19:30 | NUR ---
MS RN OPENING NOTE RECEIVED PATIENT IN BED; AWAKE, ALERT AND ORIENTED X 4. ON O2 INHALATION @ 2 LPM VIA NASAL CANNULA; TOLERATING WELL. NOT IN ANY FORM OF RESPIRATORY DISTRESS. WITH IV ACCESS ON RIGHT FOREARM 22G; PATENT, INTACT AND SALINE LOCKED. WITH INCISION SITE @ LEFT HIP; CLEAN, DRY AND INTACT. NO BLEEDING NOTED. WITH BILATERAL DVT PUMPS IN PLACE. WITH ROCKWELL CATHETER IN PLACE DRAINING TO CLEAR YELLOW URINE VIA GRAVITY. ABLE TO MAKE NEEDS KNOWN. SAFETY PRECAUTIONS IMPLEMENTED: CALL LIGHT AND TABLE WITHIN REACH, SIDE RAILS UP X 2, BED IN LOWEST LOCKED POSITION. WILL CONTINUE PLAN OF CARE.
--- NOTE | 2022-05-20 21:09 | NUR ---
RN NOTE PATIENT IS VERY ANXIOUS. PRN CLONAZEPAM 1 MG GIVEN PO ORDERED. WILL CONTINUE TO MONITOR.
--- NOTE | 2022-05-20 21:40 | NUR ---
MS VICKCOMPUTER LABORATORY TECHNICIAN NOTE DISCHARGE PT IN STABLE CONDITION WITH STABLE VITAL SIGNS TAKEN FOLLOWS: T-98, ID-[id number], RR-18, O2 SAT-99%, BP-103/59 MM HG. DISCHARGE INSTRUCTIONS GIVEN TO PT; VERBALIZED UNDERSTANDING. IV SITE REMOVED AND COVERED WITH DRY DRESSING. NO BLEEDING NOTED. PHOTO TAKEN AND PLACED IN CHART. ALL PERSONAL BELONGINGS ACCOUNTED AND GAVE TO THE PATIENT. PATIENT SIGNED THE BELONGING FORM. PATIENT PICKED UP BY [facility] IN STABLE CONDITION BOUND TO [facility] ROOM 305. CHARGE NURSE AND MD AWARE OF THE DISCHARGE Addendum: 05/21/22 at 0701 by ASHLEY MCCAIN RN PATIENT REFUSED TO REMOVE HER ROCKWELL CATHETER.
== END 2022-05-20 21:35 | DRG 481 ==
LOC: ER 09:35 → MED 17:55 → TELE 20:26 → MED 05-18 15:27
PROVIDERS: ADMIT Student in an Organized Health Care Education/Training Program; ATTEND Student in an Organized Health Care Education/Training Program
PROC: 0QS706Z Reposition Left Upper Femur with Intramedullary Internal Fixation Device, Open Approach (ICD-10-PCS; principal; 2022-05-18)
DX: S72.142A Displaced intertrochanteric fracture of left femur, initial encounter for closed fracture (principal); F11.20 Opioid dependence, uncomplicated; L97.329 Non-pressure chronic ulcer of left ankle with unspecified severity; M48.50XA Collapsed vertebra, not elsewhere classified, site unspecified, initial encounter for fracture; W01.0XXA Fall on same level from slipping, tripping and stumbling without subsequent striking against object, initial encounter; Y92.009 Unspecified place in unspecified non-institutional (private) residence as the place of occurrence of the external cause; G40.909 Epilepsy, unspecified, not intractable, without status epilepticus; E87.6 Hypokalemia; Z20.822 Contact with and (suspected) exposure to COVID-19; J44.9 Chronic obstructive pulmonary disease, unspecified; Z86.16 Personal history of COVID-19; Z99.81 Dependence on supplemental oxygen; Z79.899 Other long term (current) drug therapy; Z83.3 Family history of diabetes mellitus; Z82.49 Family history of ischemic heart disease and other diseases of the circulatory system; D72.829 Elevated white blood cell count, unspecified; Z90.49 Acquired absence of other specified parts of digestive tract; Z98.890 Other specified postprocedural states; Z98.891 History of uterine scar from previous surgery; Z79.51 Long term (current) use of inhaled steroids; E78.5 Hyperlipidemia, unspecified; E83.42 Hypomagnesemia; F32.A Depression, unspecified; F41.9 Anxiety disorder, unspecified; Z72.0 Tobacco use; Z86.19 Personal history of other infectious and parasitic diseases; Z90.721 Acquired absence of ovaries, unilateral; F43.10 Post-traumatic stress disorder, unspecified; G89.4 Chronic pain syndrome
CPT/HCPCS: 36415; 71045-TC; 73020; 73502; 80048-TC; 80185-TC; 83735-TC; 84100-TC; 84484-TC; 85025-TC; 85730-TC; 86850-TC; 87081-TC; 93970-TC; 94799-TC; 97112-TC; 97530-TC; 97535-TC; C9803; G0378; J0330; J0690; J1100; J1650; J1885; J2250; J2270; J2370; J2405; J2704; J2765; J3010; J3475; J3490; J7030; J7050; J7060

== ENCOUNTER 2022-09-22 17:13 | Emergency (ER) | payer MEDICARE, OTHER ==
[~2022-09-22] VITALS: Ht 165.1 cm; Wt 63.5 kg
[~2022-09-22 17:13] MED LIST changes: -AMOX-430 PO; -BUPR1TAB39 SL; -CALC500T52 PO; -FLUT1BLS INH; -FURO10VI IV; -FURO40TA5 PO; -MULT-754 PO; -PROP10TA68 PO; +TIOT18CA3 INH
--- NOTE | 2022-09-22 17:50 | NUR ---
RECEIVED PT 67 YRS FEMALE FROM HOME C/O LT HIP PAIN DINESES HX TRUMA PT H HIP FX ON 05/18/22 AWAKE AND ALERT NO SWALLEN NO DIFFORMITY
--- NOTE | 2022-09-22 17:55 | NUR ---
SEEN BY DR. SORENSON
[2022-09-22] MEDS ORDERED: CYCLOBENZAPRINE 10 MG TABLET PO ONE (18:00)
[2022-09-22] MEDS ORDERED: KETOROLAC TROMETHAMINE INJ 60 MG/2 ML VIAL IM ONE (18:00)
--- NOTE | 2022-09-22 18:00 | NUR ---
XRAY WAS DONE AT BED SIDE
[2022-09-22] MEDS ORDERED: CYCLOBENZAPRINE 10 MG TABLET ONE (18:13)
[2022-09-22] MEDS ORDERED: KETOROLAC TROMETHAMINE INJ 30 MG/ML VIAL ONE (18:13)
--- NOTE | 2022-09-22 19:05 | NUR ---
PT PLAING TO FALLOW UP WITH ORTHOBTIC
--- NOTE | 2022-09-22 19:46 | NUR ---
Patient does not wish to proceed with medical care recommended by . (DR SORENSON ). Patient given information related to possible complications, up to and including , which could occur as a result of leaving the hospital at this time. Patient verbalizes understanding of risks involved due to leaving against medical advice. Patient has signed AMA form.
[2022-09-22 19:48] VITALS: BP 102/61
[2022-09-23] MEDS ORDERED: FLUT1BLS15 INH (17:04)
[2022-09-23] MEDS ORDERED: LEVE100023 PO (17:04)
[2022-09-23] MEDS ORDERED: BUPR1TAB39 SL (17:04)
[2022-09-23] MEDS ORDERED: OMEP40CA21 PO (17:04)
[2022-09-23] MEDS ORDERED: CLOP75TA15 PO (17:04)
[2022-09-23] MEDS ORDERED: IBUP-1957 PO (19:07)
[2022-09-27] MEDS ORDERED: HYDR-3980 PO (18:01)
== END 2022-09-22 20:11 | disposition left against medical advice (07) ==
LOC: ER 17:22
DX: S72.112A Displaced fracture of greater trochanter of left femur, initial encounter for closed fracture (principal); S72.122A Displaced fracture of lesser trochanter of left femur, initial encounter for closed fracture; G89.29 Other chronic pain; Z79.899 Other long term (current) drug therapy; W01.0XXA Fall on same level from slipping, tripping and stumbling without subsequent striking against object, initial encounter; Y93.89 Activity, other specified; Y92.89 Other specified places as the place of occurrence of the external cause; Y99.8 Other external cause status
CPT/HCPCS: 99283; 96372; J1885; 73502

== ENCOUNTER 2022-09-23 15:33 | Inpatient (IN) | payer MEDICARE, OTHER ==
[~2022-09-23] VITALS: Ht 157.5 cm; Wt 68.0 kg
--- NOTE | 2022-09-23 16:10 | NUR ---
ECHO. ELSA HIP PAIN STARTED 2WKS AFTERE A FALL S/P HIP REPLACEMENT LT 2021. WENT TO ER LAST NIGHT she was for admisiion BUT, HAMA. WAS GIVEN TORADOL AND UNRECALLED MUSCLE RELAXANT. PT PUT ON MONITOR and pulse.
--- NOTE | 2022-09-23 16:10 | NUR ---
PT AT [facility] VIA ANN-MARIE
--- NOTE | 2022-09-23 16:14 | NUR ---
DR BYRD AT BEDSIDE FOR EVAL. AWAITING FOR ORDERS
--- NOTE | 2022-09-23 16:23 | NUR ---
PT BACK FROM CT
--- NOTE | 2022-09-23 16:40 | NUR ---
SUBMITTED MOVE SHEET
--- NOTE | 2022-09-23 16:53 | NUR ---
COVID SWAB DONE SENT TO LAB
[2022-09-23] MEDS ORDERED: OMEP40CA21 PO (17:04)
[2022-09-23] MEDS ORDERED: FLUT1BLS15 INH (17:04)
[2022-09-23] MEDS ORDERED: BUPR1TAB39 SL (17:04)
[2022-09-23] MEDS ORDERED: LEVE100023 PO (17:04)
[2022-09-23] MEDS ORDERED: CLOP75TA15 PO (17:04)
--- NOTE | 2022-09-23 17:26 | NUR ---
PAGED DORI DE SANTIAGO BUDGET CONSULTANT
[2022-09-23] MEDS ORDERED: HYDROMORPHONE 1 MG/1 ML DISP.SYRIN IV ONE (17:30)
--- NOTE | 2022-09-23 17:33 | NUR ---
PAGED EPIC STEWARD/STEWARDESS DECK
[2022-09-23] MEDS ORDERED: HYDROMORPHONE 1 MG/1 ML DISP.SYRIN ONE (18:14)
[2022-09-23 18:18] LABS: BASOPHILS # (AUTO) 0.1 K/uL (0.0-0.2); BASOPHILS % (AUTO) 0.9 % (0.0-2.0); EOSINOPHILS % (AUTO) 3.9 % (0.0-6.0); HEMATOCRIT 43 % (33-45); HEMOGLOBIN 13.5 g/dL (11.5-14.8); LYMPHOCYTES # (AUTO) 3.8 K/uL (0.8-4.8); LYMPHOCYTES % (AUTO) 32.6 % (20.0-44.0); MEAN CORPUSCULAR HGB CONC 32 g/dl (31.0-36.0); MEAN CORPUSCULAR VOLUME 97 fL (82-100); MONOCYTES # (AUTO) 0.9 K/uL (0.1-1.30); MONOCYTES % (AUTO) 7.8 % (2.0-12.0); NEUTROPHILS # (AUTO) 6.4 K/uL (1.8-8.9); NEUTROPHILS % (AUTO) 54.8 % (43.0-81.0); PLATELET COUNT (AUTO) 326 K/uL (150-450); RED BLOOD CELL COUNT(AUTO) 4.39 MIL/uL (4.0-5.2); WHITE BLOOD COUNT (AUTO) 11.7 K/uL (4.3-11.0)
[2022-09-23 18:34] LABS: CALCIUM, SERUM 9.2 mg/dL (8.5-10.1); POTASSIUM 5.1 mmol/L (3.5-5.1)
--- NOTE | 2022-09-23 18:56 | NUR ---
ROOM 307-2 , ADMITTING MADE AWARE
[2022-09-23] MEDS ORDERED: IBUP-1957 PO (19:07)
--- NOTE | 2022-09-23 19:23 | NUR ---
put on o2 nasal cannula AT 4L. O2 SAT WAS 76. A KNOWN COPD AND USES OXYGEN AT HOME
--- NOTE | 2022-09-23 19:43 | NUR ---
REPORT GIVEN, AWAITING TRANSFER
[2022-09-23 20:15] VITALS: BP 105/63
[2022-09-23 21:00] VITALS: BP 105/63
--- NOTE | 2022-09-23 21:00 | NUR ---
MS RN ADMITTING NOTES: RECEIVED PATIENT FROM ER VIA RSAN ANTONIO AWAKE, PLACED COMFORTABLY ON BED, BED IN LOW POSITION CALL LIGHTS WITHIN REACH, NO COMPLAIN OF PAIN AND DISCOMFORT AT THIS TIME, ON O2 INHALATION AT 2 LTR PER MINUTE SATURATING WELL, PATIENT IS A/O X4 ABLE TO MAKE NEEDS KNOWN, ON BED REST SKIN ASSESSMENT DONE AND DOCUMENTED, INVENTORY DONE, AND SIGNED, PATIENT WAS ORIENTED TO ROOM REMIND TO USE CALL LIGHTS WHEN NEEDED ASSISTANCE, PATIENT KEPT CLEAN AND DRY ALL NEEDS MET WILL CONTINUE TO MONITOR.
--- NOTE | 2022-09-23 23:30 | NUR ---
RN NOTES: NOTIFY RAMY LASSITER ABOUT PATIENT COMPLAIN OF PAIN . AND WANTS TO HAVE SOME ORAL INTAKE, ALREADY NOTIFY DR MCNEILL ABOUT THE PATIENT ORDER, NUT NO REPLY, MAIKOL ORDERED PUREED DIET IF NO PROCEDURE SINCE PATIENT HAVE NO DENTURE, AND DILAUDID 1MG IVP ONE TIME NOTED AND CARRY OUT.
[2022-09-24] MEDS ORDERED: HYDROMORPHONE 1 MG/1 ML DISP.SYRIN IV ONE
[2022-09-24] MEDS ORDERED: clonazePAM 1 MG TABLET PO PRN (01:30)
[2022-09-24] MEDS ORDERED: ACETAMINOPHEN 325 MG TABLET PO PRN (01:30)
[2022-09-24] MEDS ORDERED: MAG HYDROX/AL HYDROX/SIMETH 30 ML UDC PO PRN (01:30)
[2022-09-24] MEDS ORDERED: ALBUTEROL FS 2.5 MG/3 ML VIAL.NEB NEB PRN (01:30)
[2022-09-24] MEDS ORDERED: MAGNESIUM HYDROXIDE 30 ML UDC PO PRN (01:30)
[2022-09-24] MEDS ORDERED: ONDANSETRON HCL/PF 4 MG/2 ML VIAL IVP PRN (01:30)
[2022-09-24] MEDS ORDERED: Z GUARD REMEDY 4 OZ OINT TP PRN (01:30)
[2022-09-24] MEDS ORDERED: ZOLPIDEM TARTRATE 5 MG TABLET PO PRN (01:30)
[2022-09-24] MEDS: IV NS 0.9% 1,000 ML IV PRN (01:38)
--- NOTE | 2022-09-24 06:48 | NUR ---
MS RN CLOSING NOTES: PATIENT SLEEP IN BED COMFORTABLY, AROUSABLE TO VERBAL STIMULI, BED IN LOW POSITION, CALL LIGHTS WITHIN REACH, NO COMPLAIN OF PAIN AND DISCOMFORT AT THIS TIME, ON 02 INHALATION AT 2LPM SATURATING WELL, PATIENT ON PAINT MANAGEMENT, IV LINE AT LEFT WRIST #22 WITH ONGOING 0.9NSS@75ML/HR INFUSING WELL, PATIENT KEPT CLEAN AND DRY ALL NEEDS MET ENDORSE TO INCOMNG SHIFT.
[2022-09-24 07:00] VITALS: BP_SYST 110; BP_SYST 136; BP_DIAS 67; BP_DIAS 77
--- NOTE | 2022-09-24 07:29 | NUR ---
MS RN OPENING NOTES RECEIVED PT IN BED, AWAKE. A/O X 4, ABLE TO MAKE NEEDS KNOWN. NO C/O PAIN/DISCOMFORT AT THIS TIME. WITH O2 VIA NC AT 2LPM, TOLERATING WELL. IV ACCESS ON LEFT WRIST #22G WITH ONGOING NS @ 75 ML/HR, INFUSING WELL. SAFETY PRECAUTIONS MAINTAINED: BED LOCKED AND IN LOWEST POSITION, SIDE RAILS UP X2, BED ALARM ON, CALL LIGHT AND TRAY TABLE WITHIN REACH. WILL CONTINUE TO MONITOR.
[2022-09-24] MEDS: IPRATROPIUM NEB FS 0.5 MG/2.5 ML AMPUL.NEB NEB SCH ×2 (07:35→20:10)
[2022-09-24] MEDS: PANTOPRAZOLE 40 MG TABLET.DR PO SCH (08:01)
[2022-09-24] MEDS: LEVETIRACETAM (250 MG) 250 MG TABLET PO SCH (08:48)
[2022-09-24] MEDS: SERTRALINE HCL 50 MG TABLET PO SCH ×2 (08:49→16:35)
[2022-09-24] MEDS: HYDROMORPHONE INJ 2 MG/ML DISP.SYRIN IV PRN (08:49)
[2022-09-24] MEDS: FLUTICASONE/VILANTEROL 1 EACH BLST.W.DEV IH SCH (09:00)
[2022-09-24] MEDS: ENOXAPARIN SODIUM 40 MG/0.4 ML DISP.SYRIN SQ SCH (10:34)
--- NOTE | 2022-09-24 18:25 | NUR ---
RN NOTES PATIENT VERBALIZED HER LEFT HIP IS PAINFUL WITH THE SCALE OF 9/10, BP-95/55, DOUBLE CHECKED BP-86/55. REFERRED TO DR. ERNST AND ORDERED TO GIVE THE NORCO 10-325MG PO PRN AND NS 500ML BOLUS, CARRIED OUT. WILL CONTINUE TO MONITOR.
[2022-09-24] MEDS ORDERED: IV NS 0.9% 500 ML IV ONE (18:30)
[2022-09-24] MEDS: HYDROCODONE/APAP 10/325MG TABLET PO PRN (18:37)
--- NOTE | 2022-09-24 18:57 | NUR ---
MS RN CLOSING NOTES PT RESTING IN BED. A/O X 4, ABLE TO MAKE NEEDS KNOWN. WITH O2 VIA NC AT 2LPM, TOLERATING WELL. IV ACCESS ON LEFT WRIST #22G WITH ONGOING NS BOLUS 500ML, INFUSING WELL. SAFETY PRECAUTIONS MAINTAINED: BED LOCKED AND IN LOWEST POSITION, SIDE RAILS UP X2, BED ALARM ON, CALL LIGHT AND TRAY TABLE WITHIN REACH. WILL ENDORSE NEFTALI TO FORMULATION CHEMIST.
[2022-09-24 20:00] VITALS: BP 92/51
[2022-09-24] MEDS: QUETIAPINE FUMARATE 100 MG TABLET PO SCH (21:21)
[2022-09-25] MEDS: IPRATROPIUM NEB FS 0.5 MG/2.5 ML AMPUL.NEB NEB SCH ×4 (01:30→20:04)
--- NOTE | 2022-09-25 04:27 | NUR ---
closing notes slept this 12 hours resp tx ordered lungs clear 02 2 liters refused 1AM tx no c/o pain this 12 hours PPP seun and the feet warm and sensation present
[2022-09-25 06:18] LABS: BASOPHILS # (AUTO) 0.1 K/uL (0.0-0.2); BASOPHILS % (AUTO) 0.5 % (0.0-2.0); EOSINOPHILS % (AUTO) 3.6 % (0.0-6.0); HEMATOCRIT 43 % (33-45); HEMOGLOBIN 12.7 g/dL (11.5-14.8); LYMPHOCYTES # (AUTO) 2.9 K/uL (0.8-4.8); LYMPHOCYTES % (AUTO) 25.6 % (20.0-44.0); MEAN CORPUSCULAR HGB CONC 30 g/dl (31.0-36.0); MEAN CORPUSCULAR VOLUME 105 fL (82-100); MONOCYTES # (AUTO) 0.9 K/uL (0.1-1.30); MONOCYTES % (AUTO) 8.1 % (2.0-12.0); NEUTROPHILS # (AUTO) 7.1 K/uL (1.8-8.9); NEUTROPHILS % (AUTO) 62.2 % (43.0-81.0); PLATELET COUNT (AUTO) 243 K/uL (150-450); RED BLOOD CELL COUNT(AUTO) 4.08 MIL/uL (4.0-5.2); WHITE BLOOD COUNT (AUTO) 11.5 K/uL (4.3-11.0)
[2022-09-25 07:04] LABS: CALCIUM, SERUM 8.6 mg/dL (8.5-10.1); CREATININE 0.6 mg/dL (0.6-1.3); MAGNESIUM 1.7 mg/dL (1.8-2.4); PHOSPHORUS 4.2 mg/dL (2.5-4.9); POTASSIUM 4.7 mmol/L (3.5-5.1)
--- NOTE | 2022-09-25 07:29 | NUR ---
MS RN OPENING NOTES RECEIVED PT IN BED, AWAKE. A/O X 4, ABLE TO MAKE NEEDS KNOWN. WITH O2 VIA NC AT 2LPM, TOLERATING WELL. IV ACCESS ON LEFT WRIST #22G WITH ONGOING NS @ 75 ML/HR, INFUSING WELL. SAFETY PRECAUTIONS MAINTAINED: BED LOCKED AND IN LOWEST POSITION, SIDE RAILS UP X2, BED ALARM ON, CALL LIGHT AND TRAY TABLE WITHIN REACH. WILL CONTINUE TO MONITOR.
[2022-09-25] MEDS ORDERED: MAGNESIUM OXIDE 400 MG TABLET PO ONE (08:00)
[2022-09-25] MEDS ORDERED: IBUPROFEN 400 MG TABLET PO PRN (08:30)
[2022-09-25] MEDS: PANTOPRAZOLE 40 MG TABLET.DR PO SCH (08:56)
[2022-09-25] MEDS: FLUTICASONE/VILANTEROL 1 EACH BLST.W.DEV IH SCH (09:00)
[2022-09-25] MEDS: SERTRALINE HCL 50 MG TABLET PO SCH ×2 (09:05→17:32)
[2022-09-25] MEDS: HYDROMORPHONE INJ 2 MG/ML DISP.SYRIN IV PRN (09:05)
[2022-09-25] MEDS: LEVETIRACETAM (250 MG) 250 MG TABLET PO SCH (09:06)
[2022-09-25] MEDS: ENOXAPARIN SODIUM 40 MG/0.4 ML DISP.SYRIN SQ SCH (09:07)
[2022-09-25 09:25] VITALS: BP 134/84
--- NOTE | 2022-09-25 15:54 | NUR ---
RECEIVED PATIENT ON 2LNC SATURATIONS AT 94-96%. MD ORDERED HHN TXS GILBERTO WELL WITH NO ADVERSE REACTION NOTED. NO SOB NOTED.
[2022-09-25 16:21] VITALS: BP 93/57
[2022-09-25] MEDS: HYDROCODONE/APAP 10/325MG TABLET PO PRN (16:43)
--- NOTE | 2022-09-25 16:45 | NUR ---
RN NOTES PATIENT VERBALIZED THAT SHE IS IN PAIN WITH SCALE OF 8/10, NORCO 10-325MG PO PRN GIVEN AT 1643, WILL CONTINUE TO MONITOR.
[2022-09-25] MEDS: IV NS 0.9% 1,000 ML IV PRN (17:14)
[2022-09-25] MEDS ORDERED: HOME MED MISCELLANEOUS SL PRN (17:30)
--- NOTE | 2022-09-25 18:51 | NUR ---
MS RN CLOSING NOTES PT RESTING IN BED. A/O X 4, ABLE TO MAKE NEEDS KNOWN. WITH O2 VIA NC AT 2LPM, TOLERATING WELL. IV ACCESS ON LEFT WRIST #22G WITH ONGOING NS @ 75 ML/HR, INFUSING WELL. SAFETY PRECAUTIONS MAINTAINED: BED LOCKED AND IN LOWEST POSITION, SIDE RAILS UP X2, BED ALARM ON, CALL LIGHT AND TRAY TABLE WITHIN REACH. WILL ENDORSE NEFTALI TO INSPECTOR WIRE PRODUCTS.
[2022-09-25 20:00] VITALS: BP 105/65
[2022-09-25] MEDS: ALBUTEROL FS 2.5 MG/3 ML VIAL.NEB NEB SCH (20:04)
[2022-09-25 20:23] VITALS: BP 65/105
[2022-09-25] MEDS: QUETIAPINE FUMARATE 100 MG TABLET PO SCH (21:47)
[2022-09-25] MEDS: TEMAZEPAM 15 MG CAPSULE PO PRN (22:06)
[2022-09-26] MEDS: ALBUTEROL FS 2.5 MG/3 ML VIAL.NEB NEB SCH ×4 (01:30→20:17)
[2022-09-26] MEDS: IPRATROPIUM NEB FS 0.5 MG/2.5 ML AMPUL.NEB NEB SCH ×4 (01:30→20:17)
[2022-09-26] MEDS: IV NS 0.9% 1,000 ML IV PRN ×2 (05:11→20:39)
--- NOTE | 2022-09-26 05:52 | NUR ---
CLOSING NOTES: A/O X4 ENJOYS CONVERSATION COOPERATIVE JEWELS PPP FEET WARM AND SENSATION PRESENT ORTHO CONSULT ORDERED POC WILL BE WHAT HE HAS PLANNED PUREWICK IN PLACE NORCO LAST DOSE 1630 YESTERDAY SHE WAS REQUESTING A "SHOT" BUT EXPLAINED TO HER ABOUT THE EFFECTS OF NARCOTICS ON ARE SYSTEMS AND THE BLOOD PRESSURE HERS BEING TOO LOW TO GIVE A "SHOT" AND WHEN ONE SLEEPS RESP DECREASE AND NARCOTICS CAN ADD TO LOW RESP SHE WAS OKAY WITH NOT TAKING THE DILAUDID IT WAS TOO SOON TO GIVE NARCO AND THE NIGHT WHEN SHE FEEL ASLEEP AND DIDN'T ASK AGAIN KEEPING THE RIGHT HIP IN GOOD ALIGNMENT
[2022-09-26 06:03] LABS: BASOPHILS # (AUTO) 0.1 K/uL (0.0-0.2); BASOPHILS % (AUTO) 0.8 % (0.0-2.0); EOSINOPHILS % (AUTO) 3.4 % (0.0-6.0); HEMATOCRIT 41 % (33-45); LYMPHOCYTES # (AUTO) 2.6 K/uL (0.8-4.8); LYMPHOCYTES % (AUTO) 26.3 % (20.0-44.0); MEAN CORPUSCULAR HGB CONC 32 g/dl (31.0-36.0); MEAN CORPUSCULAR VOLUME 98 fL (82-100); MONOCYTES # (AUTO) 0.9 K/uL (0.1-1.30); MONOCYTES % (AUTO) 9.4 % (2.0-12.0); NEUTROPHILS % (AUTO) 60.1 % (43.0-81.0); PLATELET COUNT (AUTO) 263 K/uL (150-450); RED BLOOD CELL COUNT(AUTO) 4.17 MIL/uL (4.0-5.2)
[2022-09-26 06:31] LABS: CREATININE 0.6 mg/dL (0.6-1.3); MAGNESIUM 1.7 mg/dL (1.8-2.4); PHOSPHORUS 4.2 mg/dL (2.5-4.9); POTASSIUM 3.8 mmol/L (3.5-5.1)
--- NOTE | 2022-09-26 07:48 | NUR ---
MS RN OPENING NOTES RECEIVED PT AWAKE IN BED AND WATCHING TV, A/O X 4, ABLE TO MAKE NEEDS KNOWN. ON ROOM AIR AND TOLERATING WELL. ON PUREWICK, IV ACCESS ON LEFT WRIST #22G WITH ONGOING NS @ 75 ML/HR, PATENT AND INFUSING WELL. SAFETY PRECAUTIONS MAINTAINED: BED LOCKED AND IN LOWEST POSITION, SIDE RAILS UP X2, BED ALARM ON, CALL LIGHT AND TRAY TABLE WITHIN REACH. WILL CONTINUE TO MONITOR.
[2022-09-26] MEDS: BUDESONIDE RESPULE INH 0.5 MG/2 ML AMPUL.NEB NEB SCH ×2 (07:56→15:46)
[2022-09-26 08:00] VITALS: BP 115/61
[2022-09-26] MEDS: PANTOPRAZOLE 40 MG TABLET.DR PO SCH (08:17)
--- NOTE | 2022-09-26 08:40 | NUR ---
RN NOTES PT ON PURRED DIET BUT REFUSED TO EAT AND WANTS REGULAR DIET. DR ERNST MADE AWARE AND STATED THAT SHE CAN EAT WHATEVER SHE WANTS. PT PLACED ON REGULAR DIET AND ATE FAIRLY WELL.
[2022-09-26] MEDS: LEVETIRACETAM (250 MG) 250 MG TABLET PO SCH (08:53)
[2022-09-26] MEDS: SERTRALINE HCL 50 MG TABLET PO SCH ×2 (08:53→16:10)
[2022-09-26] MEDS ORDERED: MAGNESIUM OXIDE 400 MG TABLET PO ONE (09:30)
[2022-09-26] MEDS: ENOXAPARIN SODIUM 40 MG/0.4 ML DISP.SYRIN SQ SCH (09:44)
--- NOTE | 2022-09-26 10:04 | NUR ---
WOUND CARE CONSULT: PT PRESENTS WITH RT GREAT TOE DRY SCAB AND LEFT ANKLE PURULENT ULCER, PRESENT ON ADMISSION. DR MARSHALL CALLED FOR SURGICAL CONSULT. DISCUSSED SKIN PROTECTION WITH NURSING STAFF. IN AGREEMENT WITH PLAN OF CARE. PURE WICK IN USE FOR URINARY INCONTINENCE.
--- NOTE | 2022-09-26 10:58 | NUR ---
RN NOTES PT WITH LOW LEVEL MAGNESIUM 1.7 TODAY. ADMINISTRED MG OXIDE 400 MG TAB ORDERED.
[2022-09-26] MEDS: HYDROCODONE/APAP 10/325MG TABLET PO PRN ×2 (14:11→21:02)
--- NOTE | 2022-09-26 14:16 | NUR ---
RN NOTES PATIENT COMPLAINED OF LEFT HIP PAIN. SHE STATED THAT PAIN IS 8/10. NORCO 10/325MG TAB GIVEN
[2022-09-26 16:00] VITALS: BP 118/64
--- NOTE | 2022-09-26 18:40 | NUR ---
MS RN CLOSING NOTES PT AWAKE IN BED WATCHING TV, A/O X 4, ABLE TO MAKE NEEDS KNOWN. ON ROOM AIR AND TOLERATING WELL. ON PUREWICK, IV ACCESS ON LEFT WRIST #22G WITH ONGOING NS @ 75 ML/HR, PATENT AND INFUSING WELL. SAFETY PRECAUTIONS MAINTAINED: BED LOCKED AND IN LOWEST POSITION, SIDE RAILS UP X2, BED ALARM ON, CALL LIGHT AND TRAY TABLE WITHIN REACH. WILL ENDORSE TO THE SERVICE STATION ATTENDANT NURSE FOR NEFTALI.
--- NOTE | 2022-09-26 19:30 | NUR ---
MS RN OPENING NOTES RECEIVED PT AWAKE IN BED WATCHING TV, A/O X 4, ABLE TO MAKE NEEDS KNOWN. ON ROOM AIR AND TOLERATING WELL. ON PUREWICK WITH CLEAR YELLOW URINE OUTPUT NOTED. IV ACCESS ON LEFT WRIST #22G WITH ONGOING NS @ 75 ML/HR, PATENT AND INFUSING WELL. SAFETY PRECAUTIONS MAINTAINED: BED LOCKED AND IN LOWEST POSITION, SIDE RAILS UP X2, BED ALARM ON, CALL LIGHT AND TRAY TABLE WITHIN REACH. WILL CONTINUE TO MONITOR AND ASSIST.
[2022-09-26 20:00] VITALS: BP 129/73
[2022-09-26] MEDS: QUETIAPINE FUMARATE 100 MG TABLET PO SCH (21:58)
[2022-09-26] MEDS: TEMAZEPAM 15 MG CAPSULE PO PRN (23:59)
[2022-09-27] MEDS: ALBUTEROL FS 2.5 MG/3 ML VIAL.NEB NEB SCH ×3 (01:30→12:54)
[2022-09-27] MEDS: IPRATROPIUM NEB FS 0.5 MG/2.5 ML AMPUL.NEB NEB SCH ×3 (01:30→12:54)
--- NOTE | 2022-09-27 02:00 | NUR ---
RT NOTE HHN TX NOT GIVEN. PT STATED THAT SHE DID NOT WANT TO BE WOKEN UP. NO S/S OF RESP DISTRESS @ THIS TIME.
--- NOTE | 2022-09-27 06:53 | NUR ---
MS RN CLOSING NOTES PT SLEEPING IN BED AT THIS TIME, EASILY AROUSABLE. A/O X 4, ABLE TO MAKE NEEDS KNOWN. STABLE ON ROOM AIR AND TOLERATING WELL. ON PUREWICK WITH CLEAR YELLOW URINE OUTPUT NOTED, TOTAL OF 1100 ML FOR SHIFT. IV ACCESS ON LEFT WRIST #22G WITH ONGOING NS @ 75 ML/HR, PATENT AND INFUSING WELL. ALL CARE PROVIDED AND MEDS TOLERATED WELL. SAFETY PRECAUTIONS IN PLACE: BED LOCKED AND IN LOWEST POSITION, SIDE RAILS UP X2, BED ALARM ON, CALL LIGHT AND TRAY TABLE WITHIN REACH. WILL ENDORSE NEFTALI TO DAY SHIFT NURSE.
--- NOTE | 2022-09-27 07:25 | NUR ---
MS RN OPENING NOTES RECEIVED PT AWAKE IN BED, AWAKE. A/O X 4, ABLE TO MAKE NEEDS KNOWN. ON ROOM AIR, TOLERATING WELL. ON PUREWICK WITH CLEAR YELLOW URINE OUTPUT NOTED. IV ACCESS ON LEFT WRIST #22G WITH ONGOING NS @ 75 ML/HR, INFUSING WELL. SAFETY PRECAUTIONS MAINTAINED: BED LOCKED AND IN LOWEST POSITION, SIDE RAILS UP X2, BED ALARM ON, CALL LIGHT AND TRAY TABLE WITHIN REACH. WILL CONTINUE TO MONITOR.
[2022-09-27] MEDS: BUDESONIDE RESPULE INH 0.5 MG/2 ML AMPUL.NEB NEB SCH (07:50)
[2022-09-27] MEDS: PANTOPRAZOLE 40 MG TABLET.DR PO SCH (07:52)
[2022-09-27 08:00] VITALS: BP 129/68
--- NOTE | 2022-09-27 09:09 | NUR ---
RN NOTES PATIENT VERBALIZED THAT SHE IS ANXIOUS, KLONOPIN 1MG PO PRN GIVEN AT 0907, WILL CONTINUE TO MONITOR.
[2022-09-27] MEDS: ENOXAPARIN SODIUM 40 MG/0.4 ML DISP.SYRIN SQ SCH (09:10)
[2022-09-27] MEDS: LEVETIRACETAM (250 MG) 250 MG TABLET PO SCH (09:45)
[2022-09-27] MEDS: SERTRALINE HCL 50 MG TABLET PO SCH ×2 (09:46→16:37)
[2022-09-27] MEDS: IV NS 0.9% 1,000 ML IV PRN (10:11)
[2022-09-27] MEDS ORDERED: MAGNESIUM OXIDE 400 MG TABLET PO ONE (11:30)
[2022-09-27] MEDS: HYDROCODONE/APAP 10/325MG TABLET PO PRN (12:47)
--- NOTE | 2022-09-27 12:50 | NUR ---
RN NOTES PATIENT VERBALIZED SHE IS IN PAIN, NORCO 10-325MG PO PRN GIVEN. WILL CONTINUE TO MONITOR.
[2022-09-27 16:00] VITALS: BP 121/74
[2022-09-27] MEDS ORDERED: PROSOURCE / PROSTAT (PYXIS) 30 ML UDC GT SCH (17:00)
[2022-09-27] MEDS ORDERED: HYDR-3980 PO (18:01)
--- NOTE | 2022-09-27 18:20 | NUR ---
MS TELEMARKETER NOTE PATIENT DISCHARGED TO HOME IN STABLE CONDITION. A/O X 4, ON ROOM AIR, TOLERATING WELL. V/S TAKEN AND RECORDED. IV ACCESS REMOVED, DRY DRESSING APPLIED ON SITE. ALL BELONGINGS ACCOUNTED FOR. DISCHARGED INSTRUCTIONS GIVEN TO PT AND , BOTH VERBALIZED UNDERSTANDING. NAME ARM BAND REMOVED. MD AND CHARGE NURSE AWARE OF DISCHARGE. PT LEFT THE UNIT AT 18:02 VIA WHEELCHAIR ACCOMPANIED BY AND SAYRA Motta
[2022-10-03] MEDS ORDERED: HYDR-3980 PO (18:21)
== END 2022-09-27 18:00 | disposition home or self-care (01) | DRG 536 ==
LOC: ER 15:43 → MED 19:15
PROVIDERS: ADMIT Nurse Practitioner Acute Care; ATTEND Nurse Practitioner Acute Care
DX: S72.115A Nondisplaced fracture of greater trochanter of left femur, initial encounter for closed fracture (principal); E78.5 Hyperlipidemia, unspecified; J44.9 Chronic obstructive pulmonary disease, unspecified; W19.XXXA Unspecified fall, initial encounter; Y92.9 Unspecified place or not applicable; E83.42 Hypomagnesemia; F17.210 Nicotine dependence, cigarettes, uncomplicated; F32.A Depression, unspecified; F43.10 Post-traumatic stress disorder, unspecified; Z53.29 Procedure and treatment not carried out because of patient's decision for other reasons; Z79.02 Long term (current) use of antithrombotics/antiplatelets; Z79.899 Other long term (current) drug therapy; Z82.49 Family history of ischemic heart disease and other diseases of the circulatory system; Z83.3 Family history of diabetes mellitus; S90.02XA Contusion of left ankle, initial encounter; X58.XXXA Exposure to other specified factors, initial encounter
CPT/HCPCS: 36415; 71045-TC; 72192-TC; 73502; 80048-TC; 83735-TC; 84100-TC; 85025-TC; 85730-TC; 94799-TC; 97112-TC; 97116-TC; C9803; G0378; J1170; J1650; J7030; J7040

== ENCOUNTER 2022-11-19 12:10 | Inpatient (IN) | payer MEDICARE, OTHER ==
[~2022-11-19] VITALS: Ht 154.9 cm; Wt 56.2 kg
[~2022-11-19 12:10] MED LIST changes: +BUPR1TAB39 SL; +FLUT1BLS15 INH; +HYDR-3980 PO; +IBUP-1957 PO; +LEVE100023 PO; +OMEP40CA21 PO; -PHEN100C4 PO
[2022-11-19] MEDS ORDERED: ACETAMINOPHEN ES 500 MG TABLET PO ONE (12:30)
[2022-11-19] MEDS ORDERED: IV NS 0.9% 1,000 ML BAG IV ONE ×2 (12:30→14:00)
[2022-11-19] MEDS ORDERED: ACETAMINOPHEN ES 500 MG TABLET ONE (12:36)
--- NOTE | 2022-11-19 12:55 | NUR ---
PAGED RT FOR G
--- NOTE | 2022-11-19 12:57 | NUR ---
PT COMES FOR GENERALIZED WEAKNESS POST HIP SURGERY November. PT STATES THAT CONDITION HAS WORSENED SINCE THEN. PT IS A/O X4 BREATHING IS EVEN AND UNLABORED AFEBRILE BUT TACHYCARDIC 115 SINUS TACH ON MONITOR BP 109/88. IN BED LINE STARTED BLOOD COLLECTED AND SENT TO LAB. SIDE RAILS UP BED LOCKED IN LOWEST POSTITION.
[2022-11-19 13:01] LABS: BASOPHILS % (AUTO) 0.1 % (0.0-2.0); EOSINOPHILS % (AUTO) 0.4 % (0.0-6.0); HEMATOCRIT 38 % (33-45); HEMOGLOBIN 12.1 g/dL (11.5-14.8); LYMPHOCYTES # (AUTO) 2.5 K/uL (0.8-4.8); LYMPHOCYTES % (AUTO) 8.3 % (20.0-44.0); MEAN CORPUSCULAR HGB CONC 31 g/dl (31.0-36.0); MEAN CORPUSCULAR VOLUME 97 fL (82-100); MONOCYTES # (AUTO) 1.7 K/uL (0.1-1.30); MONOCYTES % (AUTO) 5.5 % (2.0-12.0); NEUTROPHILS # (AUTO) 26.2 K/uL (1.8-8.9); NEUTROPHILS % (AUTO) 85.7 % (43.0-81.0); PLATELET COUNT (AUTO) 359 K/uL (150-450); RED BLOOD CELL COUNT(AUTO) 3.96 MIL/uL (4.0-5.2)
--- NOTE | 2022-11-19 13:07 | NUR ---
RT AT THE BEDSIDE
--- NOTE | 2022-11-19 13:10 | NUR ---
COVID SWAB COLLECTED AND SENT TO LAB
--- NOTE | 2022-11-19 13:11 | NUR ---
BG STICK 141
[2022-11-19 13:19] LABS: ABG BASE EXCESS -6.3 mmol/L; ABG PH 7.293 (7.350-7.450); ABG PO2 57.9 mmHg (75.0-100.0); COHb 2.9 % (0.5-1.5); O2Hb 83.8 % (94.0-97.0); SITE, ABG Right Radial; VENT MODE, BG NASAL CANNULA
--- NOTE | 2022-11-19 13:23 | NUR ---
RT INCREASED THE PATIENT`S OXYGEN TO 4L/MIN VIA NC PER DR WOO ORDER. PRIMARY NURSE MADE AWARE. OXYGEN SATURATION IS AT 98% WITH OXYGEN AT 4L/MIN VIA NC.
--- NOTE | 2022-11-19 13:24 | NUR ---
URINE COLLECTED AND SENT TO THE LAB
[2022-11-19 13:25] LABS: WHITE BLOOD COUNT (AUTO) 30.6 K/uL (4.3-11.0)
[2022-11-19 13:37] LABS: CALCIUM, SERUM 9.7 mg/dL (8.5-10.1); CARBON DIOXIDE 22 mmol/L (21-32); CHLORIDE 108 mmol/L (98-107); CREATININE 1.1 mg/dL (0.6-1.3); GLUCOSE 145 mg/dL (74-106); POTASSIUM 3.5 mmol/L (3.5-5.1); SODIUM SERUM 142 mmol/L (136-145); UREA NITROGEN, BLOOD 23 mg/dL (7-18)
[2022-11-19 13:38] LABS: BILIRUBIN,URINE NEGATIVE (NEGATIVE); COLOR,URINE YELLOW (YELLOW); LEUKOCYTE ESTERASE ,URINE 3+ (NEGATIVE); NITRITE, URINE POSITIVE (NEGATIVE); PROTEIN,URINE 1+ mg/dl (NEGATIVE); UGLUCOSE NEGATIVE (NEGATIVE); UROBILINOGEN,URINE 0.2 EU/dL (0.2)
[2022-11-19 13:50] LABS: THYROID STIMULATING HORMONE 0.448 uIU/mL (0.358-3.74)
[2022-11-19 13:51] LABS: ALANINE AMINOTRANSFERASE 30 U/L (12-78); ALKALINE PHOSPHATASE 118 U/L (46-116); ASPARTATE AMINOTRANSFERASE 54 U/L (15-37); BAND % (MANUAL) 4 % (0.0-5.0); BILIRUBIN,DIRECT 0.3 mg/dL (0.0-0.2); BILIRUBIN,TOTAL 0.6 mg/dL (0.2-1.0); LYMPHOCYTES % (MANUAL) 8 % (16-48); MONOCYTES % (MANUAL) 4 % (0-11.0); NEUTROPHILS % (MANUAL) 84 (42-76); TOTAL PROTEIN, SERUM 7.9 g/dL (6.4-8.2)
[2022-11-19 13:54] LABS: ALCOHOL, BLOOD < 3 mg/dL (0-10)
--- NOTE | 2022-11-19 13:54 | NUR ---
x ray called for ETA on shooting image.
[2022-11-19] MEDS ORDERED: CEFTRIAXONE 1GM BAG (ER ONLY) 50 ML IV ONE ×2 (14:00)
[2022-11-19 14:03] LABS: RBC,URINE TOO NUMEROUS TO COUN /HPF (0-2)
[2022-11-19 14:04] LABS: BACTERIA,URINE 4+ /HPF (None Seen); SQUAMOUS EPITHELIAL CELL,UR Moderate /HPF (None Seen)
--- NOTE | 2022-11-19 14:09 | NUR ---
PT AWAY AT CT
--- NOTE | 2022-11-19 14:15 | NUR ---
PAGED DR. PRATER FOR PEER TO PEER CONSULT.
[2022-11-19] MEDS ORDERED: CHOL100062 PO (14:47)
[2022-11-19] MEDS ORDERED: ASPI-1420 PO (14:47)
[2022-11-19] MEDS ORDERED: AZITHROMYCIN 500 MG in IV D5W 250 ML IV ONE (15:00)
--- NOTE | 2022-11-19 16:19 | NUR ---
102 TRASFER AT 5PM PER NURSING SOOP
--- NOTE | 2022-11-19 17:23 | NUR ---
HANDOFF REPORT GIVEN TO [facility] FOR INPATIENT SERVICES.
[2022-11-19 17:45] VITALS: BP 111/62
--- NOTE | 2022-11-19 17:45 | NUR ---
PATIENT ADMITTED TO ROOM 102 FROM ER VIA STRETCHER. ALERT TO NAME, TIME, AND PLACE. PATIENT IS DROWSY. ON O2 3 LITERS NASAL CANNULA SATING AT 96%. MOIST ORAL MUCOSA NO TEETH. DEBONER SINUS TACHY 101. IV ON RIGHT WRIST 20G PATENT. NOTED WITH RIGHT KNEE SCAB, RT ANKLE SCABS AND REDNESS, RT FOOT FOOT BLISTER. LEFT HEEL REDNESS. LEFT UPPER ARM ECCHYMOTIC AREAS. HOB ELEVATED. BILATERAL HALF SIDE RAILS UPX2. BED IN LOW POSITION, LOCKED, EXIT ALARM ON. CALL LIGHT IN REACH.
[2022-11-19] MEDS ORDERED: ALBUTEROL FS 2.5 MG/0.5 ML VIAL.NEB IH PRN (19:00)
[2022-11-19] MEDS ORDERED: IBUPROFEN 400 MG TABLET PO PRN (19:00)
[2022-11-19] MEDS ORDERED: HYDROCODONE/APAP 10/325MG TABLET PO PRN (19:00)
[2022-11-19] MEDS ORDERED: clonazePAM 1 MG TABLET PO PRN (19:00)
[2022-11-19] MEDS ORDERED: TEMAZEPAM 15 MG CAPSULE PO PRN (19:00)
[2022-11-19] MEDS ORDERED: ONDANSETRON HCL/PF 4 MG/2 ML VIAL IVP PRN (19:00)
[2022-11-19] MEDS ORDERED: HYDROCODONE/APAP 5/325MG TABLET PO PRN (19:00)
[2022-11-19] MEDS ORDERED: MAGNESIUM HYDROXIDE 30 ML UDC PO PRN (19:00)
[2022-11-19] MEDS ORDERED: MAG HYDROX/AL HYDROX/SIMETH 30 ML UDC PO PRN (19:00)
[2022-11-19] MEDS ORDERED: Z GUARD REMEDY 4 OZ OINT TP PRN (19:00)
--- NOTE | 2022-11-19 19:00 | NUR ---
RN OPENING NOTE RECEIVED PT ASLEEP IN BED. PT IS A/O X 4, ABLE O MAKE NEEDS KNOWN. PT IS IN 2L O2 INHALATION VIA NASAL CANNULA, TOLERATING WELL, BREATHING EVEN AND UNLABORED @ THIS TIME. PT IV PRESENT IN RIGHT WRIST SALINE LOCK , PATENT, INTACT AND FLUSHES WELL W/ NO S&SX OF INFILTRATION NOTED @ SITE. 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 SAFETY MEASURE IS IN PLACE. BED IN LOWEST AND LOCKED POSITION. SIDE RAILS UP X 2. BEDSIDE TABLE AND CALL IS EASY REACH. BED ALARM IS ON. WILL CONTINUE TO MONITOR PT ACCORDINGLY.
[2022-11-19] MEDS: BUDESONIDE RESPULE INH 0.5 MG/2 ML AMPUL.NEB IH SCH (19:30)
[2022-11-19] MEDS: ALBUTEROL FS 2.5 MG/0.5 ML VIAL.NEB NEB SCH (19:30)
[2022-11-19 20:00] VITALS: BP 108/63
[2022-11-19] MEDS: LEVETIRACETAM (250 MG) 250 MG TABLET PO SCH (20:47)
[2022-11-19] MEDS: ENOXAPARIN SODIUM 40 MG/0.4 ML DISP.SYRIN SQ SCH (20:47)
[2022-11-19] MEDS: QUETIAPINE FUMARATE 100 MG TABLET PO SCH (21:00)
[2022-11-19 22:00] VITALS: BP 108/63
[2022-11-20] VITALS: BP 133/70
[2022-11-20] MEDS: ALBUTEROL FS 2.5 MG/0.5 ML VIAL.NEB NEB SCH ×4 (01:54→19:48)
[2022-11-20] MEDS: IV NS 0.9% 1,000 ML IV PRN ×2 (02:46→15:05)
[2022-11-20 04:00] VITALS: BP 144/88
[2022-11-20 06:09] LABS: BASOPHILS # (AUTO) 0.2 K/uL (0.0-0.2); BASOPHILS % (AUTO) 0.6 % (0.0-2.0); EOSINOPHILS % (AUTO) 0.8 % (0.0-6.0); HEMATOCRIT 40 % (33-45); HEMOGLOBIN 12.4 g/dL (11.5-14.8); LYMPHOCYTES # (AUTO) 2.8 K/uL (0.8-4.8); LYMPHOCYTES % (AUTO) 9.8 % (20.0-44.0); MEAN CORPUSCULAR HGB CONC 31 g/dl (31.0-36.0); MEAN CORPUSCULAR VOLUME 101 fL (82-100); MONOCYTES # (AUTO) 1.6 K/uL (0.1-1.30); MONOCYTES % (AUTO) 5.5 % (2.0-12.0); NEUTROPHILS # (AUTO) 24.1 K/uL (1.8-8.9); NEUTROPHILS % (AUTO) 83.3 % (43.0-81.0); PLATELET COUNT (AUTO) 219 K/uL (150-450); RED BLOOD CELL COUNT(AUTO) 3.93 MIL/uL (4.0-5.2); WHITE BLOOD COUNT (AUTO) 28.9 K/uL (4.3-11.0)
[2022-11-20 06:30] LABS: THYROID STIMULATING HORMONE 0.455 uIU/mL (0.358-3.74)
--- NOTE | 2022-11-20 06:38 | NUR ---
RN CLOSING NOTE PT ASLEEP & RESTING COMFORTABLY IN BED. PT IS A/O X 4 RESPONSIVE & FOLLOWS VERBAL COMMAND. PT IS IN 2L O2 INHALATION VIA NASAL CANNULA W/ NO S&SX OF RESPIRATORY DISTRESS @ THIS TIME. PT IV PRESENT IN RIGHT WRIST RUNNING NS @75MNLS/HR, PATENT, INTACT AND FLUSHES WELL W/ NO S&SX OF INFILTRATION NOTED @ SITE. PT HOISTMAN IS IN PLACE WITH CURRENT READING OF SINUS TACHYCARDIA, HR 114BPM. PT IS IN PUREWICK DRAINING YELLOW COLORED URINE. PT KEPT CLEAN AND DRY. SAFETY MEASURE IS IN PLACE. BED IN LOWEST AND LOCKED POSITION. SIDERAILS UP X 2. BEDSIDE TABLE AND CALL LIGHT IS EASY REACH. BED ALARM IS ON. WILL ENDORSE PT TO THE NEXT SHIFT FOR NEFTALI.
[2022-11-20 06:39] LABS: CALCIUM, SERUM 9.6 mg/dL (8.5-10.1); CREATININE 0.8 mg/dL (0.6-1.3); MAGNESIUM 1.8 mg/dL (1.8-2.4); PHOSPHORUS 3.8 mg/dL (2.5-4.9); POTASSIUM 3.9 mmol/L (3.5-5.1)
--- NOTE | 2022-11-20 07:10 | NUR ---
GLASS CLEANER OPEN NOTE: ALERT TO NAME, TIME, AND PLACE. MOIST ORAL MUCOSA. ON O2 2 LITERS NASAL CANNULA SATING AT 96%. MOIST ORAL MUCOSA. COMPUTER REPAIR ENGINEER SINUS TACHY 117. IV ON RIGHT WRIST 20G PATENT WITH IVF OF NS 75 ML/HR. NO S/S OF COMPLICATIONS. HOB ELEVATED. BILATERAL HALF SIDE RAILS UPX2. BED IN LOW POSITION, LOCKED, EXIT ALARM ON. CALL LIGHT IN REACH.
[2022-11-20] MEDS: BUDESONIDE RESPULE INH 0.5 MG/2 ML AMPUL.NEB IH SCH ×2 (07:30→19:48)
[2022-11-20 08:00] VITALS: BP 130/75
[2022-11-20] MEDS: PANTOPRAZOLE 40 MG TABLET.DR PO SCH (08:03)
[2022-11-20] MEDS: CHOLECALCIFEROL 1,000 UNIT TABLET (VIT D3) PO SCH (08:04)
[2022-11-20] MEDS: ASPIRIN EC 81 MG TABLET.DR PO SCH (08:04)
[2022-11-20] MEDS: LEVETIRACETAM (250 MG) 250 MG TABLET PO SCH ×2 (08:04→21:53)
[2022-11-20] MEDS: SERTRALINE HCL 50 MG TABLET PO SCH ×2 (08:04→17:27)
[2022-11-20] MEDS: ACETAMINOPHEN 325 MG TABLET PO PRN ×2 (09:02→17:31)
[2022-11-20] MEDS: IPRATROPIUM NEB FS 0.5 MG/2.5 ML AMPUL.NEB NEB SCH ×3 (10:30→19:48)
[2022-11-20] MEDS: methylPREDNISolone SOD SUCC 125 MG/2ML VIAL IV SCH ×2 (11:57→17:27)
[2022-11-20 12:00] VITALS: BP 114/75
[2022-11-20] MEDS: CEFTRIAXONE 1 G in IV D5W 50 ML IV SCH (15:04)
[2022-11-20 16:00] VITALS: BP 103/65
--- NOTE | 2022-11-20 19:00 | NUR ---
FINGERER CLOSING NOTE: ALERT TO NAME, TIME, AND PLACE. MOIST ORAL MUCOSA. ON O2 2 LITERS NASAL CANNULA SATING AT 96%. MOIST ORAL MUCOSA. DEPUTY COMMISSIONER SINUS TACHY 106. IV ON RIGHT WRIST 20G PATENT WITH IVF OF NS 75 ML/HR. NO S/S OF COMPLICATIONS. HOB ELEVATED. BILATERAL HALF SIDE RAILS UPX2. BED IN LOW POSITION, LOCKED, EXIT ALARM ON. CALL LIGHT IN REACH. VISITED BY SPOUSE. SPOUSE SUSANNE BROUGHT PATIENT BOOK WHERE IT SAYS PATIENT TAKES SEROQUEL 200 MG FOUR TIMES A DAY, PER RESIDENT HAS BEEN TAKING IT FROM MARCH LAST YEAR. PATIENT PATIENT PARTICIPATED IN PT TODAY, WENT FOR CT SCAN CHEST WITHOUT CONTRAST IN AM.
--- NOTE | 2022-11-20 19:30 | NUR ---
PT AWAKE. A/O X4, ON TELE MONITOR SHOWING ST. ON O2 VIA NC AT 2LPM. ON CARDIAC LOW FAT DIET. INCONTINENT, ON PUREWICK. IV ACCESS ON RT WRIST #20 INFUSING NS AT 75 ML/HR. NO SOB. NO COMPLAINTS OF PAIN. SAFETY MEASURES IN PLACE. HOB ELEVATED. WILL CONTINUE PLAN OF CARE.
[2022-11-20 20:00] VITALS: BP 105/63
--- NOTE | 2022-11-20 20:49 | NUR ---
WILL HOLD SEROQUEL ADVISED BY ATTENDING PHYSICIAN.
[2022-11-20] MEDS: QUETIAPINE FUMARATE 100 MG TABLET PO SCH (21:00)
[2022-11-20] MEDS: ENOXAPARIN SODIUM 40 MG/0.4 ML DISP.SYRIN SQ SCH (21:53)
[2022-11-21] VITALS: BP 112/66
[2022-11-21] MEDS: ALBUTEROL FS 2.5 MG/0.5 ML VIAL.NEB NEB SCH ×4 (01:45→20:14)
[2022-11-21] MEDS: IPRATROPIUM NEB FS 0.5 MG/2.5 ML AMPUL.NEB NEB SCH ×4 (01:45→20:14)
[2022-11-21] MEDS: IV NS 0.9% 1,000 ML IV PRN ×2 (03:28→22:16)
[2022-11-21 04:00] VITALS: BP 110/60
--- NOTE | 2022-11-21 07:00 | NUR ---
RN OPENING NOTES PATIENT AWAKE IN BED. A/O x4, ABLE TO MAKE NEEDS KNOWN. ON 2L NC, BREATHING EVEN AND UNLABORED, WITH NO DISTRESS, SOB OR PAIN NOTED. USING PUREWICK. IV ACCESS ON R WRIST WITH CONTINUOUS NS AT 75 M;/HR, INTACT AND PATENT. DRY SCABS NOTED ON R KNEE, R FOOT, R KNEE AND HEEL. SKIN INTACT. SKIN CARE WILL BE PROVIDED PER MD ORDER. SEROQUIL ON HOLD SINCE LAST NIGHT. SAFETY MEASURES IN PLACE, BED IN LOWEST LOCKED POSITION. SIDE RAILS UP X 2. CALL LIGHT AND TABLE WITHIN REACH. WILL CONTINUE TO MONITOR.
--- NOTE | 2022-11-21 07:08 | NUR ---
PT AWAKE. A/O X4, ON TELE MONITOR SHOWING ST. ON O2 VIA NC AT 2LPM. ON CARDIAC LOW FAT DIET. INCONTINENT, ON PUREWICK. IV ACCESS ON RT WRIST #20 INFUSING NS AT 75 ML/HR. NO SOB. NO COMPLAINTS OF PAIN. NEEDS ATTENDED. DUE MEDS GIVEN NEEDED AND ORDERED. SAFETY MEASURES MAINTAINED. HOB ELEVATED. CALL LIGHT WITHIN REACH. WILL ENDORSE TO NEXT NURSE ON DUTY FOR CONTINUITY OF CARE.
[2022-11-21] MEDS: BUDESONIDE RESPULE INH 0.5 MG/2 ML AMPUL.NEB IH SCH ×2 (07:30→20:14)
[2022-11-21 08:00] VITALS: BP 118/64
[2022-11-21] MEDS: PANTOPRAZOLE 40 MG TABLET.DR PO SCH (08:06)
[2022-11-21] MEDS: CHOLECALCIFEROL 1,000 UNIT TABLET (VIT D3) PO SCH (08:06)
[2022-11-21] MEDS: SERTRALINE HCL 50 MG TABLET PO SCH ×2 (08:06→17:28)
[2022-11-21] MEDS: methylPREDNISolone SOD SUCC 125 MG/2ML VIAL IV SCH ×2 (08:06→17:28)
[2022-11-21] MEDS: ASPIRIN EC 81 MG TABLET.DR PO SCH (08:06)
[2022-11-21] MEDS: LEVETIRACETAM (250 MG) 250 MG TABLET PO SCH ×2 (08:06→22:01)
--- NOTE | 2022-11-21 08:37 | NUR ---
RT PATIENT AWAKE, ALERT, ON 2L NC. REFUSED ABG AT THIS TIME. NO SOB NOTED. DR SOOD NOTIFIED
[2022-11-21] MEDS: QUETIAPINE FUMARATE 100 MG TABLET PO SCH ×4 (09:30→22:01)
--- NOTE | 2022-11-21 09:30 | NUR ---
RN NOTE RECEIVED ORDERS FROM DOCTOR HARLEY [facility] TO CONTINUE QUETIAPINE. ORDER PERFORMED.
[2022-11-21 12:00] VITALS: BP 120/69
[2022-11-21] MEDS: CEFTRIAXONE 1 G in IV D5W 50 ML IV SCH (14:00)
[2022-11-21 16:00] VITALS: BP 111/64
[2022-11-21 16:26] LABS: ABG BASE EXCESS -7.2 mmol/L; ABG PCO2 38.1 mmHg (35.0-45.0); ABG PH 7.305 (7.350-7.450); ABG PO2 71.4 mmHg (75.0-100.0); AaDO2 83.3 mmHg; COHb 0.8 % (0.5-1.5); MetHb 0.3 % (0.0-1.5); SITE, ABG Right Radial
--- NOTE | 2022-11-21 19:29 | NUR ---
RN CLOSING NOTES PATIENT AWAKE IN BED. A/O x4, ABLE TO MAKE NEEDS KNOWN. ON 2L NC, BREATHING EVEN AND UNLABORED, WITH NO DISTRESS, SOB OR PAIN NOTED. USING PUREWICK. IV ACCESS ON LEFT AC MIDLINE WITH CONTINUOUS NS AT 75 M;/HR, INTACT AND PATENT. DRY SCABS NOTED ON R KNEE, R FOOT, R KNEE AND HEEL. SKIN INTACT. SKIN CARE PROVIDED PER MD ORDER. ALL MORNING MEDICATIONS GIVEN PER MD ORDER, PATIENT WAS REPOSITIONED EVERY TWO HOURS. SAFETY MEASURES IN PLACE, BED IN LOWEST LOCKED POSITION. SIDE RAILS UP X 2. CALL LIGHT AND TABLE WITHIN REACH.REPORT GIVEN TO NIGHT NURSE FOR CONTINUING OF CARE.
[2022-11-21 20:00] VITALS: BP 114/67
--- NOTE | 2022-11-21 20:00 | NUR ---
MS RN NOTE PT IN BED ASLEEP, AROUSABLE. A/O X 4, NO SOB, NO DISTRESS OR DISCOMFORT NOTED. DENIES PAIN. ON O2 2L VIA N/C O2 SAT 94%. HOB ELEVATED. IVF AT LISSA MID LINE INFUSING NS AT 75 ML/HR, NO S/S OF INFILTRATION NOTED. KEPT HER DRY AND CLEAN. ALL NEEDS ATTENDED. VSS. CONTINUE TO MONITOR HER.
[2022-11-21] MEDS: ENOXAPARIN SODIUM 40 MG/0.4 ML DISP.SYRIN SQ SCH (22:04)
[2022-11-22] MEDS: ALBUTEROL FS 2.5 MG/0.5 ML VIAL.NEB NEB SCH ×4 (01:30→20:24)
[2022-11-22] MEDS: IPRATROPIUM NEB FS 0.5 MG/2.5 ML AMPUL.NEB NEB SCH ×4 (01:30→20:24)
--- NOTE | 2022-11-22 02:14 | NUR ---
RT NOTE PT REFUSED TX AT THIS TIME. PT CURRENTLY ON 2LPM NASAL CANNULA. NO SOB NOTED. RN NOTIFIED.
[2022-11-22 04:00] VITALS: BP 124/68
[2022-11-22 06:21] LABS: BASOPHILS # (AUTO) 0.1 K/uL (0.0-0.2); BASOPHILS % (AUTO) 0.4 % (0.0-2.0); EOSINOPHILS % (AUTO) 0.2 % (0.0-6.0); HEMATOCRIT 28 % (33-45); HEMOGLOBIN 9.1 g/dL (11.5-14.8); LYMPHOCYTES # (AUTO) 3.3 K/uL (0.8-4.8); LYMPHOCYTES % (AUTO) 16.3 % (20.0-44.0); MEAN CORPUSCULAR HGB CONC 32 g/dl (31.0-36.0); MEAN CORPUSCULAR VOLUME 99 fL (82-100); MONOCYTES # (AUTO) 1.5 K/uL (0.1-1.30); MONOCYTES % (AUTO) 7.3 % (2.0-12.0); NEUTROPHILS # (AUTO) 15.4 K/uL (1.8-8.9); NEUTROPHILS % (AUTO) 75.8 % (43.0-81.0); PLATELET COUNT (AUTO) 277 K/uL (150-450); RED BLOOD CELL COUNT(AUTO) 2.87 MIL/uL (4.0-5.2); WHITE BLOOD COUNT (AUTO) 20.3 K/uL (4.3-11.0)
[2022-11-22 06:49] LABS: ALBUMIN 1.8 g/dL (3.4-5.0); BILIRUBIN,TOTAL 0.1 mg/dL (0.2-1.0); CALCIUM, SERUM 8.6 mg/dL (8.5-10.1); CREATININE 0.6 mg/dL (0.6-1.3); MAGNESIUM 1.6 mg/dL (1.8-2.4); POTASSIUM 2.9 mmol/L (3.5-5.1); TOTAL PROTEIN, SERUM 5.4 g/dL (6.4-8.2)
--- NOTE | 2022-11-22 07:10 | NUR ---
PIPELINE TECHNICIAN OPENING NOTES Received pt asleep in bed AOX4. No complaints of pain or discomfort at this time. Pt is on 2L NC and tolerating it well. IV access on LISSA midline patent and intact. HOB elevated to pts comfort. Siderails up at all times x3. Call light within reach. Will continue to monitor.
[2022-11-22] MEDS: BUDESONIDE RESPULE INH 0.5 MG/2 ML AMPUL.NEB IH SCH ×2 (07:30→20:24)
[2022-11-22 08:00] VITALS: BP 118/68
[2022-11-22] MEDS: methylPREDNISolone SOD SUCC 125 MG/2ML VIAL IV SCH ×2 (09:05→16:33)
[2022-11-22] MEDS: PANTOPRAZOLE 40 MG TABLET.DR PO SCH (09:06)
[2022-11-22] MEDS: LEVETIRACETAM (250 MG) 250 MG TABLET PO SCH ×2 (09:06→21:35)
[2022-11-22] MEDS: QUETIAPINE FUMARATE 100 MG TABLET PO SCH ×4 (09:06→21:35)
[2022-11-22] MEDS: CHOLECALCIFEROL 1,000 UNIT TABLET (VIT D3) PO SCH (09:06)
[2022-11-22] MEDS: SERTRALINE HCL 50 MG TABLET PO SCH ×2 (09:06→16:34)
[2022-11-22] MEDS: ASPIRIN EC 81 MG TABLET.DR PO SCH (09:06)
[2022-11-22] MEDS: Magnesium 1GM/D5W 100ML PREMIX 100 ML IV SCH ×2 (09:22→10:27)
[2022-11-22] MEDS ORDERED: POTASSIUM CHLORIDE 20 MEQ TAB.PRT.SR PO ONE (10:00)
[2022-11-22 12:00] VITALS: BP 128/66
[2022-11-22] MEDS: IV NS 0.9% 1,000 ML IV PRN (13:45)
[2022-11-22] MEDS: CEFTRIAXONE 1 G in IV D5W 50 ML IV SCH (15:02)
[2022-11-22 16:00] VITALS: BP 114/62
--- NOTE | 2022-11-22 18:40 | NUR ---
ER MEDICAL TECHNICIAN CLOSING NOTES All due meds and tx gien as ordered. Pt tolerated everything well. All needs attended to. Call light within reach. Will endorse to oncoming nurse.
--- NOTE | 2022-11-22 19:54 | NUR ---
noc rn opening note received patient in bed a/ox4, no s/s of apparent distress on 2lpm of o2 via nc. denies any pain, patient just asked for warm blankets. left upper arm midline running NS @75mls/hr. Purewick draining clear yellow urine. safety in place-- bed in lowest, locked position, bed rails upX4, call light within reach. Patient wished for her door to be closed. will continue with the plan for patient.
[2022-11-22 20:00] VITALS: BP 120/68
[2022-11-22] MEDS: ENOXAPARIN SODIUM 40 MG/0.4 ML DISP.SYRIN SQ SCH (21:37)
--- NOTE | 2022-11-22 23:22 | NUR ---
noc rn note- PRN Patient request for sleeping medication. messaged irrigation equipment installer hospitalist Carter Rueda and he ordered patient's Temazepam 15mg in patient QHS PRN. order read back and carried out. will re-assess.
[2022-11-22] MEDS ORDERED: TEMAZEPAM 15 MG CAPSULE PO PRN (23:30)
[2022-11-23] MEDS: ALBUTEROL FS 2.5 MG/0.5 ML VIAL.NEB NEB SCH ×3 (01:30→13:31)
[2022-11-23] MEDS: IPRATROPIUM NEB FS 0.5 MG/2.5 ML AMPUL.NEB NEB SCH ×3 (01:30→13:31)
--- NOTE | 2022-11-23 02:27 | NUR ---
noc rn note Patient refused breathing tx. wished to sleep. will monitor.
[2022-11-23] MEDS: IV NS 0.9% 1,000 ML IV PRN (04:59)
[2022-11-23 05:00] VITALS: BP 114/59
[2022-11-23 05:52] LABS: BASOPHILS # (AUTO) 0.1 K/uL (0.0-0.2); BASOPHILS % (AUTO) 0.5 % (0.0-2.0); EOSINOPHILS % (AUTO) 0.2 % (0.0-6.0); HEMATOCRIT 30 % (33-45); HEMOGLOBIN 9.6 g/dL (11.5-14.8); LYMPHOCYTES # (AUTO) 2.5 K/uL (0.8-4.8); LYMPHOCYTES % (AUTO) 17.3 % (20.0-44.0); MEAN CORPUSCULAR HGB CONC 32 g/dl (31.0-36.0); MEAN CORPUSCULAR VOLUME 98 fL (82-100); MONOCYTES # (AUTO) 1.2 K/uL (0.1-1.30); NEUTROPHILS # (AUTO) 10.7 K/uL (1.8-8.9); PLATELET COUNT (AUTO) 289 K/uL (150-450); RED BLOOD CELL COUNT(AUTO) 3.02 MIL/uL (4.0-5.2); WHITE BLOOD COUNT (AUTO) 14.4 K/uL (4.3-11.0)
[2022-11-23 06:23] LABS: CALCIUM, SERUM 8.7 mg/dL (8.5-10.1); CREATININE 0.6 mg/dL (0.6-1.3); MAGNESIUM 2.1 mg/dL (1.8-2.4); PHOSPHORUS 2.8 mg/dL (2.5-4.9); POTASSIUM 4.2 mmol/L (3.5-5.1)
--- NOTE | 2022-11-23 06:41 | NUR ---
noc rn closing note Patient in bed with eyes closed, easy to arouse. no s/s of apparent distress in 2lpm of o2 via nc. denies any pain at this time. IV NS running @ 75mls/hr. purewick draining clear, yellow urine. all needs attended. all scheduled medications administered. safety in place-- bed in lowest, locked position, call light within reach, bed rails up X2. will endorse to morning shift rn for continuity of care.
[2022-11-23] MEDS: BUDESONIDE RESPULE INH 0.5 MG/2 ML AMPUL.NEB IH SCH (07:23)
[2022-11-23] MEDS: PANTOPRAZOLE 40 MG TABLET.DR PO SCH (07:26)
[2022-11-23] MEDS: methylPREDNISolone SOD SUCC 125 MG/2ML VIAL IV SCH (08:09)
[2022-11-23] MEDS: ASPIRIN EC 81 MG TABLET.DR PO SCH (08:09)
[2022-11-23] MEDS: CHOLECALCIFEROL 1,000 UNIT TABLET (VIT D3) PO SCH (08:09)
[2022-11-23] MEDS: SERTRALINE HCL 50 MG TABLET PO SCH (08:10)
[2022-11-23] MEDS: LEVETIRACETAM (250 MG) 250 MG TABLET PO SCH (08:10)
[2022-11-23] MEDS: QUETIAPINE FUMARATE 100 MG TABLET PO SCH ×2 (08:10→12:31)
--- NOTE | 2022-11-23 08:47 | NUR ---
WOUND CARE CONSULT: PT PRESENTS WITH RT FOOT INTACT BLISTER AND SCARRING TO LEFT ANKLE AND HEEL, PRESENT ON ADMISSION. DR DOW CALLED FOR DPM CONSULT. DISCUSSED SKIN PROTECTION WITH NURSING STAFF. PT IS INCONTINENT AND IS USING PURE WICK FOR URINARY INCONTINENCE. MD IN AGREEMENT WITH PLAN OF CARE.
[2022-11-23] MEDS: CEFTRIAXONE 1 G in IV D5W 50 ML IV SCH (14:00)
[2022-11-23] MEDS ORDERED: NITR100C6 PO (14:13)
[2022-11-23] MEDS ORDERED: PRED20TA PO (14:13)
[2022-11-23] MEDS ORDERED: ALBU2.5V13 NEB (14:13)
[2022-11-23] MEDS ORDERED: IPRA0.2S9 IH (14:13)
[2022-11-23 16:00] VITALS: BP 122/80
--- NOTE | 2022-11-23 16:15 | NUR ---
PATIENT IS DISCHARGED TO HOME WITH THE IN STABLE CONDITION, IV LINE WAS DISCONTINUED.
[2022-11-23] MEDS ORDERED: predniSONE 20 MG TABLET PO SCH (17:00)
== END 2022-11-23 16:39 | disposition home health service (06) | DRG 689 ==
LOC: ER 12:12 → TELE-TD 17:14 → TELE1 18:25 → MEDSG1 11-21 16:53
PROVIDERS: ATTEND Nurse Practitioner Family
PROC: 05H633Z Insertion of Infusion Device into Left Subclavian Vein, Percutaneous Approach (ICD-10-PCS; principal; 2022-11-21)
PROC: B547ZZA Ultrasonography of Left Subclavian Vein, Guidance (ICD-10-PCS; 2022-11-21)
DX: N39.0 Urinary tract infection, site not specified (principal); J96.21 Acute and chronic respiratory failure with hypoxia; J96.22 Acute and chronic respiratory failure with hypercapnia; J84.9 Interstitial pulmonary disease, unspecified; M48.54XA Collapsed vertebra, not elsewhere classified, thoracic region, initial encounter for fracture; Z99.81 Dependence on supplemental oxygen; G40.909 Epilepsy, unspecified, not intractable, without status epilepticus; J44.9 Chronic obstructive pulmonary disease, unspecified; B96.20 Unspecified Escherichia coli [E. coli] as the cause of diseases classified elsewhere; E78.5 Hyperlipidemia, unspecified; F43.10 Post-traumatic stress disorder, unspecified; I73.9 Peripheral vascular disease, unspecified; Z20.822 Contact with and (suspected) exposure to COVID-19; Z82.49 Family history of ischemic heart disease and other diseases of the circulatory system; R53.1 Weakness; Z79.891 Long term (current) use of opiate analgesic; S90.821A Blister (nonthermal), right foot, initial encounter; X58.XXXA Exposure to other specified factors, initial encounter; Y93.9 Activity, unspecified; Y92.009 Unspecified place in unspecified non-institutional (private) residence as the place of occurrence of the external cause
CPT/HCPCS: 36415; 36600; 70450-TC; 71045-TC; 71250-TC; 80048-TC; 80053-TC; 80061-TC; 80076-TC; 81001; 82010-TC; 82803-TC; 82962-TC; 83605-TC; 83735-TC; 84100-TC; 84443-TC; 84484-TC; 85025-TC; 87040-TC; 87081-TC; 87086-TC; 94799-TC; 97116-TC; 97530-TC; A4223; C9803; G0378; G0480; J0456; J0696; J1650; J2930; J3475; J7030; J7060

== ENCOUNTER 2023-01-20 17:16 | Inpatient (IN) | payer MEDICARE, OTHER ==
[~2023-01-20] VITALS: Ht 157.5 cm; Wt 59.0 kg
[~2023-01-20 17:16] MED LIST changes: +ALBU2.5V13 NEB; +ASPI-1420 PO; +CHOL100062 PO; +IPRA0.2S9 IH; +NITR100C6 PO; +PRED20TA PO; -TIOT18CA3 INH
[2023-01-20] MEDS ORDERED: IV NS 0.9% 1,000 ML BAG IV ONE (18:30)
[2023-01-20] MEDS ORDERED: ACETAMINOPHEN ES 500 MG TABLET PO ONE (18:30)
[2023-01-20] MEDS ORDERED: ACETAMINOPHEN ES 500 MG TABLET ONE (18:39)
[2023-01-20 18:51] LABS: BASOPHILS # (AUTO) 0.2 K/uL (0.0-0.2); EOSINOPHILS # (AUTO) 0.4 K/uL (0.0-0.7); EOSINOPHILS % (AUTO) 2.2 % (0.0-6.0); HEMATOCRIT 29 % (33-45); HEMOGLOBIN 9.3 g/dL (11.5-14.8); LYMPHOCYTES # (AUTO) 3.7 K/uL (0.8-4.8); LYMPHOCYTES % (AUTO) 20.2 % (20.0-44.0); MEAN CORPUSCULAR HEMOGLOBIN 32 PG (26.0-33.0); MEAN CORPUSCULAR HGB CONC 32 g/dl (31.0-36.0); MEAN CORPUSCULAR VOLUME 101 fL (82-100); MONOCYTES # (AUTO) 1.1 K/uL (0.1-1.30); NEUTROPHILS % (AUTO) 70.6 % (43.0-81.0); PLATELET COUNT (AUTO) 465 K/uL (150-450); RED BLOOD CELL COUNT(AUTO) 2.89 MIL/uL (4.0-5.2); RED CELL DISTRIBUTION WIDTH 15.4 % (11.5-15.0); WHITE BLOOD COUNT (AUTO) 18.4 K/uL (4.3-11.0)
[2023-01-20 19:10] LABS: CALCIUM, SERUM 9.6 mg/dL (8.5-10.1); CARBON DIOXIDE 21 mmol/L (21-32); CHLORIDE 106 mmol/L (98-107); GLUCOSE 117 mg/dL (74-106); POTASSIUM 3.4 mmol/L (3.5-5.1); SODIUM SERUM 139 mmol/L (136-145); UREA NITROGEN, BLOOD 14 mg/dL (7-18)
[2023-01-20 19:17] LABS: ALANINE AMINOTRANSFERASE 20 U/L (12-78); ALBUMIN 3.2 g/dL (3.4-5.0); ALKALINE PHOSPHATASE 93 U/L (46-116); ASPARTATE AMINOTRANSFERASE 25 U/L (15-37); BILIRUBIN,DIRECT 0.1 mg/dL (0.0-0.2); BILIRUBIN,TOTAL 0.5 mg/dL (0.2-1.0); TOTAL PROTEIN, SERUM 8.3 g/dL (6.4-8.2)
[2023-01-20 19:29] LABS: LACTIC ACID 1.5 mmol/L (0.4-2.0)
[2023-01-20 21:10] LABS: APPEARANCE,URINE CLEAR (CLEAR); BILIRUBIN,URINE NEGATIVE (NEGATIVE); BLOOD, URINE NEGATIVE Ery/uL (NEGATIVE); COLOR,URINE YELLOW (YELLOW); KETONES,URINE NEGATIVE (NEGATIVE); LEUKOCYTE ESTERASE ,URINE NEGATIVE (NEGATIVE); NITRITE, URINE NEGATIVE (NEGATIVE); PH,URINE 6.5 (5.0-8.0); PROTEIN,URINE 1+ mg/dl (NEGATIVE); UGLUCOSE NEGATIVE (NEGATIVE); UROBILINOGEN,URINE 0.2 EU/dL (0.2)
[2023-01-20 21:16] LABS: ADD URINE CULTURE NO; BACTERIA,URINE None seen /HPF (None Seen); MUCUS,URINE Few /LPF (None Seen); RBC,URINE 0-2 /HPF (0-2); WBC,URINE 0-2 /HPF (0-3)
[2023-01-20 22:00] VITALS: BP 95/44; TEMP 97.9; O2SAT 97
[2023-01-20] MEDS ORDERED: NALOXONE HCL SL PRN (23:30)
[2023-01-20] MEDS ORDERED: [UNRECOGNIZED DRUG - OTHER] SL PRN (23:30)
[2023-01-20] MEDS ORDERED: ONDANSETRON HCL/PF 4 MG/2 ML VIAL IVP PRN (23:30)
[2023-01-20] MEDS ORDERED: MAGNESIUM HYDROXIDE 30 ML UDC PO PRN (23:30)
[2023-01-20] MEDS ORDERED: ACETAMINOPHEN 325 MG TABLET PO PRN (23:30)
[2023-01-20] MEDS ORDERED: Z GUARD REMEDY 4 OZ OINT TP PRN (23:30)
[2023-01-20] MEDS ORDERED: BUPRENORPHINE HCL SL PRN (23:30)
[2023-01-20] MEDS ORDERED: MAG HYDROX/AL HYDROX/SIMETH 30 ML UDC PO PRN (23:30)
[2023-01-20] MEDS ORDERED: IBUPROFEN 800 MG TABLET PO PRN (23:30)
[2023-01-21] MEDS: ENOXAPARIN SODIUM 40 MG/0.4 ML DISP.SYRIN SQ SCH ×2 (00:07→22:04)
[2023-01-21] MEDS: IV NS 0.9% 1,000 ML IV PRN ×2 (02:13→17:33)
[2023-01-21 05:55] LABS: BASOPHILS # (AUTO) 0.1 K/uL (0.0-0.2); BASOPHILS % (AUTO) 0.7 % (0.0-2.0); EOSINOPHILS # (AUTO) 0.5 K/uL (0.0-0.7); EOSINOPHILS % (AUTO) 3.2 % (0.0-6.0); HEMATOCRIT 26 % (33-45); HEMOGLOBIN 8.1 g/dL (11.5-14.8); LYMPHOCYTES # (AUTO) 2.8 K/uL (0.8-4.8); LYMPHOCYTES % (AUTO) 19.8 % (20.0-44.0); MEAN CORPUSCULAR HEMOGLOBIN 33 PG (26.0-33.0); MEAN CORPUSCULAR HGB CONC 32 g/dl (31.0-36.0); MEAN CORPUSCULAR VOLUME 103 fL (82-100); MONOCYTES # (AUTO) 0.9 K/uL (0.1-1.30); MONOCYTES % (AUTO) 6.3 % (2.0-12.0); NEUTROPHILS # (AUTO) 10.1 K/uL (1.8-8.9); PLATELET COUNT (AUTO) 389 K/uL (150-450); RED BLOOD CELL COUNT(AUTO) 2.46 MIL/uL (4.0-5.2); RED CELL DISTRIBUTION WIDTH 15.3 % (11.5-15.0); WHITE BLOOD COUNT (AUTO) 14.4 K/uL (4.3-11.0)
[2023-01-21 06:17] LABS: EOSINOPHILS % (MANUAL) 3 % (0-4); LYMPHOCYTES % (MANUAL) 15 % (16-48); MONOCYTES % (MANUAL) 8 % (0-11.0); NEUTROPHILS % (MANUAL) 74 (42-76)
[2023-01-21 06:18] LABS: ANISOCYTOSIS 1+; PLATELET ESTIMATE ADEQUATE
[2023-01-21 06:24] LABS: CREATININE 0.8 mg/dL (0.6-1.3); PHOSPHORUS 4.3 mg/dL (2.5-4.9)
[2023-01-21 06:25] LABS: THYROID STIMULATING HORMONE 1.853 uIU/mL (0.358-3.74)
[2023-01-21] MEDS ORDERED: IBUPROFEN 600 MG TABLET PO PRN (07:30)
[2023-01-21 08:00] VITALS: BP 109/54; TEMP 98.2; O2SAT 97
[2023-01-21] MEDS: SERTRALINE HCL 50 MG TABLET PO SCH ×2 (08:21→20:22)
[2023-01-21] MEDS: LEVETIRACETAM (250 MG) 250 MG TABLET PO SCH ×2 (08:21→20:21)
[2023-01-21] MEDS: ASPIRIN EC 81 MG TABLET.DR PO SCH (08:21)
[2023-01-21] MEDS: CHOLECALCIFEROL 1,000 UNIT TABLET (VIT D3) PO SCH (08:21)
[2023-01-21] MEDS: FLUTICASONE/VILANTEROL 1 EACH BLST.W.DEV IH SCH (08:42)
[2023-01-21] MEDS ORDERED: PANTOPRAZOLE 40 MG VIAL IV SCH (09:00)
[2023-01-21] MEDS ORDERED: FLUTICASONE/SALMETEROL 1 DISK IH SCH (09:00)
[2023-01-21] MEDS: POTASSIUM CHLORIDE 20 MEQ TAB.PRT.SR PO SCH ×3 (09:55→12:05)
[2023-01-21] MEDS ORDERED: QUET400T PO (13:24)
[2023-01-21] MEDS ORDERED: QUET200T PO (13:24)
[2023-01-21 16:00] VITALS: BP 135/73; TEMP 98; O2SAT 100
[2023-01-21 20:00] VITALS: BP 128/75; TEMP 98.6; O2SAT 95
[2023-01-21] MEDS ORDERED: QUETIAPINE FUMARATE 100 MG TABLET PO SCH (22:00)
[2023-01-22 06:03] VITALS: O2SAT 100
[2023-01-22 06:44] LABS: BASOPHILS # (AUTO) 0.1 K/uL (0.0-0.2); BASOPHILS % (AUTO) 0.5 % (0.0-2.0); EOSINOPHILS # (AUTO) 0.5 K/uL (0.0-0.7); EOSINOPHILS % (AUTO) 3.4 % (0.0-6.0); HEMATOCRIT 25 % (33-45); LYMPHOCYTES # (AUTO) 3.1 K/uL (0.8-4.8); LYMPHOCYTES % (AUTO) 23.7 % (20.0-44.0); MEAN CORPUSCULAR HEMOGLOBIN 32 PG (26.0-33.0); MEAN CORPUSCULAR HGB CONC 32 g/dl (31.0-36.0); MEAN CORPUSCULAR VOLUME 101 fL (82-100); MONOCYTES % (AUTO) 7.3 % (2.0-12.0); NEUTROPHILS # (AUTO) 8.6 K/uL (1.8-8.9); NEUTROPHILS % (AUTO) 65.1 % (43.0-81.0); PLATELET COUNT (AUTO) 428 K/uL (150-450); RED BLOOD CELL COUNT(AUTO) 2.49 MIL/uL (4.0-5.2); RED CELL DISTRIBUTION WIDTH 15.4 % (11.5-15.0); WHITE BLOOD COUNT (AUTO) 13.2 K/uL (4.3-11.0)
[2023-01-22 07:00] LABS: CALCIUM, SERUM 9.1 mg/dL (8.5-10.1); CREATININE 0.6 mg/dL (0.6-1.3); MAGNESIUM 2.2 mg/dL (1.8-2.4); PHOSPHORUS 2.9 mg/dL (2.5-4.9); POTASSIUM 3.2 mmol/L (3.5-5.1)
[2023-01-22 08:00] VITALS: BP 107/57; TEMP 97.2; O2SAT 92
[2023-01-22] MEDS: LEVETIRACETAM (250 MG) 250 MG TABLET PO SCH ×2 (08:41→21:26)
[2023-01-22] MEDS: FLUTICASONE/VILANTEROL 1 EACH BLST.W.DEV IH SCH (08:41)
[2023-01-22] MEDS: CHOLECALCIFEROL 1,000 UNIT TABLET (VIT D3) PO SCH (08:41)
[2023-01-22] MEDS: SERTRALINE HCL 50 MG TABLET PO SCH ×2 (08:41→21:26)
[2023-01-22] MEDS: ASPIRIN EC 81 MG TABLET.DR PO SCH (08:42)
[2023-01-22] MEDS: PANTOPRAZOLE 40 MG TABLET.DR PO SCH (08:42)
[2023-01-22] MEDS ORDERED: POTASSIUM CHLORIDE 20 MEQ TAB.PRT.SR PO ONE (09:00)
[2023-01-22 09:54] LABS: EOSINOPHILS % (MANUAL) 2 % (0-4); LYMPHOCYTES % (MANUAL) 21 % (16-48); MONOCYTES % (MANUAL) 7 % (0-11.0); NEUTROPHILS % (MANUAL) 70 (42-76)
[2023-01-22 09:55] LABS: ANISOCYTOSIS 1+; PLATELET ESTIMATE ADEQUATE
[2023-01-22 16:00] VITALS: BP 114/67; TEMP 98.2; O2SAT 100
[2023-01-22] MEDS: IV NS 0.9% 1,000 ML IV PRN (17:53)
[2023-01-22 20:56] VITALS: BP 112/76; TEMP 99.2; O2SAT 100
[2023-01-22] MEDS: QUETIAPINE FUMARATE 100 MG TABLET PO SCH (21:25)
[2023-01-22] MEDS: ENOXAPARIN SODIUM 40 MG/0.4 ML DISP.SYRIN SQ SCH (22:23)
[2023-01-22] MEDS: ZOLPIDEM TARTRATE 5 MG TABLET PO PRN (22:24)
[2023-01-23 06:07] LABS: CALCIUM, SERUM 8.6 mg/dL (8.5-10.1); CREATININE 0.6 mg/dL (0.6-1.3); MAGNESIUM 1.9 mg/dL (1.8-2.4); PHOSPHORUS 2.8 mg/dL (2.5-4.9); POTASSIUM 3.2 mmol/L (3.5-5.1)
[2023-01-23 06:08] LABS: BASOPHILS # (AUTO) 0.1 K/uL (0.0-0.2); BASOPHILS % (AUTO) 0.5 % (0.0-2.0); EOSINOPHILS # (AUTO) 0.5 K/uL (0.0-0.7); HEMATOCRIT 25 % (33-45); LYMPHOCYTES # (AUTO) 3.5 K/uL (0.8-4.8); LYMPHOCYTES % (AUTO) 19.8 % (20.0-44.0); MEAN CORPUSCULAR HEMOGLOBIN 32 PG (26.0-33.0); MEAN CORPUSCULAR HGB CONC 32 g/dl (31.0-36.0); MEAN CORPUSCULAR VOLUME 102 fL (82-100); MONOCYTES % (AUTO) 5.5 % (2.0-12.0); NEUTROPHILS # (AUTO) 12.7 K/uL (1.8-8.9); NEUTROPHILS % (AUTO) 71.2 % (43.0-81.0); PLATELET COUNT (AUTO) 412 K/uL (150-450); RED BLOOD CELL COUNT(AUTO) 2.49 MIL/uL (4.0-5.2); RED CELL DISTRIBUTION WIDTH 15.4 % (11.5-15.0); WHITE BLOOD COUNT (AUTO) 17.9 K/uL (4.3-11.0)
[2023-01-23 08:00] VITALS: BP 115/74; TEMP 98.2; O2SAT 98
[2023-01-23] MEDS ORDERED: POTASSIUM CHLORIDE 20 MEQ TAB.PRT.SR PO ONE (08:00)
[2023-01-23] MEDS: PANTOPRAZOLE 40 MG TABLET.DR PO SCH (08:39)
[2023-01-23] MEDS: LEVETIRACETAM (250 MG) 250 MG TABLET PO SCH ×2 (08:39→21:25)
[2023-01-23] MEDS: ASPIRIN EC 81 MG TABLET.DR PO SCH (08:39)
[2023-01-23] MEDS: QUETIAPINE FUMARATE 100 MG TABLET PO SCH ×3 (08:39→21:26)
[2023-01-23] MEDS: CHOLECALCIFEROL 1,000 UNIT TABLET (VIT D3) PO SCH (08:39)
[2023-01-23] MEDS: FLUTICASONE/VILANTEROL 1 EACH BLST.W.DEV IH SCH (08:40)
[2023-01-23] MEDS: SERTRALINE HCL 50 MG TABLET PO SCH ×2 (08:44→21:25)
[2023-01-23] MEDS ORDERED: CLINDAMYCIN 300 MG in IV D5W 50 ML IV SCH (12:00)
[2023-01-23] MEDS: ANCEF 1 GM/50 ML D5W IV SCH ×4 (12:03→21:08)
[2023-01-23] MEDS: PROSOURCE / PROSTAT (PYXIS) 30 ML UDC PO SCH ×2 (12:03→18:35)
[2023-01-23] MEDS: IV NS 0.9% 1,000 ML IV PRN (12:58)
[2023-01-23 16:00] VITALS: BP 109/61; TEMP 99; O2SAT 98
[2023-01-23] MEDS: ENOXAPARIN SODIUM 40 MG/0.4 ML DISP.SYRIN SQ SCH (21:27)
[2023-01-23] MEDS: ZOLPIDEM TARTRATE 5 MG TABLET PO PRN (22:06)
[2023-01-24] MEDS: ANCEF 1 GM/50 ML D5W IV SCH ×4 (05:05→12:10)
[2023-01-24 06:05] LABS: BASOPHILS # (AUTO) 0.1 K/uL (0.0-0.2); BASOPHILS % (AUTO) 0.4 % (0.0-2.0); EOSINOPHILS # (AUTO) 0.4 K/uL (0.0-0.7); EOSINOPHILS % (AUTO) 2.7 % (0.0-6.0); HEMATOCRIT 27 % (33-45); HEMOGLOBIN 8.7 g/dL (11.5-14.8); LYMPHOCYTES # (AUTO) 3.4 K/uL (0.8-4.8); LYMPHOCYTES % (AUTO) 22.8 % (20.0-44.0); MEAN CORPUSCULAR HEMOGLOBIN 33 PG (26.0-33.0); MEAN CORPUSCULAR HGB CONC 32 g/dl (31.0-36.0); MEAN CORPUSCULAR VOLUME 101 fL (82-100); MONOCYTES # (AUTO) 1.1 K/uL (0.1-1.30); MONOCYTES % (AUTO) 7.1 % (2.0-12.0); NEUTROPHILS # (AUTO) 10.1 K/uL (1.8-8.9); PLATELET COUNT (AUTO) 455 K/uL (150-450); RED BLOOD CELL COUNT(AUTO) 2.69 MIL/uL (4.0-5.2); RED CELL DISTRIBUTION WIDTH 15.3 % (11.5-15.0); WHITE BLOOD COUNT (AUTO) 15.1 K/uL (4.3-11.0)
[2023-01-24 06:20] LABS: CALCIUM, SERUM 8.9 mg/dL (8.5-10.1); CREATININE 0.6 mg/dL (0.6-1.3); MAGNESIUM 1.9 mg/dL (1.8-2.4); PHOSPHORUS 3.3 mg/dL (2.5-4.9); POTASSIUM 3.7 mmol/L (3.5-5.1)
[2023-01-24 08:00] VITALS: BP 99/62; TEMP 97.9; O2SAT 92
[2023-01-24] MEDS ORDERED: CEPH500C2 PO (08:39)
[2023-01-24] MEDS: QUETIAPINE FUMARATE 100 MG TABLET PO SCH ×2 (08:49→12:09)
[2023-01-24] MEDS: ASPIRIN EC 81 MG TABLET.DR PO SCH (08:49)
[2023-01-24] MEDS: PROSOURCE / PROSTAT (PYXIS) 30 ML UDC PO SCH ×2 (08:49→12:09)
[2023-01-24] MEDS: CHOLECALCIFEROL 1,000 UNIT TABLET (VIT D3) PO SCH (08:49)
[2023-01-24] MEDS: PANTOPRAZOLE 40 MG TABLET.DR PO SCH (08:49)
[2023-01-24] MEDS: SERTRALINE HCL 50 MG TABLET PO SCH (08:50)
[2023-01-24] MEDS: LEVETIRACETAM (250 MG) 250 MG TABLET PO SCH (08:50)
[2023-01-24] MEDS: FLUTICASONE/VILANTEROL 1 EACH BLST.W.DEV IH SCH (09:39)
[2023-01-24 15:57] VITALS: BP 109/70; TEMP 98.1; O2SAT 99
== END 2023-01-24 16:37 | disposition home health service (06) | DRG 603 ==
LOC: ER 17:24 → MED 20:41 → TELE 21:39 → MED 23:40
PROVIDERS: ADMIT Nurse Practitioner Acute Care; ATTEND Internal Medicine
DX: L03.116 Cellulitis of left lower limb (principal); R62.7 Adult failure to thrive; D50.9 Iron deficiency anemia, unspecified; D72.829 Elevated white blood cell count, unspecified; G40.909 Epilepsy, unspecified, not intractable, without status epilepticus; Z99.81 Dependence on supplemental oxygen; Z90.49 Acquired absence of other specified parts of digestive tract; E78.5 Hyperlipidemia, unspecified; G89.29 Other chronic pain; Z79.891 Long term (current) use of opiate analgesic; J44.9 Chronic obstructive pulmonary disease, unspecified; Z83.3 Family history of diabetes mellitus; F41.9 Anxiety disorder, unspecified; I73.9 Peripheral vascular disease, unspecified; R53.1 Weakness; S91.302A Unspecified open wound, left foot, initial encounter; X58.XXXA Exposure to other specified factors, initial encounter; Y93.9 Activity, unspecified; Y92.009 Unspecified place in unspecified non-institutional (private) residence as the place of occurrence of the external cause; L89.626 Pressure-induced deep tissue damage of left heel; Z74.09 Other reduced mobility; Z87.440 Personal history of urinary (tract) infections; Z68.23 Body mass index [BMI] 23.0-23.9, adult
CPT/HCPCS: 36415; 70450-TC; 71045-TC; 72170-TC; 80048-TC; 80061-TC; 80076-TC; 81001; 82607-TC; 83540-TC; 83605-TC; 83735-TC; 84100-TC; 84443-TC; 84484-TC; 85025-TC; 87040-TC; 94799-TC; 97112-TC; 97530-TC; A4223; A6253; C9113; G0378; J0690; J1650; J7030; J7060

== ENCOUNTER 2023-02-14 10:51 | Outpatient (CLI) | payer MEDICARE, OTHER ==
[~2023-02-14 10:51] MED LIST changes: -ALBU2.5V13 NEB; -BUPR1TAB39 SL; +CEPH500C2 PO; -HYDR-3980 PO; -IPRA0.2S9 IH; -NITR100C6 PO; -OMEP40CA21 PO; -PRED20TA PO; +QUET400T PO
== END 2023-02-14 23:59 | disposition home or self-care (01) ==
LOC: MSC 10:51
PROVIDERS: ATTEND Anesthesiology
DX: G89.4 Chronic pain syndrome (principal); M54.50 Low back pain, unspecified; M62.830 Muscle spasm of back; M79.605 Pain in left leg; L97.901 Non-pressure chronic ulcer of unspecified part of unspecified lower leg limited to breakdown of skin; S72.92XS Unspecified fracture of left femur, sequela; Z79.891 Long term (current) use of opiate analgesic; Z98.890 Other specified postprocedural states; Z74.09 Other reduced mobility; Z99.3 Dependence on wheelchair

== ENCOUNTER 2023-02-23 10:19 | Outpatient (CLI) | payer MEDICARE, OTHER ==
[2023-02-23 12:52] LABS: BASOPHILS # (AUTO) 0.1 K/uL (0.0-0.2); BASOPHILS % (AUTO) 0.9 % (0.0-2.0); EOSINOPHILS # (AUTO) 0.4 K/uL (0.0-0.7); EOSINOPHILS % (AUTO) 3.4 % (0.0-6.0); HEMATOCRIT 37 % (33-45); HEMOGLOBIN 11.7 g/dL (11.5-14.8); LYMPHOCYTES # (AUTO) 2.7 K/uL (0.8-4.8); LYMPHOCYTES % (AUTO) 22.2 % (20.0-44.0); MEAN CORPUSCULAR HEMOGLOBIN 33 PG (26.0-33.0); MEAN CORPUSCULAR HGB CONC 32 g/dl (31.0-36.0); MEAN CORPUSCULAR VOLUME 102 fL (82-100); MONOCYTES # (AUTO) 0.8 K/uL (0.1-1.30); MONOCYTES % (AUTO) 6.5 % (2.0-12.0); NEUTROPHILS # (AUTO) 8.3 K/uL (1.8-8.9); PLATELET COUNT (AUTO) 333 K/uL (150-450); RED CELL DISTRIBUTION WIDTH 15.6 % (11.5-15.0); WHITE BLOOD COUNT (AUTO) 12.3 K/uL (4.3-11.0)
[2023-02-23 12:53] LABS: APPEARANCE,URINE CLEAR (CLEAR); BILIRUBIN,URINE NEGATIVE (NEGATIVE); BLOOD, URINE NEGATIVE Ery/uL (NEGATIVE); COLOR,URINE YELLOW (YELLOW); KETONES,URINE NEGATIVE (NEGATIVE); LEUKOCYTE ESTERASE ,URINE NEGATIVE (NEGATIVE); NITRITE, URINE NEGATIVE (NEGATIVE); PROTEIN,URINE NEGATIVE (NEGATIVE); UGLUCOSE NEGATIVE (NEGATIVE); UROBILINOGEN,URINE 0.2 EU/dL (0.2)
[2023-02-23 12:55] LABS: ERYTHROCYTE SEDIMENTATION RATE 47 MM/HR (0-30)
[2023-02-23 13:23] LABS: URINE TOTAL PROTEIN 33.7 mg/dL (0-11.9)
[2023-02-23 13:29] LABS: THYROID STIMULATING HORMONE 1.454 uIU/mL (0.358-3.74)
[2023-02-23 13:33] LABS: C-REACTIVE PROTEIN 2.3 mg/dL (0.0-0.9)
[2023-02-23 13:45] LABS: ALBUMIN 3.3 g/dL (3.4-5.0); BILIRUBIN,TOTAL 0.2 mg/dL (0.2-1.0); CALCIUM, SERUM 9.1 mg/dL (8.5-10.1); CREATININE 1.1 mg/dL (0.6-1.3); PHOSPHORUS 4.8 mg/dL (2.5-4.9); POTASSIUM 3.7 mmol/L (3.5-5.1); TOTAL PROTEIN, SERUM 7.7 g/dL (6.4-8.2)
[2023-02-25 17:06] LABS: ALBUMIN/CREATININE RATIO < 4 mg/g creat (0-29); FOLIC ACID > 20.0 ng/mL (>3.0); VIT D, 25-HYDROXY 36.2 ng/mL (30.0-100.0)
== END 2023-02-23 23:59 | disposition home or self-care (01) ==
LOC: MSC 10:19
PROVIDERS: ATTEND Internal Medicine
DX: M25.511 Pain in right shoulder (principal); Z87.828 Personal history of other (healed) physical injury and trauma; M25.552 Pain in left hip; Z96.642 Presence of left artificial hip joint; Z91.81 History of falling; G40.909 Epilepsy, unspecified, not intractable, without status epilepticus; I73.9 Peripheral vascular disease, unspecified; Z98.62 Peripheral vascular angioplasty status; Z79.02 Long term (current) use of antithrombotics/antiplatelets; S91.302D Unspecified open wound, left foot, subsequent encounter; J44.9 Chronic obstructive pulmonary disease, unspecified; F17.200 Nicotine dependence, unspecified, uncomplicated; Z99.81 Dependence on supplemental oxygen; Z79.51 Long term (current) use of inhaled steroids; M85.80 Other specified disorders of bone density and structure, unspecified site; F41.9 Anxiety disorder, unspecified; F91.9 Conduct disorder, unspecified; G25.0 Essential tremor; Z86.19 Personal history of other infectious and parasitic diseases; G89.4 Chronic pain syndrome; M19.90 Unspecified osteoarthritis, unspecified site; Z74.09 Other reduced mobility; Z79.899 Other long term (current) drug therapy
CPT/HCPCS: 80061; 85025; 83540; 83735; 83036; 84100; 85652; 81003; 36415; 84439; 82746; 84443; 82607; 80053; 82728; 86140; 86038; 84156; 82306; 82043; 82570; G0463

== ENCOUNTER 2023-02-23 10:26 | Outpatient (CLI) | payer MEDICARE, OTHER | END 2023-02-23 23:59 | disposition home health service (06) | LOC: WOU 10:26 | PROVIDERS: ATTEND Podiatrist Foot & Ankle Surgery | DX: I70.244 Atherosclerosis of native arteries of left leg with ulceration of heel and midfoot (principal); I70.242 Atherosclerosis of native arteries of left leg with ulceration of calf; L97.428 Non-pressure chronic ulcer of left heel and midfoot with other specified severity; L97.228 Non-pressure chronic ulcer of left calf with other specified severity; R26.2 Difficulty in walking, not elsewhere classified; Z79.82 Long term (current) use of aspirin; M54.50 Low back pain, unspecified | CPT/HCPCS: G0463; A6209 ==

== ENCOUNTER 2023-03-07 10:00 | Outpatient (CLI) | payer MEDICARE, OTHER | END 2023-03-07 23:59 | disposition home or self-care (01) | LOC: MSC 10:00 | PROVIDERS: ATTEND Anesthesiology | DX: G89.4 Chronic pain syndrome (principal); M54.50 Low back pain, unspecified; M62.830 Muscle spasm of back; L97.901 Non-pressure chronic ulcer of unspecified part of unspecified lower leg limited to breakdown of skin; S72.92XS Unspecified fracture of left femur, sequela; Z79.891 Long term (current) use of opiate analgesic ==

== ENCOUNTER 2023-03-28 16:14 | Inpatient (IN) | payer MEDICARE, OTHER ==
[~2023-03-28] VITALS: Ht 157.5 cm; Wt 59.9 kg
[2023-03-28] MEDS ORDERED: IV NS 0.9% 1,000 ML BAG IV ONE ×2 (16:30→18:00)
[2023-03-28 17:18] LABS: BASOPHILS # (AUTO) 0.3 K/uL (0.0-0.2); EOSINOPHILS # (AUTO) 0.2 K/uL (0.0-0.7); EOSINOPHILS % (AUTO) 0.7 % (0.0-6.0); HEMATOCRIT 35 % (33-45); LYMPHOCYTES # (AUTO) 3.3 K/uL (0.8-4.8); LYMPHOCYTES % (AUTO) 12.1 % (20.0-44.0); MEAN CORPUSCULAR HEMOGLOBIN 31 PG (26.0-33.0); MEAN CORPUSCULAR HGB CONC 31 g/dl (31.0-36.0); MEAN CORPUSCULAR VOLUME 99 fL (82-100); MONOCYTES # (AUTO) 1.9 K/uL (0.1-1.30); NEUTROPHILS # (AUTO) 21.4 K/uL (1.8-8.9); NEUTROPHILS % (AUTO) 79.2 % (43.0-81.0); PLATELET COUNT (AUTO) 435 K/uL (150-450); RED BLOOD CELL COUNT(AUTO) 3.57 MIL/uL (4.0-5.2); RED CELL DISTRIBUTION WIDTH 15.1 % (11.5-15.0)
[2023-03-28 17:43] LABS: INR 1.03 (0.91-1.10); PARTIAL THROMBOPLASTIN TIME 29.3 SEC (24.3-34.3); PROTHROMBIN TIME 10.9 SECS (9.2-11.1)
[2023-03-28 17:49] LABS: ALANINE AMINOTRANSFERASE 17 U/L (12-78); ALBUMIN 2.7 g/dL (3.4-5.0); ALKALINE PHOSPHATASE 78 U/L (46-116); ASPARTATE AMINOTRANSFERASE 22 U/L (15-37); BILIRUBIN,DIRECT 0.1 mg/dL (0.0-0.2); BILIRUBIN,TOTAL 0.3 mg/dL (0.2-1.0); CALCIUM, SERUM 8.5 mg/dL (8.5-10.1); CARBON DIOXIDE 26 mmol/L (21-32); CHLORIDE 108 mmol/L (98-107); CREATININE 0.9 mg/dL (0.6-1.3); GLUCOSE 116 mg/dL (74-106); POTASSIUM 3.8 mmol/L (3.5-5.1); SODIUM SERUM 140 mmol/L (136-145); TOTAL PROTEIN, SERUM 6.6 g/dL (6.4-8.2); UREA NITROGEN, BLOOD 23 mg/dL (7-18)
[2023-03-28 17:50] LABS: LACTIC ACID 0.6 mmol/L (0.4-2.0)
[2023-03-28 17:55] LABS: THYROID STIMULATING HORMONE 1.545 uIU/mL (0.358-3.74)
[2023-03-28] MEDS ORDERED: VANCOMYCIN 1 GM in IV D5W 250 ML IV ONE (18:00)
[2023-03-28] MEDS ORDERED: CEFEPIME 1 GM in IV D5W 50 ML IV ONE (18:00)
[2023-03-28] MEDS ORDERED: PROP10TA10 PO (18:06)
[2023-03-28] MEDS ORDERED: GABA300C PO (18:06)
[2023-03-28] MEDS ORDERED: CEFEPIME 1 GM in IV D5W 100 ML IV ONE (19:00)
[2023-03-28] MEDS ORDERED: ONDANSETRON HCL/PF 4 MG/2 ML VIAL IVP PRN (20:00)
[2023-03-28] MEDS ORDERED: Z GUARD REMEDY 4 OZ OINT TP PRN (20:00)
[2023-03-28] MEDS ORDERED: ZOLPIDEM TARTRATE 5 MG TABLET PO PRN (20:00)
[2023-03-28] MEDS ORDERED: MAG HYDROX/AL HYDROX/SIMETH 30 ML UDC PO PRN (20:00)
[2023-03-28] MEDS ORDERED: MAGNESIUM HYDROXIDE 30 ML UDC PO PRN (20:00)
[2023-03-28] MEDS ORDERED: ACETAMINOPHEN 650 MG/SUPP.RECT RC PRN (20:00)
[2023-03-28 20:41] LABS: APPEARANCE,URINE CLEAR (CLEAR); BILIRUBIN,URINE NEGATIVE (NEGATIVE); BLOOD, URINE NEGATIVE Ery/uL (NEGATIVE); COLOR,URINE YELLOW (YELLOW); KETONES,URINE NEGATIVE (NEGATIVE); LEUKOCYTE ESTERASE ,URINE NEGATIVE (NEGATIVE); NITRITE, URINE NEGATIVE (NEGATIVE); PROTEIN,URINE NEGATIVE (NEGATIVE); UGLUCOSE NEGATIVE (NEGATIVE); UROBILINOGEN,URINE 0.2 EU/dL (0.2)
[2023-03-28 21:00] VITALS: BP 135/76; TEMP 97.6; O2SAT 99
[2023-03-28 21:12] LABS: AMPHETAMINE, URINE NEGATIVE (NEGATIVE); BARBITURATE, URINE NEGATIVE (NEGATIVE); CANNABINOID, URINE NEGATIVE (NEGATIVE); COCCAINE, URINE NEGATIVE (NEGATIVE); PHENCYCLIDINE SCREEN,URINE NEGATIVE (NEGATIVE)
[2023-03-28 21:24] LABS: BENZODIAZEPINE, URINE POSITIVE (NEGATIVE); OPIATE, URINE POSITIVE (NEGATIVE)
[2023-03-28] MEDS: VANCOMYCIN 0.75 GM in IV D5W 250 ML IV SCH (22:00)
[2023-03-28] MEDS: IV NS 0.9% 1,000 ML IV PRN (22:37)
[2023-03-28] MEDS: CEFEPIME 1 GM in IV D5W 50 ML IV SCH (22:38)
[2023-03-29] VITALS (16 sets, daily range): BP systolic 111–128; BP diastolic 67–78; TEMP 97.8–99; O2SAT 91–99
[2023-03-29 07:40] LABS: BASOPHILS # (AUTO) 0.1 K/uL (0.0-0.2); BASOPHILS % (AUTO) 0.5 % (0.0-2.0); EOSINOPHILS # (AUTO) 0.3 K/uL (0.0-0.7); EOSINOPHILS % (AUTO) 1.4 % (0.0-6.0); HEMATOCRIT 39 % (33-45); HEMOGLOBIN 11.7 g/dL (11.5-14.8); LYMPHOCYTES # (AUTO) 3.5 K/uL (0.8-4.8); LYMPHOCYTES % (AUTO) 19.1 % (20.0-44.0); MEAN CORPUSCULAR HEMOGLOBIN 32 PG (26.0-33.0); MEAN CORPUSCULAR HGB CONC 30 g/dl (31.0-36.0); MEAN CORPUSCULAR VOLUME 106 fL (82-100); MONOCYTES # (AUTO) 1.2 K/uL (0.1-1.30); MONOCYTES % (AUTO) 6.7 % (2.0-12.0); NEUTROPHILS # (AUTO) 13.1 K/uL (1.8-8.9); NEUTROPHILS % (AUTO) 72.3 % (43.0-81.0); PLATELET COUNT (AUTO) 312 K/uL (150-450); RED BLOOD CELL COUNT(AUTO) 3.71 MIL/uL (4.0-5.2); RED CELL DISTRIBUTION WIDTH 16.3 % (11.5-15.0); WHITE BLOOD COUNT (AUTO) 18.1 K/uL (4.3-11.0)
[2023-03-29 07:41] LABS: CALCIUM, SERUM 7.7 mg/dL (8.5-10.1); CREATININE 0.6 mg/dL (0.6-1.3); MAGNESIUM 2.3 mg/dL (1.8-2.4); PHOSPHORUS 3.2 mg/dL (2.5-4.9); POTASSIUM 3.9 mmol/L (3.5-5.1)
[2023-03-29] MEDS: ALBUTEROL FS 2.5 MG/0.5 ML VIAL.NEB NEB SCH ×10 (07:51→23:27)
[2023-03-29] MEDS: IPRATROPIUM NEB FS 0.5 MG/2.5 ML AMPUL.NEB NEB SCH ×8 (07:51→23:27)
[2023-03-29 08:57] LABS: EOSINOPHILS % (MANUAL) 3 % (0-4); LYMPHOCYTES % (MANUAL) 17 % (16-48); MONOCYTES % (MANUAL) 2 % (0-11.0); NEUTROPHILS % (MANUAL) 78 (42-76); PLATELET ESTIMATE ADEQUATE
[2023-03-29] MEDS: CEFEPIME 1 GM in IV D5W 50 ML IV SCH ×2 (09:17→21:30)
[2023-03-29] MEDS: ENOXAPARIN SODIUM 40 MG/0.4 ML DISP.SYRIN SQ SCH (09:29)
[2023-03-29] MEDS: VANCOMYCIN 0.75 GM in IV D5W 250 ML IV SCH ×2 (10:43→22:38)
[2023-03-29] MEDS: CHOLECALCIFEROL 1,000 UNIT TABLET (VIT D3) PO SCH (11:00)
[2023-03-29] MEDS ORDERED: HYDR-3980 PO (11:24)
[2023-03-29] MEDS: QUETIAPINE FUMARATE 100 MG TABLET PO SCH ×2 (13:00→17:55)
[2023-03-29] MEDS: SERTRALINE HCL 50 MG TABLET PO SCH (17:00)
[2023-03-29] MEDS: PROSOURCE / PROSTAT (PYXIS) 30 ML UDC PO SCH (18:04)
[2023-03-29] MEDS: IV NS 0.9% 1,000 ML IV PRN (21:40)
[2023-03-29] MEDS: LEVETIRACETAM (250 MG) 250 MG TABLET PO SCH (21:58)
[2023-03-30] VITALS (9 sets, daily range): BP systolic 92–125; BP diastolic 55–91; TEMP 97.5–98.4; O2SAT 92–100
[2023-03-30] MEDS: IPRATROPIUM NEB FS 0.5 MG/2.5 ML AMPUL.NEB NEB SCH ×6 (03:04→20:21)
[2023-03-30] MEDS: ALBUTEROL FS 2.5 MG/0.5 ML VIAL.NEB NEB SCH ×6 (03:04→20:21)
[2023-03-30 07:22] LABS: CREATININE 0.6 mg/dL (0.6-1.3); POTASSIUM 2.9 mmol/L (3.5-5.1)
[2023-03-30 07:45] LABS: BASOPHILS % (AUTO) 0.3 % (0.0-2.0); EOSINOPHILS # (AUTO) 0.3 K/uL (0.0-0.7); EOSINOPHILS % (AUTO) 2.2 % (0.0-6.0); HEMATOCRIT 34 % (33-45); HEMOGLOBIN 10.6 g/dL (11.5-14.8); LYMPHOCYTES # (AUTO) 2.8 K/uL (0.8-4.8); MEAN CORPUSCULAR HEMOGLOBIN 31 PG (26.0-33.0); MEAN CORPUSCULAR HGB CONC 32 g/dl (31.0-36.0); MEAN CORPUSCULAR VOLUME 99 fL (82-100); MONOCYTES # (AUTO) 1.1 K/uL (0.1-1.30); MONOCYTES % (AUTO) 7.7 % (2.0-12.0); NEUTROPHILS # (AUTO) 9.7 K/uL (1.8-8.9); NEUTROPHILS % (AUTO) 69.8 % (43.0-81.0); PLATELET COUNT (AUTO) 372 K/uL (150-450); RED BLOOD CELL COUNT(AUTO) 3.39 MIL/uL (4.0-5.2); RED CELL DISTRIBUTION WIDTH 15.3 % (11.5-15.0); WHITE BLOOD COUNT (AUTO) 13.9 K/uL (4.3-11.0)
[2023-03-30] MEDS: CEFEPIME 1 GM in IV D5W 50 ML IV SCH (08:42)
[2023-03-30] MEDS ORDERED: POTASSIUM CHLORIDE 20 MEQ POWDER PACKET PO ONE (09:00)
[2023-03-30] MEDS: QUETIAPINE FUMARATE 100 MG TABLET PO SCH ×3 (09:06→17:00)
[2023-03-30] MEDS: SERTRALINE HCL 50 MG TABLET PO SCH ×2 (09:06→17:00)
[2023-03-30] MEDS: LEVETIRACETAM (250 MG) 250 MG TABLET PO SCH ×2 (09:06→21:13)
[2023-03-30] MEDS: PROSOURCE / PROSTAT (PYXIS) 30 ML UDC PO SCH ×3 (09:08→17:00)
[2023-03-30] MEDS: ENOXAPARIN SODIUM 40 MG/0.4 ML DISP.SYRIN SQ SCH (09:11)
[2023-03-30] MEDS: FLUTICASONE/VILANTEROL 1 EACH BLST.W.DEV IH SCH (09:39)
[2023-03-30] MEDS: VANCOMYCIN 0.75 GM in IV D5W 250 ML IV SCH ×2 (09:51→21:13)
[2023-03-30] MEDS: HYDROCODONE/APAP 5/325MG TABLET PO PRN ×2 (10:10→22:01)
[2023-03-30] MEDS: CHOLECALCIFEROL 1,000 UNIT TABLET (VIT D3) PO SCH (10:10)
[2023-03-30] MEDS ORDERED: POTASSIUM CHLORIDE 20 MEQ POWDER PACKET PO SCH ×2 (13:00→17:00)
[2023-03-30] MEDS: CEFEPIME 2 GM in IV D5W 100 ML IV SCH (17:56)
[2023-03-31] VITALS (12 sets, daily range): BP systolic 106–116; BP diastolic 56–67; TEMP 97.7–98.2; O2SAT 89–99
[2023-03-31] MEDS: ALBUTEROL FS 2.5 MG/0.5 ML VIAL.NEB NEB SCH ×8 (00:31→23:30)
[2023-03-31] MEDS: IPRATROPIUM NEB FS 0.5 MG/2.5 ML AMPUL.NEB NEB SCH ×8 (00:31→23:30)
[2023-03-31] MEDS: CEFEPIME 2 GM in IV D5W 100 ML IV SCH ×3 (01:17→18:58)
[2023-03-31 06:43] LABS: CALCIUM, SERUM 7.7 mg/dL (8.5-10.1); CREATININE 0.5 mg/dL (0.6-1.3); POTASSIUM 3.1 mmol/L (3.5-5.1)
[2023-03-31] MEDS ORDERED: POTASSIUM CHLORIDE 20 MEQ TAB.PRT.SR PO ONE (07:30)
[2023-03-31] MEDS ORDERED: POTASSIUM CHLORIDE 20 MEQ TAB.PRT.SR PO SCH (07:30)
[2023-03-31] MEDS: QUETIAPINE FUMARATE 100 MG TABLET PO SCH ×3 (08:57→18:59)
[2023-03-31] MEDS: LEVETIRACETAM (250 MG) 250 MG TABLET PO SCH ×2 (08:57→21:30)
[2023-03-31] MEDS: SERTRALINE HCL 50 MG TABLET PO SCH ×2 (08:57→18:59)
[2023-03-31] MEDS: PROSOURCE / PROSTAT (PYXIS) 30 ML UDC PO SCH ×3 (08:57→18:58)
[2023-03-31] MEDS: ENOXAPARIN SODIUM 40 MG/0.4 ML DISP.SYRIN SQ SCH (08:58)
[2023-03-31] MEDS: FLUTICASONE/VILANTEROL 1 EACH BLST.W.DEV IH SCH (09:15)
[2023-03-31] MEDS: HYDROCODONE/APAP 5/325MG TABLET PO PRN (09:17)
[2023-03-31] MEDS: VANCOMYCIN 0.75 GM in IV D5W 250 ML IV SCH ×2 (10:48→21:30)
[2023-03-31] MEDS: CHOLECALCIFEROL 1,000 UNIT TABLET (VIT D3) PO SCH (10:49)
[2023-03-31] MEDS: IV NS 0.9% 1,000 ML IV PRN (19:00)
[2023-04-01] VITALS (10 sets, daily range): BP systolic 90–137; BP diastolic 61–72; TEMP 97.1–98.6; O2SAT 90–100
[2023-04-01] MEDS: CEFEPIME 2 GM in IV D5W 100 ML IV SCH ×3 (01:37→17:47)
[2023-04-01] MEDS: HYDROCODONE/APAP 5/325MG TABLET PO PRN ×2 (01:37→08:31)
[2023-04-01] MEDS: ALBUTEROL FS 2.5 MG/0.5 ML VIAL.NEB NEB SCH ×5 (03:30→20:32)
[2023-04-01] MEDS: IPRATROPIUM NEB FS 0.5 MG/2.5 ML AMPUL.NEB NEB SCH ×5 (03:30→20:32)
[2023-04-01 07:51] LABS: CALCIUM, SERUM 7.9 mg/dL (8.5-10.1); CREATININE 0.6 mg/dL (0.6-1.3); POTASSIUM 3.9 mmol/L (3.5-5.1)
[2023-04-01] MEDS: LEVETIRACETAM (250 MG) 250 MG TABLET PO SCH (08:30)
[2023-04-01] MEDS: QUETIAPINE FUMARATE 100 MG TABLET PO SCH ×3 (08:30→17:48)
[2023-04-01] MEDS: SERTRALINE HCL 50 MG TABLET PO SCH ×2 (08:30→17:48)
[2023-04-01] MEDS: ENOXAPARIN SODIUM 40 MG/0.4 ML DISP.SYRIN SQ SCH (08:32)
[2023-04-01] MEDS: PROSOURCE / PROSTAT (PYXIS) 30 ML UDC PO SCH ×3 (08:33→17:00)
[2023-04-01] MEDS: VANCOMYCIN 0.75 GM in IV D5W 250 ML IV SCH ×2 (10:00→10:13)
[2023-04-01] MEDS: CHOLECALCIFEROL 1,000 UNIT TABLET (VIT D3) PO SCH (10:05)
[2023-04-01] MEDS: FLUTICASONE/VILANTEROL 1 EACH BLST.W.DEV IH SCH (10:22)
[2023-04-01] MEDS ORDERED: HYDROCODONE/APAP 10/325MG TABLET PO PRN (14:00)
[2023-04-01] MEDS ORDERED: VANCOMYCIN 500 MG in IV D5W 100ml IV SCH (22:00)
== END 2023-04-01 21:10 | DRG 871 ==
LOC: ER 16:30 → TELE 20:06
PROVIDERS: ADMIT Nurse Practitioner Acute Care; ATTEND Nurse Practitioner Acute Care
DX: A41.9 Sepsis, unspecified organism (principal); G92.8 Other toxic encephalopathy; J15.9 Unspecified bacterial pneumonia; J44.0 Chronic obstructive pulmonary disease with (acute) lower respiratory infection; F33.2 Major depressive disorder, recurrent severe without psychotic features; E44.0 Moderate protein-calorie malnutrition; E78.5 Hyperlipidemia, unspecified; E88.09 Other disorders of plasma-protein metabolism, not elsewhere classified; Z20.822 Contact with and (suspected) exposure to COVID-19; F17.210 Nicotine dependence, cigarettes, uncomplicated; F43.10 Post-traumatic stress disorder, unspecified; G40.909 Epilepsy, unspecified, not intractable, without status epilepticus; G89.29 Other chronic pain; I10 Essential (primary) hypertension; I73.9 Peripheral vascular disease, unspecified; K59.00 Constipation, unspecified; Z82.49 Family history of ischemic heart disease and other diseases of the circulatory system; F41.9 Anxiety disorder, unspecified; Z68.24 Body mass index [BMI] 24.0-24.9, adult; L89.626 Pressure-induced deep tissue damage of left heel; L89.616 Pressure-induced deep tissue damage of right heel; L89.526 Pressure-induced deep tissue damage of left ankle; L89.516 Pressure-induced deep tissue damage of right ankle; L89.611 Pressure ulcer of right heel, stage 1; Z74.01 Bed confinement status; Z79.891 Long term (current) use of opiate analgesic; R53.1 Weakness; Z83.3 Family history of diabetes mellitus; Z79.899 Other long term (current) drug therapy
CPT/HCPCS: 36415; 70450-TC; 71045-TC; 73630-TC; 80048-TC; 80076-TC; 80202-TC; 82140-TC; 82962-TC; 83605-TC; 83735-TC; 84100-TC; 84443-TC; 84484-TC; 85025-TC; 85730-TC; 87040-TC; 87086-TC; 92507-TC; 92521; 92526; 92611-TC; 94799-TC; 97110-TC; 97116-TC; 97530-TC; 97535-TC; A4223; G0378; J0692; J1650; J3370; J7030; J7060

== ENCOUNTER 2025-01-07 13:15 | Outpatient (CLI) | payer MEDICARE, OTHER ==
[~2025-01-07 13:15] MED LIST changes: -ASPI-1420 PO; -CEPH500C2 PO; +GABA300C PO; +HYDR-3980 PO; -IBUP-1957 PO; +PROP10TA10 PO; -QUET400T PO
== END 2025-01-07 23:59 | disposition home or self-care (01) ==
LOC: MRI 13:15
PROVIDERS: ATTEND Internal Medicine
DX: M48.54XA Collapsed vertebra, not elsewhere classified, thoracic region, initial encounter for fracture (principal); M51.369 Other intervertebral disc degeneration, lumbar region without mention of lumbar back pain or lower extremity pain; M48.061 Spinal stenosis, lumbar region without neurogenic claudication; M41.9 Scoliosis, unspecified; M99.53 Intervertebral disc stenosis of neural canal of lumbar region; M25.78 Osteophyte, vertebrae; Z98.890 Other specified postprocedural states
CPT/HCPCS: 72148-TC

== ENCOUNTER 2025-02-21 13:17 | Inpatient (IN) | payer MEDICARE, OTHER ==
[~2025-02-21] VITALS: Ht 157.5 cm; Wt 79.2 kg
[2025-02-21 14:42] LABS: PLATELET COUNT (AUTO) 379 K/uL (150-450); RED BLOOD CELL COUNT(AUTO) 3.76 MIL/uL (4.0-5.2); RED CELL DISTRIBUTION WIDTH 15.6 % (11.5-15.0); WHITE BLOOD COUNT (AUTO) 9.4 K/uL (4.3-11.0)
[2025-02-21 14:51] LABS: CALCIUM, SERUM 9.1 mg/dL (8.5-10.1); CREATININE 1.0 mg/dL (0.6-1.3); SODIUM SERUM 139.0 mmol/L (136-145); UREA NITROGEN, BLOOD 17.0 mg/dL (7-18)
[2025-02-21] MEDS: IPRATROPIUM NEB FS 0.5 MG/2.5 ML AMPUL.NEB NEB ONE (14:55)
[2025-02-21] MEDS: ALBUTEROL FS 2.5 MG/3 ML VIAL.NEB NEB ONE (14:55)
[2025-02-21 14:56] LABS: ASPARTATE AMINOTRANSFERASE 24.0 U/L (15-37); TOTAL PROTEIN, SERUM 7.9 g/dL (6.4-8.2)
[2025-02-21 15:00] VITALS: O2SAT 97
[2025-02-21 15:11] VITALS: O2SAT 100
[2025-02-21] MEDS ORDERED: POTASSIUM CHLORIDE 20 MEQ TAB.PRT.SR PO ONE (15:13)
[2025-02-21] MEDS: POTASSIUM CHLORIDE 20 MEQ TAB.PRT.SR PO ONE (15:25)
[2025-02-21 15:43] LABS: LACTIC ACID 2.0 mmol/L (0.4-2.0)
[2025-02-21] MEDS ORDERED: CEFTRIAXONE 1GM BAG (ER ONLY) 50 ML IV ONE (15:44)
[2025-02-21] MEDS ORDERED: ESOM40CA52 PO (16:01)
[2025-02-21] MEDS ORDERED: CLON1TAB12 PO (16:01)
[2025-02-21] MEDS ORDERED: RIME75TA PO (16:01)
[2025-02-21] MEDS ORDERED: GABA-532 PO (16:01)
[2025-02-21] MEDS ORDERED: LEVE100023 PO (16:01)
[2025-02-21] MEDS: CEFTRIAXONE 1 G in IV D5W 50 ML IV ONE (16:05)
[2025-02-21] MEDS ORDERED: ACETAMINOPHEN 325 MG TABLET PO PRN (16:30)
[2025-02-21] MEDS ORDERED: ALBUTEROL FS 2.5 MG/0.5 ML VIAL.NEB NEB PRN (16:30)
[2025-02-21] MEDS ORDERED: PROPRANOLOL HCL 10 MG TABLET PO PRN (16:30)
[2025-02-21] MEDS ORDERED: ONDANSETRON HCL/PF 4 MG/2 ML VIAL IVP PRN (16:30)
[2025-02-21] MEDS ORDERED: LORAZEPAM INJ 2 MG/ML VIAL IV PRN (16:30)
[2025-02-21 18:00] VITALS: BP 102/61; TEMP 97.5; O2SAT 95
[2025-02-21 18:05] LABS: ABG BASE EXCESS 2.8 mmol/L (-2.0-3.0); ABG OXYGEN SATURATION 89.7 % (94.0-98.0); ABG PCO2 47.9 mmHg (32.0-45.0); ABG PH 7.391 (7.350-7.450); ABG PO2 61.6 mmHg (83.0-108.0); ABG TOTAL HEMOGLOBIN 11.6 G/dL (12.0-16.0); FLOW, BLOOD GAS 3.00 L/min (0.00-30.00); FRACTIONATED INSPIRED OXYGEN 32.0 %; SITE, ABG RIGHT RADIAL
[2025-02-21] MEDS: SERTRALINE HCL 50 MG TABLET PO SCH (18:47)
[2025-02-21] MEDS: ASPIRIN 81 MG TAB.CHEW PO ONE (18:47)
[2025-02-21] MEDS: MORPHINE SULFATE INJ 2 MG/ML DISP.SYRIN IV PRN (18:47)
[2025-02-21] MEDS: QUETIAPINE FUMARATE 100 MG TABLET PO SCH (18:48)
[2025-02-21] MEDS: LEVETIRACETAM (250 MG) 250 MG TABLET PO SCH (18:48)
[2025-02-21 19:49] LABS: LACTIC ACID REFLEX 1.0 mmol/L (0.4-1.9)
[2025-02-21 20:00] VITALS: BP 105/63; TEMP 97.5; O2SAT 97
[2025-02-21] MEDS: LEVOFLOXACIN 750 MG /D5W 150ML 750 MG in PREMIX 1 EA IV SCH (20:11)
[2025-02-21 20:19] VITALS: O2SAT 96
[2025-02-21] MEDS: ALBUTEROL FS 2.5 MG/3 ML VIAL.NEB NEB SCH (20:24)
[2025-02-21] MEDS: IPRATROPIUM NEB FS 0.5 MG/2.5 ML AMPUL.NEB NEB SCH (20:24)
[2025-02-21 20:33] VITALS: O2SAT 100
[2025-02-21] MEDS: TEMAZEPAM 15 MG CAPSULE PO SCH (21:03)
[2025-02-21] MEDS: GABAPENTIN 100 MG CAPSULE PO SCH (21:03)
[2025-02-21] MEDS: HEPARIN SODIUM, PORCINE 5000 UNITS/1 ML VIAL SQ SCH (21:04)
[2025-02-22] VITALS: BP 105/67; TEMP 97.7; O2SAT 95
[2025-02-22 01:10] VITALS: BP 105/67; TEMP 97.7; O2SAT 95
[2025-02-22 04:00] VITALS: BP 109/62; TEMP 98.1; O2SAT 99
[2025-02-22] MEDS: PANTOPRAZOLE 40 MG TABLET.DR PO SCH (06:33)
[2025-02-22 08:00] VITALS: BP 103/68; TEMP 97.7; O2SAT 98
[2025-02-22 08:08] VITALS: O2SAT 96
[2025-02-22] MEDS ORDERED: LEVO750T46 PO ×2 (10:47→14:43)
[2025-02-22] MEDS ORDERED: PRED20TA PO ×2 (10:47→14:43)
== END 2025-02-22 12:05 | disposition home health service (06) | DRG 189 ==
LOC: ER 13:21 → TELE 16:29
PROVIDERS: ADMIT Internal Medicine; ATTEND Internal Medicine
DX: J96.22 Acute and chronic respiratory failure with hypercapnia (principal); G92.8 Other toxic encephalopathy; R53.2 Functional quadriplegia; J44.1 Chronic obstructive pulmonary disease with (acute) exacerbation; I50.32 Chronic diastolic (congestive) heart failure; J96.21 Acute and chronic respiratory failure with hypoxia; R53.1 Weakness; E78.5 Hyperlipidemia, unspecified; E87.6 Hypokalemia; F41.9 Anxiety disorder, unspecified; F32.A Depression, unspecified; G89.29 Other chronic pain; I11.0 Hypertensive heart disease with heart failure; R62.7 Adult failure to thrive; Z87.01 Personal history of pneumonia (recurrent); F17.210 Nicotine dependence, cigarettes, uncomplicated; J84.10 Pulmonary fibrosis, unspecified; F39 Unspecified mood [affective] disorder; Z82.49 Family history of ischemic heart disease and other diseases of the circulatory system; Z68.32 Body mass index [BMI] 32.0-32.9, adult
CPT/HCPCS: 36415; 36600; 70450-TC; 71045-TC; 71250-TC; 73630-TC; 80053-TC; 82248-TC; 82803-TC; 83605-TC; 83735-TC; 84484-TC; 85025-TC; 87040-TC; 87081-TC; 93307-TC; 93971-TC; 94799-TC; A4216; A4223; G0378; J0696; J1644; J1956; J2270; J2919; J7040; J7060

== ENCOUNTER → 2025-05-26 | Outpatient (CLI) | payer MEDICARE, OTHER ==
[~2025-05-26] MED LIST changes: +ESOM40CA52 PO; +GABA-532 PO; -GABA300C PO; +LEVO750T46 PO; +PRED20TA PO; +RIME75TA PO
== END | disposition home or self-care (01) ==
LOC: MSC 14:30
PROVIDERS: ATTEND Internal Medicine
DX: R60.0 Localized edema (principal); I73.9 Peripheral vascular disease, unspecified; J44.9 Chronic obstructive pulmonary disease, unspecified; J96.11 Chronic respiratory failure with hypoxia; Z99.81 Dependence on supplemental oxygen; Z72.0 Tobacco use; Z71.6 Tobacco abuse counseling; G89.29 Other chronic pain; M48.061 Spinal stenosis, lumbar region without neurogenic claudication; S22.089D Unspecified fracture of T11-T12 vertebra, subsequent encounter for fracture with routine healing; E78.1 Pure hyperglyceridemia; E78.5 Hyperlipidemia, unspecified; E03.8 Other specified hypothyroidism; M81.0 Age-related osteoporosis without current pathological fracture; M85.80 Other specified disorders of bone density and structure, unspecified site; I25.10 Atherosclerotic heart disease of native coronary artery without angina pectoris; Z98.61 Coronary angioplasty status